=== PATIENT | male | born 1945 | race Caucasian/White ===

== ENCOUNTER 2022-04-25 05:29 | Observation (INO) ==
--- NOTE | 2022-04-25 05:48 | Emergency Department Note ---
Impression & Plan Dizziness ADMIT ED Provider Note HPI: The patient is a 77-year-old gentleman with history of hypertension, presents the emergency department with a chief complaint of dizziness. Patient states that for the past week he has felt a general sensation of dizziness after he fell in the bathroom and hit his head. Patient states that this seemed to acutely worsened overnight last night, states that he had an episode around 10 PM where he felt short of breath and very anxious, he states this improved and then he slept intermittently for the next 5 or 6 hours, he states when he got up he still felt very dizzy and felt off balance and therefore came to the ED for further assessment. Patient's at the bedside tells me that the patient has not been himself since his fall 1 week ago, he has had some slurred speech, he has been generally dizzy and off balance during this whole time. On arrival here to the ED the patient does exhibit some mild slurred speech which the tells me has been present for the past week, he otherwise does not have any focal deficits, he is otherwise in no acute distress on my initial assessment. ROS: -Neuro: Slurred speech, sensation of dizziness/ataxia status post head injury 1 week ago *10 point review systems was conducted and is otherwise negative unless stated above *Outpatient medications and allergy history reviewed PE: General: Alert, NAD HEENT: Normocephalic, atraumatic Eyes: Extraocular eye movement is intact, no scleral erythema Pulmonary: Clear to auscultation bilaterally, no wheezing Cardio: Regular rate and rhythm GI: Abdomen is soft, nontender : No suprapubic tenderness MSK: No evidence of trauma or malformation of the extremities, no edema Skin: No evidence of rash Neuro: Alert, no focal deficits, there is no ataxia on [id number] testing bilaterally, patient has equal bilateral pc support specialist strength, there is no drift of the upper extremities or lower extremities with testing against gravity Psychiatric: Cooperative residential monitor: - An order was placed for continuous cardiac monitoring - Patient was noted to be in sinus rhythm with rate of 60 EKG: Rate: 66 Rhythm: Sinus rhythm Intervals: SC interval prolonged at 242 ms, otherwise within normal limits ST changes: No ST elevation Time: 0545 NIH STROKE SCALE: 1A: Level of consciousness Alert; keenly responsive 0 1B: Ask month and age Both questions right 0 1C: 'Blink eyes' & 'squeeze hands' Performs both tasks 0 2: Horizontal extraocular movements Normal 0 3: Visual petersen No visual loss 0 4: Facial palsy Normal symmetry 0 5A: Left arm motor drift No drift for 10 seconds 0 5B: Right arm motor drift No drift for 10 seconds 0 6A: Left leg motor drift No drift for 5 seconds 0 6B: Right leg motor drift No drift for 5 seconds 0 7: Limb Ataxia No ataxia 0 8: Sensation Normal; no sensory loss 0 9: Language/aphasia Normal; no aphasia 0 10: Dysarthria Mild-moderate dysarthria: slurring but can be understood +1 11: Extinction/inattention No abnormality 0 TOTAL NIH SCORE = 1 Medical Decision Making: Patient presented to the emergency department with 1 week of dizziness after a fall. Patient states he did hit his head 1 week ago when he fell in his home. Patient states his symptoms seem to have acutely worsened overnight. On arrival here to the ED the patient is hemodynamically stable, he does have some slurred speech with his states has been present for about the past week, he otherwise does not have any focal deficits on arrival. He complains of dizziness but does not display any ataxia on [id number] testing bilaterally. Patient is not considered at tPA candidate given that he has been symptomatic for about 1 week. IV was established, lab work obtained, lab work shows stable hemoglobin, no leukocytosis, no critical electrolyte abnormalities are noted, troponin is negative x1, EKG shows normal sinus rhythm. CT imaging of the head does not show any evidence of any acute intracranial process, CT angiography was obtained that shows some mild stenosis at the origin of the right vertebral artery but otherwise does not show any acute abnormalities or significant stenosis of the carotid arteries bilaterally. On my reassessment the patient remains mildly symptomatic, he is otherwise hemodynamically stable and in no acute distress. He has multiple risk factors for ischemic disease including hypertension and type 2 diabetes as well as obesity. I feel that he should be admitted for MRI and TIA work-up. Case was discussed with the on-call hospitalist service for [facility] and the patient was admitted in stable condition for further management. Diagnosis: 1. Dizziness 2. Slurred speech 3. History of hypertension 4. History of type 2 diabetes 5. Obesity with BMI greater than 35 Disposition: Admission Hermes Centeno DO Emergency Medicine Past Med/Surg History Medical History (Updated 04/25/22 @ 07:24 by Hermes Centeno DO) BPH (benign prostatic hyperplasia) Hypertension Hypothyroidism Infectious hepatitis A CHILD, NO PROBLEMS CURRENTLY Surgical History History of cataract surgery BILATERAL History of colonoscopy Social History Smoking Status: Former smoker Second Hand Exposure: No; Hx Alcohol Use: Yes Alcohol type: beer, wine and hard liquor Hx Substance Use: No Preferred Language: Cuban Communication Ability: Effective Building Specialist Required: No Beliefs That Will Affect Care: None Current Living Situation: Significant Other Feels Safe at Home: Yes Allergies Allergies Allergy/AdvReac Type Severity Reaction Status Date / Time No Known Allergies Allergy Verified 12/30/18 09:14 Home Meds Home Medications Medication Instructions Recorded Confirmed amlodipine 10 mg tablet 10 mg PO DAILY 12/26/18 12/30/18 aspirin 81 mg tablet,delayed 81 mg PO DAILY 12/26/18 12/30/18 release (Tatyana Low Dose Aspirin) labetalol 300 mg tablet 300 mg PO BID 12/26/18 12/30/18 levothyroxine 175 mcg tablet 175 mcg PO DAILY 12/26/18 12/30/18 lisinopril 40 mg tablet 40 mg PO DAILY 12/26/18 12/30/18 tamsulosin 0.4 mg capsule 0.4 mg PO DAILY 12/26/18 12/26/18 Previous Rx's Medication Instructions Recorded oxycodone-acetaminophen 5 mg-325 1 tab PO Q6H PRN pain #20 tabs 12/30/18 mg tablet (Percocet) Results & Data (ED) Vital Signs Vital Signs - 24 hr 04/25/22 05:32 04/25/22 06:16 04/25/22 07:14 Temperature 36.2 C L Temperature Source Temporal Artery Scan Pulse Rate 70 Pulse Rate [Apical] 62 60 Respiratory Rate 18 20 20 Respiratory Effort / Characteristics Non-Labored Spontaneous Respiratory Depth Normal Normal Respiratory Pattern Regular Blood Pressure 150/90 H Blood Pressure [Left Arm] 134/86 134/86 Blood Pressure Mean 110 Blood Pressure Mean [Left Arm] 102 102 Pulse Oximetry 96 95 Oxygen Delivery Method Room Air Sepsis Recent Fever Within 48 Hours No Sepsis New/Unexplained Change in Mental Status N/A Sepsis Action Taken by Nursing No Action Required Laboratory Data Result diagrams: 04/25/22 05:48 04/25/22 05:48 Lab Results 04/25/22 04/25/22 04/25/22 Range/Units 05:48 05:48 05:48 WBC 8.09 (4.8-10.8) K/ul RBC 5.14 (4.63-6.08) M/uL Hgb 15.1 (14.0-18.0) g/dl Hct 43.6 (40.1-51.0) % MCV 84.8 (80.0-100.0) fL MCH 29.4 (25.0-34.0) pg MCHC 34.6 (32.0-36.0) g/dL RDW Std Deviation 47.2 H (36.4-46.3) fL RDW Coeff of Darion 15.3 H (11.5-14.5) % Plt Count 190 (130-400) K/uL MPV 9.7 (9.4-12.4) fL Immature Gran % (Auto) 0.2 % Neut % (Auto) 65.6 % Lymph % (Auto) 24.4 % [place] % (Auto) 6.1 % Eos % (Auto) 3.2 % Baso % (Auto) 0.5 % Neut # (Auto) 5.31 (1.4-6.5) K/uL Lymph # (Auto) 1.97 (1.2-3.4) K/uL [place] # (Auto) 0.49 (0.24-0.82) K/uL Eos # (Auto) 0.26 (0-0.50) K/uL Baso # (Auto) 0.04 (0-0.2) K/uL Immature Gran # (Auto) 0.02 (0.00-0.02) K/uL PT 11.9 (9.0-12.0) Seconds INR 1.1 (0.9-1.1) APTT 32.5 H (21.0-31.0) Seconds PTT Ratio 1.2 Sodium 140 (136-145) mmol/L Potassium 3.7 (3.5-5.1) mmol/L Chloride 104 (98-107) mmol/L Carbon Dioxide 26 (21-32) mmol/L Anion Gap 10 (3-11) BUN 18 (6-23) mg/dl Creatinine 1.69 H (0.6-1.4) mg/dl Est Cr Clr Drug Dosing 44.0 ml/min Est GFR ( Amer) 44.4 ml/min Est GFR (Non-Af Amer) 38.3 ml/min BUN/Creatinine Ratio 10.7 (10-20) Glucose 153 H (70-99(Fasting)) mg/dl POC Glucose (70-99) mg/dl Calcium 9.2 (8.5-10.1) mg/dl Magnesium 1.9 (1.7-2.4) mg/dl Total Bilirubin 0.7 (0.2-1.0) mg/dl AST 85 H (13-39) U/L ALT 77 H (7-52) U/L Alkaline Phosphatase 56 (34-104) U/L Troponin I High Sens 11.8 (0-20) pg/ml Total Protein 7.3 (6.0-8.3) gm/dl Albumin 4.3 (3.4-5.0) gm/dl Globulin 3.0 (2.5-4.0) gm/dl Albumin/Globulin Ratio 1.4 (0.9-2) 04/25/22 Range/Units 05:51 WBC (4.8-10.8) K/ul RBC (4.63-6.08) M/uL Hgb (14.0-18.0) g/dl Hct (40.1-51.0) % MCV (80.0-100.0) fL MCH (25.0-34.0) pg MCHC (32.0-36.0) g/dL RDW Std Deviation (36.4-46.3) fL RDW Coeff of Darion (11.5-14.5) % Plt Count (130-400) K/uL MPV (9.4-12.4) fL Immature Gran % (Auto) % Neut % (Auto) % Lymph % (Auto) % [place] % (Auto) % Eos % (Auto) % Baso % (Auto) % Neut # (Auto) (1.4-6.5) K/uL Lymph # (Auto) (1.2-3.4) K/uL [place] # (Auto) (0.24-0.82) K/uL Eos # (Auto) (0-0.50) K/uL Baso # (Auto) (0-0.2) K/uL Immature Gran # (Auto) (0.00-0.02) K/uL PT (9.0-12.0) Seconds INR (0.9-1.1) APTT (21.0-31.0) Seconds PTT Ratio Sodium (136-145) mmol/L Potassium (3.5-5.1) mmol/L Chloride (98-107) mmol/L Carbon Dioxide (21-32) mmol/L Anion Gap (3-11) BUN (6-23) mg/dl Creatinine (0.6-1.4) mg/dl Est Cr Clr Drug Dosing ml/min Est GFR ( Amer) ml/min Est GFR (Non-Af Amer) ml/min BUN/Creatinine Ratio (10-20) Glucose (70-99(Fasting)) mg/dl POC Glucose 143 H (70-99) mg/dl Calcium (8.5-10.1) mg/dl Magnesium (1.7-2.4) mg/dl Total Bilirubin (0.2-1.0) mg/dl AST (13-39) U/L ALT (7-52) U/L Alkaline Phosphatase (34-104) U/L Troponin I High Sens (0-20) pg/ml Total Protein (6.0-8.3) gm/dl Albumin (3.4-5.0) gm/dl Globulin (2.5-4.0) gm/dl Albumin/Globulin Ratio (0.9-2) Administered Medications Discontinued Medications Sodium Chloride (Nss 1000ml) 500 mls @ 999 mls/hr IV .Q31M ONE Stop: 04/25/22 07:22 Last Admin: 04/25/22 07:06 Dose: 999 mls/hr Documented By: ROSI Ioversol (Optiray 320 125ml) 125 ml IV ONCE ONE Stop: 04/25/22 06:50 Last Admin: 04/25/22 06:49 Dose: 118 ml Documented By: MIRLANDE Imaging Data Radiologist's Impression: Head CT 04/25/22 05:45 CT OF THE HEAD WITHOUT CONTRAST CLINICAL HISTORY: Stroke Like Symptoms COMPARISON STUDY: No previous studies for comparison. TECHNIQUE: Helical axial images of the head were obtained without IV contrast. Automated exposure control was utilized for the study. A dose lowering technique was utilized adhering to the principles of ALARA. FINDINGS: No acute intracranial hemorrhage, midline shift or mass effect is present. Matter hypodensity suggests small vessel disease. Exam mildly compromised by motion artifact. The ventricular system is unremarkable. The basal cisterns are patent. No extra-axial collections are present. There are no findings to suggest acute dural sinus thrombosis or acute territorial infarct. No significant calvarial abnormalities are present. Visualized portions of the sinuses and mastoid air cells are clear. IMPRESSION: No acute intracranial findings. ACT 112: Negative or not required by law. Electronically signed by: Antwan Harrell M.D. 04/25/2022 6:58 AM Head CTA 04/25/22 05:45 HEAD CTA HISTORY: Dizziness. Stroke Like Symptoms TECHNIQUE: Multiaxial CT images of the head were performed following the intravenous administration of contrast to evaluate the major cerebral vessels. Maximum intensity projection images were also obtained. A dose lowering technique was utilized adhering to the principles of ALARA. COMPARISON: None. FINDINGS: There is no mass, hematoma, midline shift, or acute infarct. Visualize d intracranial internal carotid arteries, distal vertebral arteries, and basilar artery are widely patent. There is no significant stenosis, occlusion, or aneurysm seen within the bilateral ACAs, MCAs, or road oiler. 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 The major dural venous sinuses are patent. There is a 2.8 mm infundibulum at the takeoff of the right posterior communicating artery. IMPRESSION: No significant stenosis, occlusion, or aneurysm within the [place] of [place]. ACT 112: Negative or not required by law. Electronically signed by: Moises More M.D. 04/25/2022 7:18 AM Neck CTA 04/25/22 05:45 CT ANGIOGRAPHY OF THE NECK WITH CONTRAST CLINICAL HISTORY: Stroke Like Symptoms COMPARISON STUDY: No previous studies for comparison. Technique: CT angiography of the carotid and vertebral arteries was obtained using Optiray and 3D reconstruction on an independent workstation. NASCET criteria was utilized. Automated exposure control was utilized for the study. A dose lowering technique was utilized adhering to the principles of ALARA. CT DOSE: 1391.40 mGy.cm Findings: Origin of the right vertebral artery is suboptimally assessed on this exam however there is suggestion of mild stenosis due to calcified plaque. The right vertebral artery is dominant. No dissection or stenosis is identified within the left vertebral artery. The bilateral common carotid and cervical internal carotid arteries are patent. There is mild atherosclerotic plaque of the aortic arch. No aneurysm within the neck is noted. Carotid bifurcations are patent. CTA of the head will be reported separately. Small bilateral pleural effusions are noted within visualized portions of the chest. There is no acute cervical spine fracture. IMPRESSION: 1. No stenosis within the bilateral common carotid or cervical internal carotid arteries. 2. Suspected mild stenosis at the origin of the right vertebral artery, suboptimally assessed on this exam. 3. Small bilateral pleural effusions. ACT 112: Negative or not required by law. Electronically signed by: Antwan Harrell M.D. 04/25/2022 7:10 AM Discharge Plan Visit Data Chief Complaint: Stroke/CVA Symptoms Stated Complaint: POSSIBLE MINI STROKE,DISORIENTATION ED Provider: Hermes Centeno Discharge Problem: Dizziness Forms Stand Alone Forms: [facility] Prescriptions Prescriptions: No Action levothyroxine 175 mcg Tablet 175 mcg PO DAILY aspirin [Tatyana Low Dose Aspirin] 81 mg Tablet,Delayed Release (Dr/Ec) 81 mg PO DAILY tamsulosin 0.4 mg Capsule 0.4 mg PO DAILY Label Comments: pt states he has not taken in "awhile" amlodipine 10 mg Tablet 10 mg PO DAILY labetalol 300 mg Tablet 300 mg PO BID lisinopril 40 mg Tablet 40 mg PO DAILY oxycodone-acetaminophen [Percocet] 5-325 mg tablet 1 tab PO Q6H PRN (Reason: pain) Qty: 20 0RF Referrals Referrals: Eliel Hoff DO [Primary Care Provider] -
[2022-04-25 06:04] LABS: Basophils # (auto) 0.04 K/uL (0-0.2); Basophils % (auto) 0.5 %; Eosinophils # (auto) 0.26 K/uL (0-0.50); Eosinophils % (auto) 3.2 %; Hematocrit (blood only) 43.6 % (40.1-51.0); Hemoglobin 15.1 g/dl (14.0-18.0); Immature Granulocytes # (auto) 0.02 K/uL (0.00-0.02); Immature Granulocytes % (auto) 0.2 %; Lymphocytes # (auto) 1.97 K/uL (1.2-3.4); Lymphocytes % (auto) 24.4 %; Mean Corpuscular Hemoglobin 29.4 pg (25.0-34.0); Mean Corpuscular Hgb Conc 34.6 g/dL (32.0-36.0); Mean Corpuscular Volume 84.8 fL (80.0-100.0); Mean Platelet Volume 9.7 fL (9.4-12.4); Monocytes # (auto) 0.49 K/uL (0.24-0.82); Monocytes % (auto) 6.1 %; Neutrophils # (auto) 5.31 K/uL (1.4-6.5); Neutrophils % (auto) 65.6 %; Platelet Count 190 K/uL (130-400); RDW Coefficient of Variation 15.3 % (11.5-14.5); RDW Standard Deviation 47.2 fL (36.4-46.3); Red Blood Count 5.14 M/uL (4.63-6.08); White Blood Count 8.09 K/ul (4.8-10.8)
[2022-04-25 06:23] LABS: INR 1.1 (0.9-1.1); Partial Thromboplastin Ratio 1.2; Partial Thromboplastin Time 32.5 Seconds (21.0-31.0); Prothrombin Time 11.9 Seconds (9.0-12.0)
[2022-04-25 06:33] LABS: Troponin I High Sensitivity 11.8 pg/ml (0-20)
[2022-04-25 06:47] LABS: Albumin Globulin Ratio 1.4 (0.9-2); Albumin Level 4.3 gm/dl (3.4-5.0); BUN Creatinine Ratio 10.7 (10-20); Bilirubin,Total 0.7 mg/dl (0.2-1.0); Calcium 9.2 mg/dl (8.5-10.1); Est GFR (African American) 44.4 ml/min; Est GFR (Non-African American) 38.3 ml/min; Magnesium 1.9 mg/dl (1.7-2.4); Potassium 3.7 mmol/L (3.5-5.1); Total Protein 7.3 gm/dl (6.0-8.3)
[2022-04-25] MEDS ORDERED: OPTIRAY 320 125ml IV ONE (06:49)
[2022-04-25] MEDS ORDERED: SODIUM CHLORIDE 0.9% 1000ML 500 ML IV ONE (06:52)
--- NOTE | 2022-04-25 07:01 | CT Scan Report ---
CT OF THE HEAD WITHOUT CONTRAST CLINICAL HISTORY: Stroke Like Symptoms COMPARISON STUDY: No previous studies for comparison. TECHNIQUE: Helical axial images of the head were obtained without IV contrast. Automated exposure con trol was utilized for the study. A dose lowering technique was utilized adhering to the principles o f ALARA. FINDINGS: No acute intracranial hemorrhage, midline shift or mass effect is present. Matter hypodensi ty suggests small vessel disease. Exam mildly compromised by motion artifact. The ventricular system is unremarkable. The basal cisterns are patent. No extra-axial collections are present. There are no findings to suggest acute dural sinus thrombosis or acute territorial infarct. No significant calvari al abnormalities are present. Visualized portions of the sinuses and mastoid air cells are clear. IMPRESSION: No acute intracranial findings. ACT 112: Negative or not required by law. Electronically signed by: Antwan Harrell M.D. 04/25/2022 6:58 AM
--- NOTE | 2022-04-25 07:12 | CT Scan Report ---
CT ANGIOGRAPHY OF THE NECK WITH CONTRAST CLINICAL HISTORY: Stroke Like Symptoms COMPARISON STUDY: No previous studies for comparison. Technique: CT angiography of the carotid and vertebral arteries was obtained using Optiray and 3D rec onstruction on an independent workstation. NASCET criteria was utilized. Automated exposure control was utilized for the study. A dose lowering technique was utilized adhering to the principles of ALA RA. CT DOSE: 1391.40 mGy.cm Findings: Origin of the right vertebral artery is suboptimally assessed on this exam however there is suggestion of mild stenosis due to calcified plaque. The right vertebral artery is dominant. No diss ection or stenosis is identified within the left vertebral artery. The bilateral common carotid and c ervical internal carotid arteries are patent. There is mild atherosclerotic plaque of the aortic arch . No aneurysm within the neck is noted. Carotid bifurcations are patent. CTA of the head will be repo rted separately. Small bilateral pleural effusions are noted within visualized portions of the chest. There is no acute cervical spine fracture. IMPRESSION: 1. No stenosis within the bilateral common carotid or cervical internal carotid arteries. 2. Suspected mild stenosis at the origin of the right vertebral artery, suboptimally assessed on this exam. 3. Small bilateral pleural effusions. ACT 112: Negative or not required by law. Electronically signed by: Antwan Harrell M.D. 04/25/2022 7:10 AM
--- NOTE | 2022-04-25 07:21 | CT Scan Report ---
HEAD CTA HISTORY: Dizziness. Stroke Like Symptoms TECHNIQUE: Multiaxial CT images of the head were performed following the intravenous administration o f contrast to evaluate the major cerebral vessels. Maximum intensity projection images were also obta ined. A dose lowering technique was utilized adhering to the principles of ALARA. COMPARISON: None. FINDINGS: There is no mass, hematoma, midline shift, or acute infarct. Visualized intracranial internal sales al carotid arteries, distal vertebral arteries, and basilar artery are widely patent. There is no sig nificant stenosis, occlusion, or aneurysm seen within the bilateral ACAs, MCAs, or composite technician. 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 The major dural venous sinu ses are patent. There is a 2.8 mm infundibulum at the takeoff of the right posterior communicating ar majo. IMPRESSION: No significant stenosis, occlusion, or aneurysm within the [place] of [place]. ACT 112: Negative or not required by law. Electronically signed by: Moises More M.D. 04/25/2022 7:18 AM
[2022-04-25] MEDS ORDERED: ASPIRIN CHEW 324 MG PO STA (07:47)
--- NOTE | 2022-04-25 09:44 | XRay Report ---
XR chest 1V portable HISTORY: Dizziness. Stroke Like Symptoms COMPARISON: None. FINDINGS: No pneumothorax. No pleural effusions. The cardiac silhouette is mildly enlarged. There is diffuse interstitial thickening. There are low lung volumes. Mild calcified plaque within the aortic knob. IMPRESSION: 1. Mild diffuse interstitial thickening. This is likely chronic. Superimposed congestive change or an interstitial pneumonitis could also have a similar appearance. 2. Mild cardiomegaly. ACT 112: Negative or not required by law. Electronically signed by: Moises More M.D. 04/25/2022 9:24 AM
[2022-04-25] MEDS ORDERED: FUROSEMIDE 40 MG/4 ML VIAL IV STA (09:49)
--- NOTE | 2022-04-25 10:09 | History & Physical Report ---
Date of Service April 25, 2022 Assessment & Plan (1) Dizziness, nonspecific: (2) CHF exacerbation: (3) Type 2 diabetes mellitus: (4) Hypertension: (5) MAURISIO (acute kidney injury): (6) Elevated LFTs: Plan Patient is a 77-year-old male with past medical history of type 2 diabetes me llitus, hypertension, hypothyroidism, BPH presented to the ED with dizziness for 1 week and progressive shortness of breath for 1 month. 1) Dizziness, non-specific ( Stroke rule out) Multiple episodes since 1 week, no focal deficit. CT head unremarkable. CT angio neck showed suspected mild stenosis at origin of right vertebral artery., CT angio head unremarkable. Multiple risk factor including type 2 diabetes, hyperlipidemia and hypertension for stroke. Plan; Resume aspirin, Lipitor. Allow for permissive hypertension for next 24 hours. Holding antihypertensives Neurology consult Obtain MRI brain without contrast. Telemetry monitoring. Orthostatic blood pressure. Obtain lipid panel, A1c and TSH. PT/OT evaluation; may need assistive device swallow evaluation 2) Acute CHFpEF excerebration Progressive shortness of breath for 1 month with orthopnea. Chest auscultationbilateral crackles up to mid chest Chest x-ray shows vascular congestion and cardiomegaly Last echo on EF of 61%, grade 1 diastolic dysfunction, moderate aortic valve sclerosis without stenosis. Plan; Give 1 dose of Lasix 40 mg IV. Repeat dose based on response. Obtain echo with bubble study. Obtain BNP (obesity's and Age with compounding factor) Strict EDDIE's Daily weights 3) MAURISIO ( possible Cardiorenal/ rule out post-renal) Baseline creatinine of 1.1 in 01/13.Up trended to 1.6 on admission History of BPH Plan; Obtain urine electrolytes, urinalysis; CK total, magnesium, ultrasound renal Monitor renal function daily. 4) Elevated LFT AST/ALT twice the upper limit. Plan; -Monitor daily for now. Further evaluation if continues to be elevated. Continue statin for now; will hold if 3 times upper limit 5) Hypertension Plan; Hold antihypertensives for next 24 hours. Will reintroduce after stroke rule out. 6) Type 2 diabetes mellitus A1c in 01/13 was 7.1. On metformin at home Plan; Glargine 10 units at night with aspart for meals. Hypoglycemia protocol 7) Hyperlipidemia Obtained lipid panel. Resume rosuvastatin 8) Hypothyroidism Obtain TSH. Resume home dose levothyroxine Dietcarb controlled DVTLovenox CODE STATUSDNR/DNI Dispo -pending PT OT eval History of Present Illness Chief Complaint: Dizziness for 1 week Progressive shortness of breath/orthopnea for 1 month Primary Care Provider: Eliel Hoff DO Patient is a 77-year-old male with past medical history of type 2 diabetes mellitus, hyperlipidemia, hypothyroidism, BPH presents to the ED with multiple episodes of dizziness. Patient reports that he has been having intermittent episodes of dizziness since 1 week. The dizziness episodes are intermittent in nature; he denies any exacerbating or relieving factors. Last night, patient felt more dizzy than usual while he was lying down and felt disoriented which prompted him to come to the ED for concern for stroke. He also felt more short of breath at that time. The episode had resolved after his arrival to the hospital. He reports that he is not as stable on his feet recently; had 1 fall a week back as well. He reports no head injury, loss of consciousness, abnormal body movements or bladder/bowel incontinence. He does not use any assistive device for walking. Patient's also reports progressive shortness of breath since last 1 month. The shortness of breath is present on mild exertion. He also reports orthopnea and sleeps in an upright position at night. He denies PND. He acknowledges that he has gained weight as well. He denies chest pain, weakness/numbness of any body part, abdominal pain, fever, chills or any urinary symptoms. Patient reports that he is compliant with his medication. He was diagnosed with hypertension at the age of [age] years old. He recently stopped taking aspirin 3 weeks back as he had undergone procedure by urology. He lives at home with his girlfriend. 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 He quitted smoking 30 years back, socially drinks and denies any other illicit drug use. Allergies Allergy/AdvReac Type Severity Reaction Status Date / Time No Known Allergies Allergy Verified 12/30/18 09:14 Home Medications Medication Instructions Recorded Confirmed Type amlodipine 10 mg tablet 10 mg PO DAILY 04/25/22 04/25/22 History finasteride 5 mg tablet 5 mg PO DAILY 04/25/22 04/25/22 History hydrochlorothiazide 25 mg tablet 25 mg PO DAILY 04/25/22 04/25/22 History labetalol 300 mg tablet 300 mg PO BID 04/25/22 04/25/22 History levothyroxine 175 mcg tablet 175 mcg PO DAILY 04/25/22 04/25/22 History lisinopril 40 mg tablet 40 mg PO DAILY 04/25/22 04/25/22 History metformin 500 mg tablet,extended 500 mg PO DAILY 04/25/22 04/25/22 History release 24 hr rosuvastatin 20 mg tablet 20 mg PO DAILY 04/25/22 04/25/22 History tamsulosin 0.4 mg capsule 0.4 mg PO DAILY 04/25/22 04/25/22 History Past Med/Surg History Medical History (Updated 04/25/22 @ 10:34 by Everton Fields MD) BPH (benign prostatic hyperplasia) Hypertension Hypothyroidism Infectious hepatitis A CHILD, NO PROBLEMS CURRENTLY Surgical History History of cataract surgery BILATERAL History of colonoscopy Family History (Updated 04/25/22 @ 11:02 by Everton Fields MD) Father Stroke Bladder cancer Mother Hypertension Social History Smoking Status: Former smoker Second Hand Exposure: No; Hx Alcohol Use: Yes Alcohol type: beer, wine and hard liquor Hx Substance Use: No Preferred Language: Latvian Communication Ability: Effective Food Safety Scientist Required: No Beliefs That Will Affect Care: None Current Living Situation: Significant Other Feels Safe at Home: Yes Review of Systems Review of Systems: All systems reviewed & are unremarkable except as noted in HPI & below Physical Exam Physical Exam: Constitutional: Obese male, in mild respiratory distress. Sitting up on the bed. AOx3. Head: Normocephalic, Atraumatic Eyes: PERRL, conjunctivae normal, anicteric sclerae ENMT: external ear and nose normal, oropharynx normal Neck: trachea midline, no thyromegaly normal visual inspection Respiratory: Bilateral crackles up to mid chest (left greater than right) Cardiovascular: RRR, no murmur.2+ pitting edema up to knees. Chest: normal inspection of chest Abdomen: normal bowel sounds, soft, nontender, no hepatosplenomegaly Musculoskeletal: no cyanosis or clubbing, extremities motor strength 5/5 Skin: no rashes, warm and dry normal turgor Neurologic: No Nystagmus, PERRL, EOMI, accommodation nl, no face palsy, no dysarthria CN's II-XI intact bilaterally and moves all extremities. Finger nose test normal Psychiatric: A+Ox3, euthymic affect Lymphatic: no cervical or axillary lymphadenopathy : deferred Results & Data Results & Data ([facility]) Vital Signs (Past 12 Hours) Vital Signs Temp Pulse Pulse Resp BP BP Pulse Ox 04/25/22 08:11 60 20 126/90 95 04/25/22 07:14 60 20 134/86 04/25/22 06:16 62 20 134/86 95 04/25/22 05:32 36.2 C L 70 18 150/90 H 96 O2 Del Method 04/25/22 08:11 Room Air 04/25/22 07:14 04/25/22 06:16 Room Air 04/25/22 05:32 Diagnostic Findings Chest X-Ray 04/25/22 05:45 XR chest 1V portable HISTORY: Dizziness. Stroke Like Symptoms COMPARISON: None. FINDINGS: No pneumothorax. No pleural effusions. The cardiac silhouette is mildly enlarged. There is diffuse interstitial thickening. There are low lung volumes. Mild calcified plaque within the aortic knob. IMPRESSION: 1. Mild diffuse interstitial thickening. This is likely chronic. Superimposed congestive change or an interstitial pneumonitis could also have a similar appearance. 2. Mild cardiomegaly. ACT 112: Negative or not required by law. Electronically signed by: Moises More M.D. 04/25/2022 9:[address] 04/25/22 05:45 CT OF THE HEAD WITHOUT CONTRAST CLINICAL HISTORY: Stroke Like Symptoms COMPARISON STUDY: No previous studies for comparison. TECHNIQUE: Helical axial images of the head were obtained without IV contrast. Automated exposure control was utilized for the study. A dose lowering technique was utilized adhering to the principles of ALARA. FINDINGS: No acute intracranial hemorrhage, midline shift or mass effect is present. Matter hypodensity suggests small vessel disease. Exam mildly compromised by motion artifact. The ventricular system is unremarkable. The basal cisterns are patent. No extra-axial collections are present. There are no findings to suggest acute dural sinus thrombosis or acute territorial infarct. No significant calvarial abnormalities are present. Visualized portions of the sinuses and mastoid air cells are clear. IMPRESSION: No acute intracranial findings. ACT 112: Negative or not required by law. Electronically signed by: Antwan Harrell M.D. 04/25/2022 6:58 AM Head CTA 04/25/22 05:45 HEAD CTA HISTORY: Dizziness. Stroke Like Symptoms TECHNIQUE: Multiaxial CT images of the head were performed following the intravenous administration of contrast to evaluate the major cerebral vessels. Maximum intensity projection images were also obtained. A dose lowering technique was utilized adhering to the principles of ALARA. COMPARISON: None. FINDINGS: There is no mass, hematoma, midline shift, or acute infarct. Visualized intracranial internal carotid arteries, distal vertebral arteries, and basilar artery are widely patent. There is no significant stenosis, occlusion, or aneurysm seen within the bilateral ACAs, MCAs, or doughnut icer machine. 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 The major dural venous sinuses are patent. There is a 2.8 mm infundibulum at the takeoff of the right posterior communicating artery. IMPRESSION: No significant stenosis, occlusion, or aneurysm within the [place] of [place]. ACT 112: Negative or not required by law. Electronically signed by: Moises More M.D. 04/25/2022 7:18 AM Neck CTA 04/25/22 05:45 CT ANGIOGRAPHY OF THE NECK WITH CONTRAST CLINICAL HISTORY: Stroke Like Symptoms COMPARISON STUDY: No previous studies for comparison. Technique: CT angiography of the carotid and vertebral arteries was obtained using Optiray and 3D reconstruction on an independent workstation. NASCET criteria was utilized. Automated exposure control was utilized for the study. A dose lowering technique was utilized adhering to the principles of ALARA. CT DOSE: 1391.40 mGy.cm Findings: Origin of the right vertebral artery is suboptimally assessed on this exam however there is suggestion of mild stenosis due to calcified plaque. The right vertebral artery is dominant. No dissection or stenosis is identified within the left vertebral artery. The bilateral common carotid and cervical internal carotid arteries are patent. There is mild atherosclerotic plaque of the aortic arch. No aneurysm within the neck is noted. Carotid bifurcations are patent. CTA of the head will be reported separately. Small bilateral pleural effusions are noted within visualized portions of the chest. There is no acute cervical spine fracture. IMPRESSION: 1. No stenosis within the bilateral common carotid or cervical internal carotid arteries. 2. Suspected mild stenosis at the origin of the right vertebral artery, suboptimally assessed on this exam. 3. Small bilateral pleural effusions. ACT 112: Negative or not required by law. Electronically signed by: Antwan Harrell M.D. 04/25/2022 7:10 AM Medications Administered Medication List Discontinued Medications Aspirin (Aspirin Chew 324 Mg) 324 mg PO NOW STA Stop: 04/25/22 07:48 Last Admin: 04/25/22 07:53 Dose: 324 mg Documented By: ROSI Sodium Chloride (Nss 1000ml) 500 mls @ 999 mls/hr IV .Q31M ONE Stop: 04/25/22 07:22 Last Infusion: 04/25/22 07:38 Dose: 0 mls/hr Documented By: Admin: 04/25/22 07:06 Dose: 999 mls/hr Documented By: ROSI Ioversol (Optiray 320 125ml) 125 ml IV ONCE ONE Stop: 04/25/22 06:50 Last Admin: 04/25/22 06:49 Dose: 118 ml Documented By: MIRLANDE ECG Additional Comments: Sinus rhythm with first-degree AV block, ventricular rate 66 bpm, QTC -482 COVID-19 Results Results COVID-19 Adm Lab Results: RBC 5.14 M/uL (4.63-6.08) 04/25/22 WBC 8.09 K/ul (4.8-10.8) 04/25/22 Hgb 15.1 g/dl (14.0-18.0) 04/25/22 Hct 43.6 % (40.1-51.0) 04/25/22 Plt Count 190 K/uL (130-400) 04/25/22 Neutrophils (%) (Auto) 65.6 % 04/25/22 Lymphocytes (%) (Auto) 24.4 % 04/25/22 Monocytes # (Auto) 0.49 K/uL (0.24-0.82) 04/25/22 Eosinophils # (Auto) 0.26 K/uL (0-0.50) 04/25/22 Immature Granulocyte % (Auto) 0.2 % 04/25/22 Neutrophils # (Auto) 5.31 K/uL (1.4-6.5) 04/25/22 Lymphocytes # (Auto) 1.97 K/uL (1.2-3.4) 04/25/22 Monocytes # (Auto) 0.49 K/uL (0.24-0.82) 04/25/22 Eosinophils # (Auto) 0.26 K/uL (0-0.50) 04/25/22 Basophils # (Auto) 0.04 K/uL (0-0.2) 04/25/22 Immature Granulocyte # (Auto) 0.02 K/uL (0.00-0.02) 2 Na 140 mmol/L (136-145) 04/25/22 K 3.7 mmol/L (3.5-5.1) 04/25/22 Cl 104 mmol/L (98-107) 04/25/22 CO2 26 mmol/L (21-32) 04/25/22 Anion Gap 10 (3-11) 04/25/22 BUN 18 mg/dl (6-23) 04/25/22 Creatinine 1.69 mg/dl (0.6-1.4) H 04/25/22 BUN/Creatinine Ratio 10.7 (10-20) 04/25/22 Glucose Level 153 mg/dl (70-99(Fasting)) H 04/25/22 Ca 9.2 mg/dl (8.5-10.1) 04/25/22 Total Bilirubin 0.7 mg/dl (0.2-1.0) 04/25/22 AST/SGOT 85 U/L (13-39) H 04/25/22 ALT/SGPT 77 U/L (7-52) H 04/25/22 Alkaline Phosphatase 56 U/L (34-104) 04/25/22 Total Protein 7.3 gm/dl (6.0-8.3) 04/25/22 Albumin 4.3 gm/dl (3.4-5.0) 04/25/22 Globulin 3.0 gm/dl (2.5-4.0) 04/25/22 Albumin/Globulin Ratio 1.4 (0.9-2) 04/25/22 PTT 32.5 Seconds (21.0-31.0) H 04/25/22 INR 1.1 (0.9-1.1) 04/25/22 SARS-CoV-2, RNA, NAAT NEGATIVE (NEGATIVE) 04/25/22 Chest X-Ray 04/25/22 Code Status & VTE Plan Code Status DNR/DNI VTE Prophylaxis Plan VTE Prophylaxis will be ordered: Yes
--- NOTE | 2022-04-25 11:52 | Electrocardiogram Report ---
Test Reason : Blood Pressure : / mmHG Vent. Rate : 066 BPM Atrial Rate : 066 BPM P-R Int : 242 ms QRS Dur : 104 ms QT Int : 460 ms P-R-T Axes : 077 118 090 degrees QTc Int : 482 ms Poor data quality, interpretation may be adversely affected Sinus rhythm with 1st degree A-V block Low voltage QRS Left posterior fascicular block Nonspecific ST abnormality Abnormal ECG No previous ECGs available Confirmed by Mohan Rueda ([id number]) on 04/25/2022 11:51:57 AM Referred By: REFERRED SELF Confirmed By:Rual Rueda
--- NOTE | 2022-04-25 11:57 | Magnetic Resonance Report ---
MR brain wo con HISTORY: 77 years-old Male Dizziness, stroke rule out acute dizziness COMPARISON: Head CT of same day TECHNIQUE: Multiplanar multisequence MRI of the brain was obtained without the use of IV contrast. FINDINGS: There is no restricted diffusion to suggest acute or subacute infarct. Midline structures appear unre markable. Degenerative changes of the imaged cervical spine. No acute intracranial hemorrhage, midlin e shift, abnormal extra axial collection, hydrocephalus or intracranial mass. There is no pathologic blooming artifact. Involutional changes. Mild to moderate T2/FLAIR hyperintense foci throughout the w sandrita matter suggest chronic microvascular ischemic disease. The cerebral venous sinuses and major arterial flow voids appear patent. Mastoid air cells are genera lly clear. Mild mucosal thickening of the paranasal sinuses. The skull and soft tissues are unremarka ble. Prior bilateral lens repair. IMPRESSION: 1. No acute intracranial abnormality. No acute or subacute infarct. 2. Involutional changes with chronic microvascular ischemic disease. ACT 112: Negative or not required by law. The above report was generated using voice recognition software. It may contain grammatical, syntax o r spelling errors. Electronically signed by: Noe Kat M.D. 04/25/2022 11:56 AM
[2022-04-25] MEDS ORDERED: POLYETHYLENE (MIRALAX) 17 GM PACK PO PRN (12:30)
[2022-04-25] MEDS ORDERED: GLUCOSE 40% GEL 15 GM TUBE PO PRN (12:30)
[2022-04-25] MEDS ORDERED: GLUCOSE 10 TAB/TUBE PO PRN (12:30)
[2022-04-25] MEDS ORDERED: ACETAMINOPHEN 325 MG TAB PO PRN (12:30)
[2022-04-25] MEDS ORDERED: DEXTROSE 50% 50 ML SYRINGE IV PRN (12:30)
[2022-04-25] MEDS ORDERED: CARBOHYDRATES FOR HYPOGLYCEMIA PO PRN (12:30)
[2022-04-25] MEDS ORDERED: GLUCAGON FOR INJ 1 MG VIAL SQ PRN (12:30)
[2022-04-25] MEDS ORDERED: PHARMACIST DISCHARGE MED REC CONSULT PRN (12:30)
--- NOTE | 2022-04-25 12:31 | Ultrasound Report ---
RENAL ULTRASOUND CLINICAL HISTORY: MAURISIO, Hx of BPH COMPARISON STUDY: None. TECHNIQUE: Sonography of the kidneys and the urinary bladder was performed. FINDINGS: Right kidney measures 11.6 x 6.6 x 7.7 cm and the left measures 12.1 x 5 x 6.2 cm. There is no hydronephrosis. Several right renal cysts measure up to 3.5 cm. A few small left renal lesions ar e difficult to assess given their small size and suboptimal penetration. Renal echogenicity is increa sed. Both ureteral jets were identified. Incidental note is made of a 2.5 cm hepatic cyst. Hepatic ec hogenicity is increased. IMPRESSION: 1. No hydronephrosis. 2. Increased renal echogenicity suggestive of medical renal disease. ACT 112: Negative or not required by law. Electronically signed by: Antwan Harrell M.D. 04/25/2022 12:29 PM
[2022-04-25 13:25] LABS: Appearance Urine Clear (Clear); Bilirubin Urine Negative (Negative); Blood Urine Negative (Negative); Color Urine Yellow; Glucose Urine UA Negative (Negative); Ketones Urine Negative (Negative); Leukocyte Esterase Urine Negative (Negative); Nitrite Urine Negative (Negative); Protein Urine Negative (Negative); Specific Gravity Urine 1.014 (1.000-1.030); Urobilinogen Urine Negative (Negative)
[2022-04-25 14:11] LABS: Urine Potassium 23.4 mmol/L
[2022-04-25] MEDS: INSULIN ASPART PER UNIT SC SCH ×3 (14:42→21:52)
[2022-04-25] MEDS: ENOXAPARIN INJ 40 MG/0.4 ML SYR SQ SCH (14:44)
[2022-04-25] MEDS ORDERED: LANTUS PER UNIT CHARGE SQ SCH (21:00)
--- NOTE | 2022-04-26 02:51 | Consultation Report ---
NEUROLOGY CONSULTATION NOTE DATE OF CONSULTATION: 04/25/2022. CHIEF COMPLAINT: Episode of disorientation, dizziness, shortness of breath. HISTORY OF PRESENT ILLNESS: A 77-year-old male with a history of type 2 diabetes, well controlled, hyperlipidemia, hypothyroidism, admitted with an episode, which he describes as feeling disoriented, dizzy and short of breath. Symptoms occurred early this morning upon awakening. He denies vertigo or room spinning. He denies trouble speaking or numbness or weakness. He woke and felt short of breath as well as he was disoriented. He then stood to go use the restroom and felt dizzy upon standing. Dizziness has since resolved. Dizziness was not present while lying down. He reports feeling fine now, although feeling tired. He does typically take aspirin daily, although it was recently held due to a surgical procedure. He has no prior history of stroke. Neurology was consulted for dizziness evaluation. ALLERGIES: No known drug allergies. HOME MEDICATIONS: Amlodipine, hydrochlorothiazide, labetalol, Synthroid, lisinopril, metformin, Crestor, aspirin 81 mg daily, tamsulosin. PAST MEDICAL HISTORY: Benign prostatic hyperplasia, hypertension, hypothyroidism, obesity. PAST SURGICAL HISTORY: Cataract surgery on both eyes, history of colonoscopy, recent urological procedure. FAMILY HISTORY: His father had stroke and bladder cancer. Mother had hypertension. SOCIAL HISTORY: He is a former smoker. He does drink alcohol, including beer, wine and hard liquor. He has no recent substance use. He lives with his significant other at home. REVIEW OF SYSTEMS: Positive for shortness of breath, disorientation, dizziness. All other review of systems was negative. PHYSICAL EXAMINATION: VITAL SIGNS: Blood pressure 124/84, pulse is 75, respiratory rate is 26, temperature is 36.5 degrees Celsius, oxygen saturations 91% on room air. GENERAL: The patient appears stated age. He is obese. He appears in no acute distress. HEENT: Atraumatic, normocephalic. Eyes are midline. No ptosis. Conjunctivae are normal. LUNGS: Breathing is nonlabored. CARDIAC: Pulses are intact. ABDOMEN: Nontender. SKIN: No skin rash. His mood is normal. NEUROLOGIC: He is awake, alert, oriented to person, place, and time. His extraocular muscles are intact. Pupils are symmetric. Eyes are midline. Face is symmetric. Speech is clear. He is following commands. No aphasia, no nystagmus. Tongue is midline. He has no tremor, no ataxia with [id number] testing. Sensation is intact to light touch. No muscle weakness. Toes are downgoing. DIAGNOSTIC TESTING AND LABORATORY VALUES: Transthoracic echocardiogram showed an ejection fraction of 70%, small pericardial effusion. No evidence of cardiac tamponade. Right ventricle is normal in size. Left ventricle is normal in size. MRI of the brain showed no acute intracranial abnormality. No evidence of acute ischemic stroke, chronic microvascular ischemic changes. Head and neck CTA showed no high-grade stenosis. No large vessel occlusion. Chest x-ray showed mild diffuse interstitial thickening, likely chronic, mild cardiomegaly. Renal ultrasound showed no hydronephrosis, increased renal echogenicity suggestive of medical renal disease. LABS: WBC 8.09, hemoglobin 15.1, platelet count 190. Sodium 140, potassium 3.7, carbon dioxide 26, BUN is 18, creatinine 1.69, glucose 153, AST 85, ALT 77. BNP was 16. Troponin was 11.8, which was within normal limits. Urinalysis showed no evidence of infection. COVID-19 testing was negative. ASSESSMENT AND PLAN: A 77-year-old male with a history of obesity, type 2 diabetes, hyperlipidemia, admitted with acute congestive heart failure/acute kidney injury. Description of the event this morning including disorientation and shortness of breath associated with dizziness upon standing, likely related to acute congestive heart failure Vs orthostasis. He denied any vertigo or ataxia. I do not believe this patient had a TIA. MRI of the brain as well as CTA of the head and neck were reviewed without any evidence of acute intracranial abnormality. No high-grade stenosis. No evidence of acute ischemic stroke or hemorrhage. Discussed with the patient and would recommend to continue home aspirin 81 mg daily when safe after post-surgical procedure. Otherwise, the patient can follow up with his PCP upon discharge. Neurology will sign off for now. Please contact us with any additional questions or concerns. Job ID: [id number] [facility]
[2022-04-26] MEDS ORDERED: LEVOTHYROXINE SODIUM 175 MCG TABLET PO SCH (06:30)
[2022-04-26 07:49] LABS: Basophils # (auto) 0.05 K/uL (0-0.2); Basophils % (auto) 0.6 %; Eosinophils # (auto) 0.22 K/uL (0-0.50); Eosinophils % (auto) 2.8 %; Hematocrit (blood only) 41.9 % (40.1-51.0); Hemoglobin 14.5 g/dl (14.0-18.0); Immature Granulocytes # (auto) 0.03 K/uL (0.00-0.02); Immature Granulocytes % (auto) 0.4 %; Lymphocytes # (auto) 1.88 K/uL (1.2-3.4); Lymphocytes % (auto) 24.1 %; Mean Corpuscular Hemoglobin 28.9 pg (25.0-34.0); Mean Corpuscular Hgb Conc 34.6 g/dL (32.0-36.0); Mean Corpuscular Volume 83.5 fL (80.0-100.0); Mean Platelet Volume 10.1 fL (9.4-12.4); Monocytes # (auto) 0.59 K/uL (0.24-0.82); Monocytes % (auto) 7.6 %; Neutrophils # (auto) 5.04 K/uL (1.4-6.5); Neutrophils % (auto) 64.5 %; Platelet Count 191 K/uL (130-400); RDW Coefficient of Variation 15.5 % (11.5-14.5); RDW Standard Deviation 46.6 fL (36.4-46.3); Red Blood Count 5.02 M/uL (4.63-6.08); White Blood Count 7.81 K/ul (4.8-10.8)
[2022-04-26 08:23] LABS: BUN Creatinine Ratio 11.3 (10-20); Calcium 8.6 mg/dl (8.5-10.1); Creatinine Clr Calc Pharmacy 52.3 ml/min; Est GFR (African American) 47.8 ml/min; Est GFR (Non-African American) 41.3 ml/min; Potassium 3.2 mmol/L (3.5-5.1)
--- NOTE | 2022-04-26 08:30 | Hospitalist Progress Note ---
Date of Service April 26, 2022 Assessment & Plan (1) Dizziness, nonspecific: (2) CHF exacerbation: (3) Type 2 diabetes mellitus: (4) Hypertension: (5) MAURISIO (acute kidney injury): (6) Elevated LFTs: Plan Patient is a 77-year-old male with past medical history of type 2 diabetes m ellitus, hypertension, hypothyroidism, BPH presented to the ED with dizziness for 1 week and progressive shortness of breath for 1 month. 1) Dizziness, non-specific ( Stroke ruled out) Multiple episodes since 1 week, no focal deficit. CT head unremarkable. CT angio neck showed suspected mild stenosis at origin of right vertebral artery., CT angio head unremarkable. Multiple risk factor including type 2 diabetes, hyperlipidemia and hypertension for stroke. Brain MRI - negative for any acute stroke Neurology consulted -no concern for TIA, however recommends to continue aspirin daily a1c 7.9% - follow up w/ PCP LDL 38 - cont. statin PT/OT evaluation; may need assistive device , swallow evaluation TSH elevated over 100 -discussed with the patient, he was unable to take his levothyroxine for several days, he says at least 5 He also does not take it on empty stomach, with no other food Counseled patient to make sure that he does not eat any food for at least 30 minutes after taking the medication. He reports that now he has medication at home and he can continue taking this at home. He is eager to be discharged home, he will need close follow-up with his PCP. 8) Hypothyroidism TSH. Resume home dose levothyroxine TSH elevated over 100 -discussed with the patient, he was unable to take his levothyroxine for several days, he says at least 5 He also does not take it on empty stomach, with no other food Counseled patient to make sure that he does not eat any food for at least 30 minutes after taking the medication. He reports that now he has medication at home and he can continue taking this at home. He is eager to be discharged home, he will need close follow-up with his PCP. 2) Acute CHFpEF excerebration Progressive shortness of breath for 1 month with orthopnea. Chest auscultationbilateral crackles up to mid chest Chest x-ray shows vascular congestion and cardiomegaly Last echo on EF of 61%, grade 1 diastolic dysfunction, moderate aortic valve sclerosis without stenosis. Plan; Give 1 dose of Lasix 40 mg IV. Repeat dose based on response. Obtain echo with bubble study. Obtain BNP (obesity's and Age with compounding factor) Strict EDDIE's Daily weights 3) MAURISIO ( possible Cardiorenal/ rule out post-renal) Baseline creatinine of 1.1 in 01/13.Up trended to 1.6 on admission History of BPH renal US 1. No hydronephrosis. 2. Increased renal echogenicity suggestive of medical renal disease. Cr improved today - will need close outpt follow up 4) Elevated LFT AST/ALT twice the upper limit. No pain at RUQ Follow up as outpt - to ensure downtrending Continue statin for now; will hold if 3 times upper limit 5) Hypertension Resume home meds on DC 6) Type 2 diabetes mellitus A1c in 01/13 was 7.1. On metformin at home Current 7.9% - follow up with PCP 7) Hyperlipidemia Obtained lipid panel. Resume rosuvastatin as above LDL 38 Dietcarb controlled DVTLovenox CODE STATUSDNR/DNI Dispo -plan to DC home Admission and Anticipated Discharge Date Admission Date: April 25, 2022 Subjective Patient seen in follow-up of dizziness, stroke rule out Currently sitting up in bed in NAD Brain imaging negative for stroke, patient also seen by neurology yesterday Reports feeling much better, denies any dizziness, or difficulty with ambulation He is eager to go home No fevers, chills, chest pain, palpitations, shortness of breath Review of Systems Review of Systems: All systems reviewed & are unremarkable except as noted in Subjective Physical Exam Physical Exam: Constitutional: Obese male, AOx3, in NAD Head: Normocephalic, Atraumatic Eyes: PERRL, EOMI, conjunctivae normal, anicteric sclerae ENMT: external ear and nose normal, oropharynx normal Neck: thick Respiratory:CTAB, no wheezing, minimal crackles at left base Cardiovascular: RRR, no murmur, LE min. edema b/l Chest: normal inspection of chest Abdomen: normal bowel sounds, soft, nontender Musculoskeletal: extremities motor strength 5/5 Skin: no rashes, warm and dry normal turgor Neurologic: PERRL, EOMI, no face palsy, no dysarthria, moves all extremities Psychiatric: A+Ox3, euthymic affect Results & Data Results & Data ([facility]) Vital Signs (Past 12 Hours) Vital Signs Temp Pulse Pulse Resp BP BP Pulse Ox 04/26/22 08:00 36.7 C 68 18 127/61 100 04/26/22 04:53 36.6 C 71 20 151/95 H 94 04/25/22 23:15 36.4 C L 62 20 134/84 94 04/25/22 23:00 68 O2 Del Method 04/26/22 08:00 04/26/22 04:53 Room Air 04/25/22 23:15 Room Air 04/25/22 23:00 Laboratory Results 04/26/22 04/26/22 04/26/22 Range/Units 11:15 07:42 06:50 WBC (4.8-10.8) K/ul RBC (4.63-6.08) M/uL Hgb (14.0-18.0) g/dl Hct (40.1-51.0) % MCV (80.0-100.0) fL MCH (25.0-34.0) pg MCHC (32.0-36.0) g/dL RDW Std Deviation (36.4-46.3) fL RDW Coeff of Darion (11.5-14.5) % Plt Count (130-400) K/uL MPV (9.4-12.4) fL Immature Gran % (Auto) % Neut % (Auto) % Lymph % (Auto) % Callahan % (Auto) % Eos % (Auto) % Baso % (Auto) % Neut # (Auto) (1.4-6.5) K/uL Lymph # (Auto) (1.2-3.4) K/uL Callahan # (Auto) (0.24-0.82) K/uL Eos # (Auto) (0-0.50) K/uL Baso # (Auto) (0-0.2) K/uL Immature Gran # (Auto) (0.00-0.02) K/uL Sodium (136-145) mmol/L Potassium (3.5-5.1) mmol/L Chloride (98-107) mmol/L Carbon Dioxide (21-32) mmol/L Anion Gap (3-11) BUN (6-23) mg/dl Creatinine (0.6-1.4) mg/dl Est Cr Clr Drug Dosing ml/min Est GFR ( Amer) ml/min Est GFR (Non-Af Amer) ml/min BUN/Creatinine Ratio (10-20) Glucose (70-99(Fasting)) mg/dl POC Glucose 174 H 138 H (70-99) mg/dl Estimat Average Glucose mg/dl Hemoglobin A1c (4.5-5.6) % Calcium (8.5-10.1) mg/dl Triglycerides (0-150) mg/dl Cholesterol (0-200) mg/dl LDL Cholesterol, Calc mg/dl VLDL Cholesterol, Calc (0-30) mg/dl HDL Cholesterol mg/dl Cholesterol/HDL Ratio (0-5) Procalcitonin 0.05 (0-0.5) ng/ml TSH (0.300-4.500) uIu/ml 04/26/22 04/26/22 04/26/22 Range/Units 06:50 06:50 06:50 WBC (4.8-10.8) K/ul RBC (4.63-6.08) M/uL Hgb (14.0-18.0) g/dl Hct (40.1-51.0) % MCV (80.0-100.0) fL MCH (25.0-34.0) pg MCHC (32.0-36.0) g/dL RDW Std Deviation (36.4-46.3) fL RDW Coeff of Darion (11.5-14.5) % Plt Count (130-400) K/uL MPV (9.4-12.4) fL Immature Gran % (Auto) % Neut % (Auto) % Lymph % (Auto) % Callahan % (Auto) % Eos % (Auto) % Baso % (Auto) % Neut # (Auto) (1.4-6.5) K/uL Lymph # (Auto) (1.2-3.4) K/uL Callahan # (Auto) (0.24-0.82) K/uL Eos # (Auto) (0-0.50) K/uL Baso # (Auto) (0-0.2) K/uL Immature Gran # (Auto) (0.00-0.02) K/uL Sodium 138 (136-145) mmol/L Potassium 3.2 L (3.5-5.1) mmol/L Chloride 104 (98-107) mmol/L Carbon Dioxide 26 (21-32) mmol/L Anion Gap 8 (3-11) BUN 18 (6-23) mg/dl Creatinine 1.59 H (0.6-1.4) mg/dl Est Cr Clr Drug Dosing 52.3 ml/min Est GFR ( Amer) 47.8 ml/min Est GFR (Non-Af Amer) 41.3 ml/min BUN/Creatinine Ratio 11.3 (10-20) Glucose 132 H (70-99(Fasting)) mg/dl POC Glucose (70-99) mg/dl Estimat Average Glucose 180 mg/dl Hemoglobin A1c 7.9 H (4.5-5.6) % Calcium 8.6 (8.5-10.1) mg/dl Triglycerides 121 (0-150) mg/dl Cholesterol 125 (0-200) mg/dl LDL Cholesterol, Calc 38 mg/dl VLDL Cholesterol, Calc 24 (0-30) mg/dl HDL Cholesterol 63 mg/dl Cholesterol/HDL Ratio 2.0 (0-5) Procalcitonin (0-0.5) ng/ml TSH 101.540 H (0.300-4.500) uIu/ml 04/26/22 04/25/22 04/25/22 Range/Units 06:50 20:28 16:32 WBC 7.81 (4.8-10.8) K/ul RBC 5.02 (4.63-6.08) M/uL Hgb 14.5 (14.0-18.0) g/dl Hct 41.9 (40.1-51.0) % MCV 83.5 (80.0-100.0) fL MCH 28.9 (25.0-34.0) pg MCHC 34.6 (32.0-36.0) g/dL RDW Std Deviation 46.6 H (36.4-46.3) fL RDW Coeff of Darion 15.5 H (11.5-14.5) % Plt Count 191 (130-400) K/uL MPV 10.1 (9.4-12.4) fL Immature Gran % (Auto) 0.4 % Neut % (Auto) 64.5 % Lymph % (Auto) 24.1 % Callahan % (Auto) 7.6 % Eos % (Auto) 2.8 % Baso % (Auto) 0.6 % Neut # (Auto) 5.04 (1.4-6.5) K/uL Lymph # (Auto) 1.88 (1.2-3.4) K/uL Callahan # (Auto) 0.59 (0.24-0.82) K/uL Eos # (Auto) 0.22 (0-0.50) K/uL Baso # (Auto) 0.05 (0-0.2) K/uL Immature Gran # (Auto) 0.03 H (0.00-0.02) K/uL Sodium (136-145) mmol/L Potassium (3.5-5.1) mmol/L Chloride (98-107) mmol/L Carbon Dioxide (21-32) mmol/L Anion Gap (3-11) BUN (6-23) mg/dl Creatinine (0.6-1.4) mg/dl Est Cr Clr Drug Dosing ml/min Est GFR ( Amer) ml/min Est GFR (Non-Af Amer) ml/min BUN/Creatinine Ratio (10-20) Glucose (70-99(Fasting)) mg/dl POC Glucose 111 H 142 H (70-99) mg/dl Estimat Average Glucose mg/dl Hemoglobin A1c (4.5-5.6) % Calcium (8.5-10.1) mg/dl Triglycerides (0-150) mg/dl Cholesterol (0-200) mg/dl LDL Cholesterol, Calc mg/dl VLDL Cholesterol, Calc (0-30) mg/dl HDL Cholesterol mg/dl Cholesterol/HDL Ratio (0-5) Procalcitonin (0-0.5) ng/ml TSH (0.300-4.500) uIu/ml Medications Administered Current Inpatient Medications Acetaminophen (Acetaminophen 325 Mg Tab) 650 mg PO Q4H PRN PRN Reason: Pain or Fever Stop: 05/25/22 12:29 Aspirin (Aspirin 81 Mg Ectab) 81 mg PO QAM [facility] Stop: 05/26/22 08:59 Dextrose (Dextrose 50% 50 Ml Syringe) 25 - 50 ml IV UD PRN; Protocol PRN Reason: Hypoglycemia Protocol Stop: 05/25/22 12:29 Enoxaparin Sodium (Enoxaparin Inj 40 Mg/0.4 Ml Syr) 40 mg SQ Q24H PRIMO Stop: 05/25/22 12:59 Last Admin: 04/25/22 14:44 Dose: 40 mg Finasteride (Finasteride 5 Mg Tab) 5 mg PO DAILY PRIMO Stop: 05/26/22 08:59 Glucagon (Glucagon For Inj 1 Mg Vial) 1 mg SQ UD PRN; Protocol PRN Reason: Hypoglycemia Protocol Stop: 05/25/22 12:29 Glucose (Glucose 40% Gel 15 Gm Tube) 15 - 30 gm PO UD PRN; Protocol PRN Reason: Hypoglycemia Protocol Stop: 05/25/22 12:29 Glucose (Glucose 10 Tab/Tube) 4 - 8 tab PO UD PRN; Protocol PRN Reason: Hypoglycemia Treatment Stop: 05/25/22 12:29 Insulin Aspart (Insulin Aspart Per Unit) 0 units SC ACHS PRIMO Stop: 05/25/22 12:29 Last Admin: 04/25/22 21:52 Dose: Not Given Insulin Glargine (Lantus Per Unit Charge) 0 - 10 units SQ HS PRIMO Stop: 05/25/22 20:59 Last Admin: 04/25/22 21:53 Dose: Not Given Levothyroxine Sodium (Levothyroxine Sodium 175 Mcg Tablet) 175 mcg PO DAILYBB PRIMO Stop: 05/26/22 06:29 Miscellaneous (Carbohydrates For Hypoglycemia ) 15 - 30 gm PO UD PRN PRN Reason: Hypoglycemia Protocol Stop: 05/25/22 12:29 Miscellaneous Information (Pharmacist Discharge Med Rec Consult) 1 each N/A UD PRN PRN Reason: Consult Stop: 05/25/22 12:29 Polyethylene Glycol (Polyethylene (Miralax) 17 Gm Pack) 17 gm PO DAILY PRN PRN Reason: Constipation Stop: 05/25/22 12:29 Rosuvastatin Calcium (Rosuvastatin Calcium 20 Mg Tab) 20 mg PO DAILY PRIMO Stop: 05/26/22 08:59 Tamsulosin HCl (Tamsulosin Hcl 0.4 Mg Cap) 0.4 mg PO DAILY PRIMO Stop: 05/26/22 08:59
[2022-04-26 08:59] LABS: Estimated Average Glucose 180 mg/dl; Hemoglobin A1C 7.9 % (4.5-5.6)
[2022-04-26] MEDS ORDERED: FINASTERIDE 5 MG TAB PO SCH (09:00)
[2022-04-26] MEDS ORDERED: TAMSULOSIN HCL 0.4 MG CAP PO SCH (09:00)
[2022-04-26] MEDS ORDERED: ROSUVASTATIN CALCIUM 20 MG TAB PO SCH (09:00)
[2022-04-26] MEDS ORDERED: ASPIRIN 81 MG ECTAB PO SCH (09:00)
[2022-04-26] MEDS: INSULIN ASPART PER UNIT SC SCH ×2 (09:02→11:47)
[2022-04-26] MEDS: ENOXAPARIN INJ 40 MG/0.4 ML SYR SQ SCH (13:08)
[2022-04-26] MEDS ORDERED: POTASSIUM CHLORIDE CRTAB 20 MEQ TABCR PO ONE (14:07)
[2022-04-26] MEDS ORDERED: FUROSEMIDE INJ 20 MG/2 ML VIAL IV ONE (15:09)
--- NOTE | 2022-04-26 15:36 | Discharge Summary ---
Date of Service April 26, 2022 Admission HPI Per Admitting Provider Patient is a 77-year-old male with past medical history of type 2 diabetes mellitus, hyperlipidemia, hypothyroidism, BPH presents to the ED with multiple episodes of dizziness. Patient reports that he has been having intermittent episodes of dizziness since 1 week. The dizziness episodes are intermittent in nature; he denies any exacerbating or relieving factors. Last night, patient felt more dizzy than usual while he was lying down and felt disoriented which prompted him to come to the ED for concern for stroke. He also felt more short of breath at that time. The episode had resolved after his arrival to the hospital. He reports that he is not as stable on his feet recently; had 1 fall a week back as well. He reports no head injury, loss of consciousness, abnormal body movements or bladder/bowel incontinence. He does not use any assistive device for walking. Patient's also reports progressive shortness of breath since last 1 month. The shortness of breath is present on mild exertion. He also reports orthopnea and sleeps in an upright position at night. He denies PND. He acknowledges that he has gained weight as well. He denies chest pain, weakness/numbness of any body part, abdominal pain, fever, chills or any urinary symptoms. Patient reports that he is compliant with his medication. He was diagnosed with hypertension at the age of [age] years old. He recently stopped taking aspirin 3 weeks back as he had undergone procedure by urology. He lives at home with his girlfriend. 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 He quitted smoking 30 years back, socially drinks and denies any other illicit drug use. Admission Exam Per Admitting Provider Constitutional: Obese male, inmild respiratory distress. Sitting up on the bed. AOx3. Head: Normocephalic, Atraumatic Eyes: PERRL, conjunctivae normal, anicteric sclerae ENMT: external ear and nose normal, oropharynx normal Neck: trachea midline, no thyromegaly normal visual inspection Respiratory:Bilateral crackles up to mid chest (left greater than right) Cardiovascular: RRR, no murmur.2+ pitting edema up to knees. Chest: normal inspection of chest Abdomen: normal bowel sounds, soft, nontender, no hepatosplenomegaly Musculoskeletal: no cyanosis or clubbing, extremities motor strength 5/5 Skin: no rashes, warm and dry normal turgor Neurologic: No Nystagmus, PERRL, EOMI, accommodation nl, no face palsy, no dysarthria CN's II-XI intact bilaterally and moves all extremities. Finger nose test normal Psychiatric: A+Ox3, euthymic affect Lymphatic: no cervical or axillary lymphadenopathy : deferred Principal Diagnosis Dizziness, strokelike symptoms Uncontrolled hypothyroidism MAURISIO Possible mild CHF exacerbation Discharge Exam Constitutional: Obese male, AOx3, in NAD, breathing comfortably on RA Head: Normocephalic, Atraumatic Eyes: PERRL, EOMI, conjunctivae normal, anicteric sclerae ENMT: external ear and nose normal, oropharynx normal Neck: thick Respiratory:CTAB, no wheezing, minimal crackles at left base Cardiovascular: RRR, no murmur, LE min. edema b/l Chest: normal inspection of chest Abdomen: normal bowel sounds, soft, nontender Musculoskeletal: extremities motor strength 5/5 Skin: no rashes, warm and dry normal turgor Neurologic: PERRL, EOMI, no face palsy, no dysarthria, moves all extremities Psychiatric: A+Ox3, euthymic affect Discharge Data Allergies Allergy/AdvReac Type Severity Reaction Status Date / Time No Known Allergies Allergy Verified 12/30/18 09:14 Consultations 04/25/22 07:30 ED Decision to Admit Stat 04/25/22 09:11 Consult Neurology Routine Ordered Studies 04/25/22 05:45 CT angio head w con Stat FINDINGS: There is no mass, hematoma, midline shift, or acute infarct. Visualized intracranial internal carotid arteries, distal vertebral arteries, and basilar artery are widely patent. There is no significant stenosis, occlusion, or aneurysm seen within the bilateral ACAs, MCAs, or ergonomist. 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 The major dural venous sinuses are patent. There is a 2.8 mm infundibulum at the takeoff of the right posterior communicating artery. IMPRESSION: No significant stenosis, occlusion, or aneurysm within the [place]. CT angio neck with con Stat Findings: Origin of the right vertebral artery is suboptimally assessed on this exam however there is suggestion of mild stenosis due to calcified plaque. The right vertebral artery is dominant. No dissection or stenosis is identified within the left vertebral artery. The bilateral common carotid and cervical internal carotid arteries are patent. There is mild atherosclerotic plaque of the aortic arch. No aneurysm within the neck is noted. Carotid bifurcations are patent. CTA of the head will be reported separately. Small bilateral pleural effusions are noted within visualized portions of the chest. There is no acute cervical spine fracture. IMPRESSION: 1. No stenosis within the bilateral common carotid or cervical internal carotid arteries. 2. Suspected mild stenosis at the origin of the right vertebral artery, suboptimally assessed on this exam. 3. Small bilateral pleural effusions. CT head/brain wo con Stat FINDINGS: No acute intracranial hemorrhage, midline shift or mass effect is present. Matter hypodensity suggests small vessel disease. Exam mildly compromised by motion artifact. The ventricular system is unremarkable. The basal cisterns are patent. No extra-axial collections are present. There are no findings to suggest acute dural sinus thrombosis or acute territorial infarct. No significant calvarial abnormalities are present. Visualized portions of the sinuses and mastoid air cells are clear. IMPRESSION: No acute intracranial findings. 04/25/22 09:33 MR brain wo con Routine FINDINGS: There is no restricted diffusion to suggest acute or subacute infarct. Midline structures appear unremarkable. Degenerative changes of the imaged cervical spine. No acute intracranial hemorrhage, midline shift, abnormal extra axial collection, hydrocephalus or intracranial mass. There is no pathologic blooming artifact. Involutional changes. Mild to moderate T2/FLAIR hyperintense foci throughout the white matter suggest chronic microvascular ischemic disease. The cerebral venous sinuses and major arterial flow voids appear patent. Mastoid air cells are generally clear. Mild mucosal thickening of the paranasal sinuses. The skull and soft tissues are unremarkable. Prior bilateral lens repair. IMPRESSION: 1. No acute intracranial abnormality. No acute or subacute infarct. 2. Involutional changes with chronic microvascular ischemic disease. 04/25/22 11:12 US Renal Bladder [US renal/blad retro comp] Routine FINDINGS: Right kidney measures 11.6 x 6.6 x 7.7 cm and the left measures 12.1 x 5 x 6.2 cm. There is no hydronephrosis. Several right renal cysts measure up to 3.5 cm. A few small left renal lesions are difficult to assess given their small size and suboptimal penetration. Renal echogenicity is increased. Both ureteral jets were identified. Incidental note is made of a 2.5 cm hepatic cyst. Hepatic echogenicity is increased. IMPRESSION: 1. No hydronephrosis. 2. Increased renal echogenicity suggestive of medical renal disease. Hospital Course (1) Dizziness, nonspecific: (2) CHF exacerbation: (3) Type 2 diabetes mellitus: (4) Hypertension: (5) MAURISIO (acute kidney injury): (6) Elevated LFTs: Plan Patient is a 77-year-old male with past medical history of type 2 diabetes mellitus, hypertension, hypothyroidism, BPH presented to the ED with dizziness for 1 week and progressive shortness of breath for 1 month. 1) Dizziness, non-specific ( Stroke ruled out) Multiple episodes since 1 week, no focal deficit. CT head unremarkable. CT angio neck showed suspected mild stenosis at origin of right vertebral artery., CT angio head unremarkable. Multiple risk factor including type 2 diabetes, hyperlipidemia and hypertension for stroke. Brain MRI - negative for any acute stroke Neurology consulted -no concern for TIA, however recommends to continue aspirin daily HgbA1c 7.9% - follow up w/ PCP LDL 38 - cont. statin PT/OT evaluation; may need assistive device , swallow evaluation TSH elevated over 100 -discussed with the patient, he was unable to take his levothyroxine for several days, he says at least 5 He also does not take it on empty stomach, with no other food Counseled patient to make sure that he does not eat any food for at least 30 minutes after taking the medication. He reports that now he has medication at home and he can continue taking this at home. He is eager to be discharged home, he will need close follow-up with his PCP. 8) Hypothyroidism - uncontrolled TSH. Resume home dose levothyroxine TSH elevated over 100 -discussed with the patient, he was unable to take his levothyroxine for several days, he says at least 5 He also does not take it on empty stomach, with no other food Counseled patient to make sure that he does not eat any food for at least 30 minutes after taking the medication. He reports that now he has medication at home and he can continue taking this at home. He is eager to be discharged home, he will need close follow-up with his PCP. 2) Possible mild Acute CHFpEF excerebration Progressive shortness of breath for 1 month with orthopnea. Chest auscultationbilateral crackles up to mid chest on admission (resolved next day) Chest x-ray shows vascular congestion and cardiomegaly Last echo on EF of 61%, grade 1 diastolic dysfunction, moderate aortic valve sclerosis without stenosis. Received 1 dose of Lasix 40 mg IV on admission troponin negative BNP negative Obtained echo with bubble study. Study was limited, grossly normal valvular structure and function. LV is grossly normal size. LV systolic function is normal. EF = or >70%. RV systolic function is normal. LA size is normal. RA size is normal. Small alycia cardial effusion. There are no echocardiographic indications of cardiac tamponade. Strict EDDIE's Daily weights 3) MAURISIO ( possible Cardiorenal/ rule out post-renal) Baseline creatinine of 1.1 in 01/13.Up trended to 1.6 on admission History of BPH renal US 1. No hydronephrosis. 2. Increased renal echogenicity suggestive of medical renal disease. Cr improved today - will need close outpt follow up Hold lisinopril for now 4) Elevated LFT AST/ALT twice the upper limit. No pain at RUQ Follow up as outpt - to ensure downtrending Continue statin for now; hold if 3 times upper limit 5) Hypertension Resume home meds on DC 6) Type 2 diabetes mellitus A1c in 01/13 was 7.1. On metformin at home Current 7.9% - follow up with PCP 7) Hyperlipidemia Obtained lipid panel. Resume rosuvastatin as above LDL 38 Dietcarb controlled DVTLovenox CODE STATUSDNR/DNI Dispo -plan to DC home Total Time Total Time Spent Total Time Spent (In Minutes): 40 Discharge Plan Discharge Items Patient Disposition: Home - Self-Care Reason For Visit: stroke rule out, CHF Discharge Diagnosis: Dizziness, strokelike symptoms Uncontrolled hypothyroidism MAURISIO Possible mild CHF exacerbation Activity: Per Instructions section Non-emergency contact: Primary Care Provider Call non-emergency contact if: you have any medication questions and your symptoms worsen Follow-up/Referrals: Eliel Hoff DO [Primary Care Provider] - (Date & Time 04/28/2022 10:20 AM Provider Eliel Hoff DO Department [facility] ) Diet: Carb Consistent or DM2, Heart Healthy and Low Sodium (2gm) Fluids: 1800ml (7 cups) Addtl Attending Provider Instructions: Follow-up with your primary care doctor, the appointment was scheduled for you for April 28. Make sure you continue taking aspirin daily. Make sure you take levothyroxine daily, on empty stomach. Do not have any food for at least 30 minutes after you take levothyroxine. Do not take lisinopril until you see your primary care doctor. You may need repeat blood work on April 28. Pending Studies at Discharge: Yes Studies:: [facility] Stand-Alone Forms: My [facility] [employer], Smoking Cessation Medications and DC Order Prescriptions: New aspirin 81 mg Tablet,Delayed Release (Dr/Ec) 81 mg PO QAM Qty: 30 0RF Continued levothyroxine 175 mcg tablet 175 mcg PO DAILY tamsulosin 0.4 mg capsule 0.4 mg PO DAILY amlodipine 10 mg tablet 10 mg PO DAILY hydrochlorothiazide 25 mg tablet 25 mg PO DAILY labetalol 300 mg tablet 300 mg PO BID lisinopril 40 mg tablet 40 mg PO DAILY metformin 500 mg tablet extended release 24 hr 500 mg PO DAILY finasteride 5 mg tablet 5 mg PO DAILY rosuvastatin 20 mg tablet 20 mg PO DAILY Discharge Orders: Discharge Order (Routine); Ordered 04/26/22 Ordered By: Matthieu Ngo Admission Data Admit Date/Time: 04/25/22 09:11 Attending Provider: Matthieu Ngo Admit Provider: Everton Fields Primary Care Provider: Eliel Hoff Other Providers: Ga Cope ; Kelsi Villalba ; Everton Fields
--- NOTE | 2022-04-26 19:58 | Communication Note ---
Date of Service: April 26, 2022 Code 44 attestation: Is a 77-year-old man was admitted with multiple episodes of dizziness without any focal neurological deficit. He was ruled out for any stroke and was evaluated by neurologist while in the hospital. He was discharged home today with a stable medical condition. His chart, EKG and imaging studies reviewed. By [facility] guidelines, a determination that the admission or continued stay is not medically necessary has been made by a member of the UR committee and a physician for this hospital stay, therefore a Code 44 will be completed and the Inpatient admission will be changed to outpatient. DR Snehal Gutierrez Member UR Committee
[2022-04-28 17:06] LABS: CK Iso Interpretation MACRO CK TYPE 1; CK Total 1745 U/L (44-196); CK-MB 1 % (<5); CK-MM 93 % (95-100)
== END 2022-04-26 16:27 | disposition home or self-care (01) | DRG 291 ==
LOC: ED 05:29 → INTOOBSV 09:11 → SUATTDRO 09:11 → EDINP 09:11 → 2S 12:30

== ENCOUNTER 2024-12-23 17:30 | Inpatient (IN) ==
[2024-12-23] MEDS: FUROSEMIDE 40 MG/4 ML VIAL IV ONE (18:17)
[2024-12-23] MEDS: ALBUT/IPRATROP 3MG/0.5MG NEB 3 ML VIAL NEB STA (18:17)
[2024-12-23 18:23] LABS: Basophils # (auto) 0.05 K/uL (0.00-0.20); Basophils % (auto) 0.5 %; Eosinophils # (auto) 0.23 K/uL (0.00-0.50); Eosinophils % (auto) 2.5 %; Hemoglobin 14.7 g/dl (14.0-18.0); Immature Granulocytes # (auto) 0.07 K/uL (0.01-0.20); Immature Granulocytes % (auto) 0.7 %; Lymphocytes # (auto) 1.07 K/uL (1.20-3.40); Lymphocytes % (auto) 11.4 %; Mean Corpuscular Hemoglobin 30.4 pg (25.0-34.0); Mean Corpuscular Volume 86.8 fL (80.0-100.0); Mean Platelet Volume 9.3 fL (9.4-12.4); Monocytes # (auto) 1.18 K/uL (0.11-0.59); Monocytes % (auto) 12.6 %; Neutrophils # (auto) 6.78 K/uL (1.40-6.50); Neutrophils % (auto) 72.3 %; Platelet Count 192 K/uL (130-400); RDW Standard Deviation 43.6 fL (36.4-46.3); Red Blood Count 4.84 M/uL (4.70-6.10); White Blood Count 9.38 K/ul (4.8-10.8)
[2024-12-23 18:34] LABS: Alanine Aminotransferase 27 U/L (7-52); Albumin Globulin Ratio 1.1 (0.9-2); Albumin Level 4.1 gm/dl (3.4-5.0); Alkaline Phosphatase 63 U/L (34-104); Anion Gap 8 (3-11); Aspartate Aminotransferase 38 U/L (13-39); Bilirubin,Total 0.7 mg/dl (0.2-1.0); Blood Urea Nitrogen 21 mg/dl (6-23); Calcium 8.9 mg/dl (8.6-10.3); Carbon Dioxide 25 mmol/L (21-32); Chloride 105 mmol/L (98-107); Globulin 3.6 gm/dl (2.5-4.0); Glucose 127 mg/dl (70-99(Fasting)); Potassium 3.6 mmol/L (3.5-5.1); Sodium 138 mmol/L (136-145); Total Protein 7.7 gm/dl (6.0-8.3)
[2024-12-23 18:39] LABS: Troponin I High Sensitivity 15.9 pg/ml (0-20)
[2024-12-23 18:53] LABS: Influenza A virus by PCR Negative (Neg); Influenza B virus by PCR Negative (Neg); RSV by PCR Negative (Neg); SARS CoV2 RNA(COVID-19) Ceph NEGATIVE (Negative)
[2024-12-23 18:54] LABS: INR 1.1 (0.9-1.1); Partial Thromboplastin Ratio 1.1; Partial Thromboplastin Time 30 Seconds (21-31); Prothrombin Time 11.5 Seconds (9.0-12.0)
--- NOTE | 2024-12-23 19:11 | XRay Report ---
Clinical History: Chest pain Technique: A frontal view of the chest was obtained Comparison is made to the prior examination dated 04/25/2022 Findings: There are no confluent pulmonary infiltrates. The heart is mildly enlarged. No pleural effusion or pneumothorax is seen. There is suspected mild pulmonary edema. There are suspected old healed right rib fractures Impression: Cardiomegaly and mild pulmonary edema ACT 112: Positive. There are findings on this exam that require communication between the performing entity and the patient following Patient Test Result Information Act ([place] ACT 112) guidelines. Electronically signed by Giovanni Parker 12-23-2024 7:09 PM
[2024-12-23 19:23] LABS: Adenovirus PCR Not Detected (NotDetected); Bordetella parapertussis PCR Not Detected (NotDetected); Bordetella pertussis PCR Not Detected (NotDetected); Chlamydia pneumoniae PCR Not Detected (NotDetected); Coronavirus 229E PCR Not Detected (NotDetected); Coronavirus CoV-2 (COVID19)PCR Not Detected (NotDetected); Coronavirus HKU1 PCR Not Detected (NotDetected); Coronavirus NL63 PCR Not Detected (NotDetected); Coronavirus OC43PCR DETECTED (NotDetected); Human Metapneumovirus PCR Not Detected (NotDetected); Influenza A PCR Not Detected (NotDetected); Influenza B PCR Not Detected (NotDetected); Mycoplasma pneumoniae PCR Not Detected (NotDetected); Parainfluenza Virus 1 PCR Not Detected (NotDetected); Parainfluenza Virus 2 PCR Not Detected (NotDetected); Parainfluenza Virus 3 PCR Not Detected (NotDetected); Parainfluenza Virus 4 PCR Not Detected (NotDetected); Respiratory Syncytial VirusPCR Not Detected (NotDetected); Rhinovirus/Enterovirus PCR Not Detected (NotDetected)
--- NOTE | 2024-12-23 19:51 | Emergency Department Note ---
Impression & Plan Dyspnea, Hypertension, Hypoxia, URI (upper respiratory infection), Bilateral edema of lower extremity, Noncompliance ED Provider Note ED Provider Note NAME: FRANK PRATT AGE:79 SEX: Male : 1945 ARRIVES VIA: EMS INFORMANT: Patient ED PROVIDER(s): Kaylene Gracia DO CHIEF COMPLAINT: Shortness of breath, leg swelling, cough HPI: This is a 79-year-old male presents emergency department with complaints of increased shortness of breath, cough, and bilateral leg swelling. at bedside helps to provide history due to his frequent coarse cough and conversational dyspnea. Patient with worsening cough over the course of 1 week. He states intermittently productive of a yellow sputum. No known sick contacts. states he has also had some intermittent diarrhea. She states he does have a history of congestive heart failure and is a former smoker. She states he does not typically wear oxygen at home. He states he has had some rhinorrhea additionally. He denies sore throat, chest pain, abdominal pain, nausea or vomiting. states he has not been taking his diuretic over the course of the week additionally. She states he does have difficulty getting to the bathroom in time but refuses to wear an adult undergarment. states he was seen by urgent care and given a cough medication and steroids additionally. PAST MEDICAL HISTORY:See Below PAST SURGICAL HISTORY:See Below FAMILY HISTORY:See Below SOCIAL HISTORY:See Below HOME MEDICATIONS:See Below ALLERGIES:See Below VITALS:See Below PHYSICAL EXAMINATION: GENERAL: alert, well appearing, well nourished, no distress, non-toxic EYE EXAM: normal conjunctiva, PERRL and EOM's grossly intact OROPHARYNX: no exudate, no erythema, lips, buccal mucosa, and tongue normal and mucous membranes are dry NECK: supple, no nuchal rigidity, no adenopathy, non-tender LUNGS: Coarse bilaterally to auscultation. Normal chest wall mechanics, no w/r, bibasilar Rales, frequent coarse cough noted HEART: no murmurs, S1 normal and S2 normal ABDOMEN: abdomen soft, non-tender, normo-active bowel sounds, no masses, no rebound or guarding. BACK: Back is symmetrical on inspection and there is no deformity, no midline tenderness, no CVA tenderness. SKIN: no rashes, petechiae, orbruising UPPER EXTREMITIES: upper extremities are grossly normal. FROM, nml pulses b/l. LOWER EXTREMITIES: 2+ b/l pitting edema. FROM, nml pulses b/l. NEURO EXAM: Normal sensorium, cranial nerves II-XII grossly intact, normal speech, no facial droop,nogross weakness of arms, no gross weakness of legs. Gross sensation intact. No ataxia. Vital Signs: reviewed and remarkable Differential Diagnosis: pneumonia, bronchitis, COPD/Asthma exacerbation, pneumothorax, pulmonary embolism, congestive heart failure, acute coronary syndrome, as well as others were considered MEDICAL DECISION MAKING: This is a 79-year-old male presents emergency room due to concern for worsening cough, shortness of breath, lower extremity edema. Patient ill-appearing at bedside, and dyspneic with any conversation. He was noted to have a frequent coarse cough additionally and bibasilar Rales. Labs drawn and sent, IV established, EKG and chest x-ray performed at bedside and interpreted by me and patient monitored on telemetry. Patient given nebulizer treatment. Due to smoking history. After labs and imaging were were resulted, patient given IV Lasix additionally as he has been noncompliant throughout the week and taking his diuretic at home, and was started on Nitropaste due to persistent hypertension and suspected evolving CHF. Nasal swab have been obtained and sent for a viral panel. This was positive for human metapneumovirus additionally. I suspect patient contracted the URI which exacerbated his underlying COPD leading to worsening cough and his concurrent noncompliance with his diuretic at home led to increased fluid retention and volume overload contributing to a CHF exacerbation. Case discussed with the hospitalist team for additional evaluation and management. Consultation(s): 2021: Discussed with Dr. Mohr, [facility] hospitalist, for additional evaluation and management. ER Treatment Provided: See below Diagnostics Interpreted By Me: -ECG: Sinus at 74 with first-degree AV block, normal axis, normal intervals, no acute ST/T wave changes, low voltage noted -Cardiac Monitoring: An order was placed for continuous cardiac monitoring. The monitor shows a rate of 78 with normal sinus rhythm. -Laboratory studies: As stated above and show below. -Imaging studies: cxr: Cardiomegaly noted, no pleural effusion, no focal consolidation, increased interstitial markings suggestive of bilateral pulmonary edema, no wide mediastinum Triage Nursing Note Reviewed Prior/Outside Records Reviewed - Past Med/Surg History Problem List (Updated 12/24/24 @ 14:53 by Sonia Wall PA-C) Hypokalemia Acute heart failure with preserved ejection fraction Noncompliance (Acute) Bilateral edema of lower extremity (Acute) URI (upper respiratory infection) (Acute) Hypoxia (Acute) Hypertension (Acute) Dyspnea (Acute) Elevated LFTs MAURISIO (acute kidney injury) Hypertension Type 2 diabetes mellitus CHF exacerbation Dizziness, nonspecific Dizziness (Acute) Encounter for pre-operative examination Medical History (Updated 12/24/24 @ 14:53 by Sonia Wall PA-C) BPH (benign prostatic hyperplasia) Infectious hepatitis A CHILD, NO PROBLEMS CURRENTLY Hypothyroidism Hypertension Surgical History History of colonoscopy History of cataract surgery BILATERAL Family History (Updated 04/25/22 @ 11:02 by Everton Fields MD) Father Stroke Bladder cancer Mother Hypertension Social History Smoking Status: Former smoker Second Hand Exposure: No; Do You Dip or Chew Tobacco: No; Hx Alcohol Use: Yes Alcohol type: beer and wine Hx Substance Use: No Preferred Language: Egyptian Communication Ability: Effective Medical Donation Professional Required: No Beliefs That Will Affect Care: None Current Living Situation: Significant Other How many Children do You have: 2 Feels Safe at Home: Yes Assistive Devices: Cane and Walker Allergies Allergies Allergy/AdvReac Type Severity Reaction Status Date / Time No Known Allergies Allergy Verified 12/23/24 20:50 Home Meds Home Medications Medication Instructions Recorded Confirmed amlodipine 10 mg tablet 10 mg PO QAM 04/25/22 12/23/24 finasteride 5 mg tablet 5 mg PO QAM 04/25/22 12/23/24 labetalol 300 mg tablet 300 mg PO AMHS 04/25/22 12/23/24 rosuvastatin 20 mg tablet 20 mg PO QAM 04/25/22 12/23/24 benzonatate 100 mg capsule 100 - 200 mg PO TID PRN Cough 12/23/24 12/23/24 cholecalciferol (vitamin D3) 25 25 mcg PO QAM 12/23/24 12/23/24 mcg (1,000 unit) tablet (Vitamin D3) folic acid 1 mg tablet 1 mg PO QAM 12/23/24 12/23/24 furosemide 20 mg tablet 30 mg PO QAM 12/23/24 12/23/24 levothyroxine 150 mcg tablet 150 mcg PO DAILYBB 12/23/24 12/23/24 metformin 500 mg tablet,extended 500 mg PO QAM 12/23/24 12/23/24 release 24 hr nystatin 100,000 unit/mL oral 5 ml PO QID 12/23/24 12/23/24 suspension potassium chloride 10 mEq 10 meq PO QAM 12/23/24 12/23/24 capsule,extended release prednisone 10 mg tablet 10 mg PO UD 12/23/24 12/23/24 semaglutide 0.25 mg or 0.5 mg (2 0.5 mg subcut WK 12/23/24 12/23/24 mg/3 mL) subcutaneous pen injector (Ozempic) solifenacin 10 mg tablet 10 mg PO QAM 12/23/24 12/23/24 vitamin B complex 1 tab PO QAM 12/23/24 12/23/24 Previous Rx's Medication Instructions Recorded aspirin 81 mg tablet,delayed 81 mg PO QAM #30 tabs 04/26/22 release Results & Data (ED) Vital Signs Vital Signs - 24 hr 12/23/24 17:41 12/23/24 18:00 12/23/24 18:03 Temperature 37.2 C Temperature Source Oral Pulse Rate 80 73 Pulse Rate [Apical] Pulse Rate from SpO2 Sensor 73 Pulse Rhythm [Apical] Pulse Strength [Apical] Respiratory Rate 20 16 Respiratory Effort / Characteristics Non-Labored Spontaneous Respiratory Depth Normal Blood Pressure 189/88 H 147/91 H Blood Pressure [Right Arm] Blood Pressure Mean 121 101 Blood Pressure Mean [Right Arm] Blood Pressure Position Sitting Pulse Oximetry 93 92 Oxygen Delivery Method Room Air Nasal Cannula Oxygen Flow Rate 2 Sepsis Recent Fever Within 48 Hours No Sepsis New/Unexplained Change in Mental Status No Sepsis Action Taken by Nursing No Action Required Oxygen Flow Rate - Titration Pulse Oximetry Post Tiitration 12/23/24 18:04 12/23/24 18:04 12/23/24 18:10 Temperature Temperature Source Pulse Rate Pulse Rate [Apical] Pulse Rate from SpO2 Sensor Pulse Rhythm [Apical] Pulse Strength [Apical] Respiratory Rate Respiratory Effort / Characteristics Respiratory Depth Blood Pressure Blood Pressure [Right Arm] Blood Pressure Mean Blood Pressure Mean [Right Arm] Blood Pressure Position Pulse Oximetry 92 92 88 L Oxygen Delivery Method Room Air Room Air Room Air Oxygen Flow Rate Sepsis Recent Fever Within 48 Hours Sepsis New/Unexplained Change in Mental Status Sepsis Action Taken by Nursing Oxygen Flow Rate - Titration 2 Pulse Oximetry Post Tiitration 95 12/23/24 18:12 12/23/24 18:30 12/23/24 18:48 Temperature Temperature Source Pulse Rate 74 74 Pulse Rate [Apical] Pulse Rate from SpO2 Sensor 71 74 Pulse Rhythm [Apical] Pulse Strength [Apical] Respiratory Rate 17 24 Respiratory Effort / Characteristics Respiratory Depth Blood Pressure 180/108 H Blood Pressure [Right Arm] Blood Pressure Mean 153 Blood Pressure Mean [Right Arm] Blood Pressure Position Pulse Oximetry 95 95 Oxygen Delivery Method Nasal Cannula Nasal Cannula Oxygen Flow Rate 2 2 Sepsis Recent Fever Within 48 Hours Sepsis New/Unexplained Change in Mental Status Sepsis Action Taken by Nursing Oxygen Flow Rate - Titration Pulse Oximetry Post Tiitration 12/23/24 18:48 12/23/24 22:04 12/23/24 22:35 Temperature Temperature Source Pulse Rate 74 81 Pulse Rate [Apical] 86 Pulse Rate from SpO2 Sensor Pulse Rhythm [Apical] Regular Pulse Strength [Apical] Normal Respiratory Rate 16 Respiratory Effort / Characteristics Non-Labored Spontaneous Respiratory Depth Normal Blood Pressure Blood Pressure [Right Arm] 156/95 H Blood Pressure Mean Blood Pressure Mean [Right Arm] 115 Blood Pressure Position Pulse Oximetry 92 Oxygen Delivery Method Nasal Cannula Oxygen Flow Rate 3 Sepsis Recent Fever Within 48 Hours Sepsis New/Unexplained Change in Mental Status Sepsis Action Taken by Nursing Oxygen Flow Rate - Titration Pulse Oximetry Post Tiitration Laboratory Data 12/25/24 05:25 12/25/24 05:25 Lab Results 12/23/24 12/23/24 12/23/24 Range/Units 17:50 17:50 17:50 WBC 9.38 (4.8-10.8) K/ul RBC 4.84 (4.70-6.10) M/uL Hgb 14.7 (14.0-18.0) g/dl Hct 42.0 (42.0-52.0) % MCV 86.8 (80.0-100.0) fL MCH 30.4 (25.0-34.0) pg MCHC 35.0 (32.0-36.0) g/dL RDW Std Deviation 43.6 (36.4-46.3) fL RDW Coeff of Darion 14.0 (11.5-14.5) % Plt Count 192 (130-400) K/uL MPV 9.3 L (9.4-12.4) fL Immature Gran % (Auto) 0.7 % Neut % (Auto) 72.3 % Lymph % (Auto) 11.4 % [place] % (Auto) 12.6 % Eos % (Auto) 2.5 % Baso % (Auto) 0.5 % Neut # (Auto) 6.78 H (1.40-6.50) K/uL Lymph # (Auto) 1.07 L (1.20-3.40) K/uL [place] # (Auto) 1.18 H (0.11-0.59) K/uL Eos # (Auto) 0.23 (0.00-0.50) K/uL Baso # (Auto) 0.05 (0.00-0.20) K/uL Immature Gran # (Auto) 0.07 (0.01-0.20) K/uL PT 11.5 (9.0-12.0) Seconds INR 1.1 (0.9-1.1) APTT 30 (21-31) Seconds PTT Ratio 1.1 Sodium 138 (136-145) mmol/L Potassium 3.6 (3.5-5.1) mmol/L Chloride 105 (98-107) mmol/L Carbon Dioxide 25 (21-32) mmol/L Anion Gap 8 (3-11) BUN 21 (6-23) mg/dl Creatinine 1.40 (0.6-1.4) mg/dl Est Cr Clr Drug Dosing Not Reportable eGFR 51.13 BUN/Creatinine Ratio 15.0 (10-20) Glucose 127 H (70-99(Fasting)) mg/dl Calcium 8.9 (8.6-10.3) mg/dl Total Bilirubin 0.7 (0.2-1.0) mg/dl AST 38 (13-39) U/L ALT 27 (7-52) U/L Alkaline Phosphatase 63 (34-104) U/L Troponin I High Sens 15.9 (0-20) pg/ml B-Natriuretic Peptide 32 (0-100) pg/ml Total Protein 7.7 (6.0-8.3) gm/dl Albumin 4.1 (3.4-5.0) gm/dl Globulin 3.6 (2.5-4.0) gm/dl Albumin/Globulin Ratio 1.1 (0.9-2) Adenovirus (PCR) Not Detected (NotDetected) B. pertussis DNA (PCR) Not Detected (NotDetected) B.parapertussis DNA PCR Not Detected (NotDetected) C. pneumoniae DNA (PCR) Not Detected (NotDetected) Coronavirus OC43 (PCR) DETECTED A (NotDetected) Coronavirus HKU1 (PCR) Not Detected (NotDetected) Coronavirus 229E (PCR) Not Detected (NotDetected) SARS-CoV-2 (PCR) NEGATIVE Not Detected (Negative) Coronavirus NL63 (PCR) Not Detected (NotDetected) Human Metapneumovir PCR Not Detected (NotDetected) Influenza Type A (PCR) Negative Not Detected (Neg) Influenza Type B (PCR) Negative (Neg) M. pneumoniae (PCR) (NotDetected) Parainfluenza 1 (PCR) (NotDetected) Parainfluenza 2 (PCR) (NotDetected) Parainfluenza 3 (PCR) (NotDetected) Parainfluenza 4 (PCR) (NotDetected) RSV (RT-PCR) (Neg) RSV (PCR) (NotDetected) Entero/Rhino (PCR) (NotDetected) 12/23/24 Range/Units 17:50 WBC (4.8-10.8) K/ul RBC (4.70-6.10) M/uL Hgb (14.0-18.0) g/dl Hct (42.0-52.0) % MCV (80.0-100.0) fL MCH (25.0-34.0) pg MCHC (32.0-36.0) g/dL RDW Std Deviation (36.4-46.3) fL RDW Coeff of Darion (11.5-14.5) % Plt Count (130-400) K/uL MPV (9.4-12.4) fL Immature Gran % (Auto) % Neut % (Auto) % Lymph % (Auto) % [place] % (Auto) % Eos % (Auto) % Baso % (Auto) % Neut # (Auto) (1.40-6.50) K/uL Lymph # (Auto) (1.20-3.40) K/uL [place] # (Auto) (0.11-0.59) K/uL Eos # (Auto) (0.00-0.50) K/uL Baso # (Auto) (0.00-0.20) K/uL Immature Gran # (Auto) (0.01-0.20) K/uL PT (9.0-12.0) Seconds INR (0.9-1.1) APTT (21-31) Seconds PTT Ratio Sodium (136-145) mmol/L Potassium (3.5-5.1) mmol/L Chloride (98-107) mmol/L Carbon Dioxide (21-32) mmol/L Anion Gap (3-11) BUN (6-23) mg/dl Creatinine (0.6-1.4) mg/dl Est Cr Clr Drug Dosing eGFR BUN/Creatinine Ratio (10-20) Glucose (70-99(Fasting)) mg/dl Calcium (8.6-10.3) mg/dl Total Bilirubin (0.2-1.0) mg/dl AST (13-39) U/L ALT (7-52) U/L Alkaline Phosphatase (34-104) U/L Troponin I High Sens (0-20) pg/ml B-Natriuretic Peptide (0-100) pg/ml Total Protein (6.0-8.3) gm/dl Albumin (3.4-5.0) gm/dl Globulin (2.5-4.0) gm/dl Albumin/Globulin Ratio (0.9-2) Adenovirus (PCR) (NotDetected) B. pertussis DNA (PCR) (NotDetected) B.parapertussis DNA PCR (NotDetected) C. pneumoniae DNA (PCR) (NotDetected) Coronavirus OC43 (PCR) (NotDetected) Coronavirus HKU1 (PCR) (NotDetected) Coronavirus 229E (PCR) (NotDetected) SARS-CoV-2 (PCR) (Negative) Coronavirus NL63 (PCR) (NotDetected) Human Metapneumovir PCR (NotDetected) Influenza Type A (PCR) (Neg) Influenza Type B (PCR) Not Detected (Neg) M. pneumoniae (PCR) Not Detected (NotDetected) Parainfluenza 1 (PCR) Not Detected (NotDetected) Parainfluenza 2 (PCR) Not Detected (NotDetected) Parainfluenza 3 (PCR) Not Detected (NotDetected) Parainfluenza 4 (PCR) Not Detected (NotDetected) RSV (RT-PCR) Negative (Neg) RSV (PCR) Not Detected (NotDetected) Entero/Rhino (PCR) Not Detected (NotDetected) Administered Medications Amlodipine Besylate (Amlodipine Besylate 5 Mg Tab) 10 mg PO [facility] Stop: 01/23/25 08:59 Last Admin: 12/25/24 08:25 Dose: 10 mg Documented By: Admin: 12/24/24 08:03 Dose: 10 mg Documented By: Aspirin (Aspirin 81 Mg Ectab) 81 mg PO [facility] Stop: 01/23/25 08:59 Last Admin: 12/25/24 08:26 Dose: 81 mg Documented By: Admin: 12/24/24 08:04 Dose: 81 mg Documented By: Benzonatate (Benzonatate 100 Mg Capsule) 100 mg PO TID [facility] Stop: 01/23/25 08:59 Last Admin: 12/25/24 08:24 Dose: 100 mg Documented By: Admin: 12/24/24 20:35 Dose: 100 mg Documented By: [facility] Admin: 12/24/24 13:10 Dose: 100 mg Documented By: Admin: 12/24/24 08:13 Dose: 100 mg Documented By: MS Finasteride (Finasteride 5 Mg Tab) 5 mg PO [facility] Stop: 01/23/25 08:59 Last Admin: 12/25/24 08:27 Dose: 5 mg Documented By: Admin: 12/24/24 08:04 Dose: 5 mg Documented By: MS Folic Acid (Folic Acid 1 Mg Tab) 1 mg PO [facility] Stop: 01/23/25 08:59 Last Admin: 12/25/24 08:26 Dose: 1 mg Documented By: Admin: 12/24/24 08:04 Dose: 1 mg Documented By: MS Furosemide (Furosemide 40 Mg/4 Ml Vial) 40 mg IV BID17 [facility] Stop: 01/23/25 08:59 Last Admin: 12/25/24 08:23 Dose: 40 mg Documented By: Admin: 12/24/24 16:23 Dose: 40 mg Documented By: Admin: 12/24/24 08:04 Dose: 40 mg Documented By: Guaifenesin/Dextromethorphan (Guaifenesin/Dextrom Syrup 100mg/10mg 5ml Udc) 5 ml PO Q6H PRN PRN Reason: Cough Stop: 01/22/25 23:57 Last Admin: 12/25/24 08:26 Dose: 5 ml Documented By: Admin: 12/24/24 20:59 Dose: 5 ml Documented By: Admin: 12/24/24 08:04 Dose: 5 ml Documented By: Heparin Sodium (Porcine) (Heparin Sod 5,000 Unit/0.5 Ml Vial) 7,500 units SQ Q12 [facility] Stop: 01/23/25 08:59 Last Admin: 12/25/24 08:23 Dose: 7,500 units Documented By: Admin: 12/24/24 20:19 Dose: 7,500 units Documented By: Admin: 12/24/24 08:13 Dose: 7,500 units Documented By: Insulin Aspart (Insulin Aspart Per Unit Charge) 0 units SC ACHS [facility] Stop: 01/23/25 07:29 Last Admin: 12/25/24 08:24 Dose: 4 units Documented By: ARMAND Co-signed By: APRIL Admin: 12/24/24 20:54 Dose: Not Given Documented By: Admin: 12/24/24 17:35 Dose: 3 units Documented By: KAREEN Co-signed By: HELADIO Admin: 12/24/24 12:31 Dose: 5 units Documented By: Co-signed By: REFUGIO Admin: 12/24/24 08:13 Dose: 2 units Documented By: Co-signed By: COLLINS Insulin Glargine (Lantus Per Unit Charge) 5 units SQ BID [facility] Stop: 01/23/25 08:59 Last Admin: 12/25/24 08:25 Dose: 5 units Documented By: ARMAND Co-signed By: APRIL Admin: 12/24/24 20:54 Dose: 5 units Documented By: ELENA Co-signed By: TRUNG Admin: 12/24/24 09:10 Dose: 5 units Documented By: Co-signed By: RICKY Labetalol HCl (Labetalol Hcl 300 Mg Tab) 300 mg PO AMHS [facility] Stop: 01/23/25 08:59 Last Admin: 12/25/24 08:26 Dose: 300 mg Documented By: Admin: 12/24/24 20:21 Dose: 300 mg Documented By: Admin: 12/24/24 08:04 Dose: 300 mg Documented By: Levalbuterol HCl (Levalbuterol Hcl 0.63 Mg/3 Ml Neb) 0.63 mg NEB Q6H PRN; Protocol PRN Reason: Shortness Of Breath Or Wheezing Stop: 01/23/25 08:09 Last Admin: 12/24/24 14:39 Dose: 0.63 mg Documented By: Admin: 12/24/24 08:25 Dose: 0.63 mg Documented By: HARRISON Levothyroxine Sodium (Levothyroxine Sodium 150 Mcg Tablet) 150 mcg PO DAILYBB [facility] Stop: 01/23/25 06:29 Last Admin: 12/25/24 05:26 Dose: 150 mcg Documented By: Admin: 12/24/24 05:53 Dose: 150 mcg Documented By: ELENA Nystatin (Nystatin Susp 500,000 U/5 Ml Udc) 5 ml PO QID [facility] Stop: 01/03/25 08:59 Last Admin: 12/25/24 08:25 Dose: 5 ml Documented By: Admin: 12/24/24 20:20 Dose: 5 ml Documented By: Admin: 12/24/24 16:23 Dose: 5 ml Documented By: Admin: 12/24/24 13:11 Dose: 5 ml Documented By: Admin: 12/24/24 08:03 Dose: 5 ml Documented By: Oxybutynin Chloride (Oxybutynin Chloride Xl 5 Mg Tabcr) 10 mg PO QAM [facility] Stop: 01/23/25 08:59 Last Admin: 12/25/24 08:25 Dose: 10 mg Documented By: Admin: 12/24/24 08:04 Dose: 10 mg Documented By: Potassium Chloride (Potassium Chloride Crtab 20 Meq Tabcr) 20 meq PO BID [facility] Stop: 01/23/25 08:59 Last Admin: 12/25/24 08:24 Dose: 20 meq Documented By: Admin: 12/24/24 20:35 Dose: 20 meq Documented By: Admin: 12/24/24 09:01 Dose: Not Given Documented By: Prednisone (Prednisone 20 Mg Tab) 20 mg PO DAILY [facility] Stop: 01/23/25 15:29 Last Admin: 12/25/24 08:27 Dose: 20 mg Documented By: Admin: 12/24/24 16:23 Dose: 20 mg Documented By: KAREEN Rosuvastatin Calcium (Rosuvastatin Calcium 20 Mg Tab) 20 mg PO QAM [facility] Stop: 01/23/25 08:59 Last Admin: 12/25/24 08:26 Dose: 20 mg Documented By: Admin: 12/24/24 08:04 Dose: 20 mg Documented By: Vitamin B Complex (Vitamin B Complex Tab) 1 tab PO QAM [facility] Stop: 01/23/25 08:59 Last Admin: 12/25/24 08:25 Dose: 1 tab Documented By: Admin: 12/24/24 08:04 Dose: 1 tab Documented By: Vitamin D (Cholecalciferol 25 Mcg (1000 Units) Tab) 25 mcg PO QAM [facility] Stop: 01/23/25 08:59 Last Admin: 12/25/24 08:26 Dose: 25 mcg Documented By: Admin: 12/24/24 08:04 Dose: 25 mcg Documented By: MS Discontinued Medications Albuterol (Albut/Ipratrop 3mg/0.5mg Neb 3 Ml Vial) 3 ml NEB NOW STA; Protocol Stop: 12/23/24 18:08 Last Admin: 12/23/24 18:17 Dose: 3 ml Documented By: ROLAND Furosemide (Furosemide 40 Mg/4 Ml Vial) 40 mg IV ONE ONE Stop: 12/23/24 18:08 Last Admin: 12/23/24 18:17 Dose: 40 mg Documented By: ROLAND Potassium Chloride (K Joe / Wtr) 10 meq in 100 mls @ 100 mls/hr IV Q1H [facility] Stop: 12/24/24 10:14 Last Infusion: 12/24/24 11:23 Dose: Infused Documented By: Admin: 12/24/24 10:23 Dose: 100 mls/hr Documented By: Infusion: 12/24/24 10:00 Dose: Infused Documented By: Admin: 12/24/24 09:00 Dose: 100 mls/hr Documented By: Nitroglycerin (Nitroglycerin 2% Ointment 30gm Tube) 1 inch EXT NOW ONE Stop: 12/23/24 19:51 Last Admin: 12/23/24 19:57 Dose: 1 inch Documented By: BAL Potassium Chloride (Potassium Chloride 10 Meq Tabcr) 10 meq PO QAM [facility] Stop: 01/23/25 08:59 Last Admin: 12/24/24 08:13 Dose: 10 meq Documented By: Imaging Data Radiologist's Impression: Chest X-Ray 12/23/24 17:46 Clinical History: Chest pain Technique: A frontal view of the chest was obtained Comparison is made to the prior examination dated 04/25/2022 Findings: There are no confluent pulmonary infiltrates. The heart is mildly enlarged. No pleural effusion or pneumothorax is seen. There is suspected mild pulmonary edema. There are suspected old healed right rib fractures Impression: Cardiomegaly and mild pulmonary edema ACT 112: Positive. There are findings on this exam that require communication between the performing entity and the patient following Patient Test Result Information Act ([place] ACT 112) guidelines. Electronically signed by Giovanni Parker 12-23-2024 7:09 PM Discharge Plan Visit Data Chief Complaint: Swelling/Edema to Extremity Stated Complaint: SWELLING IN ANKLES AND HANDS, COUGH ED Provider: Kaylene Garcia Discharge Problem: Dyspnea, Hypertension, Hypoxia, URI (upper respiratory infection), Bilateral edema of lower extremity, Noncompliance Patient Disposition: Admitted As Inpatient Discharge Instructions Interventions: ED Discharge Assessment Last Done: 12/23/24 23:19
[2024-12-23] MEDS: NITROGLYCERIN 2% OINTMENT 30GM TUBE EXT ONE (19:57)
--- NOTE | 2024-12-23 22:58 | History & Physical Report ---
Date of Service December 23, 2024 Assessment & Plan (1) CHF exacerbation: Plan: 79-year-old male with past medical history significant for type 2 diabetes, hyperlipidemia, hypothyroidism, chronic heart failure with preserved ejection fraction, hypertension, stenosis of right vertebral artery, morbid obesity, BPH, urge incontinence, stress incontinence, dizziness, elevated LFTs presents with ongoing cough since last couple of weeks and shortness of breath and lower extremity edema. Patient since about a week is not taking Lasix because of weakness. Denies chest pain. Has some runny nose. No fevers. No headache. No body ache. Appetite is okay. No nausea. No abdominal pain. Normal bowel and bladder movements. Patient oxygen saturations 88 percent on room air. On 2 L saturating okay. Acute CHF exacerbation History of CHF with preserved ejection fraction Was not taking Lasix recently because of ongoing cough and weakness Received IV Lasix 40 mg in the ER Status post [place] in the ER Will continue IV Lasix 40 mg twice daily Daily weights and I's and O's Telemetry Follow echo Cardiology consult in a.m. for further recommendation Coronavirus OC 43 Ongoing cough Droplet precaution Supportive care Diabetes Hold metformin and Ozempic Sliding scale Will follow blood sugars Follow HbA1c levels Hypothyroidism On Synthyroid Hyperlipidemia On statin BPH On Proscar Hypertension On amlodipine, labetalol and diuretics Will monitor Morbid obesity Counseling DVT prophylaxis Heparin subcu Disposition Telemetry Full code. History of Present Illness Chief Complaint: Cough, shortness of breath and lower extremity edema Primary Care Provider: Cindy Serrano MD 79-year-old male with past medical history significant for type 2 diabetes, hyperlipidemia, hypothyroidism, chronic heart failure with preserved ejection fraction, hypertension, stenosis of right vertebral artery, morbid obesity, BPH, urge incontinence, stress incontinence, dizziness, elevated LFTs presents with ongoing cough since last couple of weeks and shortness of breath and lower extremity edema. Patient since about a week is not taking Lasix because of weakness. Denies chest pain. Has some runny nose. No fevers. No headache. No body ache. Appetite is okay. No nausea. No abdominal pain. Normal bowel and bladder movements. Patient oxygen saturations 88 percent on room air. On 2 L saturating okay. Past medical history. As mentioned above Past surgical history. Colonoscopy. Cystourethroscopy with signs prostatic implant. Prostate laser vaporization. TURP. Cataracts. [place] tooth removal. Repair of umbilical hernia. Vasectomy. Social history. Quit smoking in 1976. Smoked 1 pack a day for 20 years. Social drinking. No drug use. Family history. Father had bladder cancer. CAD. CHF. Stroke. Eye problems. Mother had breast cancer. Hypertension. Paternal grandmother had bladder cancer. Allergies Allergy/AdvReac Type Severity Reaction Status Date / Time No Known Allergies Allergy Verified 12/23/24 20:50 Home Medications Medication Instructions Recorded Confirmed Type amlodipine 10 mg tablet 10 mg PO QAM 04/25/22 12/23/24 History finasteride 5 mg tablet 5 mg PO QAM 04/25/22 12/23/24 History labetalol 300 mg tablet 300 mg PO AMHS 04/25/22 12/23/24 History rosuvastatin 20 mg tablet 20 mg PO QAM 04/25/22 12/23/24 History aspirin 81 mg tablet,delayed 81 mg PO QAM #30 tabs 04/26/22 12/23/24 Rx release benzonatate 100 mg capsule 100 - 200 mg PO TID PRN Cough 12/23/24 12/23/24 History cholecalciferol (vitamin D3) 25 25 mcg PO QAM 12/23/24 12/23/24 History mcg (1,000 unit) tablet (Vitamin D3) folic acid 1 mg tablet 1 mg PO QAM 12/23/24 12/23/24 History furosemide 20 mg tablet 30 mg PO QAM 12/23/24 12/23/24 History levothyroxine 150 mcg tablet 150 mcg PO DAILYBB 12/23/24 12/23/24 History metformin 500 mg tablet,extended 500 mg PO QAM 12/23/24 12/23/24 History release 24 hr nystatin 100,000 unit/mL oral 5 ml PO QID 12/23/24 12/23/24 History suspension potassium chloride 10 mEq 10 meq PO QAM 12/23/24 12/23/24 History capsule,extended release prednisone 10 mg tablet 10 mg PO UD 12/23/24 12/23/24 History semaglutide 0.25 mg or 0.5 mg (2 0.5 mg subcut WK 12/23/24 12/23/24 History mg/3 mL) subcutaneous pen injector (Ozempic) solifenacin 10 mg tablet 10 mg PO QAM 12/23/24 12/23/24 History vitamin B complex 1 tab PO QAM 12/23/24 12/23/24 History Past Med/Surg History Problem List (Updated 12/23/24 @ 23:37 by Background Daemon) Noncompliance (Acute) Bilateral edema of lower extremity (Acute) URI (upper respiratory infection) (Acute) Hypoxia (Acute) Hypertension (Acute) Dyspnea (Acute) Elevated LFTs MAURISIO (acute kidney injury) Hypertension Type 2 diabetes mellitus CHF exacerbation Dizziness, nonspecific Dizziness (Acute) Encounter for pre-operative examination Medical History (Updated 12/23/24 @ 23:37 by Background Daemon) BPH (benign prostatic hyperplasia) Infectious hepatitis A CHILD, NO PROBLEMS CURRENTLY Hypothyroidism Hypertension Surgical History History of colonoscopy History of cataract surgery BILATERAL Family History (Updated 04/25/22 @ 11:02 by Everton Fields MD) Father Stroke Bladder cancer Mother Hypertension Social History Smoking Status: Former smoker Second Hand Exposure: No; Do You Dip or Chew Tobacco: No; Hx Alcohol Use: Yes Alcohol type: beer and wine Hx Substance Use: No Preferred Language: Citizen Of [place] Communication Ability: Effective In Home Nanny Required: No Beliefs That Will Affect Care: None Current Living Situation: Significant Other How many Children do You have: 2 Feels Safe at Home: Yes Assistive Devices: Cane and Walker Review of Systems 2 Review of Systems: All systems reviewed & are unremarkable except as noted in HPI & below Physical Exam Physical Exam: General- Not in distress Head- atraumatic Eyes- PERRL. ENT- oropharynx clear Neck- supple, no JVD. Lungs- clear to auscultation mild bibasilar crackles Heart- regular rhythm; no murmur, no gallop. Abdomen- normal bowel sounds, soft, nontender, no distension Extremities- b/l lower extremity edema present, no erythema seen. Neuro- alert, oriented PERRL, no facial palsy; no dysarthria; moves extremities Results & Data Results & Data Vital Signs (Past 12 Hours) Vital Signs Temp Pulse Pulse Resp BP BP Pulse Ox 12/23/24 22:35 81 12/23/24 22:04 86 16 156/95 H 92 12/23/24 18:48 74 12/23/24 18:48 74 24 95 12/23/24 18:30 180/108 H 12/23/24 18:12 74 17 95 12/23/24 18:10 88 L 12/23/24 18:04 92 12/23/24 18:04 92 12/23/24 18:03 73 16 92 12/23/24 18:00 147/91 H 12/23/24 17:41 37.2 C 80 20 189/88 H 93 O2 Del Method O2 Flow Rate 12/23/24 22:35 12/23/24 22:04 Nasal Cannula 3 12/23/24 18:48 12/23/24 18:48 Nasal Cannula 2 12/23/24 18:30 12/23/24 18:12 Nasal Cannula 2 12/23/24 18:10 Room Air 12/23/24 18:04 Room Air 12/23/24 18:04 Room Air 12/23/24 18:03 Nasal Cannula 2 12/23/24 18:00 12/23/24 17:41 Room Air Diagnostic Findings Laboratory Results WBC 9.38 K/ul (4.8-10.8) 12/23/24 17:50 RBC 4.84 M/uL (4.70-6.10) 12/23/24 17:50 Hgb 14.7 g/dl (14.0-18.0) 12/23/24 17:50 Hct 42.0 % (42.0-52.0) 12/23/24 17:50 MCV 86.8 fL (80.0-100.0) 12/23/24 17:50 MCH 30.4 pg (25.0-34.0) 12/23/24 17:50 MCHC 35.0 g/dL (32.0-36.0) 12/23/24 17:50 RDW Std Deviation 43.6 fL (36.4-46.3) 12/23/24 17:50 RDW Coeff of Darion 14.0 % (11.5-14.5) 12/23/24 17:50 Plt Count 192 K/uL (130-400) 12/23/24 17:50 MPV 9.3 fL (9.4-12.4) L 12/23/24 17:50 Immature Gran % (Auto) 0.7 % 12/23/24 17:50 Neut % (Auto) 72.3 % 12/23/24 17:50 Lymph % (Auto) 11.4 % 12/23/24 17:50 Grimes % (Auto) 12.6 % 12/23/24 17:50 Eos % (Auto) 2.5 % 12/23/24 17:50 Baso % (Auto) 0.5 % 12/23/24 17:50 Neut # (Auto) 6.78 K/uL (1.40-6.50) H 12/23/24 17:50 Lymph # (Auto) 1.07 K/uL (1.20-3.40) L 12/23/24 17:50 Grimes # (Auto) 1.18 K/uL (0.11-0.59) H 12/23/24 17:50 Eos # (Auto) 0.23 K/uL (0.00-0.50) 12/23/24 17:50 Baso # (Auto) 0.05 K/uL (0.00-0.20) 12/23/24 17:50 Immature Gran # (Auto) 0.07 K/uL (0.01-0.20) 12/23/24 17:50 PT 11.5 Seconds (9.0-12.0) 12/23/24 17:50 INR 1.1 (0.9-1.1) 12/23/24 17:50 APTT 30 Seconds (21-31) 12/23/24 17:50 PTT Ratio 1.1 12/23/24 17:50 Sodium 138 mmol/L (136-145) 12/23/24 17:50 Potassium 3.6 mmol/L (3.5-5.1) 12/23/24 17:50 Chloride 105 mmol/L (98-107) 12/23/24 17:50 Carbon Dioxide 25 mmol/L (21-32) 12/23/24 17:50 Anion Gap 8 (3-11) 12/23/24 17:50 BUN 21 mg/dl (6-23) 12/23/24 17:50 Creatinine 1.40 mg/dl (0.6-1.4) 12/23/24 17:50 Est Cr Clr Drug Dosing Not Reportable 12/23/24 17:50 eGFR 51.13 12/23/24 17:50 BUN/Creatinine Ratio 15.0 (10-20) 12/23/24 17:50 Glucose 127 mg/dl (70-99(Fasting)) H 12/23/24 17:50 Calcium 8.9 mg/dl (8.6-10.3) 12/23/24 17:50 Total Bilirubin 0.7 mg/dl (0.2-1.0) 12/23/24 17:50 AST 38 U/L (13-39) 12/23/24 17:50 ALT 27 U/L (7-52) 12/23/24 17:50 Alkaline Phosphatase 63 U/L (34-104) 12/23/24 17:50 Troponin I High Sens 15.9 pg/ml (0-20) 12/23/24 17:50 B-Natriuretic Peptide 32 pg/ml (0-100) 12/23/24 17:50 Total Protein 7.7 gm/dl (6.0-8.3) 12/23/24 17:50 Albumin 4.1 gm/dl (3.4-5.0) 12/23/24 17:50 Globulin 3.6 gm/dl (2.5-4.0) 12/23/24 17:50 Albumin/Globulin Ratio 1.1 (0.9-2) 12/23/24 17:50 Adenovirus (PCR) Not Detected (NotDetected) 12/23/24 17:50 B. pertussis DNA (PCR) Not Detected (NotDetected) 12/23/24 17:50 B.parapertussis DNA PCR Not Detected (NotDetected) 12/23/24 17:50 C. pneumoniae DNA (PCR) Not Detected (NotDetected) 12/23/24 17:50 Coronavirus OC43 (PCR) DETECTED (NotDetected) A 12/23/24 17:50 Coronavirus HKU1 (PCR) Not Detected (NotDetected) 12/23/24 17:50 Coronavirus 229E (PCR) Not Detected (NotDetected) 12/23/24 17:50 SARS-CoV-2 (PCR) NEGATIVE (Negative) 12/23/24 17:50 SARS-CoV-2 (PCR) Not Detected (NotDetected) 12/23/24 17:50 Coronavirus NL63 (PCR) Not Detected (NotDetected) 12/23/24 17:50 Human Metapneumovir PCR Not Detected (NotDetected) 12/23/24 17:50 Influenza Type A (PCR) Negative (Neg) 12/23/24 17:50 Influenza Type A (PCR) Not Detected (NotDetected) 12/23/24 17:50 Influenza Type B (PCR) Negative (Neg) 12/23/24 17:50 Influenza Type B (PCR) Not Detected (NotDetected) 12/23/24 17:50 M. pneumoniae (PCR) Not Detected (NotDetected) 12/23/24 17:50 Parainfluenza 1 (PCR) Not Detected (NotDetected) 12/23/24 17:50 Parainfluenza 2 (PCR) Not Detected (NotDetected) 12/23/24 17:50 Parainfluenza 3 (PCR) Not Detected (NotDetected) 12/23/24 17:50 Parainfluenza 4 (PCR) Not Detected (NotDetected) 12/23/24 17:50 RSV (RT-PCR) Negative (Neg) 12/23/24 17:50 RSV (PCR) Not Detected (NotDetected) 12/23/24 17:50 Entero/Rhino (PCR) Not Detected (NotDetected) 12/23/24 17:50 Impressions Chest X-Ray 12/23/24 17:46 Clinical History: Chest pain Technique: A frontal view of the chest was obtained Comparison is made to the prior examination dated 04/25/2022 Findings: There are no confluent pulmonary infiltrates. The heart is mildly enlarged. No pleural effusion or pneumothorax is seen. There is suspected mild pulmonary edema. There are suspected old healed right rib fractures Impression: Cardiomegaly and mild pulmonary edema ACT 112: Positive. There are findings on this exam that require communication between the performing entity and the patient following Patient Test Result Information Act ([place] ACT 112) guidelines. Electronically signed by Giovanni Parker 12-23-2024 7:09 PM ECG Additional Comments: ECG. Sinus rhythm with first-degree AV block rate of 74. Incomplete right bundle branch block. Nonspecific T wave abnormalities. Code Status & VTE Plan VTE Prophylaxis Plan VTE Prophylaxis will be ordered: Yes
[2024-12-23] MEDS ORDERED: DEXTROSE 50% 50 ML SYRINGE IV PRN (23:58)
[2024-12-23] MEDS ORDERED: GLUCAGON FOR INJ 1 MG VIAL SQ PRN (23:58)
[2024-12-23] MEDS ORDERED: GLUCOSE 10 TAB/TUBE PO PRN (23:58)
[2024-12-23] MEDS ORDERED: CARBOHYDRATES FOR HYPOGLYCEMIA PO PRN (23:58)
[2024-12-23] MEDS ORDERED: ACETAMINOPHEN 325 MG TAB PO PRN (23:58)
[2024-12-23] MEDS ORDERED: NITROGLYCERIN SL 0.4 MG/TAB TAB SL PRN (23:58)
[2024-12-23] MEDS ORDERED: GLUCOSE 40% GEL 15 GM TUBE PO PRN (23:58)
[2024-12-23] MEDS ORDERED: POLYETHYLENE (MIRALAX) 17 GM PACK PO PRN (23:58)
[2024-12-24] MEDS: LEVOTHYROXINE SODIUM 150 MCG TABLET PO SCH (05:53)
[2024-12-24 06:31] LABS: Basophils # (auto) 0.05 K/uL (0.00-0.20); Basophils % (auto) 0.6 %; Eosinophils # (auto) 0.16 K/uL (0.00-0.50); Hematocrit (blood only) 41.3 % (42.0-52.0); Hemoglobin 14.5 g/dl (14.0-18.0); Immature Granulocytes # (auto) 0.05 K/uL (0.01-0.20); Immature Granulocytes % (auto) 0.6 %; Lymphocytes # (auto) 1.09 K/uL (1.20-3.40); Lymphocytes % (auto) 13.4 %; Mean Corpuscular Hemoglobin 30.8 pg (25.0-34.0); Mean Corpuscular Hgb Conc 35.1 g/dL (32.0-36.0); Mean Corpuscular Volume 87.7 fL (80.0-100.0); Mean Platelet Volume 9.4 fL (9.4-12.4); Monocytes # (auto) 1.02 K/uL (0.11-0.59); Monocytes % (auto) 12.5 %; Neutrophils # (auto) 5.78 K/uL (1.40-6.50); Neutrophils % (auto) 70.9 %; Platelet Count 173 K/uL (130-400); RDW Coefficient of Variation 13.8 % (11.5-14.5); RDW Standard Deviation 44.2 fL (36.4-46.3); Red Blood Count 4.71 M/uL (4.70-6.10); White Blood Count 8.15 K/ul (4.8-10.8)
[2024-12-24 06:32] LABS: BUN Creatinine Ratio 13.1 (10-20); Calcium 8.4 mg/dl (8.6-10.3); Creatinine Clr Calc Pharmacy 54.4 ml/min; Potassium 3.1 mmol/L (3.5-5.1)
[2024-12-24 06:39] LABS: Troponin I High Sensitivity 16.8 pg/ml (0-20)
[2024-12-24 07:04] LABS: Magnesium 1.9 mg/dl (1.7-2.4)
[2024-12-24] MEDS: NYSTATIN SUSP 500,000 U/5 ML UDC PO SCH (08:03)
[2024-12-24] MEDS: amLODIPine BESYLATE 5 MG TAB PO SCH (08:03)
[2024-12-24] MEDS: ASPIRIN 81 MG ECTAB PO SCH (08:04)
[2024-12-24] MEDS: ROSUVASTATIN CALCIUM 20 MG TAB PO SCH (08:04)
[2024-12-24] MEDS: FOLIC ACID 1 MG TAB PO SCH (08:04)
[2024-12-24] MEDS: FINASTERIDE 5 MG TAB PO SCH (08:04)
[2024-12-24] MEDS: guaiFENesin/DEXTROM SYRUP 100MG/10MG 5ML UDC PO PRN (08:04)
[2024-12-24] MEDS: FUROSEMIDE 40 MG/4 ML VIAL IV SCH (08:04)
[2024-12-24] MEDS: LABETALOL HCL 300 MG TAB PO SCH (08:04)
[2024-12-24] MEDS: CHOLECALCIFEROL 25 MCG (1000 UNITS) TAB PO SCH (08:04)
[2024-12-24] MEDS: OXYBUTYNIN CHLORIDE XL 5 MG TABCR PO SCH (08:04)
[2024-12-24] MEDS: VITAMIN B COMPLEX TAB PO SCH (08:04)
[2024-12-24] MEDS: HEPARIN SOD 5,000 UNIT/0.5 ML VIAL SQ SCH (08:13)
[2024-12-24] MEDS: BENZONATATE 100 MG CAPSULE PO SCH (08:13)
[2024-12-24] MEDS: INSULIN ASPART PER UNIT CHARGE SC SCH (08:13)
[2024-12-24] MEDS: POTASSIUM CHLORIDE 10 MEQ TABCR PO SCH (08:13)
[2024-12-24] MEDS: LEVALBUTEROL HCL 0.63 MG/3 ML NEB NEB PRN (08:25)
--- NOTE | 2024-12-24 08:37 | Electrocardiogram Report ---
Test Reason : Blood Pressure : */* mmHG Vent. Rate : 74 BPM Atrial Rate : 74 BPM P-R Int : 230 ms QRS Dur : 100 ms QT Int : 432 ms P-R-T Axes : 72 52 60 degrees QTcB Int : 479 ms Sinus rhythm with 1st degree A-V block Incomplete right bundle branch block Poor R wave progression, consider anterior NM vs. lead placement vs. LVH Diffuse Minor Nonspecific T wave abnormality Abnormal ECG When compared with ECG of 25-Apr-2022 05:45, Incomplete right bundle branch block is now Present Confirmed by Corby Jones ([id number]) on 12/24/2024 8:36:36 AM Referred By: REFERRED SELF Confirmed By: Corby Jones
[2024-12-24] MEDS: POTASSIUM CHLORIDE / WTR 10 MEQ/100 ML PLCT IV SCH (09:00)
[2024-12-24] MEDS: POTASSIUM CHLORIDE CRTAB 20 MEQ TABCR PO SCH (09:01)
--- NOTE | 2024-12-24 09:04 | Cardiology Consultation ---
Date of Consultation December 24, 2024 Assessment & Plan (1) Acute heart failure with preserved ejection fraction: (2) Noncompliance: (3) URI (upper respiratory infection): (4) Hypokalemia: Plan Patient admitted with viral upper respiratory illness, testing + for form of coronavirus. Treatment/supportive care per hospitalist. Also evidence of volume overload on exam, consistent with acute on chronic HFpEF. . Non compliant with oral diuretics at home. Continue furosemide 40 mg IV BID. Daily weight with standing scale Monitor I+O's Monitor renal function. Hypokalemic this morning and supplemented. recheck this afternoon. Echo with preserved LVEF, no wall motion abnormalities or significant valvular heart disease. Grade I diastolic dysfunciton. Hypertension - controlled -continue amlodipine, labetalol -BP is borderline low, may need to reduce amlodipine. monitor Case discussed with Dr. Ackerman. I spent a total of 60 minutes on the date of service in preparation, delivery, and documentation of the care provided to this patient, excluding any time spent in the performance of separately billed services. Sonia Wall PA-C Department of Cardiology, [facility] This chart was completed in part utilizing Speech Voice Recognition Software. Grammatical errors, random word insertions, pronoun errors, and incomplete sentences are an occasional consequence of this system due to software limitations, ambient noise, and hardware issues. Any formal questions or concerns about the content, text, or information contained within the body of this dictation should be directly addressed to the provider for clarification. Supervising Physician Co-Signing Physician Notes I have personally performed a history and physical examination on the patient. I have reviewed the advance practitioner's documentation, and I agree with, and take responsibility for the plan of care. 79-year-old patient with acute hypoxic respiratory failure secondary to viral bronchitis and acute on chronic heart failure with preserved ejection fraction. Heart failure precipitated by noncompliance with diuretic therapy. Continue IV furosemide 40 mg twice daily. Monitor daily weight, fluid balance, GFR, and electrolytes. Supplement electrolytes as indicated. Maintain serum potassium greater than 4.0, and serum magnesium greater than 2.0. Repeat echocardiogram demonstrating preserved LV systolic function. Consider transition amlodipine to Aldactone during hospitalization. Continue labetalol as ordered. I spent a total of 35 minutes on the date of service in preparation, delivery, and documentation of the care provided to this patient, excluding any time spent in the performance of separately billed services. Jesus Ackerman DO, [facility] History of Present Illness Reason for Consultation: HFpEF Requesting Physician: Bev Hospitalist Attending Physician: Dr. Ackerman History of Present Illness Patient is a 79 year old male who presented to [facility] with worsening SOB and cough. Symptoms started approx 1-2 weeks ago with progressive cough, wheezing, SOB and possible intermittent fevers. Went to urgent care on 12/20 for cough/SOB. Viral URI suspected along with possible CHF exacerbation. Started on prednisone and ordered to have a chest xray but patient declined. It was noted the patient was not taking his diuretics. there was concern by provider for volume overload with edema and crackles on exam. Does not appear diuretics were resumed. Over the next few days patient reported ongoing weakness, SOB with minimal ambulation, and cough. He then presented to ER for evaluation. Tested positive for a strain of the coronavirus on admission. Started on antibiotics, steroids. Chest xray consistent with pulmonary edema. Started on IV lasix 40 mg IV BID. At time of consult, patient resting in bed. Notes ongoing cough and SOB with activity, but improved from admission. No chest pain. Ongoing orthopnea noted. No dizziness or lightheadedness. history includes: 1. Longstanding Hypertension 2. Low HDL dyslipidemia 3. Morbid obesity 4. HFpEF 5. Chronic dyspnea, likely multifactorial with obesity, deconditioning. Negative nuclear stress test 09/2022 6. Mild AI with aortic sclerosis, no stenosis Allergies Allergy/AdvReac Type Severity Reaction Status Date / Time No Known Allergies Allergy Verified 12/23/24 20:50 Home Medications Medication Instructions Recorded Confirmed Type amlodipine 10 mg tablet 10 mg PO QAM 04/25/22 12/23/24 History finasteride 5 mg tablet 5 mg PO QAM 04/25/22 12/23/24 History labetalol 300 mg tablet 300 mg PO AMHS 04/25/22 12/23/24 History rosuvastatin 20 mg tablet 20 mg PO QAM 04/25/22 12/23/24 History aspirin 81 mg tablet,delayed 81 mg PO QAM #30 tabs 04/26/22 12/23/24 Rx release benzonatate 100 mg capsule 100 - 200 mg PO TID PRN Cough 12/23/24 12/23/24 History cholecalciferol (vitamin D3) 25 25 mcg PO QAM 12/23/24 12/23/24 History mcg (1,000 unit) tablet (Vitamin D3) folic acid 1 mg tablet 1 mg PO QAM 12/23/24 12/23/24 History furosemide 20 mg tablet 30 mg PO QAM 12/23/24 12/23/24 History levothyroxine 150 mcg tablet 150 mcg PO DAILYBB 12/23/24 12/23/24 History metformin 500 mg tablet,extended 500 mg PO QAM 12/23/24 12/23/24 History release 24 hr nystatin 100,000 unit/mL oral 5 ml PO QID 12/23/24 12/23/24 History suspension potassium chloride 10 mEq 10 meq PO QAM 12/23/24 12/23/24 History capsule,extended release prednisone 10 mg tablet 10 mg PO UD 12/23/24 12/23/24 History semaglutide 0.25 mg or 0.5 mg (2 0.5 mg subcut WK 12/23/24 12/23/24 History mg/3 mL) subcutaneous pen injector (Ozempic) solifenacin 10 mg tablet 10 mg PO QAM 12/23/24 12/23/24 History vitamin B complex 1 tab PO QAM 12/23/24 12/23/24 History Patient History Medical History (Updated 12/24/24 @ 14:53 by Sonia Wall PA-C) BPH (benign prostatic hyperplasia) Infectious hepatitis A CHILD, NO PROBLEMS CURRENTLY Hypothyroidism Hypertension Surgical History History of colonoscopy History of cataract surgery BILATERAL Family History (Updated 04/25/22 @ 11:02 by Everton Fields MD) Father Stroke Bladder cancer Mother Hypertension Social History Smoking Status: Former smoker Second Hand Exposure: No; Do You Dip or Chew Tobacco: No; Hx Alcohol Use: Yes Alcohol type: beer and wine Hx Substance Use: No Preferred Language: Albanian Communication Ability: Effective Home Care Specialist Required: No Beliefs That Will Affect Care: None Current Living Situation: Significant Other How many Children do You have: 2 Feels Safe at Home: Yes Assistive Devices: Cane and Walker Review of Systems Review of Systems: All systems reviewed & are unremarkable except as noted in HPI & below Physical Exam Constitutional: + ill appearing and + morbidly obese Neck: + thick neck Respiratory: + cough and + tachypneic Auscultation : + diminished lung sounds, + rales and + wheezes Cardiovascular: Rate/Rhythm: regular rate and regular rhythm Heart Sounds: no murmur (distant heart sounds. no audible murmur) Vessels: no JVD Extremities: + edema (2+ pedal, ankle and pretibial edema) Gastrointestinal (Abdomen): normal bowel sounds, soft, nontender, no hepatosplenomegaly Neurologic: PERRL, EOMI, accommodation nl, no face palsy, no dysarthria Results & Data Vital Signs (Past 12 Hours) Vital Signs Temp Pulse Pulse Pulse Resp BP BP 12/24/24 08:25 85 20 12/24/24 08:03 37.0 C 86 18 144/88 H 12/24/24 07:00 79 12/24/24 03:00 36.9 C 87 22 162/90 H 12/24/24 00:10 12/24/24 00:10 36.9 C 92 H 22 157/94 H 12/24/24 00:02 92 H 12/23/24 22:35 81 12/23/24 22:04 86 16 156/95 H Pulse Ox O2 Del Method O2 Flow Rate 12/24/24 08:25 94 Nasal Cannula 2 12/24/24 08:03 94 Nasal Cannula 2.0 12/24/24 07:00 12/24/24 03:00 95 Nasal Cannula 2.0 12/24/24 00:10 Nasal Cannula 2 12/24/24 00:10 94 Nasal Cannula 2 12/24/24 00:02 12/23/24 22:35 12/23/24 22:04 92 Nasal Cannula 3 Laboratory Results Cardiac Enzymes 12/23/24 12/24/24 Range/Units 17:50 05:27 AST 38 (13-39) U/L Troponin I High Sens 15.9 16.8 (0-20) pg/ml B-Natriuretic Peptide 32 (0-100) pg/ml Coagulation 12/23/24 Range/Units 17:50 PT 11.5 (9.0-12.0) Seconds APTT 30 (21-31) Seconds B-Natriuretic Peptide 32 (0-100) pg/ml CBC 12/23/24 12/24/24 Range/Units 17:50 05:27 WBC 9.38 8.15 (4.8-10.8) K/ul RBC 4.84 4.71 (4.70-6.10) M/uL Hgb 14.7 14.5 (14.0-18.0) g/dl Hct 42.0 41.3 L (42.0-52.0) % Plt Count 192 173 (130-400) K/uL Neut # (Auto) 6.78 H 5.78 (1.40-6.50) K/uL Lymph # (Auto) 1.07 L 1.09 L (1.20-3.40) K/uL [place] # (Auto) 1.18 H 1.02 H (0.11-0.59) K/uL Eos # (Auto) 0.23 0.16 (0.00-0.50) K/uL Baso # (Auto) 0.05 0.05 (0.00-0.20) K/uL Comprehensive Metabolic Panel 12/23/24 12/24/24 Range/Units 17:50 05:27 Sodium 138 138 (136-145) mmol/L Potassium 3.6 3.1 L (3.5-5.1) mmol/L Chloride 105 103 (98-107) mmol/L Carbon Dioxide 25 28 (21-32) mmol/L BUN 21 19 (6-23) mg/dl Creatinine 1.40 1.45 H (0.6-1.4) mg/dl Glucose 127 H 138 H (70-99(Fasting)) mg/dl Calcium 8.9 8.4 L (8.6-10.3) mg/dl AST 38 (13-39) U/L ALT 27 (7-52) U/L Alkaline Phosphatase 63 (34-104) U/L Total Protein 7.7 (6.0-8.3) gm/dl Albumin 4.1 (3.4-5.0) gm/dl Intake and Output 12/23/24 12/24/24 12/24/24 22:59 06:59 14:59 Intake Total 200 / 200 Output Total 525 / 525 Balance -325 / -325 Intake: Oral 200 / 200 Output: Urine Amount (Catheter) 525 / 525 [place]/Indwelling 525 / 525 Other: Weight 132.7 kg 130 kg Weight Measurement Method Built in [facility] Built in [facility] Diagnostic Findings Telemetry reviewed: NSR in the 70's EKG reviewed from 12/23/24: NSR with 1st degree AV block incomplete RBBB No significant change from previous EKG reviewed from 12/24/24: No significant change from previous LV systolic function is normal LVEF at 60-65% Moderate concentric LVH Aortic valve sclerosis without stenosis Grade I diastolic dysfunction. Prior outside data reviewed: Nuclear Lexiscan stress test report reviewed dated Sep 2022; Interpretation Summary Lexiscan nuclear stress test is negative for ischemia or scar. Gated SPECT images reveals normal myocardial thickening and wall motion. The LV ejection fraction is calculated at 64%. Compared to study dated November 04, 2020, current study demonstrates normal p erfusion. Echocardiogram report reviewed dated August 30, 2022: Interpretation Summary The examination is adequate to evaluate the referral indication. The LV wall thickness is moderately increased (concentric). The left ventricular wall motion is normal. The qualitative LV ejection fraction is 55-59% (normal). The left ventricular diastolic function is mildly abnormal (grade I). The aortic valve has three leaflets. Moderate aortic valve sclerosis is present. Aortic stenosis is absent. Mild aortic valve regurgitation is present. There is a trace amount of pericardial fluid without effusion, compatible with normal physiology Medications Administered Current Inpatient Medications Acetaminophen (Acetaminophen 325 Mg Tab) 650 mg PO Q4H PRN PRN Reason: Pain or Fever Stop: 01/22/25 23:57 Amlodipine Besylate (Amlodipine Besylate 5 Mg Tab) 10 mg PO QAM [facility] Stop: 01/23/25 08:59 Last Admin: 12/24/24 08:03 Dose: 10 mg Aspirin (Aspirin 81 Mg Ectab) 81 mg PO QAM [facility] Stop: 01/23/25 08:59 Last Admin: 12/24/24 08:04 Dose: 81 mg Benzonatate (Benzonatate 100 Mg Capsule) 100 mg PO TID [facility] Stop: 01/23/25 08:59 Last Admin: 12/24/24 08:13 Dose: 100 mg Dextrose (Dextrose 50% 50 Ml Syringe) 25 - 50 ml IV UD PRN; Protocol PRN Reason: Hypoglycemia Protocol Stop: 01/22/25 23:57 Finasteride (Finasteride 5 Mg Tab) 5 mg PO QAM [facility] Stop: 01/23/25 08:59 Last Admin: 12/24/24 08:04 Dose: 5 mg Folic Acid (Folic Acid 1 Mg Tab) 1 mg PO QAM [facility] Stop: 01/23/25 08:59 Last Admin: 12/24/24 08:04 Dose: 1 mg Furosemide (Furosemide 40 Mg/4 Ml Vial) 40 mg IV [id number] [facility] Stop: 01/23/25 08:59 Last Admin: 12/24/24 08:04 Dose: 40 mg Glucagon (Glucagon For Inj 1 Mg Vial) 1 mg SQ UD PRN; Protocol PRN Reason: Hypoglycemia Protocol Stop: 01/22/25 23:57 Glucose (Glucose 40% Gel 15 Gm Tube) 15 - 30 gm PO UD PRN; Protocol PRN Reason: Hypoglycemia Protocol Stop: 01/22/25 23:57 Glucose (Glucose 10 Tab/Tube) 4 - 8 tab PO UD PRN; Protocol PRN Reason: Hypoglycemia Protocol Stop: 01/22/25 23:57 Guaifenesin/Dextromethorphan (Guaifenesin/Dextrom Syrup 100mg/10mg 5ml Udc) 5 ml PO Q6H PRN PRN Reason: Cough Stop: 01/22/25 23:57 Last Admin: 12/24/24 08:04 Dose: 5 ml Heparin Sodium (Porcine) (Heparin Sod 5,000 Unit/0.5 Ml Vial) 7,500 units SQ Q12 [facility] Stop: 01/23/25 08:59 Last Admin: 12/24/24 08:13 Dose: 7,500 units Potassium Chloride (K Joe / Wtr) 10 meq in 100 mls @ 100 mls/hr IV Q1H [facility] Stop: 12/24/24 10:14 Last Admin: 12/24/24 09:00 Dose: 100 mls/hr Insulin Aspart (Insulin Aspart Per Unit Charge) 0 units SC ACHS [facility] Stop: 01/23/25 07:29 Last Admin: 12/24/24 08:13 Dose: 2 units Insulin Glargine (Lantus Per Unit Charge) 5 units SQ BID [facility] Stop: 01/23/25 08:59 Labetalol HCl (Labetalol Hcl 300 Mg Tab) 300 mg PO AMHS [facility] Stop: 01/23/25 08:59 Last Admin: 12/24/24 08:04 Dose: 300 mg Levalbuterol HCl (Levalbuterol Hcl 0.63 Mg/3 Ml Neb) 0.63 mg NEB Q6H PRN; Protocol PRN Reason: Shortness Of Breath Or Wheezing Stop: 01/23/25 08:09 Last Admin: 12/24/24 08:25 Dose: 0.63 mg Levothyroxine Sodium (Levothyroxine Sodium 150 Mcg Tablet) 150 mcg PO DAILYBB [facility] Stop: 01/23/25 06:29 Last Admin: 12/24/24 05:53 Dose: 150 mcg Miscellaneous (Carbohydrates For Hypoglycemia ) 15 - 30 gm PO UD PRN PRN Reason: Hypoglycemia Protocol Stop: 01/22/25 23:57 Nitroglycerin (Nitroglycerin Sl 0.4 Mg/Tab Tab) 0.4 mg SL Q5M PRN PRN Reason: Chest Pain Stop: 01/22/25 23:57 Nystatin (Nystatin Susp 500,000 U/5 Ml Udc) 5 ml PO QID [facility] Stop: 01/03/25 08:59 Last Admin: 12/24/24 08:03 Dose: 5 ml Oxybutynin Chloride (Oxybutynin Chloride Xl 5 Mg Tabcr) [facility] [place] Stop: 01/23/25 08:59 Last Admin: 12/24/24 08:04 Dose: 10 mg Polyethylene Glycol (Polyethylene (Miralax) 17 Gm Pack) 17 gm PO DAILY PRN PRN Reason: Constipation Stop: 01/22/25 23:57 Potassium Chloride (Potassium Chloride Crtab 20 Meq Tabcr) 20 meq PO BID [facility] Stop: 01/23/25 08:59 Last Admin: 12/24/24 09:01 Dose: Not Given Rosuvastatin Calcium (Rosuvastatin Calcium 20 Mg Tab) [facility] [place] Stop: 01/23/25 08:59 Last Admin: 12/24/24 08:04 Dose: 20 mg Vitamin B Complex (Vitamin B Complex Tab) [facility] [place] Stop: 01/23/25 08:59 Last Admin: 12/24/24 08:04 Dose: 1 tab Vitamin D (Cholecalciferol 25 Mcg (1000 Units) Tab) 25 mcg PO QAM [facility] Stop: 01/23/25 08:59 Last Admin: 12/24/24 08:04 Dose: 25 mcg
[2024-12-24] MEDS: LANTUS PER UNIT CHARGE SQ SCH (09:10)
--- OUTSIDE RECORDS SUMMARY | 2024-12-24 09:13 | External Medical Summary | Summary of Care ---
Author Name Unknown Organization [facility] Address [address] [facility] [address] Phone [phone] Care Team Providers Care Body Painter Name Role Phone Cindy Serrano MD Primary Care Provider [phone] Reason for Visit * Reason Comments Cold Symptoms Congestion Cough C/o "chest cold" wit h nasal congestion x 1 week, cough much worse the past 3 days, pt unable to sleep due to cough Encounter Details Date Type Department Care Team (Latest Contact Info) Description 12/20/2024 2:15 PM EDT Convenient Care Visit [facility] [address] [place] [address] Janice Acosta CRNP [address] [place] [address] Acute cough*; Viral URI with cough; Shortness of breath; Oral thrush; Bibasilar crackles Allergies No known active allergiesdocumented as of this encounter (statuses as of 12/20/2024) Medications Aspirin 81 MG Oral Tablet Delayed Release Take 1 Tablet by mouth in the morning. Active Tadalafil 5 MG Oral Tablet (Cialis) Take 1 Tablet by mouth daily as needed for Erectile Dysfunction. 30 Tablet 6 09/26/19 24 Active Vitamin D 25 MCG (1000 UT) Oral TabletIndications: Vitamin D deficiency Take 1 Tablet by mouth in the morning. 01/14/20 24 Active Dexcom G7 SensorIndications: Type 2 diabetes mellitus without complication, without long-term current use of insulin (HCC) Use 4 Units as directed once a week. 4 Each 01/25/20 24 Active amLODIPine Besylate 10 MG Oral Tablet (Norvasc)Indicatio ns:HTN, goal below 130/80 Take 1 Tablet by mouth in the morning. 90 Tablet 3 02/08/20 24 Active Ozempic (0.25 or 0.5 MG/DOSE) 2 MG/3ML Solution Pen-injector (Semaglutide(0.25 or 0.5MG/DOS))Indicat ions:Type 2 diabetes mellitus without complication, without long-term current use of insulin ([facility]) Inject 0.5 mg under the skin once a week. 9 mL 1 02/22/20 24 Active Rosuvastatin Calcium 20 MG Oral Tablet (Crestor)Indicatio ns:Dyslipidemia Take 1 Tablet by mouth in the morning. 90 Tablet 3 03/13/20 24 Active metFORMIN HCl ER 500 MG Oral Tablet Extended Release 24 Hour (Glucophage XR)Indications:Typ e 2 diabetes mellitus without complication, without long-term current use of insulin (HCC) Take 1 Tablet by mouth in the morning. 90 Tablet 3 04/12/20 24 Active Vitamin B Complex Oral Tablet Take 1 Tablet by mouth in the morning. 04/22/20 24 Active Folic Acid 1 MG Oral Tablet Take 1 Tablet by mouth in the morning. 90 Tablet 3 04/22/20 24 Active Zoster Vac Recomb Adjuvanted 50 MCG/0.5ML Intramuscular Suspension Reconstituted (Shingrix)Indicati ons:Need for shingles vaccine Inject 0.5 mL into a large muscle now and repeat dose in 60 to 180 days 1 Each 1 04/22/20 24 Active Finasteride 5 MG Oral Tablet (Proscar)Indicatio ns:BPH with obstruction/lower urinary tract symptoms Take 1 Tablet by mouth in the morning. 90 Tablet 3 04/24/20 24 Active Solifenacin Succinate 10 MG Oral Tablet (VESIcare) Take 1 Tablet by mouth in the morning. 30 Tablet 6 04/30/20 24 Active Labetalol HCl 300 MG Oral TabletIndications: HTN, goal below 130/80 Take 1 Tablet by mouth in the morning and 1 Tablet before bedtime. 180 Tablet 3 05/03/20 24 Active Potassium Chloride ER 10 MEQ Oral Capsule Extended ReleaseIndications :Generalized edema Take 1 Capsule by mouth in the morning. 90 Capsule 1 05/23/20 24 Active Fluticasone Propionate 50 MCG/ACT Nasal Suspension (Flonase)Indicatio ns:Generalized edema Administer 2 Sprays into each nostril at bedtime. 16 g 5 07/03/20 24 Active Additional Information Patient not taking.Reported on 12/20/2024 Spiriva Respimat 1.25 MCG/ACT Inhalation Aerosol Solution (Tiotropium Omak Monohydrate)Indica tions:COPD, mild (HCC) Inhale 2 Puffs by mouth in the morning. 4 g 5 07/03/20 24 Active Additional Information Patient not taking.Reported on 12/20/2024 Furosemide 20 MG Oral Tablet (Lasix)Indications :Edema, unspecified type Take 1.5 Tablets by mouth in the morning. 135 Tablet 1 07/03/20 24 Active Levothyroxine Sodium 150 MCG Oral Tablet (Levoxyl)Indicatio ns:Acquired hypothyroidism Take 1 Tablet by mouth in the morning. (at least 30 min prior to breakfast or other meds). 90 Tablet 1 08/31/20 24 Active predniSONE 10 MG Oral Tablet (Deltasone)Indicat ions:Acute cough,Viral URI with cough,Shortness of breath Take 3 tabs for 3 days, 2 tabs for 3 days, 1 tabs for 3 days 18 Tablet 12/21/19 25 Active Benzonatate 100 MG Oral CapsuleIndications :Acute cough Take 1-2 capsules up to three times daily as needed for cough. 60 Capsule 12/21/19 25 Active Nystatin [id number] UNIT/ML Mouth/Throat SuspensionIndicati ons:Oral thrush Swish and swallow 5 mL in the morning and 5 mL at noon and 5 mL in the evening and 5 mL before bedtime. Do all this for 21 days. For thrush.. 420 mL 12/21/19 25 025 Active documented as of this encounter (statuses as of 12/20/2024) Active Problems Problem Noted Date Diagnosed Date Stress incontinence of urine 09/26/2023 Acquired buried penis 09/26/2023 Hx of nonmelanoma skin cancer 05/02/2023 Overview (05/02/2023): basal cell carcinoma (behind R ear 02/12) Elevated LFTs 04/28/2022 Chronic heart failure with preserved ejection fr action 04/28/2022 Stenosis of right vertebral artery 04/28/2022 Dizziness 04/28/2022 BPH with obstruction/lower urinary tract symptom s 11/16/2021 Urge incontinence 11/16/2021 Nocturia 11/16/2021 Urinary frequency 11/16/2021 Type 2 diabetes mellitus wit hout complication, without long-term current use of insulin 01/09/2021 Body mass index (BMI) of 40.0 to 44.9 in adult 1 Overview: Per Obesity protocol Morbid obesity due to excess calories 12/27/2018 Hypothyroidism 10/16/2015 HTN, goal below 130/80 08/16/2009 Overview (08/16/2009): Modified per HTN protocol #16. Dyslipidemia, goal LDL below 70 04/13/1995 documented as of this encounter (statuses as of 12/20/2024) Resolved Problems Problem Noted Date Diagnosed Date Resolved Date Chronic kidney disease, stage 3a 06/06/2021 01/12/2022 Overview: Per CKD protocol Obesity, Class II, BMI 35-39 .9, isolated (see actual BMI) 12/20/2009 12/16/2018 Overview (12/20/2009): Per Obesity Taxonomy ADVANCE DIRECTIVE INFORMATION 04/06/2005 07/28/2024 Overview (04/06/2005): booklet given OBESITY, UNSPECIFIED 11/09/1997 010 Overview (12/20/2009): Per Obesity Taxonomy HYPOTHYROIDISM NOS 04/13/1995 6 HYPERTENSION NOS 08/16/2009 Overview (08/16/2009): Modified per HTN protocol #16. documented as of this encounter (statuses as of 12/20/2024) Immunizations Name Administration Dates Next Due COVID-19 mRNA, LNP-s, No Pre serve, 2-Dose Series (Implanet) 07/01/2021,12/01/2020,11/03/2020 COVID-19, LNP-s, No Preserve , Jonathan-sucrose, Ages 12+ (Pfizer) 01/24/2022 Covid-19, Mrna, Lnp-s, Pf, B ivalent, 30 Mcg, IM, 12 yrs and above (Pfizer) 08/11/2022 H1N1 2009 Influenza, IM 09/27/2009 Pneumococcal Conjugate Vacc, 13 Valent (Prevnar) 04/19/2016 Pneumococcal Conjugate Vacci ne, 20-valent ([id number]) 07/03/2024 Pneumococcal Polysaccharide PPV23 (Pneumovax) 06/01/2010 Season Influenza, Quad, PF, Adjuvanted, 65+ Yrs, IM (FLUAD) 07/20/2020 Seasonal Influenza Vac., MDV , IM, 0.5 mL (Fluzone) 07/22/2014,06/24/2013,06/28/2012,06/29,08/18/2009,08/05/2008,08/08/2006 Seasonal Influenza, High Dos e, Trivalent, PF, IM (Fluzone HD) 06/27/2024 Seasonal Influenza, PF, 6 M & above, IM , (FluLaval or Fluzone) 05/26/2021,06/16/2020,06/17/2018,09/23 Seasonal Influenza, Quadriva lent Hd (Fluzone Hd) 08/28/2023,07/03/2022 Seasonal Influenza, Quadriva lent, No Preserve, IM 06/16/2015 Seasonal Influenza, Trivalen t, Adjuvanted, 65+ YRS, PF, (Fluad) 06/18/2019 TDAP (age 10 and older)(Boostrix) 01/10/2024,08/2013 Varicella Zoster Vaccine (Adult) 12/03/2012 documented as of this encounter Social History Tobacco Use Types Packs/Day Years Used Date Smoking Tobacco: Former Cigarettes 1 20 0 09/24/1976 - 09/24/1996 Smokeless Tobacco: Never Tobacco Cessation:Counseling Given: Not Answered Comments:quit Alcohol Use Standard Drinks/Week Comments Yes 1 (1 standard drink = 0.6 oz pur e alcohol) Social AUDIT-C Answer Date Recorded Frequency of Alcohol Consumption 2-4 times a sun03/23/2020 Average Number of Drinks 1 or 2 020 Frequency of Binge Drinking Not on file 02/24 PHQ-2 Answer Date Recorded PHQ Adult Total Score 0 01/10/2024 Hunger Vital Sign Answer Date Recorded Within the past 12 months, y ou worried that your food would run out before you got the money to buy more. Never true 08/03/20 22 Within the past 12 months, t he food you bought just didn't last and you didn't have money to get more. 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 Not on file Not on file documented as of this encounter Last Filed Vital Signs Vital Sign Reading Time Taken Comments Blood Pressure 120/76 12/20/2024 3:37 PM EDT Pulse 63 12/20/2024 3:37 PM EDT Temperature 36.8 °C (98.2 °F) 12/20/2024 3:37 PM ED T Respiratory Rate 24 12/20/2024 3:37 PM EDT Oxygen Saturation 95% 12/20/2024 3:37 PM EDT Inhaled Oxygen Concentration - - Weight 129.7 kg (286 lb) 12/20/2024 3:37 PM EDT Height 170.2 cm (5' 7") 12/20/2024 3:37 PM EDT Body Mass Index 44.79 12/20/2024 3:37 PM EDT documented in this encounter Progress Notes * Janice Acosta CRNP - 12/20/2024 4:12 PM EDT Convenient Care Basic Exam Subjective Rene Sauer is a 79 year old male that presents to the [facility] with cough,congestion x 1 week. The past 3 days the cough has gotten worse, difficulty sleeping from the cough. Has had to sleep in a chair the past 2 nights. Has tried robitussin without relief. Just came home from being in [place] for the winter this past week. Thinks he got a viral cold while there but he is having a lot of dyspnea. Note that he has not been consistently taking his lasix. Endorses having a harder time getting around - likely has been avoiding diuretic because of the increase in bathroom trips. States voids about every 1.5 hrs typically through the day. Objective BP 120/76 (BP Site: Left Arm, BP Position: Sitting, BP Cuff Size: Large) | Pulse 63 | Temp 36.8 °C(98.2 °F) (Tympanic) | Resp 24 | Ht 1.702 m (5' 7") | Wt 129.7 kg (286 lb) | SpO2 95% | BMI 44.79 kg/m² | BSA 2.48 m² Body mass index is 44.79 kg/m². Review of Systems Constitutional: Positive for fatigue. HENT: Positive for congestion, postnasal drip, rhinorrhea and sinus pressure. Eyes: Negative. Respiratory: Positive for cough, chest tightness and shortness of breath. Cardiovascular: Positive for leg swelling. Gastrointestinal: Negative. Genitourinary: Negative. Musculoskeletal: Negative. Skin: Negative. Neurological: Positive for weakness. Physical Exam Vitals and nursing note reviewed. Constitutional: Appearance: Normal appearance. HENT: Head: Normocephalic and atraumatic. Right Ear: Tympanic membrane is erythematous. Left Ear: Tympanic membrane is erythematous. Ears: Comments: No effusions Nose: Congestion and rhinorrhea present. Mouth/Throat: Mouth: Mucous membranes are moist. Pharynx: Oropharyngeal exudate and posterior oropharyngeal erythema present. Comments: White patches across hard and soft palate. Small white plaques across posterior tongue. Eyes: Conjunctiva/sclera: Conjunctivae normal. Pupils: Pupils are equal, round, and reactive to light. Cardiovascular: Rate and Rhythm: Normal rate and regular rhythm. Pulses: Normal pulses. Pulmonary: Effort: Tachypnea present. Breath sounds: Examination of the right-upper field reveals decreased breath sounds. Examination ofthe left-upper field reveals decreased breath sounds. Examination of the right-lower field reveals rales. Examination of the left- lower field reveals rales. Decreased breath sounds and rales present. Comments: Visibly dyspneic on exertion. Several minutes to recover when sitting. Sounds winded while speaking. Abdominal: General: Bowel sounds are normal. There is distension. Musculoskeletal: General: Normal range of motion. Cervical back: Normal range of motion and neck supple. Right lower le+ Pitting Edema present. Left lower le+ Pitting Edema present. Skin: General: Skin is warm and dry. Capillary Refill: Capillary refill takes less than 2 seconds. Neurological: Mental Status: He is alert and oriented to person, place, and time. 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,, repeat 2 yrs Diabetes ([facility]) Diverticulosis of colon (without mention of hemorrhage) 02/23/2014 sigmoid colon HTN, goal below 140/90 Hypothyroidism 03/1995 Kidney stone Mixed dyslipidemia 03/1995 low HDL Patient Active Problem List Diagnosis Dyslipidemia, goal LDL below 70 HTN, goal below 130/80 Hypothyroidism Morbid obesity due to excess calories ([facility]) Body mass index (BMI) of 40.0 to 44.9 in adult ([facility]) Type 2 diabetes mellitus without complication, without long-term current use of insulin ([facility]) BPH with obstruction/lower urinary tract symptoms Urge incontinence Nocturia Urinary frequency Elevated LFTs Chronic heart failure with preserved ejection fraction ([facility]) Stenosis of right vertebral artery Dizziness Hx of nonmelanoma skin cancer Stress incontinence of urine Acquired buried penis BP Readings from Last 3 Encounters: 12/20/24 120/76 10/02/24 134/82 07/10/24 140/88 Wt Readings from Last 3 Encounters: 12/20/24 129.7 kg (286 lb) 10/02/24 129 kg (284 lb 6.4 oz) 07/10/24 125.7 kg (277 lb 1.6 oz) Assessment and plan Acute cough (Primary) - predniSONE 10 MG Oral Tablet (Deltasone); Take 3 tabs for 3 days, 2 tabs for 3 days, 1 tabs for 3days - Benzonatate 100 MG Oral Capsule; Take 1-2 capsules up to three times daily as needed for cough. Viral URI with cough - predniSONE 10 MG Oral Tablet (Deltasone); Take 3 tabs for 3 days, 2 tabs for 3 days, 1 tabs for 3days Shortness of breath - predniSONE 10 MG Oral Tablet (Deltasone); Take 3 tabs for 3 days, 2 tabs for 3 days, 1 tabs for 3days - XR CHEST 2 VIEWS; Future; Expected date: 12/20/2024 Oral thrush - Nystatin [id number] UNIT/ML Mouth/Throat Suspension; Swish and swallow 5 mL in the morning and 5 mL at noon and 5 mL in the evening and 5 mL before bedtime. Do all this for 21 days. For thrush.. Bibasilar crackles - XR CHEST 2 VIEWS; Future; Expected date: 12/20/2024 Reviewed rx with Jose. Prednisone should be taken in morning. He reported that he has not been consistent with his diuretic for the past few days because he is having a hard time getting around. Discussed that his dyspnea and the crackles I could hear in his lung bases were very likely relatedto some fluid. Advised that he goes over to get a cxr today so we can determine if he needs diuresis (potentially as inpatient). He declined. Willing to get a cxr on Sunday. Order placed. Jose Sauer refuses treatment and/or wishes to leave the office against medical advice. 1. The circumstances surrounding the care: dyspnea with bibasilar crackles and pitting BLE edema, endorsed not taking furosemide as ordered. Concern for fluid overload or CHF flare. 2. The patient's mental status: a/o x 3 3. The exact care refused: stat cxr today 4. I have discussed with the nature of the patient's condition; the potential risks and consequences of the patient/parent refusing the care or leaving the office against medical advice; any factual scenarios that prompt an immediate return to the emergency department. 5. Follow up instructions for the patient: Strict return precautions reviewed as mentioned below. ROSAS Young 12/20/2024 6:38 PM Stressed importance of monitoring respiratory status and taking diuretic. Strict return precautionsto go to ER. Again highly encouraged cxr today but he prefers to try treatment at home for the cough. Discussed effects of prednisone on blood sugar. At this time respiratory status takes priority but he should be on the lookout for signs of elevated BS. He currently takes ozempic and metformin for DMII. There was a bit of a knowledge gap as he did not endorse DMII, and believed the ozempic was forhis heart. Opted for a lower dose prednisone taper to hopefully mitigate the effects on BS. Follow up Follow Up: Return if symptoms worsen or fail to improve. Strict return precautions / to ER for increased dyspnea, discoloration of nose/face/lips, dizziness, chest pain, syncope or near-syncope. Total time today including reviewing chart before the visit, pertinent labs, imaging reports, face to face time, and documentation time was 40 minutes. The above was discussed and understanding was expressed. ROSAS Young documented in this encounter Nursing Notes * Mita Middleton LPN - 12/20/2024 3:39 PM EDT Jose Sauer is a 79 year old male who presents to walk-in clinic today complaining of Chief Complaint Patient presents with Cold Symptoms Congestion Cough C/o "chest cold" with nasal congestion x 1 week, cough much worse the past 3 days, pt unable to sleep due to cough Onset/duration: 1 week. OTC treatments tried:robitussin Effectiveness: did not help sx Patient is accompanied by no one for today's visit. documented in this encounter Plan of Treatment Upcoming Encounters Date Type Department Care Team (Late st Contact Info) Description 12/25/2024 2:20 PM EDT Office Visit Neurology [facility] [address] [place] [address] Danielle Aguirre MD [address] [place] [id number] 01/01/2025 5:30 PM EDT Imaging Radiology [facility] [address] [place] [id number] 01/07/2025 12:00 PM EDT Office Visit General Internal Medicine [facility] [address] [place] [address] Cindy Serrano MD [address] [facility] [place] [address] 01/13/2025 3:00 PM EDT Telemedicine Urology [facility] [address] [place] [address] [address] Nader Sterling MD [address] [address] 7, Telemed [facility] Urology Ex Rm [address] [place] [address] 01/19/2025 9:30 AM EDT Cardiac Studies Cardiac Studies, [facility] [address] [place] [phone] 01/29/2025 10:00 AM EDT Office Visit Cardiology, [facility] [address] [place] [phone] Jojo Arroyo, PLANT PROPAGATOR [address] [place] [address] Scheduled Orders Name Type Priority Associated Diagnoses Orde r Schedule XR CHEST 2 VIEWS Medical Imaging STAT Shortness of breath Bibasilar crackles Expected: 12/20/2024, Expires: 01/20/2025 Scheduled Procedures Name Priority Associated Diagnoses Date/Ti me COLONOSCOPY FLEXIBLE PROXIMA L DIAGNOSTIC Recall History of colonic polyps Health Maintenance Due Date Last Done Comments Zoster Vaccines (2 of 3) 01/28/2013 12/03/2012 Adult Wellness Visit 03/23/2021 03/23/2020 Diabetic Eye Exam 08/03/2023 08/03/2022, , 04/19/2015, Additional history exists COVID-19 Vaccine ( season) 2024 08/11/2022, 01/24/2022, 07/01/2021, Additional history exists Albumin/Creatinine Ratio 08/28/2024 023, 05/24/2023, 01/09/2022 HbA1c 10/15/2024 04/14/2024, 12/23, 05/24/2023, Additional history exists Depression Screening 01/09/2025 01/10/2024, 06/17/20 18 Diabetic Foot Exam 01/09/2025 01/10/2024, 08/03/2022 GFR 06/03/2025 06/03/2024, 10/2023, 04/14/2024, Additional history exists TSH 06/03/2025 06/03/2024, 080 10/2023, 05/24/2023, Additional history exists Colonoscopy 04/10/2028 04/10/2023, 03/24, 06/02/2019, Additional history exists DTap/Tdap Vaccines (3 - Td or Tdap) 01/09/2034 01/10/2024, 12/03/2012, 04/06/2005, Additional history exists RETIRED - COLONOSCOPY-EVERY 5 YRS AGES 18-100 Discontinued 04/10/2023, 04/10/2023, 06/02/2019, Additional history exists Influenza Vaccine (FLU shot) Completed 06/27/2024, 08/28/2023, 07/03/2022, Additional history exists Pneumococcal Vaccine: 50+ Years Completed 07/03/2024, 04/19/2016, 06/01/2010 HPV (Gardasil) Vaccine Aged Out No lo nger eligible based on patient's age to complete this topic Hepatitis B Vaccine Aged Out No longe r eligible based on patient's age to complete this topic MENINGOCOCCAL (MENACTRA/MENVEO) Aged Out No longer eligible based on patient's age to complete this topic Meningitis B Vaccine (Bexsero/Trumemba) Aged Out No longer eligible based on patient's age to complete this topic documented as of this encounter Medical Devices Implanted Type Area Scow Captain Device Identifier Shelf Expiration Date Model / Serial / Lot System Urolift - [id number] Implanted:Qty: 4 on 03/09/2022 by Nader Sterling MD at OR [facility] [place] [employer] 08/11/2023 [id number] / / [id number] documented as of this encounter Visit Diagnoses Diagnosis Acute cough- Primary Viral URI with cough Acute upper respiratory infections of unspecified site Shortness of breath Oral thrush Candidiasis of mouth Bibasilar crackles Abnormal chest sounds documented in this encounter Advance Directives * Full Code (Latest Code Status on File) Date Activated Date Inactivated Comments 09/05/2023 10:40 AM 09/05/2023 5:31 PM This orde r reflects the patients wishes and were consensually agreed upon. Question Answer Comments Discussion of Advance Directives occurred with: Patient * Full Code Date Activated Date Inactivated Comments 09/05/2023 7:06 AM 09/05/2023 10:40 AM This orde r reflects the patients wishes and were consensually agreed upon. Question Answer Comments Discussion of Advance Directives occurred with: Patient * Full Code Date Activated Date Inactivated Comments 03/09/2022 9:20 AM 03/09/2022 2:47 PM This order r eflects the patients wishes and were consensually agreed upon. * Full Code Date Activated Date Inactivated Comments 03/09/2022 7:40 AM 03/09/2022 9:20 AM This order r eflects the patients wishes and were consensually agreed upon. * Full Code Date Activated Date Inactivated Comments 02/22/2022 7:01 AM 02/22/2022 11:18 AM This order re flects the patients wishes and were consensually agreed upon. Care Teams Body Painter Relationship Specialty Start Date End Date Cindy Serrano MD [address] [place] [address] PCP - General Internal Medicine 01/15/24 documented as of this encounter
--- OUTSIDE RECORDS SUMMARY | 2024-12-24 09:14 | External Medical Summary | Summary of Care ---
Author Name Unknown Organization [facility] Address [address] [facility] [place] [address] Phone [phone] Care Team Providers Care Hospitality Ambassador Name Role Phone Cindy Serrano MD Primary Care Provider [phone] Reason for Visit * Reason Comments Outpatient Testing Encounter Details Date Type Department Care Team (Late st Contact Info) Description 10/02/2024 9:10 AM EST Laboratory Laboratory [facility] [address] [place] [id number] [facility] [address] [place] [address] Arrived Allergies No known active allergiesdocumented as of this encounter (statuses as of 10/02/2024) Medications Aspirin 81 MG Oral Tablet Delayed Release Take 1 Tablet by mouth in the morning. Active Tadalafil 5 MG Oral Tablet (Cialis) Take 1 Tablet by mouth daily as needed for Erectile Dysfunction. 30 Tablet 6 4 Active Vitamin D 25 MCG (1000 UT) Oral TabletIndications: Vitamin D deficiency Take 1 Tablet by mouth in the morning. 4 Active Dexcom G7 SensorIndications: Type 2 diabetes mellitus without complication, without long-term current use of insulin (HCC) Use 4 Units as directed once a week. 4 Each 11 4 Active amLODIPine Besylate 10 MG Oral Tablet (Norvasc)Indicatio ns:HTN, goal below 130/80 Take 1 Tablet by mouth in the morning. 90 Tablet 3 4 Active Ozempic (0.25 or 0.5 MG/DOSE) 2 MG/3ML Solution Pen-injector (Semaglutide(0.25 or 0.5MG/DOS))Indicat ions:Type 2 diabetes mellitus without complication, without long-term current use of insulin (HCC) Inject 0.5 mg under the skin once a week. 9 mL 1 4 Active Rosuvastatin Calcium 20 MG Oral Tablet (Crestor)Indicatio ns:Dyslipidemia Take 1 Tablet by mouth in the morning. 90 Tablet 3 4 Active metFORMIN HCl ER 500 MG Oral Tablet Extended Release 24 Hour (Glucophage XR)Indications:Typ e 2 diabetes mellitus without complication, without long-term current use of insulin (HCC) Take 1 Tablet by mouth in the morning. 90 Tablet 3 4 Active Vitamin B Complex Oral Tablet Take 1 Tablet by mouth in the morning. 4 Active Folic Acid 1 MG Oral Tablet Take 1 Tablet by mouth in the morning. 90 Tablet 3 4 Active Zoster Vac Recomb Adjuvanted 50 MCG/0.5ML Intramuscular Suspension Reconstituted (Shingrix)Indicati ons:Need for shingles vaccine Inject 0.5 mL into a large muscle now and repeat dose in 60 to 180 days 1 Each 1 4 Active Finasteride 5 MG Oral Tablet (Proscar)Indicatio ns:BPH with obstruction/lower urinary tract symptoms Take 1 Tablet by mouth in the morning. 90 Tablet 3 4 Active Solifenacin Succinate 10 MG Oral Tablet (VESIcare) Take 1 Tablet by mouth in the morning. 30 Tablet 6 4 Active Labetalol HCl 300 MG Oral TabletIndications: HTN, goal below 130/80 Take 1 Tablet by mouth in the morning and 1 Tablet before bedtime. 180 Tablet 3 4 Active Potassium Chloride ER 10 MEQ Oral Capsule Extended ReleaseIndications :Generalized edema Take 1 Capsule by mouth in the morning. 90 Capsule 1 4 Active Fluticasone Propionate 50 MCG/ACT Nasal Suspension (Flonase)Indicatio ns:Generalized edema Administer 2 Sprays into each nostril at bedtime. 16 g 5 4 Active Spiriva Respimat 1.25 MCG/ACT Inhalation Aerosol Solution (Tiotropium [place] Monohydrate)Indica tions:COPD, mild (HCC) Inhale 2 Puffs by mouth in the morning. 4 g 5 4 Active Furosemide 20 MG Oral Tablet (Lasix)Indications :Edema, unspecified type Take 1.5 Tablets by mouth in the morning. 135 Tablet 1 4 Active Levothyroxine Sodium 150 MCG Oral Tablet (Levoxyl)Indicatio ns:Acquired hypothyroidism Take 1 Tablet by mouth in the morning. (at least 30 min prior to breakfast or other meds). 90 Tablet 1 4 Active documented as of this encounter (statuses as of 10/02/2024) Active Problems Problem Noted Date Diagnosed Date [...] as of this encounter (statuses as of 10/02/2024) Resolved Problems Problem Noted Date Diagnosed Date [...] as of this encounter (statuses as of 10/02/2024) Immunizations Name Administration Dates Next Due COVID-19 mRNA, LNP-s, No Pre serve, 2-Dose Series (C[employer]) 07/01/2021,12/01/2020,11/03/2020 COVID-19, LNP-s, No Preserve , Jonathan-sucrose, Ages 12+ (Pfizer) 01/24/2022 Covid-19, Mrna, Lnp-s, Pf, B ivalent, 30 Mcg, IM, 12 yrs and above (Pfizer) 08/11/2022 H1N1 2008 Influenza, IM 09/27/2009 Pneumococcal Conjugate Vacc, 13 Valent (Prevnar) 04/19/2016 Pneumococcal Conjugate Vacci ne, 20-valent ([id number]) 07/03/2024 Pneumococcal Polysaccharide PPV23 (Pneumovax) 06/01/2010 Season [...] 0 09/24/1976 - 09/24/1996 Smokeless Tobacco: Never Comments:quit Alcohol Use Standard Drinks/Week Comments Yes [...] 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 Not on file Not on file documented as of this encounter Plan of Treatment Upcoming Encounters Date Type Department Care Team (Late st Contact Info) Description 01/01/2025 5:30 PM EDT Imaging Radiology [address] [place] [address] 01/07/2025 12:00 PM EDT Office Visit General Internal Medicine [facility] [address] [facility] [place] [address] Cindy Serrano MD [address] [facility] [place] [address] 01/13/2025 3:00 PM EDT Telemedicine Urology [facility] [address] [place] [address] Nader Sterling MD [address] [place] [address] 7, Telemed [facility] Urology Ex Rm [address] [place] [address] 01/19/2025 9:30 AM EDT Cardiac Studies Cardiac Studies, [facility] 132 [facility] [place] [address] 01/19/2025 10:00 AM EDT Office Visit Neurology [facility] [address] [facility] [place] [address] Danielle Aguirre MD [address] [facility] [place] [address] 01/29/2025 10:00 AM EDT Office Visit Cardiology, [facility] 132 [facility] [place] [address] Jojo Arroyo CRNP 132 [facility] [place] [address] Scheduled Procedures Name Priority Associated Diagnoses Date/Ti [...] Exam 01/09/2025 01/10/2024, 08/03/2022 GFR 06/03/2025 06/03/2024, 08/0 10/2023, 04/14/2024, Additional history exists TSH 06/03/2025 06/03/2024, 08/0 10/2023, 05/24/2023, Additional history exists Colonoscopy 04/10/2028 [...] this encounter Medical Devices Implanted Type Area News Correspondent Device Identifier Shelf Expiration Date Model / Serial / Lot System Urolift - [id number] Implanted:Qty: 4 on 03/09/2022 by Nader Sterling MD at OR [facility] [employer] 08/11/2023 [id number] / / [id number] documented as of this encounter Advance Directives * Full Code [...] and were consensually agreed upon. Care Teams Hospitality Ambassador Relationship Specialty Start Date End Date Cindy Serrano MD [address] [place] [address] PCP - General Internal Medicine 01/15/24 documented as of this encounter
--- OUTSIDE RECORDS SUMMARY | 2024-12-24 09:14 | External Medical Summary | Summary of Care ---
Author Name Unknown Organization [facility] Address [address] [facility] [place] [address] Phone [phone] Care Team Providers Care New Patient Escort Name Role Phone Cindy Serrano MD Primary Care Provider [phone] Encounter Details Date Type Department Care Team (Late st Contact Info) Description 10/16/2024 Population Health External Data Unspecified Department Allergies No known active allergiesdocumented as of this encounter (statuses as of 10/16/2024) Medications Aspirin 81 MG Oral Tablet Delayed [...] Respimat 1.25 MCG/ACT Inhalation Aerosol Solution (Tiotropium [place] Monohydrate)Indica tions:COPD, mild (HCC) Inhale 2 Puffs [...] as of this encounter (statuses as of 10/16/2024) Active Problems Problem Noted Date Diagnosed Date [...] as of this encounter (statuses as of 10/16/2024) Resolved Problems Problem Noted Date Diagnosed Date [...] as of this encounter (statuses as of 10/16/2024) Immunizations Name Administration Dates Next Due COVID-19 mRNA, LNP-s, No Pre serve, 2-Dose Series (Pfizer) 07/01/2021,12/01/2020,11/03/2020 COVID-19, LNP-s, No Preserve , Jonathan-sucrose, Ages 12+ (Pfizer) 01/24/2022 Covid-19, Mrna, Lnp-s, Pf, B ivalent, 30 Mcg, IM, 12 yrs and above (Pfizer) 08/11/2022 H1N1 2008 Influenza, IM 09/27/2009 Pneumococcal Conjugate Vacc, 13 Valent (Prevnar) 04/19/2016 Pneumococcal Conjugate Vacci ne, 20-valent ([id number]) 07/03/2024 Pneumococcal Polysaccharide PPV23 (Pneumovax) 06/01/2010 Season [...] 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 Not on file Not on file documented as of this encounter Plan of Treatment Upcoming Encounters Date Type Department Care Team (Late st Contact Info) Description 01/01/2025 5:30 PM EDT Imaging Radiology [facility] [address] [facility] [address] [place] [address] 01/07/2025 12:00 PM EDT Office Visit General Internal Medicine [facility] [place] [address] [place] [address] Cindy Serrano MD [address] [place] [address] 01/13/2025 3:00 PM EDT Telemedicine Urology [address] [place] [address] Nader Sterling MD [address] [place] [address] 7, Telemed [facility] Urology Ex Rm [address] [place] [address] 01/19/2025 9:30 AM EDT Cardiac Studies Cardiac Studies, [facility] [address] [facility] [place] [address] 01/19/2025 10:00 AM EDT Office Visit Neurology [facility] 200 [facility] [place] [address] Danielle [facility]ir[facility] MD [facility] [address] 01/29/2025 10:00 AM EDT Office Visit Cardiology, [facility] 132 [facility] [place] [address] Jojo Arroyo CRNP 132 [facility] [place] [address] Scheduled Procedures Name Priority Associated Diagnoses Date/Ti me COLONOSCOPY FLEXIBLE PROXIMA L DIAGNOSTIC Recall History of colonic polyps Health Maintenance Due Date Last Done Comments Zoster Vaccines (2 of 3) 01/28/2013 12/03/2012 Adult Wellness Visit 03/23/2021 03/23/2020 Diabetic Eye Exam 08/03/2023 08/03/2022, , 04/19/2015, Additional history exists COVID-19 Vaccine ( season) 2024 08/11/2022, 01/24/2022, 07/01/2021, Additional history exists Albumin/Creatinine Ratio 08/28/20242 023, 05/24/2023, 01/09/2022 HbA1c 10/15/2024 04/14/2024, 12/23, [...] this encounter Medical Devices Implanted Type Area Sandfill Operator Surface Device Identifier Shelf Expiration Date Model / Serial / Lot System Urolift - [id number] Implanted:Qty: 4 on 03/09/2022 by Nader Sterling MD at OR [facility] [employer] 08/11/2023 [id number] / / [id number] documented as of this encounter Advance Directives [...] and were consensually agreed upon. Care Teams New Patient Escort Relationship Specialty Start Date End Date Cindy Serrano MD 200 [facility] [place], [place] [address] PCP - General Internal Medicine 01/15/24 documented as of this encounter
--- OUTSIDE RECORDS SUMMARY | 2024-12-24 09:14 | External Medical Summary | Summary of Care ---
Author Name Unknown Organization [facility] Address [address] [facility] [place] [address] Phone [phone] Care Team Providers Care Padded Box Sewer Name Role Phone Cindy Serrano MD Primary Care Provider [phone] Reason for Visit * Reason Onset Date Comments Referral 06/27/2024 NucMed Datscan Encounter Details Date Type Department Care Team (Late st Contact Info) Description 06/27/2024 Telephone Neurology [facility] 200 [place] [address] Danielle Aguirre MD 200 [place] [address] Referral (NucMed Datscan) Allergies No known active allergiesdocumented as of this encounter (statuses as of 07/11/2024) Medications Medication Sig Dispensed Refills Start Date End Date Status Aspirin 81 MG Oral Tablet Delayed Release Take 1 Tablet by mouth in the morning. Active Tadalafil 5 MG Oral Tablet (Cialis) Take 1 Tablet by mouth daily as needed for Erectile Dysfunction. 30 Tablet 6 4 Active Additional Information Patient not taking.Reported on 04/22/2024 Vitamin D 25 MCG (1000 UT) Oral TabletIndications: Vitamin D deficiency Take 1 Tablet by mouth in the morning. 4 Active Dexcom G7 SensorIndications: Type 2 diabetes mellitus without complication, without long-term current use of insulin (HCC) Use 4 Units as directed once a week. 4 Each 11 4 Active Additional Information Patient not taking.Reported on 06/27/2024 amLODIPine Besylate 10 MG Oral Tablet (Norvasc)Indicatio ns:HTN, goal below 130/80 Take 1 Tablet by mouth in the morning. 90 Tablet 3 4 Active Ozempic (0.25 or 0.5 MG/DOSE) 2 MG/3ML Solution Pen-injector (Semaglutide(0.25 or 0.5MG/DOS))Indicat ions:Type 2 diabetes mellitus without complication, without long-term current use of insulin (HCC) Inject 0.5 mg under the skin once a week. 9 mL 1 4 Active Additional Information Patient not taking.Reported on 06/27/2024 Rosuvastatin Calcium 20 MG Oral Tablet (Crestor)Indicatio [...] the morning. 90 Tablet 3 4 Active Levothyroxine Sodium 150 MCG Oral Tablet (Levoxyl)Indicatio ns:Acquired hypothyroidism Take 1 Tablet by mouth in the morning. (at least 30 min prior to breakfast or other meds). 90 Tablet 4 Active Solifenacin Succinate 10 MG Oral [...] nostril at bedtime. 16 g 5 4 024 Discontinued(Re fill) Furosemide 20 MG Oral Tablet (Lasix) Take 1 Tablet by mouth in the morning. 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 ADVANCE DIRECTIVE INFORMATION 04/06/2005 Overview: booklet given Dyslipidemia, goal LDL below 70 04/13/1995 documented as of this encounter (statuses as of 07/11/2024) Resolved Problems Problem Noted Date Diagnosed Date Resolved Date Chronic kidney disease, stage 3a 06/06/2021 01/12/2022 Overview: Per CKD protocol Obesity, Class II, BMI 35-39 .9, isolated (see actual BMI) 12/20/2009 12/16/2018 Overview: Per Obesity Taxonomy OBESITY, UNSPECIFIED 11/09/1997 010 Overview: Per Obesity Taxonomy HYPOTHYROIDISM NOS 04/13/1995 6 HYPERTENSION NOS 08/16/2009 Overview: Modified per HTN protocol #16. documented as of this encounter (statuses as of 07/11/2024) Immunizations Name Administration Dates Next Due COVID-19 mRNA, LNP-s, No Pre serve, 2-Dose Series (indeni) 07/01/2021,12/01/2020,11/03/2020 COVID-19, LNP-s, No Preserve , Jonathan-sucrose, Ages 12+ (Pfizer) 01/24/2022 Covid-19, Mrna, Lnp-s, Pf, B ivalent, 30 Mcg, IM, 12 yrs and above (Pfizer) 08/11/2022 Diptheria/Tetanus (Adult) 04/06/2005,04/13/1995 H1N1 2009 Influenza, IM 09/27/2009 Pneumococcal Conjugate Vacc, 13 Valent (Prevnar) 04/19/2016 Pneumococcal Conjugate Vacci ne, 20-valent ([id number]) 07/03/2024 Pneumococcal Polysaccharide PPV23 (Pneumovax) 06/01/2010 Season Influenza, Quad, PF, Adjuvanted, 65+ Yrs, IM (FLUAD) 07/20/2020 Seasonal Influenza Vac., MDV , IM, 0.5 mL (Fluzone) 07/22/2014,06/24/2013,06/28/2012,06/29,08/18/2009,08/05/2008,08/08/2006 ,09/05/2002,09/03/2000,07/22/1999 Seasonal Influenza Virus Vac cine, Unspecified Formulation 08/10/1998,07/26/1995 Seasonal Influenza, High Dos e, Trivalent, PF, [...] money to get more. Never true 08/03/2022 Utilities Answer Date Recorded Do you have trouble paying y our heating, water, or electric bill? (Adult - for ages 18 years and over) Not on file 03/11/2024 Is your family able to pay t he heat, water, or electric bill? (Household - for ages 0-17 years) Not on file 03/11/2024 Does your family have access to good internet? (Household - for ages 0-17 years) Not on file 03/11/2024 Social Connections Answer Date Recorded How often do you feel lonely or isolated from those around you? (Adult - for ages 18 years and over) Not on file 03/11/2024 Sex and Gender Information Value Date Recorded Sex Assigned at Male 12/27/2018 11:42 AM EDT Gender Identity Male 12/27/2018 11:42 AM EDT Sexual Orientation Straight 12/27/2018 11 :42 AM EDT Job Start Date Occupation Industry Not on file Not on file Not on file documented as of this encounter Miscellaneous Notes * Telephone Encounter - Marilyn Cox OSA - 07/11/2024 1:54 PM EDT 07/11/24 MYG SENT FOR PT TO CALL TO BE TRIAGED AND SCHEDULED KF * Telephone Encounter - Marilyn Cox OSA - 07/04/2024 12:12 PM EDT 07/04/24 MYG SENT FOR PT TO CALL TO BE TRIAGED AND SCHEDULED KF * Telephone Encounter - Marilyn Cox OSA - 07/03/2024 4:04 PM EDT STILL WAITING FOR THE PT TO CALL THE TECH TO BE TRIAGED * Telephone Encounter - Nilam Vick OSA - 06/27/2024 9:34 AM EDT Please call pt to schedule datscan documented in this encounter Plan of Treatment Upcoming Encounters Date Type Department Care Team (Late st Contact Info) Description 07/14/2024 8:00 AM EDT Telemedicine Nutrition & Weight Management, [facility] [address] [facility] [place] [address] Dulce Luciano PA-C 132 [facility] [place] [address] 10/02/2024 10:00 AM EST Office Visit Neurology [facility] [address] [place] [address] Danielle Aguirre MD [address] [place] [address] 01/01/2025 5:30 PM EDT Imaging Radiology [address] [facility] [place] [address] 01/07/2025 12:00 PM EDT Office Visit General Internal Medicine [facility] [address] [facility] [place] [address] Cindy Serrano MD [address] [facility] [place] [address] 01/13/2025 3:00 PM EDT Office Visit Urology, [facility] [address] [facility] [place] [address] Nader Sterling MD [address] [place] [address] 01/19/2025 9:30 AM EDT Cardiac Studies Cardiac Studies, [facility] [address] [facility] [place] [address] 01/29/2025 10:00 AM EDT Office Visit Cardiology, [facility] 132 [facility] [place] [address] Jojo Arroyo CRNP 132 [facility] [place] [address] Scheduled Procedures Name Priority Associated Diagnoses Date/Ti [...] 08/28/2023, 07/03/2022, Additional history exists Pneumococcal Vaccine: 65+ Years Completed 07/03/2024, 04/19/2016, 06/01/2010 HPV (Gardasil) [...] this encounter Medical Devices Implanted Type Area Dry Sand Molder Device Identifier Shelf Expiration Date Model / Serial / Lot System Urolift - [id number] Implanted:Qty: 4 on 03/09/2022 by Nader Sterling MD at OR [facility] [employer] 08/11/2023 [id number] / / [id number] documented as of this encounter Advance Directives [...] and were consensually agreed upon. Care Teams Padded Box Sewer Relationship Specialty Start Date End Date Cindy Serrano MD 200 [facility] [place] [address] PCP - General Internal Medicine 01/15/24 documented as of this encounter
--- OUTSIDE RECORDS SUMMARY | 2024-12-24 09:14 | External Medical Summary | Summary of Care ---
Author Name Unknown Organization [facility] Address [address] [facility] [address] Phone [phone] Care Team Providers Care Roll Icer Machine Name Role Phone Cindy Gallagher MD Primary Care Provider [phone] Reason for Visit * Reason Onset Date Comments Medication Refill 08/31/2024 Encounter Details Date Type Department Care Team (Late st Contact Info) Description 08/31/2024 Refill General Internal Medicine [facility] [place] [address] [facility] [place] [address] Cindy Gallagher MD [address] [place] [address] Acquired hypothyroidism Allergies No known active allergiesdocumented as of this encounter (statuses as of 08/31/2024) Medications Aspirin 81 MG Oral Tablet Delayed Release Take 1 Tablet by mouth in the morning. Active Tadalafil 5 MG Oral Tablet (Cialis) Take 1 Tablet by mouth daily as needed for Erectile Dysfunction. 30 Tablet 6 09/26/19 24 Active Additional Information Patient not taking.Reported on 04/22/2024 Vitamin D 25 MCG (1000 UT) Oral TabletIndications: Vitamin D deficiency Take 1 Tablet by mouth in the morning. 01/14/20 24 Active Dexcom G7 SensorIndications: Type 2 diabetes mellitus without complication, without long-term current use of insulin (HCC) Use 4 Units as directed once a week. 4 Each 11 01/25/20 24 Active Additional Information Patient not taking.Reported [...] week. 9 mL 1 02/22/20 24 Active Additional Information Patient not taking.Reported [...] Active Additional Information Patient not taking.Reported on 07/10/2024 Spiriva Respimat 1.25 MCG/ACT Inhalation Aerosol Solution (Tiotropium [place] Monohydrate)Indica tions:COPD, mild (HCC) Inhale 2 Puffs by mouth in the morning. 4 g 5 07/03/20 24 Active Additional Information Patient not taking.Reported on 07/10/2024 Furosemide 20 MG Oral Tablet (Lasix)Indications :Edema, unspecified type Take 1.5 Tablets by mouth in the morning. 135 Tablet 1 07/03/20 24 Active Levothyroxine Sodium 150 MCG Oral Tablet (Levoxyl)Indicatio ns:Acquired hypothyroidism Take 1 Tablet by mouth in the morning. (at least 30 min prior to breakfast or other meds). 90 Tablet 1 08/31/20 24 Active Levothyroxine Sodium 150 MCG Oral Tablet (Levoxyl)Indicatio ns:Acquired hypothyroidism Take 1 Tablet by mouth in the morning. (at least 30 min prior to breakfast or other meds). 90 Tablet 04/25/20 24 024 Discontin ued(Refil l) documented as of this encounter (statuses as of 08/31/2024) Active Problems Problem Noted Date Diagnosed Date [...] as of this encounter (statuses as of 08/31/2024) Resolved Problems Problem Noted Date Diagnosed Date [...] as of this encounter (statuses as of 08/31/2024) Immunizations Name Administration Dates Next Due COVID-19 mRNA, LNP-s, No Pre serve, 2-Dose Series (Pfizer) 07/01/2021,12/01/2020,11/03/2020 COVID-19, LNP-s, No Preserve , Jonathan-sucrose, Ages 12+ (Pfizer) 01/24/2022 Covid-19, Mrna, Lnp-s, Pf, B ivalent, 30 Mcg, IM, 12 yrs and above (Pfizer) 08/11/2022 H1N1 2009 Influenza, IM 09/27/2009 Pneumococcal Conjugate Vacc, 13 Valent (Prevnar) 04/19/2016 Pneumococcal Conjugate Vacci ne, 20-valent ([email or web address]) 07/03/2024 Pneumococcal Polysaccharide PPV23 (Pneumovax) 06/01/2010 Season [...] 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 (at least 30 min prior to breakfast or other meds).Authorizing Provider: Brigid GALLAGHER User: IGNACIA WILL documented in this encounter Plan of Treatment Upcoming Encounters Date Type Department Care Team (Late st Contact Info) Description 10/02/2024 10:00 AM EST Office Visit Neurology [facility] [address] [place] [address] Danielle Aguirre MD [address] [place] [address] 01/01/2025 5:30 PM EDT Imaging Radiology [address] [facility] [place] [address] 01/07/2025 12:00 PM EDT Office Visit General Internal Medicine [facility] [address] [place] [address] Cindy Gallagher MD [address] [facility] [place] [address] 01/13/2025 3:00 PM EDT Telemedicine Urology [address] [place] [address] Nader Sterling MD [address] [place] [address] 7, Telemed [facility] Urology Ex Rm [address] [place] [address] 01/19/2025 9:30 AM EDT Cardiac Studies Cardiac Studies, [facility] [address] [facility] [place] [address] 01/29/2025 10:00 AM EDT Office Visit Cardiology, [facility] [address] [facility] [place] [address] Jojo Arroyo, ROSAS 132 [facility] [place] [address] Scheduled Procedures Name Priority Associated Diagnoses Date/Ti [...] Exam 01/09/2025 01/10/2024, 08/03/2022 GFR 06/03/2025 06/03/2024, 0810/2023, 04/14/2024, Additional history exists TSH 06/03/2025 06/03/2024, [...] this encounter Medical Devices Implanted Type Area Pcb Designer Device Identifier Shelf Expiration Date Model / Serial / Lot System Urolift - [id number] Implanted:Qty: 4 on 03/09/2022 by Nader Sterling MD at OR [facility] [employer] 08/11/2023 [id number] / / [id number] documented as of this encounter Visit Diagnoses Diagnosis Acquired hypothyroidism Unspecified hypothyroidism documented in this encounter Advance Directives * [...] and were consensually agreed upon. Care Teams Roll Icer Machine Relationship Specialty Start Date End Date Cindy Gallagher MD [address] [place] [id number] PCP - General Internal Medicine 01/15/24 documented as of this encounter
--- OUTSIDE RECORDS SUMMARY | 2024-12-24 09:14 | External Medical Summary | Summary of Care ---
Author Name Unknown Organization [facility] Address [address] [facility] [place] [address] Phone [phone] Care Team Providers Care Compatibility Test Engineer Name Role Phone Cindy Serrano MD Primary Care Provider [phone] Reason for Visit * Reason Comments Outpatient Testing Encounter Details Date Type Department Care Team (Late st Contact Info) Description 10/02/2024 9:10 AM EST Laboratory Laboratory [facility] [address] [place] [id number] [facility] [address] [place] [address] Arrived Allergies No known active allergiesdocumented as [...] Respimat 1.25 MCG/ACT Inhalation Aerosol Solution (Tiotropium [place] Monohydrate)Indica tions:COPD, mild (HCC) Inhale 2 Puffs [...] mRNA, LNP-s, No Pre serve, 2-Dose Series ([email or web address]) 07/01/2021,12/01/2020,11/03/2020 COVID-19, LNP-s, No Preserve , Jonathan-sucrose, Ages 12+ (Pfizer) 01/24/2022 Covid-19, Mrna, Lnp-s, Pf, B ivalent, 30 Mcg, IM, 12 yrs and above (Pfizer) 08/11/2022 H1N1 2008 Influenza, IM 09/27/2009 Pneumococcal Conjugate Vacc, 13 Valent (Prevnar) 04/19/2016 Pneumococcal Conjugate Vacci ne, 20-valent ([id number]) 07/03/2024 Pneumococcal Polysaccharide PPV23 (Pneumovax) 06/01/2010 Season [...] 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 Not on file Not on file documented as of this encounter Plan of Treatment Upcoming Encounters Date Type Department Care Team (Late st Contact Info) Description 01/01/2025 5:30 PM EDT Imaging Radiology [address] [place] [address] 01/07/2025 12:00 PM EDT Office Visit General Internal Medicine [facility] [address] [facility] [place] [address] Cindy Serrano MD [address] [facility] [place] [address] 01/13/2025 3:00 PM EDT Telemedicine Urology [address] [place] [address] Nader Sterling MD [address] [place] [address] 7, Telemed [facility] Urology Ex Rm [address] [place] [address] 01/19/2025 9:30 AM EDT Cardiac Studies Cardiac Studies, [facility] [address] [facility] [place] [address] 01/19/2025 10:00 AM EDT Office Visit Neurology [facility] [address] [facility] [place] [address] Danielle Aguirre MD [address] [facility] [place] [address] 01/29/2025 10:00 AM EDT Office Visit Cardiology, [facility] 132 [facility] [place] [address] Jojo Arroyo CRNP [address] [facility] [place] [address] Scheduled Procedures Name Priority Associated Diagnoses Date/Ti [...] this encounter Medical Devices Implanted Type Area Design Technician Device Identifier Shelf Expiration Date Model / Serial / Lot System Urolift - [id number] Implanted:Qty: 4 on 03/09/2022 by Nader Sterling MD at OR [facility] [employer] 08/11/2023 [id number] / / [id number] documented as of this encounter Advance Directives [...] and were consensually agreed upon. Care Teams Compatibility Test Engineer Relationship Specialty Start Date End Date Cindy Serrano MD [address] [facility] [place] [address] PCP - General Internal Medicine 01/15/24 documented as of this encounter
--- OUTSIDE RECORDS SUMMARY | 2024-12-24 09:14 | External Medical Summary ---
Author Name Unknown Address Unknown Organization : Laboratory Report Ordering Provider Test Date Status SERENA GOODE 10/02/2024 11:36:44 Final Observation Date Value Abnormality Reference (Units ) Status Thiamine [Moles/volume] in Blood 10/02/2024 11:36:44 154 78-185 (nmol/L) Final Vitamin supplementation with in 24 hours prior to
blood draw may affect the accuracy of the results.
This test was developed and its analytical performance
characteristics have been determined by [facility] [place], [place]. It has
not been cleared or approved by the U.S. Food and Drug
Administration. This assay has been validated pursuant
to the CLIA regulations and is used for clinical
purposes.

Test Performed at:
[facility]
[address] [facility]
[place] [address]
Moises Canela M.D., Ph.D.,Director of Laboratories Performing Location
--- OUTSIDE RECORDS SUMMARY | 2024-12-24 09:14 | External Medical Summary | Summary of Care ---
Author Name Unknown Organization [facility] Address [address] [place] [address] Phone [phone] Care Team Providers Care Reservoir Engineering Consultant Name Role Phone Cindy Serrano MD Primary Care Provider [phone] Reason for Visit * Reason Comments Return Neuro Encounter Details Date Type Department Care Team (Late st Contact Info) Description 10/02/2024 10:00 AM EST Office Visit Neurology [facility] [address] [facility] [place] [address] Danielle [facility]ir[facility] [address] Polyneuropathy*; Folic acid deficiency Allergies No known active allergiesdocumented as of [...] each nostril at bedtime. 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 Not on file Not on file documented as of this encounter Last Filed Vital Signs Vital Sign Reading Time Taken Comments Blood Pressure 134/82 10/02/2024 10:16 AM EST Pulse 66 10/02/2024 10:16 AM EST Temperature 36.2 °C (97.1 °F) 10/02/2024 10:[address] Respiratory Rate 20 10/02/2024 10:16 AM EST Oxygen Saturation 90% 10/02/2024 10:16 AM EST Inhaled Oxygen Concentration - - Weight 129 kg (284 lb 6.4 oz) 10/02/2024 10:16 A M EST Height - - Body Mass Index 44.54 07/03/2024 4:53 PM EDT documented in this encounter Progress Notes * Danielle Aguirre MD - 10/02/2024 11:09 AM EST CLINIC NOTES Neurology [facility] 200 [facility] [place] [address] Jose Sauer : 1945 NEUROLOGY OUTPATIENT NOTE 10/02/2024 HISTORY: The patient is referred for consultation by Dr. Serrano, who will be receiving a copy of this note. Patient is previously seen by Dr. Yovany Paz for gait dysfunction MRI the brain does not show hydrocephalus there is some moderate chronic vascular changes. MRI of the cervical spine does not show cordcompression. 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 He reports that he has difficulty making turns no clear freezing absolutely no back pain no numbness and tingling. Medical surgical social family history reviewed unchanged 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,, repeat 2 yrs Diabetes ([facility]) Diverticulosis of colon (without mention of hemorrhage) 02/23/2014 sigmoid colon HTN, goal below 140/90 Hypothyroidism 03/1995 Kidney stone Mixed dyslipidemia 03/1995 low HDL Patient Active Problem List Diagnosis Dyslipidemia, goal LDL below 70 HTN, goal below 130/80 Hypothyroidism Morbid obesity due to excess calories ([facility]) Body mass index (BMI) of 40.0 to 44.9 in adult ([facility]) Type 2 diabetes mellitus without complication, without long-term current use of insulin (HCC) BPH with obstruction/lower urinary tract symptoms Urge incontinence Nocturia Urinary frequency Elevated LFTs Chronic heart failure with preserved ejection fraction (HCC) Stenosis of right vertebral artery Dizziness Hx of nonmelanoma skin cancer Stress incontinence of urine Acquired buried penis Past Surgical History: Procedure Laterality Date COLONOSCOPY, DIAGNOSTIC (RECTUM) 02/23/2014 serrated adenoma, diverticulosis, repeat 2 yrs/COLONOSCOPY FLEXIBLE PROXIMAL DIAGNOSTIC performed by Americo Williamson MD at [facility] COLONOSCOPY, DIAGNOSTIC (RECTUM) 03/14/2016 adenomatous polyps, diverticulosis, repeat 3 yrs/COLONOSCOPY FLEXIBLE PROXIMAL DIAGNOSTIC performedby Americo Williamson MD at [facility] COLONOSCOPY, DIAGNOSTIC (RECTUM) 06/02/2019 multiple small polyps transverse colon/diverticulosis sigmoid colon/biopsies show adenomatous polyps/recall 3 years/COLONOSCOPY FLEXIBLE PROXIMAL DIAGNOSTIC performed by Americo Williamson MD at [facility] COLONOSCOPY, DIAGNOSTIC (RECTUM) 04/10/2023 diverticulosis/hemorrhoids/biopsies show adenomatous polyps/recall 5 years/COLONOSCOPY FLEXIBLE PROXIMAL DIAGNOSTIC performed by Jessie Prasad MD at [facility] COLONOSCOPY, GI REFERRAL OP 05/2004 wnl-repeat 10 years CYSTOURETHROSCOPY, W/ TRANSPROSTATIC IMPLANT N/A 03/09/2022 CYSTOURETHROSCOPY, WITH INSERTION OF PERMANENT ADJUSTABLE TRANSPROSTATI IMPLANT; SINGLE IMPLANT performed by Nader Sterling MD at OR [facility] MISCELLANEOUS ORDER ([facility] ONLY) Bilateral 10/06/2015 tarsal strips -reinheimer PROSTATE, LASER VAPORIZATION N/A 09/05/2023 LASER VAPORIZATION PROSTATE performed by Nader Sterling MD at OR [facility] REMOVAL OF PROSTATE (TURP) N/A 09/05/2023 TRANSURETHRAL RESECTION PROSTATE ELECTROSURGICAL performed by Nader Sterling MD at OR [facility] REMOVE CATARACT, INSERT LENS PROSTH 10/2008 Cataract extraction OS, went to [facility] REMOVE CATARACT, INSERT LENS PROSTH 10/2008 Cataract surgery [place], [place] REVISE UPPER EYELID/EXCESS SKIN Bilateral 07/28/2015 with levators -reinheimer SURGICAL REMOVAL, ERUPTED TOOTH AND BONE wisdom teeth removal UMBIL HERNIA REPAIR (REDUCIBLE) AGE 5+YR 12/30/2018 Repair of umbilical hernia performed by Dr. 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 Tobacco Use Smoking status: Former Current packs/day: 0.00 Average packs/day: 1 pack/day for 20.0 years (20.0 ttl pk-yrs) Types: Cigarettes Start date: 09/24/1976 Quit date: 09/24/1996 Years since quittin.0 Smokeless tobacco: Never Tobacco comments: quit Vaping Use Vaping status: Never Used Substance and Sexual Activity Alcohol use: Yes Alcohol/week: 1.0 standard drink of alcohol Types: 1 5 oz of wine per week Comment: Social Drug use: No Sexual activity: Yes Partners: Female Other Topics Concern Service Not Asked Blood Transfusions Not Asked Caffeine Concern Not Asked Occupational Exposure Not Asked Hobby Hazards Not Asked Sleep Concern Not Asked Stress Concern Not Asked Weight Concern Not Asked Special Diet Not Asked Back Care Not Asked Exercise Not Asked Bike Helmet Not Asked Seat Belt Yes Self-Exams Not Asked Social History Narrative 2 Dogs No mold Social Needs Financial Resource Strain: Not on file Food Insecurity: No Food Insecurity (08/03/2022) Hunger Vital Sign Worried About Running Out of Food in the Last Year: Never true Ran Out of Food in the Last Year: Never true Transportation Needs: Not on file Social Connections: Not on file Housing Stability: Not on file Family History Problem Relation Name Age of Onset Cancer Mother breast, HBP Hypertension Mother Cancer Father bladder, CVA, CHF, age 74 Heart Disorder Father Stroke Father Eye Problems Father AMD Other (bladder cancer) Father Eye Problems Grandmother (Maternal) AMD Other (bladder cancer) Grandmother (Paternal) No Past Hx Son No Past Hx Son Diabetes None Thyroid Disorder None Eye Problems None Patient denies HX glaucoma, retinal detachments or blindness Current Outpatient Medications Medication Sig Dispense Refill Aspirin 81 MG Oral Tablet Delayed Release Take 1 Tablet by mouth in the morning. Tadalafil 5 MG Oral Tablet (Cialis) Take 1 Tablet by mouth daily as needed for Erectile Dysfunction. 30 Tablet 6 Vitamin D 25 MCG (1000 UT) Oral Tablet Take 1 Tablet by mouth in the morning. Dexcom G7 Sensor Use 4 Units as directed once a week. 4 Each 11 amLODIPine Besylate 10 MG Oral Tablet (Norvasc) Take 1 Tablet by mouth in the morning. 90 Tablet 3 Ozempic (0.25 or 0.5 MG/DOSE) 2 MG/3ML Solution Pen-injector (Semaglutide(0.25 or 0.5MG/DOS)) Inject 0.5 mg under the skin once a week. 9 mL 1 Rosuvastatin Calcium 20 MG Oral Tablet (Crestor) Take 1 Tablet by mouth in the morning. 90 Tablet 3 metFORMIN HCl ER 500 MG Oral Tablet Extended Release 24 Hour (Glucophage XR) Take 1 Tablet by mouthin the morning. 90 Tablet 3 Vitamin B Complex Oral Tablet Take 1 Tablet by mouth in the morning. Folic Acid 1 MG Oral Tablet Take 1 Tablet by mouth in the morning. 90 Tablet 3 Finasteride 5 MG Oral Tablet (Proscar) Take 1 Tablet by mouth in the morning. 90 Tablet 3 Solifenacin Succinate 10 MG Oral Tablet (VESIcare) Take 1 Tablet by mouth in the morning. 30 Tablet6 Labetalol HCl 300 MG Oral Tablet Take 1 Tablet by mouth in the morning and 1 Tablet before bedtime.180 Tablet 3 Potassium Chloride ER 10 MEQ Oral Capsule Extended Release Take 1 Capsule by mouth in the morning. 90 Capsule 1 Fluticasone Propionate 50 MCG/ACT Nasal Suspension (Flonase) Administer 2 Sprays into each nostril at bedtime. 16 g 5 Spiriva Respimat 1.25 MCG/ACT Inhalation Aerosol Solution (Tiotropium [place] Monohydrate) Inhale 2Puffs by mouth in the morning. 4 g 5 Furosemide 20 MG Oral Tablet (Lasix) Take 1.5 Tablets by mouth in the morning. 135 Tablet 1 Levothyroxine Sodium 150 MCG Oral Tablet (Levoxyl) Take 1 Tablet by mouth in the morning. (at least30 min prior to breakfast or other meds). 90 Tablet 1 Zoster Vac Recomb Adjuvanted 50 MCG/0.5ML Intramuscular Suspension Reconstituted (Shingrix) Inject 0.5 mL into a large muscle now and repeat dose in 60 to 180 days 1 Each 1 No current facility-administered medications for this visit. Review of patient's allergies indicates: No Known Allergies Results for orders placed or performed in visit on 01/10/24 CBC Result Value Ref Range WBC 9.04 4.00 - 10.80 K/uL RBC 5.62 4.50 - 5.25 M/uL HGB 16.1 14.0 - 16.8 g/dL HCT 47.0 40.0 - 48.4 % MCV 83.6 82.0 - 99.5 fL MCH 28.6 27.0 - 34.0 pg MCHC 34.3 32.0 - 36.0 g/dL RDW 14.4 11.5 - 15.5 % PLT 243 140 - 400 K/uL MPV 9.0 6.6 - 11.1 fL Results for orders placed or performed in visit on 06/03/24 BASIC METABOLIC PANEL Result Value Ref Range BUN 20 6 - 20 mg/dL CREATININE 1.5 (H) 0.6 - 1.2 mg/dL EGFR 47 (L) >=60 mL/min SODIUM 140 135 - 146 mmol/L POTASSIUM 4.0 3.5 - 5.1 mmol/L CHLORIDE 103 98 - 107 mmol/L CO2 25 22 - 32 mmol/L ANION GAP 12 7 - 15 mmol/L GLUCOSE 171 (H) 70 - 120 mg/dL CALCIUM 9.4 8.4 - 10.2 mg/dL Results for orders placed or performed in visit on 06/19/18 LIPID PANEL Result Value Ref Range HOURS FASTING 12 hours Triglycerides 113 <200 mg/dL Cholesterol 167 <200 mg/dL HDL Cholesterol 36 (L) >39 mg/dL Cholesterol-HDL Ratio 4.6 LDL Cholesterol 108 0 - 129 mg/dL Results for orders placed or performed in visit on 04/14/24 LIPID PANEL WITH DIRECT LDL IF TG IS HIGH Result Value Ref Range Triglycerides 116 <=174 mg/dL Cholesterol 122 <200 mg/dL HDL Cholesterol 45 >39 mg/dL Non-HDL Cholesterol 77 <=159 mg/dL LDL Cholesterol 54 <=129 mg/dL Lab Results Component Value Date/Time HEMOGLOBIN A1C - [facility] 6.7 (H) 04/14/2024 10:31 AM HEMOGLOBIN A1C - [facility] 7.1 (H) 01/10/2024 11:34 AM HEMOGLOBIN A1C - [facility] 7.2 (H) 05/24/2023 09:13 AM Lab Results Component Value Date/Time TSH - [facility] 0.59 06/03/2024 08:11 AM TSH - [facility] 0.13 (L) 04/25/2024 09:32 AM TSH - [facility] 0.24 (L) 05/24/2023 09:13 AM TSH - [facility] 4.30 (H) 10/18/2020 11:27 AM TSH - [facility] 13.44 (H) 06/23/2019 11:44 AM TSH Esthela YE 2.63 06/19/2018 10:56 AM [facility] Screen Date Value Ref Range Status 01/15/2024 Negative Negative Final Results for orders placed or performed in visit on 01/10/24 VITAMIN B12 Result Value Ref Range Vitamin B12 485 232 - 1,245 pg/mL Results for orders placed or performed in visit on 01/10/24 FOLIC ACID Result Value Ref Range Folic Acid 4.6 >4.5 ng/mL No results found for: "[id number]" No results found for: "[id number]" No results found for: "[id number]" 25-Hydroxy Vitamin D (ng/mL) Date Value 04/14/2024 33 01/10/2024 22 Vitamin D Level Interpretation deficient: <20 ng/ml insufficient: 20-30 ng/ml normal: 31-100 ng/ml REVIEW OF SYSTEMS: As above PHYSICAL EXAM: BP 134/82 | Pulse 66 | Temp 36.2 °C (97.1 °F) (Tympanic) | Resp 20 | Wt 129 kg (284 lb 6.4 oz) | SpO2 90% | BMI 44.54 kg/m² | BSA 2.47 m² Patient is awake and alert speech and language are normal affect appropriate no facial masking no IMPRESSION: Head voice or jaw tremor no resting tremor cogwheel rigidity patient is morbidly obese strength is full reflexes in the uppers and knees are mildly brisk ankle jerks are 1+ no clonus toesare downgoing vibration is present at the toes there slightly above the ankle level to temperature moderate tremor with intention left greater than right patient easily gets short of breath when arisi ng from a chair his gait is mildly wide based mild increase in steps per turn mildly shuffling but not overtly bradykinetic This patient has poly factorial gait dysfunction in part related to morbid obesity probably some deconditioning neuropathy he may have some parkinsonism but clearly does not have Parkinson's disease.I think a DaTSCAN is reasonable and we did discuss empirically treating with levodopa carbidopa we await the DaTSCAN. He is following up in [place] and if he can not get the DaTSCAN performed in our system prior to him leaving he has a it is scheduled in October. We talked about going to physical therapy he has done it multiple times and does not think that is been effective I do think that weight loss might be helpful for this gentleman. Return when he returns from [place]. Danielle Aguirre MD 10/02/2024 11:10 AM documented in this encounter Nursing Notes * Justyna Elliott MED ASSIST - 10/02/2024 10:12 AM EST Chief Complaint Patient presents with Return Neuro documented in this encounter Plan of Treatment Upcoming Encounters Date Type Department Care Team (Late st Contact Info) Description 01/01/2025 5:30 PM EDT Imaging Radiology [facility] [address] [facility] [place] [address] 01/07/2025 12:00 PM EDT Office Visit General Internal Medicine [facility] 200 [facility] [place] [address] Cindy Serrano MD 200 [facility] [place] [address] 01/13/2025 3:00 PM EDT Telemedicine Urology [facility] [address] [place] [address] Nader Sterling MD [address] [place] [address] 7, Telemed [facility] U[facility] [address] [place] [address] 01/19/2025 9:30 AM EDT Cardiac Studies Cardiac Studies, [facility] [address] 01/19/2025 10:00 AM EDT [facility] [address] [facility] [place] [address] Danielle Aguirre MD [address] [facility] [place] [address] 01/29/2025 10:00 AM EDT Office Visit Cardiology, [facility] [address] [facility] [place] [address] Jojo Arroyo CRNP [address] [facility] [place] [address] Scheduled Orders Name Type Priority Associated Diagnoses Orde r Schedule VITAMIN B1 (THIAMINE), BLOOD, LC/MS/MS Lab Routine Polyneuropathy Ordered: 10/02/2024 FOLIC ACID Lab Routine Polyneuropathy Folic acid deficiency Ordered: 10/02/2024 METHYLMALONIC ACID, SERUM Lab Routine Polyneuropathy Ordered: 10/02/2024 Scheduled Procedures Name Priority Associated Diagnoses Date/Ti [...] this encounter Medical Devices Implanted Type Area Diagnostic Medical Sonographer Device Identifier Shelf Expiration Date Model / Serial / Lot System [employer]ift - [id number] Implanted:Qty: 4 on 03/09/2022 by Nader Sterling MD at OR [facility] [employer] 08/11/2023 [id number] / / [id number] documented as of this encounter Visit Diagnoses Diagnosis Polyneuropathy- Primary Unspecified hereditary and idiopathic peripheral neuropathy Folic acid deficiency Other B-complex deficiencies documented in this encounter Advance Directives * [...] and were consensually agreed upon. Care Teams Reservoir Engineering Consultant Relationship Specialty Start Date End Date Cindy Serrano MD [address] [place] [address] PCP - General Internal Medicine 01/15/24 documented as of this encounter
--- OUTSIDE RECORDS SUMMARY | 2024-12-24 09:14 | External Medical Summary ---
Author Name Unknown Address Unknown Organization : Laboratory Report Ordering Provider Test Date Status SERENA GOODE 10/02/2024 11:36:44 Final Observation Date Value Abnormality Reference (Units ) Status METHYLMALONIC ACID 10/02/2024 11:36:44 156 6 9-390 (nmol/L) Final Serum methylmalonic acid (MM A) levels are used to
diagnose and monitor several rare inborn errors of
metabolism, including methylmalonic aciduria. The
enzymatic conversion of MMA to succinic acid requires
vitamin B12 (adenosyl-cobalamin) as a cofactor. Serum
MMA levels are also used for assessing functional
vitamin B12 deficiency. Vitamin B12 is essential for
neurodevelopment, particularly early in
. Undiagnosed maternal vitamin B12 deficiency
may be associated with adverse / outcomes,
such as neural tube defects and intrauterine growth
restriction.
[facility] utilized Multi-Modal Decomposition
(MMD) analysis to establish first and second trimester-
specific MMA reference intervals in , as given
below:
MMA, First trimester (<13 wks gestation): 58-167 nmol/L
MMA, Second trimester (13-23 wks gestation):
63-241 nmol/L
This test was developed and its analytical performance
characteristics have been determined by [facility]. It has not been cleared or approved by the
FDA. This assay has been validated pursuant to the CLIA
regulations and is used for clinical purposes.

Test Performed at:
[facility]
[address] [facility]
[place] [address]
Moises Canela M.D., Ph.D.,Director of Laboratories Performing Location
--- OUTSIDE RECORDS SUMMARY | 2024-12-24 09:14 | External Medical Summary ---
Author Name Unknown Address Unknown Organization [id number]:[facility] [place] [address] [place] [address] Laboratory Report Ordering Provider Test Date Status SERENA GOODE 10/02/2024 11:36:44 Final Observation Date Value Abnormality Reference (Units ) Status Folic Acid 10/02/2024 11:36:44 >20.0 >4.5 (ng/ mL) Final Performing Location LABORATORY C - [address] [place] [address]
--- OUTSIDE RECORDS SUMMARY | 2024-12-24 09:15 | External Medical Summary | Summary of Care ---
Author Name Unknown Organization [facility] Address [address] [facility] [place] [address] Phone [phone] Care Team Providers Care Branch General Manager Name Role Phone Cindy Serrano MD Primary Care Provider [phone] Reason for Referral * Precert (Within 10 days (routine)) - Authorized Specialty Diagnoses / Procedures Referred By Contac t Referred To Contact Radiology Diagnoses Abnormal CT of the chest Procedures CT CHEST WO CONTRAST Cindy Serrano MD [address] [place] [id number] Referral ID Status Reason Start Date Expiration Date V isits Requested Visits Authorized [id number] Authorized 01/01/2025 999 999 Reason for Visit * Reason Comments Follow Up Encounter Details Date Type Department Care Team (Late st Contact Info) Description 07/03/2024 5:00 PM EDT Office Visit General Internal Medicine [place] Iram Garzon [address] [place] [id number] Cindy Serrano MD [address] [place] [address] Edema, unspecified type*; Type 2 diabetes mellitus without complication, without long-term current use of insulin (HCC); Stress incontinence of urine; Stenosis of right vertebral artery; Nocturia; Morbid obesity due to excess calories (HCC); Acquired hypothyroidism; HTN, goal below 130/80; Elevated LFTs; Dyslipidemia, goal LDL below 70; COPD, mild (HCC); Chronic heart failure with preserved ejection fraction (HCC); Abnormal CT of the chest; Dizziness; Generalized edema; BPH with obstruction/lower urinary tract symptoms; Body mass index (BMI) of 40.0 to 44.9 in adult (HCC); Acquired buried penis; Urge incontinence; Urinary frequency; Need for pneumococcal vaccination Allergies No known active allergiesdocumented as of this encounter (statuses as of 07/07/2024) Medications Medication Sig Dispensed Refills Start Date [...] complication, without long-term current use of insulin ([facility]) Use 4 Units as directed once a [...] complication, without long-term current use of insulin ([facility]) Inject 0.5 mg under the skin [...] complication, without long-term current use of insulin ([facility]) Take 1 Tablet by mouth in the [...] at bedtime. 16 g 5 4 Active Amoxicillin-Pot Clavulanate 875-125 MG Oral Tablet (Augmentin)Indicat ions:COPD, mild (HCC) Take 1 Tablet by mouth in the morning and 1 Tablet before bedtime. Do all this for 7 days. 14 Tablet 4 024 Active Spiriva Respimat 1.25 MCG/ACT Inhalation Aerosol Solution (Tiotropium [place] Monohydrate)Indica tions:COPD, mild (HCC) Inhale 2 Puffs by mouth in the morning. 4 g 5 4 Active Furosemide 20 MG Oral Tablet (Lasix)Indications :Edema, unspecified type Take 1.5 Tablets by mouth in the morning. 135 Tablet 1 4 Active Fluticasone Propionate 50 MCG/ACT Nasal Suspension (Flonase)Indicatio ns:Generalized edema Administer 2 Sprays into each nostril at bedtime. 16 g 5 4 024 Discontinued(Re fill) Furosemide 20 MG Oral Tablet (Lasix) Take 1 Tablet by mouth in the morning. 90 Tablet 1 4 024 Discontinued documented as of this encounter (statuses as of 07/07/2024) Active Problems Problem Noted Date Diagnosed Date [...] as of this encounter (statuses as of 07/07/2024) Resolved Problems Problem Noted Date Diagnosed Date [...] as of this encounter (statuses as of 07/07/2024) Immunizations Name Administration Dates Next Due COVID-19 mRNA, LNP-s, No Pre serve, 2-Dose Series (Tipjoy) 07/01/2021,12/01/2020,11/03/2020 COVID-19, LNP-s, No Preserve , Jonathan-sucrose, Ages 12+ (Pfizer) 01/24/2022 Covid-19, Mrna, Lnp-s, Pf, B ivalent, 30 Mcg, IM, 12 yrs and above (Pfizer) 08/11/2022 H1N1 2009 Influenza, IM 09/27/2009 Pneumococcal Conjugate Vacc, 13 Valent (Prevnar) 04/19/2016 Pneumococcal Conjugate Vacci ne, 20-valent ([id number]) 07/03/2024 Pneumococcal Polysaccharide PPV23 (Pneumovax) 06/01/2010 Season [...] 09/24/1996 Smokeless Tobacco: Never Tobacco Cessation:Counseling Given: No Comments:quit Alcohol Use Standard Drinks/Week Comments Yes [...] Sign Reading Time Taken Comments Blood Pressure 138/78 07/03/2024 4:53 PM EDT Pulse 96 07/03/2024 4:53 PM EDT Temperature 36.2 °C (97.2 °F) 07/03/2024 4:53 PM ED T Respiratory Rate 22 07/03/2024 4:53 PM EDT Oxygen Saturation 95% 07/03/2024 4:53 PM EDT Inhaled Oxygen Concentration - - Weight 126.1 kg (278 lb 1.6 oz) 07/03/2024 4:53 PM EDT Height 170.2 cm (5' 7") 07/03/2024 4:53 PM EDT Body Mass Index 43.56 07/03/2024 4:53 PM EDT documented in this encounter Progress Notes * Cindy Serrano MD - 07/03/2024 5:01 PM EDT Images from the original note were not included. History of Present Illness Rene Sauer is a 79 year old male that presents for Follow Up 79 year old male with PMH significant for DM, HTN, HLD, BPH, stress incontinence , hypothyroidism,morbid obesity , CHF presents here for recheck. Acute concern :- -BP better and swelling as well -previously done TC chest showed evidence of pneumonia - result was not able to be communicated as nurses not able to get hold of him. Has cough but not too bad , ROYAL +ve. Also evidence of COPD Interimmedical history : balance off and feels weak overall - seen by neurologist and EMG showed neuropathy . Has f/u appoint Watching diet and exercise : yes Routine labs : reviewed Routine HM : agreeable to catch up Chronic medical problem: reviewed and stable Physical Exam Vitals: 07/03/24 1653 Temp: 36.2 °C (97.2 °F) Pulse: 96 Resp: 22 SpO2: 95% BP: 138/78 BMI: 43.55 Physical Exam Vitals and nursing note reviewed. Constitutional: General: He is not in acute distress. Appearance: He is normal weight. HENT: Head: Normocephalic. Cardiovascular: Rate and Rhythm: Normal rate and regular rhythm. Pulmonary: Effort: Pulmonary effort is normal. No respiratory distress. Breath sounds: No wheezing. Abdominal: General: Bowel sounds are normal. There is no distension. Palpations: Abdomen is soft. There is no mass. Musculoskeletal: General: No swelling, tenderness or signs of injury. Cervical back: Neck supple. No rigidity. Skin: General: Skin is warm. Findings: No lesion or rash. Neurological: Mental Status: He is alert. Psychiatric: Mood and Affect: Mood normal. I have reviewed the following results: CMP Assessment and Plan Edema, unspecified type - Furosemide 20 MG Oral Tablet (Lasix); Take 1.5 Tablets by mouth in the morning. increased Type 2 diabetes mellitus without complication, without long-term current use of insulin ([facility]) Stable Continue current treatment as directed Stress incontinence of urine Stenosis of right vertebral artery Nocturia Morbid obesity due to excess calories ([facility]) Acquired hypothyroidism Stable Continue current treatment as directed HTN, goal below 130/80 Stable Continue current treatment as directed Elevated LFTs Dyslipidemia, goal LDL below 70 Stable Continue current treatment as directed COPD, mild ([facility]) - Amoxicillin-Pot Clavulanate 875-125 MG Oral Tablet (Augmentin); Take 1 Tablet by mouth in the morning and 1 Tablet before bedtime. Do all this for 7 days. - Spiriva Respimat 1.25 MCG/ACT Inhalation Aerosol Solution (Tiotropium [place] Monohydrate); Inhale 2 Puffs by mouth in the morning. Chronic heart failure with preserved ejection fraction (HCC) Look Stable Continue current treatments fluid overloaded Abnormal CT of the chest - CT CHEST WO CONTRAST; Future Dizziness Generalized edema - Fluticasone Propionate 50 MCG/ACT Nasal Suspension (Flonase); Administer 2 Sprays into each nostril at bedtime. BPH with obstruction/lower urinary tract symptoms Body mass index (BMI) of 40.0 to 44.9 in adult (HCC) Acquired buried penis Stable Continue current treatment as directed Urge incontinence Urinary frequency Need for pneumococcal vaccination - PNEUMOCOCCAL VACC, PCV20, IM ([id number]) Wrap-Up Time: I spent a total of 40-54 minutes (exact time 44 mins) on the date of service in preparation, delivery, and documentation of the care provided to Jose Sauer excluding any time spent in the performance of separately billed services. * Peg Pearson, MED ASSIST - 07/03/2024 4:52 PM EDT Immunization Administration Documentation Time Out Procedure Performed: Yes Patient Identified (Ask Name/Date of ): Yes Does the patient have a fever greater than 101 degrees today? No Patient allergic to latex? No VFC Stock: No Immunization(s) verified: Yes, Immunization Name: Prevnar 20 (PCV20), VIS Sheet(s) given: Yes Verified Side and Site: Yes Verified Shot(s) with Parent(s)/Patient: Yes documented in this encounter Nursing Notes * Peg Pearson MED ASSIST - 07/03/2024 4:48 PM EDT Jose Sauer presents for 3 month recheck. He would like his Prevnar 20 vaccine today. Medications & HM reviewed. documented in this encounter Plan of Treatment Upcoming Encounters Date Type Department Care Team (Late st Contact Info) Description 07/10/2024 3:00 PM EDT Office Visit Cardiology, [facility] [address] [place] [address] Jojo Arroyo CRNP [address] [place] [address] 07/14/2024 8:00 AM EDT Telemedicine Nutrition & Weight Management, [facility] [address] [address] Dulce Luciano PA-C [address] [place] [address] 10/02/2024 10:00 AM EST Office Visit Neurology [facility] [address] [place] [address] Danielle Aguirre MD [address] [facility] [place] [address] 01/01/2025 5:30 PM EDT Imaging Radiology [facility] [address] [facility] [place] [address] 01/07/2025 12:00 PM EDT Office Visit General Internal Medicine [facility] [address] [facility] [place] [address] Cindy Serrano MD [address] [place] [address] 01/13/2025 3:00 PM EDT Office Visit Urology, [facility] [address] [facility] [place] [address] Nader Sterling MD [address] [place] [address] Scheduled Orders Name Type Priority Associated Diagnoses Orde r Schedule CT CHEST WO CONTRAST Medical Imaging Routine Abnormal CT of the chest Expected: 01/01/2025, Expires: 08/03/2025 Scheduled Procedures Name Priority Associated Diagnoses Date/Ti [...] Exam 01/09/2025 01/10/2024, 08/03/2022 GFR 06/03/2025 06/03/2024, 08/10/2023, 04/14/2024, Additional history exists TSH 06/03/2025 06/03/2024, 08/10/2023, 05/24/2023, Additional history exists Colonoscopy 04/10/2028 04/10/2023, [...] this encounter Medical Devices Implanted Type Area Funeral Car Driver Device Identifier Shelf Expiration Date Model / Serial / Lot System Urolift - [id number] Implanted:Qty: 4 on 03/09/2022 by Nader Sterling MD at OR [facility] [employer] 08/11/2023 [id number] / / [id number] documented as of this encounter Visit Diagnoses Diagnosis Edema, unspecified type- Primary Type 2 diabetes mellitus without complication, without long-term current use of insulin (HCC) Stress incontinence of urine Stenosis of right vertebral artery Nocturia Morbid obesity due to excess calories (HCC) Acquired hypothyroidism Unspecified hypothyroidism HTN, goal below 130/80 Unspecified essential hypertension Elevated LFTs Other abnormal blood chemistry Dyslipidemia, goal LDL below 70 Other and unspecified hyperlipidemia COPD, mild (HCC) Chronic airway obstruction, not elsewhere classified Chronic heart failure with preserved ejection fraction (HCC) Abnormal CT of the chest Nonspecific (abnormal) findings on radiological and other examination of other intrathoracic organs Dizziness Dizziness and giddiness Generalized edema Edema BPH with obstruction/lower urinary tract symptoms Hypertrophy of prostate with urinary obstruction and other lower urinary tract symptoms (LUTS) Body mass index (BMI) of 40.0 to 44.9 in adult (HCC) Acquired buried penis Other specified disorder of penis Urge incontinence Urinary frequency Need for pneumococcal vaccination Need for prophylactic vaccination against streptococcus pneumoniae (pneumococcus) documented in this encounter Advance Directives * [...] and were consensually agreed upon. Care Teams Branch General Manager Relationship Specialty Start Date End Date Cindy Serrano MD [address] [place] [id number] PCP - General Internal Medicine 01/15/24 documented as of this encounter
--- OUTSIDE RECORDS SUMMARY | 2024-12-24 09:15 | External Medical Summary | Summary of Care ---
Author Name Unknown Organization [facility] Address [address] [place] [address] Phone [phone] Care Team Providers Care Luggage Maker Name Role Phone Cindy Serrano MD Primary Care Provider [phone] Reason for Referral * Precert (Diagnostic Medical) (Within 10 days (routine)) - Authorized Specialty Diagnoses / Procedures Referred By Contac t Referred To Contact Cardiac Studies Diagnoses Chronic heart failure with preserved ejection fraction (HFpEF) (HCC) HTN, goal below 130/80 Procedures ECHO, COMPLETE (2D), TRANS-THORACIC Jojo Arroyo CRNP [address] [place] [id number] Referral ID Status Reason Start Date Expiration Date V isits Requested Visits Authorized [id number] Authorized Precert 07/11/2024 999 999 Reason for Visit * Reason Comments Follow Up Annual rtc Encounter Details Date Type Department Care Team (Late st Contact Info) Description 07/10/2024 3:00 PM EDT Office Visit Cardiology, [facility] [address] [place] [address] Jojo Arroyo CRNP [address] [place] [id number] Chronic heart failure with preserved ejection fraction (HFpEF) (HCC)*; HTN, goal below 130/80; Dyslipidemia, goal LDL below 70 Allergies No known active allergiesdocumented as of this encounter (statuses as of 07/10/2024) Medications Medication Sig Dispensed Refills Start Date End Date Status Aspirin 81 MG Oral Tablet Delayed Release Take 1 Tablet by mouth in the morning. Active Tadalafil 5 MG Oral Tablet (Cialis) Take 1 Tablet by mouth daily as needed for Erectile Dysfunction. 30 Tablet 6 09/26/2023 Active Additional Information Patient not taking.Reported on 04/22/2024 Vitamin D 25 MCG (1000 UT) Oral TabletIndications:Vi tamin D deficiency Take 1 Tablet by mouth in the morning. 01/14/2024 Active Dexcom G7 SensorIndications:Ty pe 2 diabetes mellitus without complication, without long-term current use of insulin ([facility]) Use 4 Units as directed once a week. 4 Each 11 01/25/2024 Active Additional Information Patient not taking.Reported on 06/27/2024 amLODIPine Besylate 10 MG Oral Tablet (Norvasc)Indications :HTN, goal below 130/80 Take 1 Tablet by mouth in the morning. 90 Tablet 3 02/08/2024 Active Ozempic (0.25 or 0.5 MG/DOSE) 2 MG/3ML Solution Pen-injector (Semaglutide(0.25 or 0.5MG/DOS))Indicatio ns:Type 2 diabetes mellitus without complication, without long-term current use of insulin (HCC) Inject 0.5 mg under the skin once a week. 9 mL 1 02/22/2024 Active Additional Information Patient not taking.Reported on 06/27/2024 Rosuvastatin Calcium 20 MG Oral Tablet (Crestor)Indications :Dyslipidemia Take 1 Tablet by mouth in the morning. 90 Tablet 3 03/13/2024 Active metFORMIN HCl ER 500 MG Oral Tablet Extended Release 24 Hour (Glucophage XR)Indications:Type 2 diabetes mellitus without complication, without long-term current use of insulin (HCC) Take 1 Tablet by mouth in the morning. 90 Tablet 3 04/12/2024 Active Vitamin B Complex Oral Tablet Take 1 Tablet by mouth in the morning. 04/22/2024 Active Folic Acid 1 MG Oral Tablet Take 1 Tablet by mouth in the morning. 90 Tablet 3 04/22/2024 Active Zoster Vac Recomb Adjuvanted 50 MCG/0.5ML Intramuscular Suspension Reconstituted (Shingrix)Indication s:Need for shingles vaccine Inject 0.5 mL into a large muscle now and repeat dose in 60 to 180 days 1 Each 1 04/22/2024 Active Finasteride 5 MG Oral Tablet (Proscar)Indications :BPH with obstruction/lower urinary tract symptoms Take 1 Tablet by mouth in the morning. 90 Tablet 3 04/24/2024 Active Levothyroxine Sodium 150 MCG Oral Tablet (Levoxyl)Indications :Acquired hypothyroidism Take 1 Tablet by mouth in the morning. (at least 30 min prior to breakfast or other meds). 90 Tablet 04/25/2024 Active Solifenacin Succinate 10 MG Oral Tablet (VESIcare) Take 1 Tablet by mouth in the morning. 30 Tablet 6 04/30/2024 Active Labetalol HCl 300 MG Oral TabletIndications:HT N, goal below 130/80 Take 1 Tablet by mouth in the morning and 1 Tablet before bedtime. 180 Tablet 3 05/03/2024 Active Potassium Chloride ER 10 MEQ Oral Capsule Extended ReleaseIndications:G eneralized edema Take 1 Capsule by mouth in the morning. 90 Capsule 1 05/23/2024 Active Fluticasone Propionate 50 MCG/ACT Nasal Suspension (Flonase)Indications :Generalized edema Administer 2 Sprays into each nostril at bedtime. 16 g 5 07/03/2024 Active Additional Information Patient not taking.Reported on 07/10/2024 Amoxicillin-Pot Clavulanate 875-125 MG Oral Tablet (Augmentin)Indicatio ns:COPD, mild (HCC) Take 1 Tablet by mouth in the morning and 1 Tablet before bedtime. Do all this for 7 days. 14 Tablet 07/03/2024 Active Additional Information Patient not taking.Reported on 07/10/2024 Spiriva Respimat 1.25 MCG/ACT Inhalation Aerosol Solution (Tiotropium Pelham Monohydrate)Indicati ons:COPD, mild (HCC) Inhale 2 Puffs by mouth in the morning. 4 g 5 07/03/2024 Active Additional Information Patient not taking.Reported on 07/10/2024 Furosemide 20 MG Oral Tablet (Lasix)Indications:E aurelio, unspecified type Take 1.5 Tablets by mouth in the morning. 135 Tablet 1 07/03/2024 Active documented as of this encounter (statuses as of 07/10/2024) Active Problems Problem Noted Date Diagnosed Date [...] as of this encounter (statuses as of 07/10/2024) Resolved Problems Problem Noted Date Diagnosed Date [...] as of this encounter (statuses as of 07/10/2024) Immunizations Name Administration Dates Next Due COVID-19 mRNA, LNP-s, No Pre serve, 2-Dose Series (Noveporter) 07/01/2021,12/01/2020,11/03/2020 COVID-19, LNP-s, No Preserve , Jonathan-sucrose, Ages 12+ (Pfizer) 01/24/2022 Covid-19, Mrna, Lnp-s, Pf, B ivalent, 30 Mcg, IM, 12 yrs and above (Pfizer) 08/11/2022 H1N1 2009 Influenza, IM 09/27/2009 Pneumococcal Conjugate Vacc, 13 Valent (Prevnar) 04/19/2016 Pneumococcal Conjugate Vacci ne, 20-valent ([id number]) 07/03/2024 Pneumococcal Polysaccharide PPV23 (Pneumovax) 06/01/2010 Season [...] Frequency of Alcohol Consumption 2-4 times a mon th 03/23/2020 Average Number of Drinks 1 or 2 [...] Sign Reading Time Taken Comments Blood Pressure 140/88 07/10/2024 3:20 PM EDT Pulse 60 07/10/2024 3:01 PM EDT Temperature - - Respiratory Rate 20 07/10/2024 3:01 PM EDT Oxygen Saturation - - Inhaled Oxygen Concentration - - Weight 125.7 kg (277 lb 1.6 oz) 07/10/2024 3:01 PM EDT Height - - Body Mass Index 43.4 07/03/2024 4:53 PM EDT documented in this encounter Progress Notes * Jojo Arroyo CRNP - 07/10/2024 3:00 PM EDT 07/10/2024 Cardiology Follow Up Primary Logistics/Shipper: MILLA Cardiac Problems: 1. Longstanding Hypertension, greater than 30 years duration 2. Low HDL dyslipidemia 3. Morbid obesity 4. HFpEF 5. Chronic dyspnea, likely multifactorial with obesity, deconditioning. Negative nuclear stress test 09/2022 6. Mild AI with aortic sclerosis, no stenosis HPI: Jose Sauer is a 79 year old male presents for routine Cardiology follow up Patient was last seen by the undersigned on 08/28/2023 doing well from a cardiac perspective with no new concerns. He was scheduled to undergo a TURP procedure with Dr. Nader Sterling on 09/05/2023 [facility] Patient presents today feeling well. Offers no cardiac concerns. He states that he has been keepingup to his normal routine. He is not able to walk long distances due to balance issue. Denies any feeling of pre-syncope. He just received news that his other home in [facility] is safe and intact. BP above target today, repeat improved. Getting ready to leave for [place] next week, will likely return in Sep 2024 as his significant other we will back surgery done Compliant on all medication therapies with no untoward effects REVIEW OF SYSTEMS: See HPI for pertinent positives. All others negative other than those noted in the HPI. CONSTITUTIONAL: No change in weight, No weakness, No fatigue and No fevers, No sweats or chills. PULMONARY: No cough, sputum, or hemoptysis, No wheezing, No shortness or breath and No recent change in breathing. CARDIOVASCULAR: No chest pain, No dyspnea on exertion, No edema, No palpitations and No syncope. GASTROINTESTINAL: No abdominal pain, No change in bowel habits, No significant heartburn, No nausea, No vomiting, No diarrhea, No constipation, No blood in stools or black tarry stools. No dysphagia. HEMATOLOGIC: No abnormal bleeding and No bruising. NEUROLOGICAL: Normal balance, No headaches and No weakness. Review of patient's allergies indicates: No Known Allergies Current Outpatient Medications Medication Sig Dispense Refill Aspirin 81 MG Oral Tablet Delayed Release Take 1 Tablet by mouth in the morning. Vitamin D 25 MCG (1000 UT) Oral Tablet Take 1 Tablet by mouth in the morning. amLODIPine Besylate 10 MG Oral Tablet (Norvasc) Take 1 Tablet by mouth in the morning. 90 Tablet 3 Rosuvastatin Calcium 20 MG Oral Tablet (Crestor) [...] mouth in the morning. 90 Tablet 3 Levothyroxine Sodium 150 MCG Oral Tablet (Levoxyl) Take 1 Tablet by mouth in the morning. (at least30 min prior to breakfast or other meds). 90 Tablet 0 Solifenacin Succinate 10 MG Oral Tablet (VESIcare) Take 1 Tablet by mouth in the morning. 30 Tablet6 Labetalol HCl 300 MG Oral Tablet Take 1 Tablet by mouth in the morning and 1 Tablet before bedtime.180 Tablet 3 Potassium Chloride ER 10 MEQ Oral Capsule Extended Release Take 1 Capsule by mouth in the morning. 90 Capsule 1 Furosemide 20 MG Oral Tablet (Lasix) Take 1.5 Tablets by mouth in the morning. 135 Tablet 1 Tadalafil 5 MG Oral Tablet (Cialis) Take 1 Tablet by mouth daily as needed for Erectile Dysfunction. (Patient not taking: Reported on 04/22/2024) 30 Tablet 6 Dexcom G7 Sensor Use 4 Units as directed once a week. (Patient not taking: Reported on 06/27/2024) 4Each 11 Ozempic (0.25 or 0.5 MG/DOSE) 2 MG/3ML Solution Pen-injector (Semaglutide(0.25 or 0.5MG/DOS)) Inject 0.5 mg under the skin once a week. (Patient not taking: Reported on 06/27/2024) 9 mL 1 Zoster Vac Recomb Adjuvanted 50 MCG/0.5ML Intramuscular Suspension Reconstituted (Shingrix) Inject 0.5 mL into a large muscle now and repeat dose in 60 to 180 days 1 Each 1 Fluticasone Propionate 50 MCG/ACT Nasal Suspension (Flonase) Administer 2 Sprays into each nostril at bedtime. (Patient not taking: Reported on 07/10/2024) 16 g 5 Amoxicillin-Pot Clavulanate 875-125 MG Oral Tablet (Augmentin) Take 1 Tablet by mouth in the morning and 1 Tablet before bedtime. Do all this for 7 days. (Patient not taking: Reported on 07/10/2024) 14 Tablet 0 Spiriva Respimat 1.25 MCG/ACT Inhalation Aerosol Solution (Tiotropium Pelham Monohydrate) Inhale 2Puffs by mouth in the morning. (Patient not taking: Reported on 07/10/2024) 4 g 5 No current facility-administered medications for this visit. 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 Tobacco Use Smoking status: Former Current packs/day: 0.00 Average packs/day: 1 pack/day for 20.0 years (20.0 ttl pk-yrs) Types: Cigarettes Start date: 09/24/1976 Quit date: 09/24/1996 Years since quittin.8 Smokeless tobacco: Never Tobacco comments: quit Vaping Use Vaping status: Never Used Substance and Sexual Activity Alcohol use: Yes Alcohol/week: 1.0 standard drink of alcohol Types: 1 5 oz of wine per week Comment: Social Drug use: No Sexual activity: Yes Partners: Female Other Topics Concern Seat Belt Yes Social History Narrative 2 Dogs No mold Social Determinants of Health Food Insecurity: No Food Insecurity (08/03/2022) Hunger Vital Sign Worried About Running Out of Food in the Last Year: Never true Ran Out of Food in the Last Year: Never true Social Connections OBJECTIVE/PHYSICAL EXAMINATION: BP 140/88 | Pulse 60 | Resp 20 | Wt 125.7 kg (277 lb 1.6 oz) | BMI 43.40 kg/m² | BSA 2.44 m² General: No acute distress. A+Ox3. HEENT: Normocephalic. Atraumatic. PERRL. EOMI. Conjunctiva and sclera clear. NECK: No carotid bruits. No JVD. Carotid upstrokes are brisk. Heart: RRR. S1 and S2 noted. No murmur. No rubs or gallops. PMI non displaced. Lungs: Clear to auscultation. No wheezes.No rhonchi. No rales. Abdomen: Normal bowel sounds. Soft. Nontender. No masses or organomegaly. No abdominal bruits. Extremities: No edema. No clubbing or cyanosis. Pulses: radial=2/4, posterior tibial=2/4, dorsalis pedis = 2/4. NEURO: No focal deficits. PSYCH: Appropriate affect and insight. DATA Labs & Imaging Reviewed Below: Nuclear lexiscan stress test report reviewed dated Sep 2022: Interpretation Summary Lexiscan nuclear stress test is negative for ischemia or scar. Gated SPECT images reveals normal myocardial thickening and wall motion. The LV ejection fraction is calculated at 64%. Compared to study dated November 04, 2020, current study demonstrates normal perfusion EKG performed August 2022: Normal sinus rhythm Incomplete right bundle branch block Nonspecific T wave abnormality Abnormal ECG When compared with ECG of 25-JAN-2022 09:20, No significant change was found Echocardiogram report reviewed dated August 30, 2022: Interpretation Summary The examination is adequate to evaluate the referral indication. The LV wall thickness is moderately increased (concentric). The left ventricular wall motion is normal. The qualitative LV ejection fraction is 55-59% (normal). The left ventricular diastolic function is mildly abnormal (grade I). The aortic valve has three leaflets. Moderate aortic valve sclerosis is present. Aortic stenosis is absent. Mild aortic valve regurgitation is present. There is a trace amount of pericardial fluid without effusion, compatible with normal physiology Lipid Panel Results: Results for orders placed or performed in [...] <=159 mg/dL LDL Cholesterol 54 <=129 mg/dL ASSESSMENT/PLAN: 79 year old year old male 1. Chronic heart failure with preserved ejection fraction (HFpEF) ([facility]) -last echocardiogram dated 2021 recommend that we repeat ultrasound to assess overall structure andfunction and assess for any valvular heart disease -euvolemic on exam -continue labetalol and furosemide as per current regimen - ECHO, COMPLETE (2D), TRANS-THORACIC; Future 2. HTN, goal below 130/80 -slightly above target although repeat blood pressure does show improvement. Encouraged patient to occasionally home monitor readings Continued to recommend a low-sodium diet less than 2000 mg daily Euvolemic on exam Continue labetalol , amlodipine and furosemide as per current regimen - ECHO, COMPLETE (2D), TRANS-THORACIC; Future 3. Dyslipidemia, goal LDL below 70 Recommend yearly lipid panel DISPOSITION: Follow up 6 months with echo or if symptoms worsen/fail to improve. All questions were answered to the patients satisfaction. Patient advised to report to ED with any and all emergencies. The patient agrees to the above plan and will call with additional questions or concerns. ROSAS Figueredo Cardiology, [address] [address] I spent a total of 32 minutes on the date of service in preparation, delivery, and documentation ofthe care provided to Jose Sauer excluding any time spent in the performance of separately billed services. This chart was completed in part utilizing [employer] Speech Voice Recognition Software. Grammatical errors, random word insertions, pronoun errors, and incomplete sentences are an occasional consequence of this system due to software limitations, ambient noise, and hardware issues. Any formal questions or concerns about the content, text, or information contained within the body of this dictation should be directly addressed to the provider for clarification. documented in this encounter Nursing Notes * Pilar Leung CMA - 07/10/2024 2:58 PM EDT Examination Room: 7 Name: Jose Sauer Date of : (1945). Reason for Visit: annual rtc Interim Hospitalization(s): denies Problems/Concerns: denies Chest Pain/SOB: denies [facility] Discussed: Yes [facility] is a way you can talk to your provider online through e-mail. Would you like to sign up? I can activate it for you? ALREADY ACTIVE Patient was instructed to not get up on the exam table until directed and assisted by their provider; patient is to remain seated in the chair/ wheelchair/ exam table for fall prevention and safety reasons. Patient is aware to have assistance to step down off exam table with personnel. Patient voiced full comprehension of instructions. documented in this encounter Plan of Treatment Upcoming Encounters Date Type Department Care Team (Late st Contact Info) Description 07/14/2024 8:00 AM EDT Telemedicine Nutrition & Weight Management, [facility] [address] [place] [address] Dulce Luciano PA-C [address] [place] [address] 10/02/2024 10:00 AM EST Office Visit Neurology [facility] [address] [place] [address] [address] Danielle Aguirre MD [address] [place] [address] [address] 01/01/2025 5:30 PM EDT Imaging Radiology [facility] [facility] [address] [place] [address] 01/07/2025 12:00 PM EDT Office Visit General Internal Medicine [facility] [address] [place] [address] [address] Cindy Serrano MD [address] [place] [address] [address] 01/13/2025 3:00 PM EDT Office Visit Urology, [facility] [address] [place] [address] Nader Sterling MD [address] [address] 01/19/2025 9:30 AM EDT Cardiac Studies Cardiac Studies, [facility] [address] [place] [address] 01/29/2025 10:00 AM EDT Office Visit [facility] [address] Jojo Arroyo CRNP 132 [place] [address] Scheduled Orders Name Type Priority Associated Diagnoses Orde r Schedule ECHO, COMPLETE (2D), TRANS-THORACIC Echocardiology Routine Chronic heart failure with preserved ejection fraction (HFpEF) (HCC) HTN, goal below 130/80 Expected: 07/11/2024 (Approximate), Expires: 08/09/2026 Scheduled Procedures Name Priority Associated Diagnoses Date/Ti [...] this encounter Medical Devices Implanted Type Area Football Scout Device Identifier Shelf Expiration Date Model / Serial / Lot System Urolift - [id number] Implanted:Qty: 4 on 03/09/2022 by Nader Sterling MD [facility] [employer] 08/11/2023 [id number] / / [id number] documented as of this encounter Visit Diagnoses Diagnosis Chronic heart failure with preserved ejection fraction (HFpEF) (HCC)- Primary HTN, goal below 130/80 Unspecified essential hypertension Dyslipidemia, goal LDL below 70 Other and unspecified hyperlipidemia documented in this encounter Advance Directives * [...] and were consensually agreed upon. Care Teams Luggage Maker Relationship Specialty Start Date End Date Cindy Serrano MD [address] [place] [address] PCP - General Internal Medicine 01/15/24 documented as of this encounter"
--- OUTSIDE RECORDS SUMMARY | 2024-12-24 09:15 | External Medical Summary | Summary of Care ---
Author Name Unknown Organization [facility] Address [address] [facility] [place] [address] Phone [phone] Care Team Providers Care Tufter Operator Name Role Phone Cindy Serrano MD Primary Care Provider [phone] Reason for Visit * Reason Onset Date Comments Referral 06/27/2024 NucMed Datscan Encounter Details Date Type Department Care Team (Late st Contact Info) Description 06/27/2024 Telephone Neurology [facility] [address] [place] [address] Danielle Aguirre MD [address] [place] [address] Referral (NucMed Datscan) Allergies No known active allergiesdocumented as of this encounter (statuses as of 07/04/2024) Medications Medication Sig Dispensed Refills Start Date [...] as of this encounter (statuses as of 07/04/2024) Active Problems Problem Noted Date Diagnosed Date [...] as of this encounter (statuses as of 07/04/2024) Resolved Problems Problem Noted Date Diagnosed Date [...] as of this encounter (statuses as of 07/04/2024) Immunizations Name Administration Dates Next Due COVID-19 mRNA, LNP-s, No Pre serve, 2-Dose Series (Polarion Software) 07/01/2021,12/01/2020,11/03/2020 COVID-19, LNP-s, No Preserve , Jonathan-sucrose, Ages 12+ (Pfizer) 01/24/2022 Covid-19, Mrna, Lnp-s, Pf, B ivalent, 30 Mcg, IM, 12 yrs and above (Pfizer) 08/11/2022 Diptheria/Tetanus (Adult) 04/06/2005,04/13/1995 H1N1 2009 Influenza, IM 09/27/2009 Pneumococcal Conjugate Vacc, 13 Valent (Prevnar) 04/19/2016 Pneumococcal Conjugate Vacci ne, 20-valent ([id number]) 07/03/2024 Pneumococcal Polysaccharide PPV23 (Pneumovax) 06/01/2010 Season [...] OSA - 07/04/2024 12:12 PM EDT 07/04/24 MY SENT FOR PT TO CALL TO BE [...] 07/10/2024 3:00 PM EDT Office Visit Cardiology, [facility] [address] [address] Jojo Arroyo CRNP [address] [place] [address] 07/14/2024 8:00 AM EDT Telemedicine Nutrition & Weight Management, [facility] [address] [address] Dulce Luciano PA-C [address] [place] [address] 10/02/2024 10:00 AM EST Office Visit Neurology [facility] [address] [facility] [place], [place] [address] Danielle Aguirre MD [address] [facility] [place], [place] [address] 01/07/2025 12:00 PM EDT Office Visit General Internal Medicine [facility] [address] [facility] [place], [place] [address] Cindy Serrano MD [address] [facility] [place], [place] [address] 01/13/2025 3:00 PM EDT Office Visit Urology, [facility] 132 [facility] [place] [address] Nader Sterling MD [address] [facility] [place] [address] Scheduled Procedures Name Priority Associated Diagnoses Date/Ti me COLONOSCOPY FLEXIBLE PROXIMA L DIAGNOSTIC Recall History of colonic polyps Health Maintenance Due Date Last Done Comments Zoster Vaccines (2 of 3) 01/28/2013 12/03/2012 Adult Wellness Visit 03/23/2021 03/23/2020 Diabetic Eye Exam 08/03/2023 08/03/2022, , 04/19/2015, Additional history exists COVID-19 Vaccine ( season) 2024 08/11/2022, 01/24/2022, 07/01/2021, Additional history exists Postponed from 05/25/2024 (Unavailable) Albumin/Creatinine Ratio 08/28/2024 023, 05/24/2023, 01/09/2022 HbA1c [...] this encounter Medical Devices Implanted Type Area Mountain Guide Device Identifier Shelf Expiration Date Model / Serial / Lot System Urolift - [id number] Implanted:Qty: 4 on 03/09/2022 by Nader Sterling MD at OR [facility] [id number] 08/11/2023 [id number] / / [id number] documented as of this encounter Advance Directives [...] and were consensually agreed upon. Care Teams Tufter Operator Relationship Specialty Start Date End Date Cindy Serrano MD 200 [place] [address] PCP - General Internal Medicine 01/15/24 documented as of this encounter
--- OUTSIDE RECORDS SUMMARY | 2024-12-24 09:16 | External Medical Summary | Summary of Care ---
Author Name Unknown Organization [facility] Address [address] [facility] [place] [address] Phone [phone] Care Team Providers Care Day Care Home Provider Name Role Phone Cindy Serrano MD Primary Care Provider [phone] Encounter Details Date Type Department Care Team (Late st Contact Info) Description 06/27/2024 Telephone [facility] [address] [place] [address] Cindy Serrano MD [address] [place] [id number] Allergies No known active allergiesdocumented as of this encounter (statuses as of 06/27/2024) Medications Medication Sig Dispensed Refills Start Date [...] the morning. 90 Tablet 3 04/22/2024 Active Fluticasone Propionate 50 MCG/ACT Nasal Suspension (Flonase)Indications :Generalized edema Administer 2 Sprays into each nostril at bedtime. 16 g 5 04/22/2024 Active Additional Information Patient not taking.Reported on 06/27/2024 Zoster Vac Recomb Adjuvanted 50 MCG/0.5ML Intramuscular [...] before bedtime. 180 Tablet 3 05/03/2024 Active Furosemide 20 MG Oral Tablet (Lasix) Take 1 Tablet by mouth in the morning. 90 Tablet 1 05/23/2024 Active Potassium Chloride ER 10 MEQ Oral Capsule Extended ReleaseIndications:G eneralized edema Take 1 Capsule by mouth in the morning. 90 Capsule 1 05/23/2024 Active documented as of this encounter (statuses as of 06/27/2024) Active Problems Problem Noted Date Diagnosed Date [...] as of this encounter (statuses as of 06/27/2024) Resolved Problems Problem Noted Date Diagnosed Date [...] as of this encounter (statuses as of 06/27/2024) Immunizations Name Administration Dates Next Due COVID-19 mRNA, LNP-s, No Pre serve, 2-Dose Series ([employer]) 07/01/2021,12/01/2020,11/03/2020 COVID-19, LNP-s, No Preserve , Jonathan-sucrose, Ages 12+ (Pfizer) 01/24/2022 Covid-19, Mrna, Lnp-s, Pf, B ivalent, 30 Mcg, IM, 12 yrs and above (Pfizer) 08/11/2022 H1N1 2009 Influenza, IM 09/27/2009 Pneumococcal Conjugate Vacc, 13 Valent (Prevnar) 04/19/2016 Pneumococcal Polysaccharide PPV23 (Pneumovax) 06/01/2010 Season Influenza, [...] encounter Miscellaneous Notes * Telephone Encounter - Sree Dai RT - 06/27/2024 2:18 PM EDT Called patient to go over procedure so that we can pick times and day that the DATscan can be scheduled. Called but could not leave a message due to voice mail being full. documented in this encounter Plan of Treatment Upcoming Encounters Date Type Department Care Team (Late st Contact Info) Description 07/10/2024 3:00 PM EDT Office Visit Cardiology, [facility] [address] [facility] [place] [address] Jojo Arroyo CRNP 132 [facility] [place] [address] 07/14/2024 8:00 AM EDT Telemedicine Nutrition & Weight Management, [facility] [address] [facility] [place] [address] Dulce Luciano PA-C 132 [place] [address] 07/24/2024 10:20 AM EDT Office Visit General Internal Medicine [facility] [place] [place] [address] Cindy Serrano MD 200 [place] [address] 10/02/2024 10:00 AM EST Office Visit Neurology [facility] [address] [facility] [place] [address] Danielle Aguirre MD [address] [place] [address] 01/13/2025 3:00 PM EDT Office Visit Urology, [facility] [address] [facility] [place] [address] Nader Sterling MD 27 [place] [address] Scheduled Procedures Name Priority Associated Diagnoses Date/Ti me COLONOSCOPY FLEXIBLE PROXIMA L DIAGNOSTIC Recall History of colonic polyps Health Maintenance Due Date Last Done Comments Zoster Vaccines (2 of 3) 01/28/2013 12/03/2012 Pneumococcal Vaccine: 65+ Years (2 of 2 - PPSV23 or PCV20) 06/14/2016 04/19/2016, 06/01/2010 Adult Wellness Visit 03/23/2021 03/23/2020 Diabetic Eye Exam 08/03/2023 08/03/2022, , 04/19/2015, Additional history exists *NEPHROLOGY 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 RESISTANT HTN 04/24/2024 COVID-19 Vaccine ( season) 2024 08/11/2022, 01/24/2022, [...] Completed 06/27/2024, 08/28/2023, 07/03/2022, Additional history exists HPV (Gardasil) Vaccine Aged Out No lo nger eligible based on patient's age to complete this topic Hepatitis B Vaccine Aged Out No longe r eligible based on patient's age to complete this topic MENINGOCOCCAL (MENACTRA/MENVEO) Aged Out No longer eligible based on patient's age to complete this topic documented as of this encounter Medical Devices Implanted Type Area Tensile Tester Device Identifier Shelf Expiration Date Model / Serial / Lot System Urolift - [id number] Implanted:Qty: 4 on 03/09/2022 by Nader Sterling MD at OR [facility] [employer] 08/11/2023 [id number] / / [id number] documented as of this encounter Advance Directives [...] and were consensually agreed upon. Care Teams Day Care Home Provider Relationship Specialty Start Date End Date Cindy Serrano MD 200 [place] [address] PCP - General Internal Medicine 01/15/24 documented as of this encounter
--- OUTSIDE RECORDS SUMMARY | 2024-12-24 09:16 | External Medical Summary | Summary of Care ---
Author Name Unknown Organization [facility] Address [address] [facility] [place] [address] Phone [phone] Care Team Providers Care Mill Laborer Name Role Phone Cindy Serrano MD Primary Care Provider [phone] Reason for Visit * Reason Onset Date Comments Referral 06/27/2024 NucMed Datscan Encounter Details Date Type Department Care Team (Late st Contact Info) Description 06/27/2024 Telephone Neurology [facility] 200 [place] [address] Danielle Aguirre MD 200 [place] [address] Referral (NucMed Datscan) Allergies No known active [...] mRNA, LNP-s, No Pre serve, 2-Dose Series ([employer]) 07/01/2021,12/01/2020,11/03/2020 COVID-19, LNP-s, No Preserve , Jonathan-sucrose, Ages 12+ (Pfizer) 01/24/2022 Covid-19, Mrna, Lnp-s, Pf, B ivalent, 30 Mcg, IM, 12 yrs and above (Pfizer) 08/11/2022 Diptheria/Tetanus (Adult) 04/06/2005,04/13/1995 H1N1 2009 Influenza, IM 09/27/2009 Pneumococcal Conjugate Vacc, 13 Valent (Prevnar) 04/19/2016 Pneumococcal Conjugate Vacci ne, 20-valent ([id number]) 07/03/2024 Pneumococcal Polysaccharide PPV23 (Pneumovax) 06/01/2010 Season [...] 07/10/2024 3:00 PM EDT Office Visit Cardiology, [facility] [address] [place] [address] Jojo Arroyo CRNP 132 [place] [address] 07/14/2024 8:00 AM EDT Telemedicine Nutrition & Weight Management, [facility] [address] [place] [address] Dulce Luciano PA-C 132 [place] [address] 10/02/2024 10:00 AM EST Office Visit Neurology [facility] 200 [place] [address] Danielle Aguirre MD 200 [facility], [place] [address] 01/07/2025 12:00 PM EDT Office Visit General Internal Medicine [facility] 200 [facility], [place] [address] Cindy Serrano MD 200 [place] [address] 01/13/2025 3:00 PM EDT Office Visit Urology, [facility] 132 [facility] [place] [address] Nader Sterling MD 27 [facility] [place] [address] Scheduled Procedures Name Priority Associated Diagnoses Date/Ti [...] this encounter Medical Devices Implanted Type Area Rocket Test Fire Worker Device Identifier Shelf Expiration Date Model / Serial / Lot System Urolift - [id number] Implanted:Qty: 4 on 03/09/2022 by Nader Sterling MD at OR [facility] [employer] 08/11/2023 [id number] / / [id number] documented as of this encounter Advance Directives [...] and were consensually agreed upon. Care Teams Mill Laborer Relationship Specialty Start Date End Date Cindy Serrano MD 200 [place] [address] PCP - General Internal Medicine 01/15/24 documented as of this encounter
--- OUTSIDE RECORDS SUMMARY | 2024-12-24 09:16 | External Medical Summary | Summary of Care ---
Author Name Unknown Organization [facility] Address [address] [facility] [place] [address] Phone [phone] Care Team Providers Care Wharf Labourer Name Role Phone Cindy Serrano MD Primary Care Provider [phone] Reason for Visit * Reason Onset Date Comments Referral 06/27/2024 NucMed Datscan Encounter Details Date Type Department Care Team (Late st Contact Info) Description 06/27/2024 Telephone Neurology [facility] 200 [place] [address] Danielle Aguirre MD 200 [place] [address] Referral (NucMed Datscan) Allergies No known active [...] mRNA, LNP-s, No Pre serve, 2-Dose Series ([employer]) 07/01/2021,12/01/2020,11/03/2020 COVID-19, LNP-s, No Preserve , Jonathan-sucrose, [...] encounter Miscellaneous Notes * Telephone Encounter - Nilam Vick BRODY - 06/27/2024 9:34 AM EDT Please call pt to schedule datscan documented in this encounter Plan of Treatment Upcoming Encounters Date Type Department Care Team (Late st Contact Info) Description 07/10/2024 3:00 PM EDT Office Visit Cardiology, [facility] 132 [facility] [place] [address] Jojo Arroyo CRNP [address] [place] [address] 07/14/2024 8:00 AM EDT Telemedicine Nutrition & Weight Management, [facility] 132 [facility] [place] [address] Dulce Luciano PA-C 132 [facility] [place] [address] 07/24/2024 10:20 AM EDT Office Visit General Internal Medicine [facility] 200 [facility] [place] [address] Cindy Serrano MD 200 [place] [address] 10/02/2024 10:00 AM EST Office Visit Neurology [facility] 200 [facility] [place] [address] Danielle Aguirre MD 200 [facility] [place] [address] 01/13/2025 3:00 PM EDT Office Visit Urology, [facility] 132 [facility] [place] [address] Nader Sterling MD 27 [place] [address] Scheduled Procedures Name Priority Associated Diagnoses Date/Ti [...] this encounter Medical Devices Implanted Type Area Manager Credit Risk Device Identifier Shelf Expiration Date Model / Serial / Lot System Urolift - [id number] Implanted:Qty: 4 on 03/09/2022 by Nader Sterling MD at OR [facility] [employer] 08/11/2023 [id number] / / [id number] documented as of this encounter Advance Directives [...] and were consensually agreed upon. Care Teams Wharf Labourer Relationship Specialty Start Date End Date Cindy Serrano MD 200 [facility] [place] [address] PCP - General Internal Medicine 01/15/24 documented as of this encounter
--- OUTSIDE RECORDS SUMMARY | 2024-12-24 09:16 | External Medical Summary | Summary of Care ---
Author Name Unknown Organization [facility] Address [address] [facility] [place] [address] Phone [phone] Care Team Providers Care Crm Campaign Manager Name Role Phone Cindy Serrano MD Primary Care Provider [phone] Encounter Details Date Type Department Care Team (Late st Contact Info) Description 06/30/2024 Telephone [facility]nd [facility] [address] [place] [address] Cindy Serrano MD [address] [place] [id number] Allergies No known active allergiesdocumented as of this encounter (statuses as of 06/30/2024) Medications Medication Sig Dispensed Refills Start Date [...] as of this encounter (statuses as of 06/30/2024) Active Problems Problem Noted Date Diagnosed Date [...] as of this encounter (statuses as of 06/30/2024) Resolved Problems Problem Noted Date Diagnosed Date [...] as of this encounter (statuses as of 06/30/2024) Immunizations Name Administration Dates Next Due COVID-19 mRNA, LNP-s, No Pre serve, 2-Dose Series ([employer]) 07/01/2021,12/01/2020,11/03/2020 COVID-19, LNP-s, No Preserve , Jonathan-sucrose, [...] Telephone Encounter - Sree Dai RT - 06/30/2024 9:32 AM EDT Called patient to go over Pagar.mescan and set up day and time but patient unavailable and could not leave message due to VM being full documented in this encounter Plan of Treatment Upcoming Encounters Date Type Department Care Team (Late st Contact Info) Description 07/10/2024 3:00 PM EDT Office Visit Cardiology, [facility] 132 [facility] [place] [address] Jojo Arroyo CRNP 132 [facility] [place] [address] 07/14/2024 8:00 AM EDT Telemedicine Nutrition & Weight Management, [facility] [address] [place] [address] Dulce Luciano PA-C 132 [facility] [place] [address] 07/24/2024 10:20 AM EDT Office Visit General Internal Medicine [facility] [place] [address] Cindy Serrano MD 200 [place] [address] 10/02/2024 10:00 AM EST Office Visit Neurology [facility] 200 [facility] [place] [address] Danielle Aguirre MD [address] [facility] [place] [address] 01/13/2025 3:00 PM EDT Office Visit Urology, [facility] 132 [facility] [place] [address] Nader Sterling MD 27 [place] [address] Scheduled Procedures Name Priority Associated Diagnoses Date/Ti [...] this encounter Medical Devices Implanted Type Area Coke Loader Device Identifier Shelf Expiration Date Model / Serial / Lot System Urolift - [id number] Implanted:Qty: 4 on 03/09/2022 by Nader Sterling MD at OR [facility] [employer] 08/11/2023 [id number] / / [id number] documented as of this encounter Advance Directives [...] and were consensually agreed upon. Care Teams Crm Campaign Manager Relationship Specialty Start Date End Date Cindy Serrano MD [address] [place] [address], [place] [address] PCP - General Internal Medicine 01/15/24 documented as of this encounter
--- OUTSIDE RECORDS SUMMARY | 2024-12-24 09:16 | External Medical Summary | Summary of Care ---
Author Name Unknown Organization [facility] Address [address] [facility] [place] [address] Phone [phone] Care Team Providers Care Pitch Gatherer Name Role Phone Cindy Serrano MD Primary Care Provider [phone] Reason for Referral * Precert (Within 10 days (routine)) - Authorized Specialty Diagnoses / Procedures Referred By Contac t Referred To Contact Radiology Diagnoses Parkinsonism, unspecified Parkinsonism type (HCC) Procedures NM BRAIN SPECT WITH DATSCAN Lorin Berman MD 200 [facility] [place] [address] Referral ID Status Reason Start Date Expiration Date V isits Requested Visits Authorized [id number] Authorized 07/28/2024 999 999 Reason for Visit * Reason Onset Date Comments Return Neuro Medication Administration 06/27/2024 Flu an d/or Pneumo Inj Encounter Details Date Type Department Care Team (Late st Contact Info) Description 06/27/2024 8:40 AM EDT Office Visit Neu[facility] [address] [place] [address] Lorin Berman MD 200 [facility] [place] [address] Need for prophylactic vaccination and inoculation against influenza*; Gait abnormality; Parkinsonism, unspecified Parkinsonism type (HCC) Allergies No known active allergiesdocumented as of [...] complication, without long-term current use of insulin ([facility]) Use 4 Units as directed once [...] complication, without long-term current use of insulin ([facility]) Inject 0.5 mg under the skin [...] complication, without long-term current use of insulin ([facility]) Take 1 Tablet by mouth in [...] mRNA, LNP-s, No Pre serve, 2-Dose Series ([employer]abetica) 07/01/2021,12/01/2020,11/03/2020 COVID-19, LNP-s, No Preserve , Jonathan-sucrose, [...] Sign Reading Time Taken Comments Blood Pressure 140/84 06/27/2024 8:45 AM EDT Pulse 83 06/27/2024 8:45 AM EDT Temperature 36.7 °C (98 °F) 06/27/2024 8:45 AM EDT Respiratory Rate - - Oxygen Saturation 93% 06/27/2024 8:45 AM EDT Inhaled Oxygen Concentration - - Weight 122.8 kg (270 lb 11.2 oz) 06/27/2024 8:45 AM EDT Height - - Body Mass Index 42.38 04/22/2024 9:43 AM EDT documented in this encounter Progress Notes * Lorin Berman MD - 06/27/2024 9:05 AM EDT Progress [place] [address] NAME: Jose Sauer Date of : 1945 Date of Visit: 06/27/24 Chief Complaint: Chief Complaint Patient presents with Return Neuro Medication Administration Flu and/or Pneumo Inj Subjective: f/u gait abnl; worse needs cart in [facility] Neuro ROS: neg for stroke sx Cardiac ROS no cp, etc; doesn't feel SOB HOME MEDICATIONS : Current Outpatient Medications Medication Sig Dispense Refill [...] mouth in the morning. 90 Tablet 3 Zoster Vac Recomb Adjuvanted 50 MCG/0.5ML Intramuscular Suspension Reconstituted (Shingrix) Inject 0.5 mL into a large muscle now and repeat dose in 60 to 180 days 1 Each 1 Finasteride 5 MG Oral Tablet (Proscar) Take [...] and 1 Tablet before bedtime.180 Tablet 3 Furosemide 20 MG Oral Tablet (Lasix) Take 1 Tablet by mouth in the morning. 90 Tablet 1 Potassium Chloride ER 10 MEQ Oral Capsule Extended Release Take 1 Capsule by mouth in the morning. 90 Capsule 1 Tadalafil 5 MG Oral Tablet (Cialis) [...] taking: Reported on 06/27/2024) 9 mL 1 Fluticasone Propionate 50 MCG/ACT Nasal Suspension (Flonase) Administer 2 Sprays into each nostril at bedtime. (Patient not taking: Reported on 06/27/2024) 16 g 5 No current facility-administered medications for this visit. Review of patient's allergies indicates: No Known Allergies PHYSICAL EXAMINATION: Vital Signs: BP 140/84 (BP Site: Right Arm, BP Position: Sitting, BP Cuff Size: Regular) | Pulse 83 | Temp 36.7 °C (98 °F) (Tympanic) | Wt 122.8 kg (270 lb 11.2 oz) | SpO2 93% | BMI 42.38 kg/m² | BSA 2.41 m² EXAM: Constitutional: appearance normally developed, well nourished. Head and Face: normocephalic and atraumatic Cardiovascular: heart sounds are normal. Rhythm is sinus; Tachypneic with minimal activity NEUROLOGIC EXAM Higher integrative is obviously intact. Cranial Nerves: CN 2 - no visual defect on confrontation and pupils round, equal, reactive to light CN 3, 4, 6 - extra-ocular movements intact and no nystagmus CN 7 - no facial asymmetry CN 9, 10 - palate symmetric CN 12 - tongue midline Motor: Normal, without pronator drift Coordination: Normal finger to nose and rapid alternating movement of lower extremities Tone nl; no cogwheeling; Gait very unsteady; turns 7-8 steps no pulsion; needs my assist for exam table; rises with difficulty. IMPRESSION / PLAN: His gait abnormality is worse and I am proceeding with testing for Parkinson's disease with a DaTSCAN. If he needs to be treated with medication he is going to find himself a neurologist in [place] although I will be able to see him in September if schedules aligned. If not I will see him when he gets back in the spring. 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 He may benefitfrom curcumin and Bromaline both of which have been shown come in peer reviewed studies, to be helpful. I have reviewed previous reports from his wallpaper embosser helper and ecg technician. His shortness of breath seems to be out of proportion and there have been some reports of post COVID shortness of breath due to orthostatic hypotension. This might be a concern from a non neurologic point of view. * Bridget Thorne LPN - 06/27/2024 8:50 AM EDT PRE - ADMINISTRATION DOCUMENTATION Are you experiencing any cold symptoms or fever? No Have you had Guillain-Cameron Syndrome (an illness that causes paralysis) within the last 6 weeks? No Have you had the flu shot in the past? YES Have you ever had a reaction to the flu shot? No Bridget Thorne LPN, 06/27/2024 8:50 AM Immunization Administration Documentation Time Out Procedure Performed: Yes Patient Identified (Ask Name/Date of ): Yes Does the patient have a fever greater than 101 degrees today? No Patient allergic to latex? No VFC Stock: No Immunization(s) verified: Yes, Immunization Name: Flu, VIS Sheet(s) given: Yes Verified Side and Site: Yes Verified Shot(s) with Parent(s)/Patient: Yes documented in this encounter Nursing Notes * Bridget Thorne LPN - 06/27/2024 8:44 AM EDT Chief Complaint Patient presents with Return Neuro Pt stated he does not feel he is getting better. He feels he is actually getting worse documented in this encounter Plan of Treatment Upcoming Encounters Date Type Department Care Team (Late st Contact Info) Description 07/10/2024 3:00 PM EDT Office Visit Cardiology, [facility] [address] [place] [address] Jojo Arroyo CRNP [address] [place] [address] 07/14/2024 8:00 AM EDT Telemedicine Nutrition & Weight Management, [facility] [address] [place] [address] [address] Dulce Luciano PA-C 132 [place] [address] 07/24/2024 10:20 AM EDT Office Visit General Internal Medicine [facility] 200 [facility] [place], [place] [address] Cindy Serrano MD 200 [facility] [place], [place] [address] 10/02/2024 10:00 AM EST Office Visit Neurology [facility] 200 [facility] [place], [place] [address] Danielle Aguirre MD 200 [facility] [place], [place] [address] 01/13/2025 3:00 PM EDT Office Visit Urology, [facility] [address] [place] [address] Nader Sterling MD [address] [place] [address] Scheduled Orders Name Type Priority Associated Diagnoses Orde r Schedule NM BRAIN SPECT WITH DATSCAN Medical Imaging Routine Parkinsonism, unspecified Parkinsonism type (HCC) Expected: 07/28/2024, Expires: 07/28/2025 Scheduled Procedures Name Priority Associated Diagnoses Date/Ti [...] this encounter Medical Devices Implanted Type Area Anthropology Faculty Member Device Identifier Shelf Expiration Date Model / Serial / Lot System Urolift - [id number] Implanted:Qty: 4 on 03/09/2022 by Nader Sterling MD at OR [facility] [employer] 08/11/2023 [id number] / / [id number] documented as of this encounter Visit Diagnoses Diagnosis Need for prophylactic vaccination and inoculation against influenza- Primary Gait abnormality Abnormality of gait Parkinsonism, unspecified Parkinsonism type (HCC) documented in this encounter Advance Directives * [...] and were consensually agreed upon. Care Teams Pitch Gatherer Relationship Specialty Start Date End Date Cindy Serrano MD 200 [place] [address] PCP - General Internal Medicine 01/15/24 documented as of this encounter"
--- OUTSIDE RECORDS SUMMARY | 2024-12-24 09:16 | External Medical Summary | Summary of Care ---
Author Name Unknown Organization [facility] Address [address] [facility] [place] [address] Phone [phone] Care Team Providers Care Campaign Management Specialist Name Role Phone Cindy Serrano MD Primary Care Provider [phone] Reason for Visit * Reason Onset Date Comments Referral 06/27/2024 NucMed Datscan Encounter Details Date Type Department Care Team (Late st Contact Info) Description 06/27/2024 Telephone Neurology [facility] [address] [place] [address] Danielle Aguirre MD [address] [place] [address] Referral (NucMed Datscan) Allergies No known active allergiesdocumented as of this encounter (statuses as of 07/03/2024) Medications Medication Sig Dispensed Refills Start Date [...] as of this encounter (statuses as of 07/03/2024) Active Problems Problem Noted Date Diagnosed Date [...] as of this encounter (statuses as of 07/03/2024) Resolved Problems Problem Noted Date Diagnosed Date [...] as of this encounter (statuses as of 07/03/2024) Immunizations Name Administration Dates Next Due COVID-19 mRNA, LNP-s, No Pre serve, 2-Dose Series ([employer]) 07/01/2021,12/01/2020,11/03/2020 COVID-19, LNP-s, No Preserve , Jonathan-sucrose, Ages 12+ ([employer]) 01/24/2022 Covid-19, Mrna, Lnp-s, Pf, B ivalent, 30 Mcg, IM, 12 yrs and above ([employer]) 08/11/2022 Diptheria/Tetanus (Adult) 04/06/2005,04/13/1995 H1N1 2009 Influenza, [...] PM EDT Office Visit General Internal Medicine [facility] [address] [place] [address] Cindy Serrano MD [address] [facility] [place] [address] 07/10/2024 3:00 PM EDT Office Visit Cardiology, [facility] [address] [address] [address] Jojo Arroyo CRNP [address] [place] [id number] 07/14/2024 8:00 AM EDT Telemedicine Nutrition & Weight Management, [facility] [address] [place] [address] [address] Dulce Luciano PA-C [address] [place] [address] 10/02/2024 10:00 AM EST Office Visit Neurology [facility] [address] [place] [address] Danielle Aguirre MD [address] [place] [address] 01/13/2025 3:00 PM EDT Office Visit Urology, [facility] [address] [place] [address] Nader Sterling MD [address] [place] [id number] Scheduled Procedures Name Priority Associated Diagnoses Date/Ti [...] this encounter Medical Devices Implanted Type [employer] Device Identifier Shelf Expiration Date Model / Serial / Lot System Urolift - [id number] Implanted:Qty: 4 on 03/09/2022 by Nader Sterling MD at OR [facility] [id number] 08/11/2023 [id number] / / [id number] documented as of this encounter Advance Directives [...] and were consensually agreed upon. Care Teams Campaign Management Specialist Relationship Specialty Start Date End Date Cindy Serrano MD [address] [place] [address] PCP - General Internal Medicine 01/15/24 documented as of this encounter
[2024-12-24 10:17] LABS: Estimated Average Glucose 180 mg/dl; Hemoglobin A1C 7.9 % (4.5-5.6)
[2024-12-24 15:17] LABS: Potassium 3.2 mmol/L (3.5-5.1)
--- NOTE | 2024-12-24 15:34 | Hospitalist Progress Note ---
Date of Service December 24, 2024 Assessment & Plan (1) CHF exacerbation: Plan: 79-year-old male with past medical history significant for type 2 diabetes, hyperlipidemia, hypothyroidism, chronic heart failure with preserved ejection fraction, hypertension, stenosis of right vertebral artery, morbid obesity, BPH, urge incontinence, stress incontinence, dizziness, elevated LFTs presents with ongoing cough since last couple of weeks and shortness of breath and lower extremity edema. Patient since about a week is not taking Lasix because of weakness. Denies chest pain. Has some runny nose. No fevers. No headache. No body ache. Appetite is okay. No nausea. No abdominal pain. Normal bowel and bladder movements. Patient oxygen saturations 88 percent on room air. On 2 L saturating okay. Acute heart failure with preserved ejection fraction Noncompliance Was not taking Lasix due to acute illness --CXR:Cardiomegaly and mild pulmonary edema --ECHO: LV systolic function is normal. EF 60 to 65%. Moderate concentric LVH. Grade 1 diastolic dysfunction. Aortic valve sclerosis moderate, without significant aortic valvular stenosis Continue IV Lasix 40 mg twice a day Monitor and replete electrolytes as needed Appreciate cardiology input Monitor volume status closely Supplemental oxygen as needed Continue labetalol Acute bronchitis Secondary to coronavirus OC 43 infection Chest x-ray showed no pneumonia Will start on low-dose prednisone Antitussives as needed Continue droplet precautions Check procalcitonin Hypokalemia Replace and monitor Suspected CKD CR 1.45 today Monitor renal function and avoid nephrotoxic agents as able DM II HbA1c 7.9 Hold metformin and Ozempic continue insulin while hospitalized per protocol Monitor bgS Hypothyroidism Continue levothyroxine Hyperlipidemia On statin BPH On Proscar Hypertension Continue amlodipine, labetalol and diuretics monitor blood pressure Morbid obesity Counseling BMI 43.6 DVT Px: Heparin SQ Code Status Full code Admission and Anticipated Discharge Date Admission Date: December 23, 2024 Subjective Patient is seen and examined at bedside Reports cough, dyspnea and orthopnea today Leg swelling slightly better Saturating well on 2 L supplemental oxygen Offers no other complaints Review of Systems Review of Systems: All systems reviewed & are unremarkable except as noted in Subjective Physical Exam Physical Exam: Physical Exam: Vitals signs as noted above General Appearance: Obese, no apparent distress Head: normocephalic, Atraumatic Eyes: normal inspection, EOMI Neck: supple, Trachea midline Respiratory/Chest: Coarse breath sounds, basal crackles, scattered wheezes, no accessory muscle use Cardiovascular: S1, S2, No murmur Abdomen/GI:Soft, Non tender, Bowel sounds present Extremities/Musculoskeletal:normal inspection, 1+ edema Neurologic/Psych:AAOX3, grossly no focal neurological deficits Skin: normal color, warm Results & Data Results & Data Vital Signs (Past 12 Hours) Vital Signs Temp Pulse Pulse Pulse Resp BP Pulse Ox 12/24/24 15:23 37.0 C 70 20 125/76 93 12/24/24 14:47 65 20 93 12/24/24 11:52 37.2 C 71 20 108/71 94 12/24/24 08:25 85 20 94 12/24/24 08:03 37.0 C 86 18 144/88 H 94 12/24/24 08:00 12/24/24 07:00 79 O2 Del Method O2 Flow Rate 12/24/24 15:23 Nasal Cannula 2.0 12/24/24 14:47 Nasal Cannula 2 12/24/24 11:52 Nasal Cannula 2.0 12/24/24 08:25 Nasal Cannula 2 12/24/24 08:03 Nasal Cannula 2.0 12/24/24 08:00 Nasal Cannula 2 12/24/24 07:00 Laboratory Results Short CBC 12/23/24 12/24/24 Range/Units 17:50 05:27 WBC 9.38 8.15 (4.8-10.8) K/ul Hgb 14.7 14.5 (14.0-18.0) g/dl Hct 42.0 41.3 L (42.0-52.0) % Plt Count 192 173 (130-400) K/uL BMP 12/23/24 12/24/24 12/24/24 17:50 05:27 14:33 Sodium 138 138 Potassium 3.6 3.1 L 3.2 L Chloride 105 103 Carbon Dioxide 25 28 BUN 21 19 Creatinine 1.40 1.45 H Glucose 127 H 138 H Calcium 8.9 8.4 L Liver Function 12/23/24 Range/Units 17:50 Total Bilirubin 0.7 (0.2-1.0) mg/dl AST 38 (13-39) U/L ALT 27 (7-52) U/L Alkaline Phosphatase 63 (34-104) U/L Albumin 4.1 (3.4-5.0) gm/dl
[2024-12-24] MEDS: predniSONE 20 MG TAB PO SCH (16:23)
[2024-12-25 06:35] LABS: Hematocrit (blood only) 41.4 % (42.0-52.0); Hemoglobin 14.1 g/dl (14.0-18.0); Mean Corpuscular Hemoglobin 30.1 pg (25.0-34.0); Mean Corpuscular Hgb Conc 34.1 g/dL (32.0-36.0); Mean Corpuscular Volume 88.3 fL (80.0-100.0); Mean Platelet Volume 9.8 fL (9.4-12.4); Platelet Count 172 K/uL (130-400); RDW Coefficient of Variation 13.8 % (11.5-14.5); RDW Standard Deviation 44.3 fL (36.4-46.3); Red Blood Count 4.69 M/uL (4.70-6.10); White Blood Count 8.01 K/ul (4.8-10.8)
[2024-12-25 07:04] LABS: BUN Creatinine Ratio 16.4 (10-20); Calcium 8.5 mg/dl (8.6-10.3); Creatinine Clr Calc Pharmacy 57.4 ml/min; Potassium 3.6 mmol/L (3.5-5.1)
--- NOTE | 2024-12-25 13:10 | Cardiology Progress Note ---
Date of Service December 25, 2024 Assessment & Plan (1) Acute heart failure with preserved ejection fraction: (2) Noncompliance: (3) URI (upper respiratory infection): (4) Hypokalemia: Plan 12/24/24 Patient admitted with viral upper respiratory illness, testing + for form of coronavirus. Treatment/supportive care per hospitalist. Also evidence of volume overload on exam, consistent with acute on chronic HFpEF. . Non compliant with oral diuretics at home. Continue furosemide 40 mg IV BID. Daily weight with standing scale Monitor I+O's Monitor renal function. Hypokalemic this morning and supplemented. recheck this afternoon. Echo with preserved LVEF, no wall motion abnormalities or significant valvular heart disease. Grade I diastolic dysfunciton. Hypertension - controlled -continue amlodipine, labetalol -BP is borderline low, may need to reduce amlodipine. monitor 12/25/24: Improving respiratory symptoms over the last 24 hours. Good urine output over the last [address] Monitor I+O's continue furosemide 40 mg IV BID. Potassium improved. Continue potassium 40 meq BID Daily weight with standing scale. Patient was non compliant with diuretics as an outpatient and will need daily diuretic therapy on dicharge Monitor renal function. Wean oxygen as tolerated Treatment for URI/coronavirus per hospitalist. Continue outpatient meds for HTN Case discussed with Dr. Ackerman I spent a total of 30 minutes on the date of service in preparation, delivery, and documentation of the care provided to this patient, excluding any time spent in the performance of separately billed services. Sonia Wall PA-C Department of Cardiology, [facility] This chart was completed in part utilizing Speech Voice Recognition Software. Grammatical errors, random word insertions, pronoun errors, and incomplete sentences are an occasional consequence of this system due to software limitations, ambient noise, and hardware issues. Any formal questions or concerns about the content, text, or information contained within the body of this dictation should be directly addressed to the provider for clarification. Case discussed with Dr. Ackerman. I spent a total of 60 minutes on the date of service in preparation, delivery, and documentation of the care provided to this patient, excluding any time spent in the performance of separately billed services. Sonia Wall PA-C Department of Cardiology, [facility] This chart was completed in part utilizing Speech Voice Recognition Software. Grammatical errors, random word insertions, pronoun errors, and incomplete sentences are an occasional consequence of this system due to software limitations, ambient noise, and hardware issues. Any formal questions or concerns about the content, text, or information contained within the body of this dictation should be directly addressed to the provider for clarification. Admission and Anticipated Discharge Date Admission Date: December 23, 2024 Supervising Physician Co-Signing Physician Notes I have personally performed a history and physical examination on the patient. I have reviewed the advance practitioner's documentation, and I agree with, and take responsibility for the plan of care. 79-year-old patient with acute hypoxic respiratory failure secondary to viral bronchitis and acute on chronic heart failure with preserved ejection fraction. Heart failure precipitated by noncompliance with diuretic therapy. Recommendations: * Continue IV furosemide 40 mg twice daily. * Reduce amlodipine to 5 mg daily. * Add Aldactone 12.5 mg daily. * Monitor daily weight, fluid balance, GFR, and electrolytes. * Continue potassium supplementation with KCl 20 mEq twice daily. * Maintain serum potassium greater than 4.0, and serum magnesium greater than 2.0. I spent a total of 35 minutes on the date of service in preparation, delivery, and documentation of the care provided to this patient, excluding any time spent in the performance of separately billed services. Jesus Ackerman DO, [facility] Subjective Patient resting in bed. Family at bedside. Reports his SOB and cough has improved but not yet at baseline. Edema improving. Still requiring supplemental O2. Review of Systems Review of Systems: All systems reviewed & are unremarkable except as noted in HPI & below Physical Exam Constitutional: + ill appearing and + morbidly obese Neck: + thick neck Respiratory: + cough Auscultation: + diminished juventino ng sounds, + rales and + wheezes Cardiovascular: Rate/Rhythm: regular rate and regular rhythm Heart Sounds: no murmur (distant heart sounds. no audible murmur) Vessels: no JVD Extremities: + edema (1+ pedal, ankle and pretibial edema) Gastrointestinal (Abdomen): normal bowel sounds, soft, nontender, no hepatosplenomegaly Neurologic: PERRL, EOMI, accommodation nl, no face palsy, no dysarthria Results & Data Vital Signs (Past 12 Hours) Vital Signs Temp Pulse Pulse Resp BP Pulse Ox O2 Del Method 12/25/24 12:00 36.7 C 60 19 118/74 94 Nasal Cannula 12/25/24 08:18 36.6 C 74 20 135/77 92 Nasal Cannula 12/25/24 08:00 56 L 12/25/24 08:00 Nasal Cannula 12/25/24 03:54 36.5 C 67 18 124/78 95 Nasal Cannula O2 Flow Rate 12/25/24 12:00 2.0 12/25/24 08:18 2.0 12/25/24 08:00 12/25/24 08:00 2 12/25/24 03:54 Laboratory Results CBC 12/25/24 Range/Units 05:25 WBC 8.01 (4.8-10.8) K/ul RBC 4.69 L (4.70-6.10) M/uL Hgb 14.1 (14.0-18.0) g/dl Hct 41.4 L (42.0-52.0) % Plt Count 172 (130-400) K/uL Comprehensive Metabolic Panel 12/24/24 12/25/24 Range/Units 14:33 05:25 Sodium 140 (136-145) mmol/L Potassium 3.2 L 3.6 (3.5-5.1) mmol/L Chloride 104 (98-107) mmol/L Carbon Dioxide 29 (21-32) mmol/L BUN 22 (6-23) mg/dl Creatinine 1.34 (0.6-1.4) mg/dl Glucose 163 H (70-99(Fasting)) mg/dl Calcium 8.5 L (8.6-10.3) mg/dl Intake and Output 12/24/24 12/25/24 12/25/24 22:59 06:59 14:59 Intake Total 620 / 820 Output Total 950 / 1600 650 / 1600 Balance -330 / -780 -650 / -780 Intake: Oral 620 / 620 Output: Urine Amount (Catheter) 950 / 1600 650 / 1600 Brewster/Indwelling 950 / 1600 650 / 1600 Other: Weight 124.3 kg Weight Measurement Method Standing Scale Diagnostic Findings Telemetry reviewed: Mild sinus bradycardia at night while asleep in the 40-50's. Otherwise NSR int he 60's. No pauses or symptomatic bradycardia Medications Administered Current Inpatient Medications Acetaminophen (Acetaminophen 325 Mg Tab) 650 mg PO Q4H PRN PRN Reason: Pain or Fever Stop: 01/22/25 23:57 Amlodipine Besylate (Amlodipine Besylate 5 Mg Tab) [facility] Stop: 01/23/25 08:59 Last Admin: 12/25/24 08:25 Dose: 10 mg Aspirin (Aspirin 81 Mg Ectab) 81 mg PO QAM [facility] Stop: 01/23/25 08:59 Last Admin: 12/25/24 08:26 Dose: 81 mg Benzonatate (Benzonatate 100 Mg Capsule) 100 mg PO TID [facility] Stop: 01/23/25 08:59 Last Admin: 12/25/24 08:24 Dose: 100 mg Dextrose (Dextrose 50% 50 Ml Syringe) 25 - 50 ml IV UD PRN; Protocol PRN Reason: Hypoglycemia Protocol Stop: 01/22/25 23:57 Doxycycline Hyclate (Doxycycline Hyclate 100 Mg Cap) 100 mg PO BIDM [facility] Stop: 12/30/24 12:29 Finasteride (Finasteride 5 Mg Tab) 5 mg PO [facility] Stop: 01/23/25 08:59 Last Admin: 12/25/24 08:27 Dose: 5 mg Folic Acid (Folic Acid 1 Mg Tab) 1 [facility] Stop: 01/23/25 08:59 Last Admin: 12/25/24 08:26 Dose: 1 mg Furosemide (Furosemide 40 Mg/4 Ml Vial) 40 mg IV BID17 [facility] Stop: 01/23/25 08:59 Last Admin: 12/25/24 08:23 Dose: 40 mg Glucagon (Glucagon For Inj 1 Mg Vial) 1 mg SQ UD PRN; Protocol PRN Reason: Hypoglycemia Protocol Stop: 01/22/25 23:57 Glucose (Glucose 40% Gel 15 Gm Tube) 15 - 30 gm PO UD PRN; Protocol PRN Reason: Hypoglycemia Protocol Stop: 01/22/25 23:57 Glucose (Glucose 10 Tab/Tube) 4 - 8 tab PO UD PRN; Protocol PRN Reason: Hypoglycemia Protocol Stop: 01/22/25 23:57 Guaifenesin/Dextromethorphan (Guaifenesin/Dextrom Syrup 100mg/10mg 5ml Udc) 5 ml PO Q6H PRN PRN Reason: Cough Stop: 01/22/25 23:57 Last Admin: 12/25/24 08:26 Dose: 5 ml Heparin Sodium (Porcine) (Heparin Sod 5,000 Unit/0.5 Ml Vial) 7,500 units SQ Q12 [facility] Stop: 01/23/25 08:59 Last Admin: 12/25/24 08:23 Dose: 7,500 units Insulin Aspart (Insulin Aspart Per Unit Charge) 0 units SC ACHS [facility] Stop: 01/23/25 07:29 Last Admin: 12/25/24 12:22 Dose: 4 units Insulin Glargine (Lantus Per Unit Charge) 5 units SQ BID PRIMO Stop: 01/23/25 08:59 Last Admin: 12/25/24 08:25 Dose: 5 units Labetalol HCl (Labetalol Hcl 300 Mg Tab) 300 mg PO AMHS [facility] Stop: 01/23/25 08:59 Last Admin: 12/25/24 08:26 Dose: 300 mg Levalbuterol HCl (Levalbuterol Hcl 0.63 Mg/3 Ml Neb) 0.63 mg NEB Q6H PRN; Protocol PRN Reason: Shortness Of Breath Or Wheezing Stop: 01/23/25 08:09 Last Admin: 12/24/24 14:39 Dose: 0.63 mg Levothyroxine Sodium (Levothyroxine Sodium 150 Mcg Tablet) 150 mcg PO DAILYBB [facility] Stop: 01/23/25 06:29 Last Admin: 12/25/24 05:26 Dose: 150 mcg Miscellaneous (Carbohydrates For Hypoglycemia ) 15 - 30 gm PO UD PRN PRN Reason: Hypoglycemia Protocol Stop: 01/22/25 23:57 Nitroglycerin (Nitroglycerin Sl 0.4 Mg/Tab Tab) 0.4 mg SL Q5M PRN PRN Reason: Chest Pain Stop: 01/22/25 23:57 Nystatin (Nystatin Susp 500,000 U/5 Ml Udc) 5 ml PO QID [facility] Stop: 01/03/25 08:59 Last Admin: 12/25/24 12:22 Dose: 5 ml Oxybutynin Chloride (Oxybutynin Chloride Xl 5 Mg Tabcr) 10 mg PO QAM [facility] Stop: 01/23/25 08:59 Last Admin: 12/25/24 08:25 Dose: 10 mg Polyethylene Glycol (Polyethylene (Miralax) 17 Gm Pack) 17 gm PO DAILY PRN PRN Reason: Constipation Stop: 01/22/25 23:57 Potassium Chloride (Potassium Chloride Crtab 20 Meq Tabcr) 20 meq PO BID [facility] Stop: 01/23/25 08:59 Last Admin: 12/25/24 08:24 Dose: 20 meq Prednisone (Prednisone 20 Mg Tab) 20 mg PO DAILY [facility] Stop: 01/23/25 15:29 Last Admin: 12/25/24 08:27 Dose: 20 mg Rosuvastatin Calcium (Rosuvastatin Calcium 20 Mg Tab) [facility] Stop: 01/23/25 08:59 Last Admin: 12/25/24 08:26 Dose: 20 mg Vitamin B Complex (Vitamin B Complex Tab) 1 tab [facility] Stop: 01/23/25 08:59 Last Admin: 12/25/24 08:25 Dose: 1 tab Vitamin D (Cholecalciferol 25 Mcg (1000 Units) Tab) 25 mcg [facility] Stop: 01/23/25 08:59 Last Admin: 12/25/24 08:26 Dose: 25 mcg
[2024-12-25] MEDS: DOXYCYCLINE HYCLATE 100 MG CAP PO SCH (13:16)
[2024-12-25] MEDS: SPIRONOLACTONE 12.5 MG TAB PO SCH (15:08)
--- NOTE | 2024-12-25 15:55 | Hospitalist Progress Note ---
Date of Service December 25, 2024 Assessment & Plan (1) CHF exacerbation: Plan: 79-year-old male with past medical history significant for type 2 diabetes, hyperlipidemia, hypothyroidism, chronic heart failure with preserved ejection fraction, hypertension, stenosis of right vertebral artery, morbid obesity, BPH, urge incontinence, stress incontinence, dizziness, elevated LFTs presents with ongoing cough since last couple of weeks and shortness of breath and lower extremity edema. Patient since about a week is not taking Lasix because of weakness. Denies chest pain. Has some runny nose. No fevers. No headache. No body ache. Appetite is okay. No nausea. No abdominal pain. Normal bowel and bladder movements. Patient oxygen saturations 88 percent on room air. On 2 L saturating okay. Acute heart failure with preserved ejection fraction Noncompliance Was not taking Lasix due to acute illness --CXR:Cardiomegaly and mild pulmonary edema --ECHO: LV systolic function is normal. EF 60 to 65%. Moderate concentric LVH. Grade 1 diastolic dysfunction. Aortic valve sclerosis moderate, without significant aortic valvular stenosis Continue IV Lasix 40 mg twice a day Monitor and replete electrolytes as needed Appreciate cardiology input Monitor volume status closely Supplemental oxygen as needed Continue labetalol Wean off of supplemental oxygen as able Started on Aldactone 12.5 mg daily Acute bronchitis Secondary to coronavirus OC 43 infection Chest x-ray showed no pneumonia Continue prednisone Antitussives as needed Continue droplet precautions Also started on doxycycline Suspected sleep apnea Patient currently not interested in using CPAP if required Check nocturnal oximetry study Advised sleep study as outpatient Hypokalemia Replace and monitor Suspected CKD CR 1. 34 today Monitor renal function Avoid nephrotoxic agents as able Renal function stable DM II HbA1c 7.9 Hold metformin and Ozempic continue insulin while hospitalized per protocol Monitor bgS Hypothyroidism Continue levothyroxine Hyperlipidemia On statin BPH On Proscar Hypertension Continue amlodipine, labetalol and diuretics Amlodipine dose decreased to 5 mg daily monitor blood pressure Morbid obesity Counseling BMI 43.6 DVT Px: Heparin SQ Code Status Full code Admission and Anticipated Discharge Date Admission Date: December 23, 2024 Subjective Patient is seen and examined at bedside Subjectively feels cough, dyspnea improving Leg edema improving as well Discussed with patient's family at bedside Saturating well on 2 L supplemental oxygen Review of Systems Review of Systems: All systems reviewed & are unremarkable except as noted in Subjective Physical Exam Physical Exam: Physical Exam: Vitals signs as noted above General Appearance: Obese, no apparent distress Head: normocephalic, Atraumatic Eyes: normal inspection, EOMI Neck: supple, Trachea midline Respiratory/Chest: Coarse breath sounds, basal crackles, scattered wheezes, no accessory muscle use Cardiovascular: S1, S2, No murmur Abdomen/GI:Soft, Non tender, Bowel sounds present Extremities/Musculoskeletal:normal inspection, 1+ edema Neurologic/Psych:AAOX3, grossly no focal neurological deficits Skin: normal color, warm Results & Data Results & Data Vital Signs (Past 12 Hours) Vital Signs Temp Pulse Pulse Resp BP Pulse Ox O2 Del Method 12/25/24 15:44 60 12/25/24 12:00 36.7 C 60 19 118/74 94 Nasal Cannula 12/25/24 08:18 36.6 C 74 20 135/77 92 Nasal Cannula 12/25/24 08:00 56 L 12/25/24 08:00 Nasal Cannula 12/25/24 03:54 36.5 C 67 18 124/78 95 Nasal Cannula O2 Flow Rate 12/25/24 15:44 12/25/24 12:00 2.0 12/25/24 08:18 2.0 12/25/24 08:00 12/25/24 08:00 2 12/25/24 03:54 Laboratory Results Short CBC 12/25/24 Range/Units 05:25 WBC 8.01 (4.8-10.8) K/ul Hgb 14.1 (14.0-18.0) g/dl Hct 41.4 L (42.0-52.0) % Plt Count 172 (130-400) K/uL BMP 12/25/24 05:25 Sodium 140 Potassium 3.6 Chloride 104 Carbon Dioxide 29 BUN 22 Creatinine 1.34 Glucose 163 H Calcium 8.5 L
[2024-12-25] MEDS: COUGH DROP (SUGAR FREE) LOZ 24 LOZ/1 BOX BUCCAL PRN (23:09)
[2024-12-26 06:11] LABS: Hematocrit (blood only) 40.7 % (42.0-52.0); Hemoglobin 13.9 g/dl (14.0-18.0); Mean Corpuscular Hemoglobin 29.9 pg (25.0-34.0); Mean Corpuscular Hgb Conc 34.2 g/dL (32.0-36.0); Mean Corpuscular Volume 87.5 fL (80.0-100.0); Mean Platelet Volume 9.6 fL (9.4-12.4); Platelet Count 176 K/uL (130-400); RDW Coefficient of Variation 13.8 % (11.5-14.5); RDW Standard Deviation 44.1 fL (36.4-46.3); Red Blood Count 4.65 M/uL (4.70-6.10); White Blood Count 10.13 K/ul (4.8-10.8)
[2024-12-26 06:26] LABS: BUN Creatinine Ratio 16.3 (10-20); Calcium 8.8 mg/dl (8.6-10.3); Creatinine Clr Calc Pharmacy 48.1 ml/min; Potassium 3.4 mmol/L (3.5-5.1)
[2024-12-26] MEDS: amLODIPine BESYLATE 5 MG TAB PO SCH (08:07)
--- NOTE | 2024-12-26 14:00 | Cardiology Progress Note ---
Date of Service December 26, 2024 Assessment & Plan (1) Acute heart failure with preserved ejection fraction: (2) Noncompliance: (3) URI (upper respiratory infection): (4) Hypokalemia: Plan 12/24/24 Patient admitted with viral upper respiratory illness, testing + for form of coronavirus. Treatment/supportive care per hospitalist. Also evidence of volume overload on exam, consistent with acute on chronic HFpEF. . Non compliant with oral diuretics at home. Continue furosemide 40 mg IV BID. Daily weight with standing scale Monitor I+O's Monitor renal function. Hypokalemic this morning and supplemented. recheck this afternoon. Echo with preserved LVEF, no wall motion abnormalities or significant valvular heart disease. Grade I diastolic dysfunciton. Hypertension - controlled -continue amlodipine, labetalol -BP is borderline low, may need to reduce amlodipine. monitor 12/25/24: Improving respiratory symptoms over the last 24 hours. Good urine output over the last [address] Monitor I+O's continue furosemide 40 mg IV BID. Potassium improved. Continue potassium 40 meq BID Daily weight with standing scale. Patient was non compliant with diuretics as an outpatient and will need daily diuretic therapy on dicharge Monitor renal function. Wean oxygen as tolerated Treatment for URI/coronavirus per hospitalist. 12/26/24: Patient with significant diuresis overnight and today. Continue furosemide 40 mg IV BID Volume status improving. Still with ongoing cough and orthopnea. Spironolactone added at 12.5 daily yesterday. Mild rise in creatinine but has fluctuated in the past. Hold AM diuretics until evaluated. Supplement potassium. Daily weight standing scale - weight trending downward. Will need diuretic on discharge. Patient previously non complaint. Wean oxygen and continue treatment of URI per hospitalist Continue outpatient meds for HTN Case discussed with Dr. Ackerman I spent a total of 30 minutes on the date of service in preparation, delivery, and documentation of the care provided to this patient, excluding any time spent in the performance of separately billed services. Sonia Wall PA-C Department of Cardiology, [facility] This chart was completed in part utilizing Speech Voice Recognition Software. Grammatical errors, random word insertions, pronoun errors, and incomplete sentences are an occasional consequence of this system due to software limitations, ambient noise, and hardware issues. Any formal questions or concerns about the content, text, or information contained within the body of this dictation should be directly addressed to the provider for clarification. Case discussed with Dr. Ackerman. I spent a total of 60 minutes on the date of service in preparation, delivery, and documentation of the care provided to this patient, excluding any time spent in the performance of separately billed services. Sonia Wall PA-C Department of Cardiology, [facility] This chart was completed in part utilizing Speech Voice Recognition Software. Grammatical errors, random word insertions, pronoun errors, and incomplete sentences are an occasional consequence of this system due to software limitations, ambient noise, and hardware issues. Any formal questions or concerns about the content, text, or information contained within the body of this dictation should be directly addressed to the provider for clarification. Admission and Anticipated Discharge Date Admission Date: December 23, 2024 Supervising Physician Co-Signing Physician Notes I have personally performed a history and physical examination on the patient. I have reviewed the advance practitioner's documentation, and I agree with, and take responsibility for the plan of care. 79-year-old patient with acute hypoxic respiratory failure secondary to viral bronchitis and acute on chronic heart failure with preserved ejection fraction. Heart failure precipitated by noncompliance with diuretic therapy. Recommendations: * Continue IV furosemide 40mg tonite. * Hold a.m. dose of furosemide until labs reviewed. * Monitor daily weight, fluid balance, GFR, and electrolytes. * Continue potassium supplementation. * Maintain serum potassium greater than 4.0, and serum magnesium greater than 2.0. * Amlodipine reduced to 5 mg daily 12/25/2024. * Aldactone 12.5 mg daily added 12/25/2024. I spent a total of 30 minutes on the date of service in preparation, delivery, and documentation of the care provided to this patient, excluding any time spent in the performance of separately billed services. Jesus Ackerman DO, FACC Subjective Patient resting in bed. SOB improving. Still has residual cough and orthopnea. Ongoing edema noted but improving. No fever or chills. No chest pain Review of Systems Review of Systems: All systems reviewed & are unremarkable except as noted in HPI & below Physical Exam Constitutional: + ill appearing and + morbidly obese Neck: + thick neck Respiratory: + cough; not tachypneic Auscultation: + diminished lung sounds, + rales and + wheezes Cardiovascular: Rate/Rhythm: regular rate and regular rhythm Heart Sounds: no murmur (distant heart sounds. no audible murmur) Vessels: no JVD Extremities: + edema (1+ pedal, ankle and pretibial edema) Gastrointestinal (Abdomen): normal bowel sounds, soft, nontender, no hepatosplenomegaly Neurologic: PERRL, EOMI, accommodation nl, no face palsy, no dysarthria Results & Data Vital Signs (Past 12 Hours) Vital Signs Temp Pulse Pulse Pulse Resp BP Pulse Ox 12/26/24 12:38 12/26/24 11:30 36.8 C 63 20 124/83 91 12/26/24 08:00 57 L 12/26/24 08:00 12/26/24 07:33 36.5 C 62 16 131/72 94 12/26/24 05:45 59 L 12/26/24 03:08 36.6 C 60 20 130/66 89 L 12/26/24 02:25 51 L Pulse Ox Pulse Ox Pulse Ox O2 Del Method O2 Del Method 12/26/24 12:38 91 87 L 12/26/24 11:30 Room Air 12/26/24 08:00 12/26/24 08:00 Room Air 12/26/24 07:33 Room Air 12/26/24 05:45 93 Room Air 12/26/24 03:08 Room Air 12/26/24 02:25 91 Room Air Laboratory Results CBC 12/26/24 Range/Units 05:19 WBC 10.13 (4.8-10.8) K/ul RBC 4.65 L (4.70-6.10) M/uL Hgb 13.9 L (14.0-18.0) g/dl Hct 40.7 L (42.0-52.0) % Plt Count 176 (130-400) K/uL Comprehensive Metabolic Panel 12/26/24 Range/Units 05:19 Sodium 139 (136-145) mmol/L Potassium 3.4 L (3.5-5.1) mmol/L Chloride 103 (98-107) mmol/L Carbon Dioxide 30 (21-32) mmol/L BUN 26 H (6-23) mg/dl Creatinine 1.60 H (0.6-1.4) mg/dl Glucose 115 H (70-99(Fasting)) mg/dl Calcium 8.8 (8.6-10.3) mg/dl Intake and Output 12/25/24 12/26/24 12/26/24 22:59 06:59 14:59 Intake Total 250 / 1430 500 / 1430 Output Total 450 / 3300 1600 / 3300 1300 / 1300 Balance -200 / -1870 -1100 / -1870 -1300 / -1300 Intake: Oral 250 / 1430 500 / 1430 Output: Urine Amount (Catheter) 450 / 3300 1600 / 3300 1300 / 1300 Brewster/Indwelling 450 / 3300 1600 / 3300 1300 / 1300 Other: Weight 124.1 kg Weight Measurement Method Standing Scale Diagnostic Findings Telemetry reviewed: sinus bradycardia 50-70's Medications Administered Current Inpatient Medications Acetaminophen (Acetaminophen 325 Mg Tab) 650 mg PO Q4H PRN PRN Reason: Pain or Fever Stop: 01/22/25 23:57 Amlodipine Besylate (Amlodipine Besylate 5 Mg Tab) [facility] [place]: 01/25/25 08:59 Last Admin: 12/26/24 08:07 Dose: 5 mg Aspirin (Aspirin 81 Mg Ectab) 81 [facility] [place] Stop: 01/23/25 08:59 Last Admin: 12/26/24 08:08 Dose: 81 mg Benzonatate (Benzonatate 100 Mg Capsule) 100 mg PO TID [facility] Stop: 01/23/25 08:59 Last Admin: 12/26/24 13:13 Dose: 100 mg Dextrose (Dextrose 50% 50 Ml Syringe) 25 - 50 ml IV UD PRN; Protocol PRN Reason: Hypoglycemia Protocol Stop: 01/22/25 23:57 Doxycycline Hyclate (Doxycycline Hyclate 100 Mg Cap) 100 mg PO BIDM [facility] Stop: 12/30/24 12:29 Last Admin: 12/26/24 08:08 Dose: 100 mg Finasteride (Finasteride 5 Mg Tab) 5 mg PO QAM [facility] Stop: 01/23/25 08:59 Last Admin: 12/26/24 08:09 Dose: 5 mg Folic Acid (Folic Acid 1 Mg Tab) 1 mg PO QAM [facility] Stop: 01/23/25 08:59 Last Admin: 12/26/24 08:07 Dose: 1 mg Furosemide (Furosemide 40 Mg/4 Ml Vial) 40 mg IV BID17 [facility] Stop: 01/23/25 08:59 Last Admin: 12/26/24 08:04 Dose: 40 mg Glucagon (Glucagon For Inj 1 Mg Vial) 1 mg SQ UD PRN; Protocol PRN Reason: Hypoglycemia Protocol Stop: 01/22/25 23:57 Glucose (Glucose 40% Gel 15 Gm Tube) 15 - 30 gm PO UD PRN; Protocol PRN Reason: Hypoglycemia Protocol Stop: 01/22/25 23:57 Glucose (Glucose 10 Tab/Tube) 4 - 8 tab PO UD PRN; Protocol PRN Reason: Hypoglycemia Protocol Stop: 01/22/25 23:57 Guaifenesin/Dextromethorphan (Guaifenesin/Dextrom Syrup 100mg/10mg 5ml Udc) 5 ml PO Q6H PRN PRN Reason: Cough Stop: 01/22/25 23:57 Last Admin: 12/26/24 08:05 Dose: 5 ml Heparin Sodium (Porcine) (Heparin Sod 5,000 Unit/0.5 Ml Vial) 7,500 units SQ Q12 [facility] Stop: 01/23/25 08:59 Last Admin: 12/26/24 08:04 Dose: 7,500 units Insulin Aspart (Insulin Aspart Per Unit Charge) 0 units SC ACHS [facility] Stop: 01/23/25 07:29 Last Admin: 12/26/24 12:17 Dose: 4 units Insulin Glargine (Lantus Per Unit Charge) 5 units SQ BID [facility] Stop: 01/23/25 08:59 Last Admin: 12/26/24 08:05 Dose: 5 units Labetalol HCl (Labetalol Hcl 300 Mg Tab) 300 mg PO AMHS [facility] Stop: 01/23/25 08:59 Last Admin: 12/26/24 08:08 Dose: 300 mg Levalbuterol HCl (Levalbuterol Hcl 0.63 Mg/3 Ml Neb) 0.63 mg NEB Q6H PRN; Protocol PRN Reason: Shortness Of Breath Or Wheezing Stop: 01/23/25 08:09 Last Admin: 12/24/24 14:39 Dose: 0.63 mg Levothyroxine Sodium (Levothyroxine Sodium 150 Mcg Tablet) 150 mcg PO DAILYBB [facility] Stop: 01/23/25 06:29 Last Admin: 12/26/24 05:55 Dose: 150 mcg Menthol (Cough Drop (Sugar Free) Jenni 24 Jenni/1 Box) 1 jenni BUCCAL PRN PRN PRN Reason: nursing decision Stop: 01/24/25 22:52 Last Admin: 12/25/24 23:09 Dose: 1 jenni Miscellaneous (Carbohydrates For Hypoglycemia ) 15 - 30 gm PO UD PRN PRN Reason: Hypoglycemia Protocol Stop: 01/22/25 23:57 Nitroglycerin (Nitroglycerin Sl 0.4 Mg/Tab Tab) 0.4 mg SL Q5M PRN PRN Reason: Chest Pain Stop: 01/22/25 23:57 Nystatin (Nystatin Susp 500,000 U/5 Ml Udc) 5 ml PO QID [facility] Stop: 01/03/25 08:59 Last Admin: 12/26/24 13:13 Dose: 5 ml Oxybutynin Chloride (Oxybutynin Chloride Xl 5 Mg Tabcr) 10 mg PO QAM [facility] Stop: 01/23/25 08:59 Last Admin: 12/26/24 08:07 Dose: 10 mg Polyethylene Glycol (Polyethylene (Miralax) 17 Gm Pack) 17 gm PO DAILY PRN PRN Reason: Constipation Stop: 01/22/25 23:57 Potassium Chloride (Potassium Chloride Crtab 20 Meq Tabcr) 20 meq PO BID [facility] Stop: 01/23/25 08:59 Last Admin: 12/26/24 08:05 Dose: 20 meq Prednisone (Prednisone 20 Mg Tab) 20 mg PO DAILY [facility] Stop: 01/23/25 15:29 Last Admin: 12/26/24 08:08 Dose: 20 mg Rosuvastatin Calcium (Rosuvastatin Calcium 20 Mg Tab) 20 mg PO QAM [facility] Stop: 01/23/25 08:59 Last Admin: 12/26/24 08:08 Dose: 20 mg Spironolactone (Spironolactone 12.5 Mg Tab) 12.5 mg PO DAILY [facility] Stop: 01/24/25 14:14 Last Admin: 12/26/24 08:09 Dose: 12.5 mg Vitamin B Complex (Vitamin B Complex Tab) 1 tab PO QAM [facility] Stop: 01/23/25 08:59 Last Admin: 12/26/24 08:08 Dose: 1 tab Vitamin D (Cholecalciferol 25 Mcg (1000 Units) Tab) 25 mcg PO QAM [facility] Stop: 01/23/25 08:59 Last Admin: 12/26/24 08:09 Dose: 25 mcg
--- NOTE | 2024-12-26 16:19 | Hospitalist Progress Note ---
Date of Service December 26, 2024 Assessment & Plan (1) CHF exacerbation: Plan: 79-year-old male with past medical history significant for type 2 diabetes, hyperlipidemia, hypothyroidism, chronic heart failure with preserved ejection fraction, hypertension, stenosis of right vertebral artery, morbid obesity, BPH, urge incontinence, stress incontinence, dizziness, elevated LFTs presents with ongoing cough since last couple of weeks and shortness of breath and lower extremity edema. Patient since about a week is not taking Lasix because of weakness. Denies chest pain. Has some runny nose. No fevers. No headache. No body ache. Appetite is okay. No nausea. No abdominal pain. Normal bowel and bladder movements. Patient oxygen saturations 88 percent on room air. On 2 L saturating okay. Acute heart failure with preserved ejection fraction Noncompliance Was not taking Lasix due to acute illness --CXR:Cardiomegaly and mild pulmonary edema --ECHO: LV systolic function is normal. EF 60 to 65%. Moderate concentric LVH. Grade 1 diastolic dysfunction. Aortic valve sclerosis moderate, without significant aortic valvular stenosis Continue IV Lasix 40 mg twice a day Monitor and replete electrolytes as needed Appreciate cardiology input Monitor volume status closely Supplemental oxygen as needed Continue labetalol Wean off of supplemental oxygen as able Started on Aldactone 12.5 mg daily Continue diuresis Needs rehab when medically stable Acute bronchitis Secondary to coronavirus OC 43 infection Chest x-ray showed no pneumonia Continue prednisone Antitussives as needed Continue droplet precautions Also started on doxycycline Nocturnal hypoxia Suspected sleep apnea Patient currently not interested in using CPAP if required Advised sleep study as outpatient Continue supplemental oxygen at bedtime Hypokalemia Replace and monitor Suspected CKD CR 1. 6 today Monitor renal function Avoid nephrotoxic agents as able Renal function stable DM II HbA1c 7.9 Hold metformin and Ozempic continue insulin while hospitalized per protocol Monitor bgS Hypothyroidism Continue levothyroxine Hyperlipidemia On statin BPH On Proscar Hypertension Continue amlodipine, labetalol and diuretics Amlodipine dose decreased to 5 mg daily monitor blood pressure Morbid obesity Counseling BMI 43.6 DVT Px: Heparin SQ Code Status Full code Disposition Rehab when medically stable Admission and Anticipated Discharge Date Admission Date: December 23, 2024 Subjective Patient is seen and examined at bedside Diuresing well Mild rise in creatinine noted Eager to get discharged Feels better but still's orthopneic Cough, dyspnea improving no other complaints today Saturating well on room air Review of Systems Review of Systems: All systems reviewed & are unremarkable except as noted in Subjective Physical Exam Physical Exam: Physical Exam: Vitals signs as noted above General Appearance: Obese, no apparent distress Head: normocephalic, Atraumatic Eyes: normal inspection, EOMI Neck: supple, Trachea midline Respiratory/Chest: Coarse breath sounds, basal crackles, scattered wheezes, no accessory muscle use Cardiovascular: S1, S2, No murmur Abdomen/GI:Soft, Non tender, Bowel sounds present Extremities/Musculoskeletal:normal inspection, 1+ edema Neurologic/Psych:AAOX3, grossly no focal neurological deficits Skin: normal color, warm Results & Data Results & Data Vital Signs (Past 12 Hours) Vital Signs Temp Pulse Pulse Pulse Resp BP Pulse Ox 12/26/24 12:38 12/26/24 11:30 36.8 C 63 20 124/83 91 12/26/24 08:00 57 L 12/26/24 08:00 12/26/24 07:33 36.5 C 62 16 131/72 94 12/26/24 05:45 59 L Pulse Ox Pulse Ox Pulse Ox O2 Del Method O2 Del Method 12/26/24 12:38 91 87 L 12/26/24 11:30 Room Air 12/26/24 08:00 12/26/24 08:00 Room Air 12/26/24 07:33 Room Air 12/26/24 05:45 93 Room Air Laboratory Results Short CBC 12/26/24 Range/Units 05:19 WBC 10.13 (4.8-10.8) K/ul Hgb 13.9 L (14.0-18.0) g/dl Hct 40.7 L (42.0-52.0) % Plt Count 176 (130-400) K/uL BMP 12/26/24 05:19 Sodium 139 Potassium 3.4 L Chloride 103 Carbon Dioxide 30 BUN 26 H Creatinine 1.60 H Glucose 115 H Calcium 8.8
[2024-12-27 07:00] LABS: BUN Creatinine Ratio 16.7 (10-20); Calcium 8.9 mg/dl (8.6-10.3); Creatinine Clr Calc Pharmacy 47.9 ml/min; Potassium 3.5 mmol/L (3.5-5.1)
--- NOTE | 2024-12-27 12:51 | Cardiology Progress Note ---
Date of Service December 27, 2024 Assessment & Plan (1) Acute heart failure with preserved ejection fraction: (2) Noncompliance: (3) URI (upper respiratory infection): (4) Hypokalemia: Plan 79-year-old patient with acute hypoxic respiratory failure secondary to viral bronchitis and acute on chronic heart failure with preserved ejection fraction. Heart failure precipitated by noncompliance with diuretic therapy. - seems to be responding well to IV diuresis, good urine output - volume status difficult to assess due to body habitus - continue furosemide IV 40 mg twice daily - continue spironolactone 12.5 mg daily - strict I and Os, daily weights - 2 gm sodium restriction, 2 L fluid restriction - Maintain serum potassium greater than 4.0, and serum magnesium greater than 2.0. - continue to monitor on telemetry - continue aspirin, labetalol, amlodipine, rosuvastatin Case discussed with attending physician, further recommendations per Dr. Green. I spent a total of 25 minutes on the date of service in preparation, delivery, and documentation of the care provided to this patient excluding any time spent in the performance of separately billed services. This visit was a split-shared visit with the substantial portion of the decision making performed by the supervising food safety field specialist/billing provider. Admission and Anticipated Discharge Date Admission Date: December 23, 2024 Supervising Physician Co-Signing Physician Notes I spent a total of 25 minutes on the date of service in preparation, delivery, and documentation of the care provided to this patient, excluding any time spent in the performance of separately billed services. I have personally performed a history and physical examination on the patient. I have reviewed the advance practitioner's documentation, and I agree with, and take responsibility for the plan of care. 79-year-old male with a past medical history of chronic diastolic heart secondary to viral bronchitis and acute on chronic diastolic heart failure. He states he is feeling much better today. Lower extremity edema and dyspnea is improving. Echocardiogram done during this admission showed preserved left ventricular ejection fraction normal RV size and systolic function and no significant valvular disease. Patient has a history of noncompliance with diuretics. I discussed with patient the importance of medication compliance. He is -3.3 L since admission. His renal function is stable with a creatinine of 1.6. Tomorrow to transition to p.o. Lasix. Subjective 79 year old male seen today in cardiology follow up. States he feels better. Denies chest pain, shortness of breath. He is eager to go home. Still requiring supplemental oxygen. Review of Systems Review of Systems: CONSTITUTIONAL: No change in weight, No weakness, No fatigue and No fevers, No sweats or chills. PULMONARY: No cough, sputum, or hemoptysis, No wheezing, No shortness of breath and No recent change in breathing. CARDIOVASCULAR: No chest pain, No dyspnea on exertion, No edema, No palpitations and No syncope. GASTROINTESTINAL: No abdominal pain, No change in bowel habits, No significant heartburn, No nausea, No vomiting, No diarrhea, No constipation, No blood in stools or black tarry stools. No dysphagia. HEMATOLOGIC: No abnormal bleeding and No bruising. NEUROLOGICAL: Normal balance, No headaches and No weakness. Physical Exam Physical Exam: General: No acute distress. A+Ox3. Obese. HEENT: Normocephalic. Atraumatic. PERRL. EOMI. Conjunctiva and sclera clear. NECK: No carotid bruits. No JVD. Carotid upstrokes are brisk. Heart: RRR. S1 and S2 noted. No murmur. No rubs or gallops. PMI non displaced. Lungs: Diminished to auscultation. No wheezes. No rhonchi. No rales. Abdomen: Normal bowel sounds. Soft. Nontender. No masses or organomegaly. No abdominal bruits. Extremities: No edema. No clubbing or cyanosis. Pulses: radial=2/4, posterior tibial=2/4, dorsalis pedis = 2/4. NEURO: No focal deficits. PSYCH: Appropriate affect and insight. Results & Data Vital Signs (Past 12 Hours) Vital Signs Temp Pulse Pulse Resp BP Pulse Ox O2 Del Method 12/27/24 11:27 36.4 C L 55 L 18 128/85 92 Nasal Cannula 12/27/24 08:56 36.7 C 57 L 20 155/83 H 91 Room Air 12/27/24 08:00 Nasal Cannula 12/27/24 07:11 45 L 12/27/24 03:15 36.7 C 60 20 150/90 H 98 Nasal Cannula O2 Flow Rate 12/27/24 11:27 2.0 12/27/24 08:56 12/27/24 08:00 2 12/27/24 07:11 12/27/24 03:15 2 Laboratory Results Comprehensive Metabolic Panel 12/27/24 Range/Units 06:24 Sodium 140 (136-145) mmol/L Potassium 3.5 (3.5-5.1) mmol/L Chloride 104 (98-107) mmol/L Carbon Dioxide 30 (21-32) mmol/L BUN 27 H (6-23) mg/dl Creatinine 1.62 H (0.6-1.4) mg/dl Glucose 110 H (70-99(Fasting)) mg/dl Calcium 8.9 (8.6-10.3) mg/dl Intake and Output 12/26/24 12/27/24 12/27/24 22:59 06:59 14:59 Intake Total 200 / 320 120 / 320 Output Total 700 / 3250 400 / 3250 1350 / 1350 Balance -500 / -2930 -280 / -2930 -1350 / -1350 Intake: Oral 200 / 320 120 / 320 Output: Urine Amount (Catheter) 700 / 3250 400 / 3250 1350 / 1350 Brewster/Indwelling 700 / 3250 400 / 3250 1350 / 1350 Other: Weight 126.2 kg Weight Measurement Method Built in [facility] Diagnostic Findings Telemetry with sinus rhythm in 60s (3) URI (upper respiratory infection) URI type: unspecified URI Qualified Code(s): J06.9 - Acute upper respiratory infection, unspecified
--- NOTE | 2024-12-27 15:33 | Hospitalist Progress Note ---
Date of Service December 27, 2024 Assessment & Plan (1) CHF exacerbation: Plan: 79-year-old male with past medical history significant for type 2 diabetes, hyperlipidemia, hypothyroidism, chronic heart failure with preserved ejection fraction, hypertension, stenosis of right vertebral artery, morbid obesity, BPH, urge incontinence, stress incontinence, dizziness, elevated LFTs presents with ongoing cough since last couple of weeks and shortness of breath and lower extremity edema. Patient since about a week is not taking Lasix because of weakness. Denies chest pain. Has some runny nose. No fevers. No headache. No body ache. Appetite is okay. No nausea. No abdominal pain. Normal bowel and bladder movements. Patient oxygen saturations 88 percent on room air. On 2 L saturating okay. Acute heart failure with preserved ejection fraction Noncompliance Was not taking Lasix due to acute illness --CXR:Cardiomegaly and mild pulmonary edema --ECHO: LV systolic function is normal. EF 60 to 65%. Moderate concentric LVH. Grade 1 diastolic dysfunction. Aortic valve sclerosis moderate, without significant aortic valvular stenosis Continue IV Lasix 40 mg twice a day Monitor and replete electrolytes as needed Appreciate cardiology input Monitor volume status closely Supplemental oxygen as needed Continue labetalol Wean off of supplemental oxygen as able Started on Aldactone 12.5 mg daily Continue diuresis Needs rehab when medically stable Plan to be transition to oral diuretics tomorrow Needs follow-up with cardiology on discharge Acute bronchitis Secondary to coronavirus OC 43 infection Chest x-ray showed no pneumonia Continue prednisone Antitussives as needed Continue droplet precautions Also started on doxycycline Slowly improving Nocturnal hypoxia Suspected sleep apnea Patient currently not interested in using CPAP if required Advised sleep study as outpatient Continue supplemental oxygen at bedtime Hypokalemia Replace and monitor Suspected CKD CR 1. 6 today Monitor renal function Avoid nephrotoxic agents as able Renal function stable DM II HbA1c 7.9 Hold metformin and Ozempic continue insulin while hospitalized per protocol Monitor bgS Hypothyroidism Continue levothyroxine Hyperlipidemia On statin BPH On Proscar Hypertension Continue amlodipine, labetalol and diuretics Amlodipine dose decreased to 5 mg daily monitor blood pressure Morbid obesity Counseling BMI 43.6 DVT Px: Heparin SQ Code Status Full code Disposition Rehab when medically stable Admission and Anticipated Discharge Date Admission Date: December 23, 2024 Subjective Patient is seen and examined at bedside Subjectively feels about the same as yesterday Continues to diurese well on IV diuretics Eager to get discharged Saturating well on room air Dyspnea improving Still has intermittent cough Review of Systems Review of Systems: All systems reviewed & are unremarkable except as noted in Subjective Physical Exam Physical Exam: Physical Exam: Vitals signs as noted above General Appearance: Obese, no apparent distress Head: normocephalic, Atraumatic Eyes: normal inspection, EOMI Neck: supple, Trachea midline Respiratory/Chest: Coarse breath sounds, CTA, no accessory muscle use Cardiovascular: S1, S2, No murmur Abdomen/GI:Soft, Non tender, Bowel sounds present Extremities/Musculoskeletal:normal inspection, 1+ edema Neurologic/Psych:AAOX3, grossly no focal neurological deficits Skin: normal color, warm Results & Data Results & Data Vital Signs (Past 12 Hours) Vital Signs Temp Pulse Pulse Resp BP Pulse Ox O2 Del Method 12/27/24 11:27 36.4 C L 55 L 18 128/85 92 Nasal Cannula 12/27/24 08:56 36.7 C 57 L 20 155/83 H 91 Room Air 12/27/24 08:00 Nasal Cannula 12/27/24 07:11 45 L O2 Flow Rate 12/27/24 11:27 2.0 12/27/24 08:56 12/27/24 08:00 2 12/27/24 07:11 Laboratory Results BMP 12/27/24 06:24 Sodium 140 Potassium 3.5 Chloride 104 Carbon Dioxide 30 BUN 27 H Creatinine 1.62 H Glucose 110 H Calcium 8.9
[2024-12-28 07:20] LABS: BUN Creatinine Ratio 18.6 (10-20); Calcium 9.3 mg/dl (8.6-10.3); Creatinine Clr Calc Pharmacy 49.7 ml/min; Magnesium 2.1 mg/dl (1.7-2.4); Potassium 3.5 mmol/L (3.5-5.1)
[2024-12-28 11:38] VITALS: RESP 19; TEMP 98.6; O2SAT 92
--- NOTE | 2024-12-28 12:26 | Hospitalist Progress Note ---
Date of Service December 28, 2024 Assessment & Plan (1) CHF exacerbation: Plan: 79-year-old male with past medical history significant for type 2 diabetes, hyperlipidemia, hypothyroidism, chronic heart failure with preserved ejection fraction, hypertension, stenosis of right vertebral artery, morbid obesity, BPH, urge incontinence, stress incontinence, dizziness, elevated LFTs presents with ongoing cough since last couple of weeks and shortness of breath and lower extremity edema. Patient since about a week is not taking Lasix because of weakness. Denies chest pain. Has some runny nose. No fevers. No headache. No body ache. Appetite is okay. No nausea. No abdominal pain. Normal bowel and bladder movements. Patient oxygen saturations 88 percent on room air. On 2 L saturating okay. Acute heart failure with preserved ejection fraction Noncompliance Was not taking Lasix due to acute illness --CXR:Cardiomegaly and mild pulmonary edema --ECHO: LV systolic function is normal. EF 60 to 65%. Moderate concentric LVH. Grade 1 diastolic dysfunction. Aortic valve sclerosis moderate, without significant aortic valvular stenosis Continue IV Lasix 40 mg twice a day>> transition to oral Lasix 40 mg daily on discharge Monitor and replete electrolytes as needed Appreciate cardiology input Monitor volume status closely Supplemental oxygen as needed Continue labetalol Wean off of supplemental oxygen as able Started on Aldactone 12.5 mg daily Continue diuresis. Needs follow-up with cardiology on discharge Plan to discharge to rehab facility today Acute bronchitis Secondary to coronavirus OC 43 infection Chest x-ray showed no pneumonia Continue prednisone Antitussives as needed Continue droplet precautions Continue Doxycycline Clinically improved Nocturnal hypoxia Suspected sleep apnea Patient currently not interested in using CPAP if required Advised sleep study as outpatient Continue supplemental oxygen at bedtime Hypokalemia Replace and monitor Suspected CKD CR 1. 5 today Monitor renal function Avoid nephrotoxic agents as able Renal function stable DM II HbA1c 7.9 Hold metformin and Ozempic continue insulin while hospitalized per protocol Monitor bgS Hypothyroidism Continue levothyroxine Hyperlipidemia On statin BPH On Proscar Hypertension Continue amlodipine, labetalol and diuretics Amlodipine dose decreased to 5 mg daily monitor blood pressure Morbid obesity Counseling BMI 43.6 DVT Px: Heparin SQ Code Status Full code Disposition Acute Rehab Admission and Anticipated Discharge Date Admission Date: December 23, 2024 Subjective Patient is seen and examined at bedside No new complaints today Eager to get discharged Discussed with cardiology today. Cough, dyspnea much improved Planned to be discharged to rehab facility today Review of Systems Review of Systems: All systems reviewed & are unremarkable except as noted in Subjective Physical Exam Physical Exam: Physical Exam: Vitals signs as noted above General Appearance: Obese, no apparent distress Head: normocephalic, Atraumatic Eyes: normal inspection, EOMI Neck: supple, Trachea midline Respiratory/Chest: Coarse breath sounds, CTA, no accessory muscle use Cardiovascular: S1, S2, No murmur Abdomen/GI:Soft, Non tender, Bowel sounds present Extremities/Musculoskeletal:normal inspection, 1+ edema Neurologic/Psych:AAOX3, grossly no focal neurological deficits Skin: normal color, warm Results & Data Results & Data Vital Signs (Past 12 Hours) Vital Signs Temp Pulse Pulse Resp BP BP Pulse Ox 12/28/24 11:37 37.0 C 51 L 19 132/75 92 12/28/24 08:00 12/28/24 07:27 36.7 C 56 L 20 162/77 H 91 12/28/24 07:00 52 L 12/28/24 03:58 56 L 12/28/24 02:43 36.6 C 59 L 21 160/100 H 91 12/28/24 00:49 56 L O2 Del Method 12/28/24 11:37 Room Air 12/28/24 08:00 Room Air 12/28/24 07:27 Room Air 12/28/24 07:00 12/28/24 03:58 12/28/24 02:43 Room Air 12/28/24 00:49 Laboratory Results BMP 12/28/24 05:31 Sodium 140 Potassium 3.5 Chloride 100 Carbon Dioxide 31 BUN 29 H Creatinine 1.56 H Glucose 113 H Calcium 9.3
--- NOTE | 2024-12-28 12:42 | Discharge Summary ---
Date of Service December 28, 2024 Admission HPI Per Admitting Provider 79-year-old male with past medical history significant for type 2 diabetes, hyperlipidemia, hypothyroidism, chronic heart failure with preserved ejection fraction, hypertension, stenosis of right vertebral artery, morbid obesity, BPH, urge incontinence, stress incontinence, dizziness, elevated LFTs presents with ongoing cough since last couple of weeks and shortness of breath and lower extremity edema. Patient since about a week is not taking Lasix because of weakness. Denies chest pain. Has some runny nose. No fevers. No headache. No body ache. Appetite is okay. No nausea. No abdominal pain. Normal bowel and bladder movements. Patient oxygen saturations 88 percent on room air. On 2 L saturating okay. Past medical history. As mentioned above Past surgical history. Colonoscopy. Cystourethroscopy with signs prostatic implant. Prostate laser vaporization. TURP. Cataracts. [place] tooth removal. Repair of umbilical hernia. Vasectomy. Social history. Quit smoking in 1976. Smoked 1 pack a day for 20 years. Social drinking. No drug use. Family history. Father had bladder cancer. CAD. CHF. Stroke. Eye problems. Mother had breast cancer. Hypertension. Paternal grandmother had bladder cancer. Admission Exam Per Admitting Provider General- Not in distress Head- atraumatic Eyes- PERRL. ENT- oropharynx clear Neck- supple, no JVD. Lungs- clear to auscultation mild bibasilar crackles Heart- regular rhythm; no murmur, no gallop. Abdomen- normal bowel sounds, soft, nontender, no distension Extremities- b/l lower extremity edema present, no erythema seen. Neuro- alert, oriented PERRL, no facial palsy; no dysarthria; moves extremities Principal Diagnosis Acute heart failure with preserved ejection fraction Acute bronchitis--Secondary to coronavirus OC 43 infection Nocturnal hypoxia Suspected sleep apnea Discharge Data Allergies Allergy/AdvReac Type Severity Reaction Status Date / Time No Known Allergies Allergy Verified 12/23/24 20:50 Consultations 12/23/24 20:26 ED Decision to Admit Stat 12/24/24 08:00 Consult Cardiology Routine Procedures Performed Laboratory Results WBC 10.13 K/ul (4.8-10.8) 12/26/24 05:19 RBC 4.65 M/uL (4.70-6.10) L 12/26/24 05:19 Hgb 13.9 g/dl (14.0-18.0) L 12/26/24 05:19 Hct 40.7 % (42.0-52.0) L 12/26/24 05:19 MCV 87.5 fL (80.0-100.0) 12/26/24 05:19 MCH 29.9 pg (25.0-34.0) 12/26/24 05:19 MCHC 34.2 g/dL (32.0-36.0) 12/26/24 05:19 RDW Std Deviation 44.1 fL (36.4-46.3) 12/26/24 05:19 RDW Coeff of Darion 13.8 % (11.5-14.5) 12/26/24 05:19 Plt Count 176 K/uL (130-400) 12/26/24 05:19 MPV 9.6 fL (9.4-12.4) 12/26/24 05:19 Immature Gran % (Auto) 0.6 % 12/24/24 05:27 Neut % (Auto) 70.9 % 12/24/24 05:27 Lymph % (Auto) 13.4 % 12/24/24 05:27 [place] % (Auto) 12.5 % 12/24/24 05:27 Eos % (Auto) 2.0 % 12/24/24 05:27 Baso % (Auto) 0.6 % 12/24/24 05:27 Neut # (Auto) 5.78 K/uL (1.40-6.50) 12/24/24 05:27 Lymph # (Auto) 1.09 K/uL (1.20-3.40) L 12/24/24 05:27 [place] # (Auto) 1.02 K/uL (0.11-0.59) H 12/24/24 05:27 Eos # (Auto) 0.16 K/uL (0.00-0.50) 12/24/24 05:27 Baso # (Auto) 0.05 K/uL (0.00-0.20) 12/24/24 05:27 Immature Gran # (Auto) 0.05 K/uL (0.01-0.20) 12/24/24 05:27 PT 11.5 Seconds (9.0-12.0) 12/23/24 17:50 INR 1.1 (0.9-1.1) 12/23/24 17:50 APTT 30 Seconds (21-31) 12/23/24 17:50 PTT Ratio 1.1 12/23/24 17:50 Sodium 140 mmol/L (136-145) 12/28/24 05:31 Potassium 3.5 mmol/L (3.5-5.1) 12/28/24 05:31 Chloride 100 mmol/L (98-107) 12/28/24 05:31 Carbon Dioxide 31 mmol/L (21-32) 12/28/24 05:31 Anion Gap 9 (3-11) 12/28/24 05:31 BUN 29 mg/dl (6-23) H 12/28/24 05:31 Creatinine 1.56 mg/dl (0.6-1.4) H 12/28/24 05:31 Est Cr Clr Drug Dosing 49.7 ml/min 12/28/24 05:31 eGFR 44.90 12/28/24 05:31 BUN/Creatinine Ratio 18.6 (10-20) 12/28/24 05:31 Glucose 113 mg/dl (70-99(Fasting)) H 12/28/24 05:31 POC Glucose 152 mg/dl (70-99) H 12/28/24 11:33 Estimat Average Glucose 180 mg/dl 12/24/24 05:27 Hemoglobin A1c 7.9 % (4.5-5.6) H 12/24/24 05:27 Calcium 9.3 mg/dl (8.6-10.3) 12/28/24 05:31 Magnesium 2.1 mg/dl (1.7-2.4) 12/28/24 05:31 Total Bilirubin 0.7 mg/dl (0.2-1.0) 12/23/24 17:50 AST 38 U/L (13-39) 12/23/24 17:50 ALT 27 U/L (7-52) 12/23/24 17:50 Alkaline Phosphatase 63 U/L (34-104) 12/23/24 17:50 Troponin I High Sens 15.1 pg/ml (0-20) 12/24/24 11:08 B-Natriuretic Peptide 32 pg/ml (0-100) 12/23/24 17:50 Total Protein 7.7 gm/dl (6.0-8.3) 12/23/24 17:50 Albumin 4.1 gm/dl (3.4-5.0) 12/23/24 17:50 Globulin 3.6 gm/dl (2.5-4.0) 12/23/24 17:50 Albumin/Globulin Ratio 1.1 (0.9-2) 12/23/24 17:50 Procalcitonin 0.05 ng/ml (0-0.5) 12/25/24 05:25 Adenovirus (PCR) Not Detected (NotDetected) 12/23/24 17:50 B. pertussis DNA (PCR) Not Detected (NotDetected) 12/23/24 17:50 B.parapertussis DNA PCR Not Detected (NotDetected) 12/23/24 17:50 C. pneumoniae DNA (PCR) Not Detected (NotDetected) 12/23/24 17:50 Coronavirus OC43 (PCR) DETECTED (NotDetected) A 12/23/24 17:50 Coronavirus HKU1 (PCR) Not Detected (NotDetected) 12/23/24 17:50 Coronavirus 229E (PCR) Not Detected (NotDetected) 12/23/24 17:50 SARS-CoV-2 (PCR) NEGATIVE (Negative) 12/23/24 17:50 SARS-CoV-2 (PCR) Not Detected (NotDetected) 12/23/24 17:50 Coronavirus NL63 (PCR) Not Detected (NotDetected) 12/23/24 17:50 Human Metapneumovir PCR Not Detected (NotDetected) 12/23/24 17:50 Influenza Type A (PCR) Negative (Neg) 12/23/24 17:50 Influenza Type A (PCR) Not Detected (NotDetected) 12/23/24 17:50 Influenza Type B (PCR) Negative (Neg) 12/23/24 17:50 Influenza Type B (PCR) Not Detected (NotDetected) 12/23/24 17:50 M. pneumoniae (PCR) Not Detected (NotDetected) 12/23/24 17:50 Parainfluenza 1 (PCR) Not Detected (NotDetected) 12/23/24 17:50 Parainfluenza 2 (PCR) Not Detected (NotDetected) 12/23/24 17:50 Parainfluenza 3 (PCR) Not Detected (NotDetected) 12/23/24 17:50 Parainfluenza 4 (PCR) Not Detected (NotDetected) 12/23/24 17:50 RSV (RT-PCR) Negative (Neg) 12/23/24 17:50 RSV (PCR) Not Detected (NotDetected) 12/23/24 17:50 Entero/Rhino (PCR) Not Detected (NotDetected) 12/23/24 17:50 Impressions Chest X-Ray 12/23/24 17:46 Clinical History: Chest pain Technique: A frontal view of the chest was obtained Comparison is made to the prior examination dated 04/25/2022 Findings: There are no confluent pulmonary infiltrates. The heart is mildly enlarged. No pleural effusion or pneumothorax is seen. There is suspected mild pulmonary edema. There are suspected old healed right rib fractures Impression: Cardiomegaly and mild pulmonary edema ACT 112: Positive. There are findings on this exam that require communication between the performing entity and the patient following Patient Test Result Information Act ([place] ACT 112) guidelines. Electronically signed by Giovanni Parker 12-23-2024 7:09 PM Hospital Course (1) CHF exacerbation: 79-year-old male with past medical history significant for type 2 diabetes, hyperlipidemia, hypothyroidism, chronic heart failure with preserved ejection fraction, hypertension, stenosis of right vertebral artery, morbid obesity, BPH, urge incontinence, stress incontinence, dizziness, elevated LFTs presents with ongoing cough since last couple of weeks and shortness of breath and lower extremity edema. Patient since about a week is not taking Lasix because of weakness. Denies chest pain. Has some runny nose. No fevers. No headache. No body ache. Appetite is okay. No nausea. No abdominal pain. Normal bowel and bladder movements. Patient oxygen saturations 88 percent on room air. On 2 L saturating okay. Acute heart failure with preserved ejection fraction Noncompliance Was not taking Lasix due to acute illness --CXR:Cardiomegaly and mild pulmonary edema --ECHO: LV systolic function is normal. EF 60 to 65%. Moderate concentric LVH. Grade 1 diastolic dysfunction. Aortic valve sclerosis moderate, without significant aortic valvular stenosis Continue IV Lasix 40 mg twice a day>> transition to oral Lasix 40 mg daily on discharge Monitor and replete electrolytes as needed Appreciate cardiology input Monitor volume status closely Supplemental oxygen as needed Continue labetalol Wean off of supplemental oxygen as able Started on Aldactone 12.5 mg daily Continue diuresis. Needs follow-up with cardiology on discharge Plan to discharge to rehab facility today Acute bronchitis Secondary to coronavirus OC 43 infection Chest x-ray showed no pneumonia Continue prednisone Antitussives as needed Continue droplet precautions Continue Doxycycline Clinically improved Nocturnal hypoxia Suspected sleep apnea Patient currently not interested in using CPAP if required Advised sleep study as outpatient Continue supplemental oxygen at bedtime Hypokalemia Replace and monitor Suspected CKD CR 1. 5 today Monitor renal function Avoid nephrotoxic agents as able Renal function stable DM II HbA1c 7.9 Hold metformin and Ozempic continue insulin while hospitalized per protocol Monitor bgS Hypothyroidism Continue levothyroxine Hyperlipidemia On statin BPH On Proscar Hypertension Continue amlodipine, labetalol and diuretics Amlodipine dose decreased to 5 mg daily monitor blood pressure Morbid obesity Counseling BMI 43.6 DVT Px: Heparin SQ Code Status Full code Disposition Acute Rehab Total Time Total Time Spent Total Time Spent (In Minutes): 43 minutes Discharge Plan Discharge Items Patient Disposition: Transfer Inpatient Rehab Fac Reason For Visit: ACUTE CHF Discharge Diagnosis: Acute heart failure with preserved ejection fraction Acute bronchitis--Secondary to coronavirus OC 43 infection Nocturnal hypoxia Suspected sleep apnea Activity: Per Instructions section Exercise/Sports: Gradually increase as tolerated Non-emergency contact: Primary Care Provider and [place] Call non-emergency contact if: you have any medication questions, your symptoms worsen, your pain is concerning for you and you have a fever Follow-up/Referrals: Cindy Serrano MD [Primary Care Provider] - Diet: Carb Consistent or DM2 and Heart Healthy Addtl Attending Provider Instructions: Follow-up with your primary care physician in 1 week upon discharge from rehab facility Follow-up with your ecosystem ecology professor as recommended --Complete the antibiotic course doxycycline as prescribed --Continue to use 2 L supplemental oxygen at bedtime -- Obtain sleep study as recommended to rule out sleep apnea Seek immediate medical attention if your symptoms reoccur or worsen Please review medication list provided on discharge for any medication changes as instructed. Please call if you have any questions or problems. You can reach a [facility] hospitalist on duty at [facility] 24 hours a day by calling [phone] [facility] Multi Disciplined Language Analyst Provider Instructions: Call your Primary Care doctor if any of the following symptoms or problems start or get worse: * Shortness of breath or difficulty breathing * Wake up at night short of breath * Chest pain * Cough * Swelling of your hands, feet, or legs * More fatigued or tired with your normal activity * Palpitations - sudden fast heart beats WEIGHT * Weigh yourself every morning after using the bathroom. * Use the same scale. * Wear the same amount of clothing. * Write your weight down on a chart. * Call your Primary Care doctor if you gain more than 2-3 pounds in 1-2 days. MEDICATIONS * Use this discharge instruction sheet for medication instructions. * Take your medications at the time your doctor ordered. * Do not skip a dose of your medicines. * If you miss a dose of medicine, take it as soon as possible, but DO NOT DOUBLE A DOSE. * Read your medicine information when you get home. * Know all of the side effects of your medicine. If in doubt, ask your pharmacist * Call your Primary Care doctor's office if you have any side effects. * Be sure all of your doctors know what medicine and herbs you take (including cold, flu, and herbal medicine). Take the following with you to your follow-up doctor appointments: * Weight Chart * Medication List * List of questions Do not drink excessive alcohol, beer or wine. Pending Studies at Discharge: No Stand-Alone Forms: My [facility] Skilled Items Patient informed of condition?: Yes DNR: No Discharge Level of Care: Acute rehab Communicable Disease: No Discharge Prognosis: Stable Lines: None Urinary Catheter: No Medications and DC Order Prescriptions: New doxycycline hyclate 100 mg Capsule 100 mg PO BIDM Qty: 4 0RF amlodipine [Norvasc] 5 mg Tablet 5 mg PO QAM Qty: 30 0RF spironolactone 25 mg Tablet 12.5 mg PO DAILY Qty: 30 0RF Continued labetalol 300 mg tablet 300 mg PO AMHS finasteride 5 mg tablet 5 mg PO QAM rosuvastatin 20 mg tablet 20 mg PO QAM aspirin 81 mg Tablet,Delayed Release (Dr/Ec) 81 mg PO QAM Qty: 30 0RF nystatin 100,000 unit/mL suspension 5 ml PO QID Rx Instructions: SWISH AND SWALLOW IN MORNING,NOON,EVENING AND BEDTIME FOR 21 DAYS prednisone 10 mg tablet 10 mg PO UD Rx Instructions: ORDERED 12/20/24 TAKE 3 TABLETS FOR 3 DAYS,THEN 2 TABS FOR 3 DAYS,1 TABLET FOR 3 DAYS levothyroxine 150 mcg tablet 150 mcg PO DAILYBB benzonatate 100 mg Capsule 100 - 200 mg PO TID PRN (Reason: Cough) folic acid 1 mg tablet 1 mg PO QAM metformin 500 mg tablet extended release 24 hr 500 mg PO QAM cholecalciferol (vitamin D3) [Vitamin D3] 25 mcg (1,000 unit) Tablet 25 mcg PO QAM potassium chloride 10 mEq capsule, extended release 10 meq PO QAM solifenacin 10 mg tablet 10 mg PO QAM Ozempic 0.25 mg or 0.5 mg (2 mg/3 mL) pen injector 0.5 mg SUBCUT WK vitamin B complex Tablet 1 tab PO QAM Changed furosemide 20 mg tablet 40 mg PO QAM Qty: 0 0RF Discontinued amlodipine 10 mg tablet 10 mg PO QAM Discharge Orders: Discharge Order (Routine); Ordered 12/28/24 Ordered By: Cristian Weber/Other Patient Handouts: Managing Type 2 Diabetes, How to Check Your Blood Sugar, Diabetes: Meal Planning Admission Data Admit Date/Time: 12/23/24 22:43 Attending Provider: Cristian Rod Admit Provider: Ovi Mohr Primary Care Provider: Cindy Serrano Other Providers: Ovi Mohr; Jesus Ackerman; [facility]
[2024-12-28 12:45] VITALS: BP 160/100; PULSE 86
== END 2024-12-28 14:03 | DRG 291 ==
LOC: ED 17:30 → 2S 22:43

== ENCOUNTER 2025-04-09 15:23 | Observation (INO) ==
--- NOTE | 2025-04-09 15:37 | Emergency Department Note ---
Impression & Plan Acute confusion, Stroke-like symptoms, MAURISIO (acute kidney injury), HTN (hypertension) ED Provider Note NAME: FRANK PRATT AGE: 80 SEX: M : 1945 ARRIVES VIA: Ambulance INFORMANT: Patient ED PROVIDER(S): Jone Bass DO CHIEF COMPLAINT: Altered mental status HPI: Patient is an 80-year-old male with a past medical history of noncompliance, heart failure with preserved EF, MAURISIO, transaminitis, diabetes and hypertension as well as dizziness who presents to the ER for altered mental status. Per report from EMS family notes that patient has been confused intermittently for the past 4 days. Today he was found in the garage with the door open in the car running. He did not know what was going on. Per report he was also having some trouble walking earlier today around 130. He denies any focal weakness or numbness in the arms or legs. No change or loss of vision. No chest pain or shortness of breath. No nausea, vomiting or diarrhea. No dysuria, urgency or frequency. No other exacerbating or remitting factors. ADDITIONAL HISTORY OBTAINED: present at bedside and provided additional history noted around 130 for about half hour he had slurred speech and trouble getting his words out. This has completely resolved. Chronic Medical/Social Conditions Affecting Care: Per HPI PAST MEDICAL HISTORY:See Below PAST SURGICAL HISTORY:See Below FAMILY HISTORY:See Below SOCIAL HISTORY:See Below HOME MEDICATIONS:See Below ALLERGIES:See Below VITALS:See Below PHYSICAL EXAMINATION: GENERAL: Sitting up in bed, alert, well appearing, well nourished, no distress, non-toxic EYE EXAM: normal conjunctiva. PERRL and EOM's grossly intact. OROPHARYNX: no exudate, no erythema, lips, buccal mucosa, and tongue normal and mucous membranes are moist NECK: supple, no nuchal rigidity, no adenopathy, non-tender LUNGS: Clear to auscultation. Normal chest wall mechanics HEART: no murmurs, S1 normal and S2 normal ABDOMEN: abdomen soft, non-tender, normo-active bowel sounds, no masses, no rebound or guarding. UPPER EXTREMITIES: upper extremities are grossly normal. LOWER EXTREMITIES: No pitting edema. NEURO EXAM: Normal sensorium, cranial nerves II-XII intact, normal speech, no weakness of arms, no weakness of legs. No drift. Finger to nose intact. Gross sensation intact. MEDICAL DECISION MAKING: Patient is an 80-year-old male who presents ER for above-stated complaint. IV was established and blood work was obtained. Labs show no significant leukocytosis or anemia. BMP with a slightly elevated creatinine 1.8 off of baseline 1.4. LFTs bilirubin troponin was reassuring. Lipase is mildly elevated. Based on the history provided by this is concerning for possible TIA. CT angios were unremarkable. Initially blood pressure was around 200 and then trended down to 170s. He is completely neurologically intact. He is oriented to person place or time. Discussed case with the hospitalist for further evaluation management treatment. Consults/Care Managements Discussions: Per [facility] Triage Nursing notes reviewed. Limited review of prior medical records performed Vital Signs: reviewed and remarkable for no significant abnormalities Differential diagnosis: Differential diagnoses includes but is not limited to toxic, metabolic, infectious, traumatic, cardiac, neurologic, hematologic, psychiatric and inflammatory etiologies. ER treatment provided: See below Diagnostics interpreted by me include EKG and cardiac monitoring as listed below: -Cardiac Monitoring: An order was placed for continuous cardiac monitoring. The monitor shows a rate of 70 with sinus rhythm. -ECG: Sinus rhythm with first-degree AV block Rate of 69 No PVCs QTc 480 -Laboratory studies:Interpreted by me as stated above in MDM and shown below. Imaging studies: Xrays: As interpreted by me: Portable AP upright 1 view of the chest shows enlarged heart CTs show: CT angios of the head and neck were negative per radiology Procedures:none Critical Care: None Past Med/Surg History Problem List (Updated 04/09/25 @ 21:14 by Jone Bass DO) HTN (hypertension) (Acute) Acute confusion (Acute) Stroke-like symptoms (Acute) Hypokalemia Acute heart failure with preserved ejection fraction Noncompliance (Acute) Bilateral edema of lower extremity (Acute) Hypoxia (Acute) Hypertension (Acute) Dyspnea (Acute) Elevated LFTs MAURISIO (acute kidney injury) (Acute) Hypertension Type 2 diabetes mellitus CHF exacerbation Dizziness, nonspecific Dizziness (Acute) Encounter for pre-operative examination Medical History (Updated 04/09/25 @ 21:14 by Jone Bass DO) BPH (benign prostatic hyperplasia) Infectious hepatitis A CHILD, NO PROBLEMS CURRENTLY Hypothyroidism Hypertension Surgical History History of colonoscopy History of cataract surgery BILATERAL Family History (Updated 04/25/22 @ 11:02 by Everton Fields MD) Father Stroke Bladder cancer Mother Hypertension Social History Smoking Status: Former smoker Tobacco Type: Cigarettes Second Hand Exposure: No; Do You Dip or Chew Tobacco: No; Tobacco Cessation Education Requested by Patient: No Hx Alcohol Use: Yes Alcohol type: wine Hx Substance Use: No Preferred Language: Uzbek Communication Ability: Effective 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 Beliefs That Will Affect Care: None Current Living Situation: Significant Other How many Children do You have: 2 Feels Safe at Home: Yes Safety Concerns: Feels Safe At This Time Assistive Devices: Cane and Walker Allergies Allergies Allergy/AdvReac Type Severity Reaction Status Date / Time No Known Allergies Allergy Verified 04/09/25 16:41 Home Meds Home Medications Medication Instructions Recorded Confirmed finasteride 5 mg tablet 5 mg PO QAM 04/25/22 04/09/25 labetalol 300 mg tablet 300 mg PO AMHS 04/25/22 04/09/25 rosuvastatin 20 mg tablet 20 mg PO QAM 04/25/22 04/09/25 cholecalciferol (vitamin D3) 25 25 mcg PO QAM 12/23/24 04/09/25 mcg (1,000 unit) tablet (Vitamin D3) folic acid 1 mg tablet 1 mg PO QAM 12/23/24 04/09/25 levothyroxine 150 mcg tablet 150 mcg PO DAILYBB 12/23/24 04/09/25 metformin 500 mg tablet,extended 500 mg PO QAM 12/23/24 04/09/25 release 24 hr semaglutide 0.25 mg or 0.5 mg (2 0.5 mg subcut WK 12/23/24 04/09/25 mg/3 mL) subcutaneous pen injector (Ozempic) solifenacin 10 mg tablet 10 mg PO QAM 12/23/24 04/09/25 vitamin B complex 1 tab PO QAM 12/23/24 04/09/25 doxazosin 2 mg tablet 2 mg PO HS 04/09/25 04/09/25 furosemide 20 mg tablet 20 mg PO QAM 04/09/25 04/09/25 losartan 50 mg tablet 50 mg PO QAM 04/09/25 04/09/25 Previous Rx's Medication Instructions Recorded aspirin 81 mg tablet,delayed 81 mg PO QAM #30 tabs 04/26/22 release amlodipine 5 mg tablet (Norvasc) 5 mg PO QAM #30 tabs 12/28/24 spironolactone 25 mg tablet 12.5 mg (1/2 x 25 mg) PO DAILY #30 12/28/24 tabs Results & Data (ED) Vital Signs Vital Signs - 24 hr 04/09/25 15:24 04/09/25 15:28 04/09/25 15:34 Temperature 36.6 C Temperature Source Oral Pulse Rate 68 68 70 Pulse Rate [Right Finger] Pulse Rhythm Regular Respiratory Rate 14 14 Respiratory Effort / Characteristics Non-Labored Spontaneous Respiratory Depth Normal Respiratory Pattern Regular Blood Pressure 163/98 H Blood Pressure [Right Arm] Blood Pressure Mean 119 Blood Pressure Mean [Right Arm] Pulse Oximetry 95 95 Oxygen Delivery Method Room Air Room Air Sepsis Recent Fever Within 48 Hours No Sepsis New/Unexplained Change in Mental Status N/A Sepsis Action Taken by Nursing No Action Required 04/09/25 16:23 04/09/25 16:30 04/09/25 17:00 Temperature Temperature Source Pulse Rate Pulse Rate [Right Finger] 71 68 62 Pulse Rhythm Respiratory Rate 20 20 20 Respiratory Effort / Characteristics Non-Labored Spontaneous Non-Labored Spontaneous Non-Labored Spontaneous Respiratory Depth Normal Normal Normal Respiratory Pattern Regular Regular Blood Pressure Blood Pressure [Right Arm] 164/88 H 186/109 H 205/107 H Blood Pressure Mean Blood Pressure Mean [Right Arm] 113 134 139 Pulse Oximetry 94 94 95 Oxygen Delivery Method Room Air Room Air Room Air Sepsis Recent Fever Within 48 Hours Sepsis New/Unexplained Change in Mental Status Sepsis Action Taken by Nursing 04/09/25 17:27 04/09/25 18:06 Temperature Temperature Source Pulse Rate Pulse Rate [Right Finger] 62 72 Pulse Rhythm Respiratory Rate 16 24 Respiratory Effort / Characteristics Non-Labored Spontaneous Non-Labored Spontaneous Respiratory Depth Normal Normal Respiratory Pattern Blood Pressure Blood Pressure [Right Arm] 220/114 H 192/118 H Blood Pressure Mean Blood Pressure Mean [Right Arm] 149 142 Pulse Oximetry 95 94 Oxygen Delivery Method Room Air Room Air Sepsis Recent Fever Within 48 Hours Sepsis New/Unexplained Change in Mental Status Sepsis Action Taken by Nursing Laboratory Data 04/09/25 15:35 04/09/25 15:35 Lab Results 04/09/25 04/09/25 04/09/25 Range/Units 15:35 15:42 18:25 WBC 8.38 (4.8-10.8) K/ul RBC 5.01 (4.70-6.10) M/uL Hgb 15.1 (14.0-18.0) g/dl POC Hgb 15.0 (14.0-18.0) g/dl Hct 43.4 (42.0-52.0) % POC Hct 44 (42-52) % MCV 86.6 (80.0-100.0) fL MCH 30.1 (25.0-34.0) pg MCHC 34.8 (32.0-36.0) g/dL RDW Std Deviation 42.2 (36.4-46.3) fL RDW Coeff of Darion 13.3 (11.5-14.5) % Plt Count 194 (130-400) K/uL MPV 9.5 (9.4-12.4) fL Immature Gran % (Auto) 0.4 % Neut % (Auto) 63.2 % Lymph % (Auto) 24.1 % [place] % (Auto) 8.2 % Eos % (Auto) 3.7 % Baso % (Auto) 0.4 % Neut # (Auto) 5.30 (1.40-6.50) K/uL Lymph # (Auto) 2.02 (1.20-3.40) K/uL [place] # (Auto) 0.69 H (0.11-0.59) K/uL Eos # (Auto) 0.31 (0.00-0.50) K/uL Baso # (Auto) 0.03 (0.00-0.20) K/uL Immature Gran # (Auto) 0.03 (0.01-0.20) K/uL POC Sodium 140 (135-144) mmol/L Sodium 138 (136-145) mmol/L POC Potassium 4.1 (3.3-5.0) mmol/L Potassium 4.0 (3.5-5.1) mmol/L POC Chloride 104 (101-112) mmol/L Chloride 105 (98-107) mmol/L Carbon Dioxide 26 (21-32) mmol/L POC Total CO2 23 L (24-31) mmol/L Anion Gap 7 (3-11) POC Anion Gap 18.0 (16-25) mmol/L POC BUN 27 H (7-18) mg/dl BUN 28 H (6-23) mg/dl Creatinine 1.81 H (0.6-1.4) mg/dl POC Creatinine 1.8 H (0.6-1.3) mg/dl Est Cr Clr Drug Dosing 40.6 ml/min eGFR 37.33 BUN/Creatinine Ratio 15.5 (10-20) Glucose 93 (70-99(Fasting)) mg/dl POC Glucose 89 (70-99) mg/dl POC Glucose (other) 89 (70-99) mg/dl Calcium 9.2 (8.6-10.3) mg/dl POC Ioniz Calcium [place] 1.21 (1.12-1.32) mmol/l Total Bilirubin 0.7 (0.2-1.0) mg/dl AST 29 (13-39) U/L ALT 43 (7-52) U/L Alkaline Phosphatase 56 (34-104) U/L Troponin I High Sens 13.6 (0-20) pg/ml Total Protein 7.3 (6.0-8.3) gm/dl Albumin 3.8 (3.4-5.0) gm/dl Globulin 3.5 (2.5-4.0) gm/dl Albumin/Globulin Ratio 1.1 (0.9-2) Lipase 84 H (11-82) U/L Administered Medications Discontinued Medications Sodium Chloride (Nss) 500 mls @ 999 mls/hr IV .Q31M ONE Stop: 04/09/25 16:03 Last Infusion: 04/09/25 16:56 Dose: Infused Documented By: Admin: 04/09/25 15:42 Dose: 999 mls/hr Documented By: KARTIK Ioversol (Optiray 320 125ml) 115 ml IV ONCE ONE Stop: 04/09/25 15:59 Last Admin: 04/09/25 15:58 Dose: 115 ml Documented By: ARMAND Labetalol HCl (Labetalol Hcl Iv 5 Mg/Ml 20ml) 10 mg IV NOW STA Stop: 04/09/25 19:27 Last Admin: 04/09/25 21:02 Dose: 10 mg Documented By: [facility] Imaging Data Radiologist's Impression: Chest X-Ray 04/09/25 15:33 Clinical History: Chest pain Technique: A frontal view of the chest was obtained Comparison is made to the prior examination dated 12/23/2024 Findings: There are no confluent pulmonary infiltrates. The heart is enlarged. No pleural effusion or pneumothorax is seen. There is suspected mild pulmonary edema No fracture is noted. No foreign body is seen Impression: Cardiomegaly and mild pulmonary edema ACT 112: Positive. There are findings on this exam that require communication between the performing entity and the patient following Patient Test Result Information Act ([place] ACT 112) guidelines. Electronically signed by Giovanni Parker 04-09-2025 5:47 PM Head CTA 04/09/25 15:33 Technique: Axial computed tomography images were obtained of the brain before and after the administration of intravenous contrast according to the CT angiogram protocol Findings: There is cerebral atrophy, within expected limits for the patient's age. Areas of decreased attenuation are seen within the periventricular white matter, likely representing chronic small vessel ischemic disease. There is no definite sign of acute or old infarction. No intracranial hemorrhage is evident. No definite mass lesion is seen. There is no midline shift or other form of herniation. No hydrocephalus is seen. No definite stenosis or aneurysm is seen of the anterior, middle, or posterior cerebral artery circulations. The basilar artery appears unremarkable Impression: No definite stenosis or aneurysm of the intracranial arteries Electronically signed by Giovanni Parker 04-09-2025 4:32 PM Neck CTA 04/09/25 15:33 Technique: Axial computed tomography images were obtained of the neck after the administration of intravenous contrast according to the CT angiogram protocol Comparison is made to the prior CTA dated 04/25/2022 Findings: No stenosis is seen of the common carotid arteries bilaterally. There is mild plaque in the left carotid bulb, without stenosis. The remainder of the internal carotid arteries appear patent bilaterally. No stenosis of the external carotid arteries is seen There is a mild stenosis of the distal left vertebral artery. There is a mild stenosis of the origin of the right vertebral artery. No definite vertebral artery stenosis is seen. 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 Impression: 1. No apparent stenosis of the carotid arteries 2. Mild stenosis of the distal left vertebral artery 3. Mild stenosis of the origin of the right vertebral artery Electronically signed by Giovanni Parker 04-09-2025 4:36 PM Discharge Plan Visit Data Chief Complaint: TIA Symptoms Stated Complaint: ILLNESS ED Provider: Jone Bass Discharge Problem: Acute confusion, Stroke-like symptoms, MAURISIO (acute kidney injury), HTN (hypertension) Condition: Fair Discharge Instructions Interventions: ED Discharge Assessment Last Done: 04/09/25 19:46 Discharge Problem: HTN (hypertension) Qualifiers: Hypertension type: unspecified Qualified Code(s): I10 - Essential (primary) hypertension
[2025-04-09] MEDS: SODIUM CHLORIDE 0.9% 500 ML IV ONE (15:42)
[2025-04-09 15:50] LABS: Hematocrit (blood only) 43.4 % (42.0-52.0); Hemoglobin 15.1 g/dl (14.0-18.0); Immature Granulocytes # (auto) 0.03 K/uL (0.01-0.20); Immature Granulocytes % (auto) 0.4 %; Mean Corpuscular Hemoglobin 30.1 pg (25.0-34.0); Mean Corpuscular Volume 86.6 fL (80.0-100.0); Platelet Count 194 K/uL (130-400); RDW Standard Deviation 42.2 fL (36.4-46.3); Red Blood Count 5.01 M/uL (4.70-6.10); White Blood Count 8.38 K/ul (4.8-10.8)
[2025-04-09] MEDS: OPTIRAY 320 125ml IV ONE (15:58)
[2025-04-09 16:08] LABS: Alanine Aminotransferase 43.0 U/L (7-52); Albumin Globulin Ratio 1.1 (0.9-2); Alkaline Phosphatase 56.0 U/L (34-104); Anion Gap 7.0 (3-11); Bilirubin,Total 0.7 mg/dl (0.2-1.0); Blood Urea Nitrogen 28.0 mg/dl (6-23); Calcium 9.2 mg/dl (8.6-10.3); Carbon Dioxide 26.0 mmol/L (21-32); Chloride 105.0 mmol/L (98-107); Creatinine Clr Calc Pharmacy 40.6 ml/min; Globulin 3.5 gm/dl (2.5-4.0); Glucose 93.0 mg/dl (70-99(Fasting)); Lipase 84.0 U/L (11-82); Potassium 4.0 mmol/L (3.5-5.1); Sodium 138.0 mmol/L (136-145); Total Protein 7.3 gm/dl (6.0-8.3)
--- NOTE | 2025-04-09 16:32 | CT Scan Report ---
Technique: Axial computed tomography images were obtained of the brain before and after the administration of intravenous contrast according to the CT angiogram protocol Findings: There is cerebral atrophy, within expected limits for the patient's age. Areas of decreased attenuation are seen within the periventricular white matter, likely representing chronic small vessel ischemic disease. There is no definite sign of acute or old infarction. No intracranial hemorrhage is evident. No definite mass lesion is seen. There is no midline shift or other form of herniation. No hydrocephalus is seen. No definite stenosis or aneurysm is seen of the anterior, middle, or posterior cerebral artery circulations. The basilar artery appears unremarkable Impression: No definite stenosis or aneurysm of the intracranial arteries Electronically signed by Giovanni Parker 04-09-2025 4:32 PM
--- NOTE | 2025-04-09 16:37 | CT Scan Report ---
Technique: Axial computed tomography images were obtained of the neck after the administration of intravenous contrast according to the CT angiogram protocol Comparison is made to the prior CTA dated 04/25/2022 Findings: No stenosis is seen of the common carotid arteries bilaterally. There is mild plaque in the left carotid bulb, without stenosis. The remainder of the internal carotid arteries appear patent bilaterally. No stenosis of the external carotid arteries is seen There is a mild stenosis of the distal left vertebral artery. There is a mild stenosis of the origin of the right vertebral artery. No definite vertebral artery stenosis is seen. 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 Impression: 1. No apparent stenosis of the carotid arteries 2. Mild stenosis of the distal left vertebral artery 3. Mild stenosis of the origin of the right vertebral artery Electronically signed by Giovanni Parker 04-09-2025 4:36 PM
--- NOTE | 2025-04-09 17:48 | XRay Report ---
Clinical History: Chest pain Technique: A frontal view of the chest was obtained Comparison is made to the prior examination dated 12/23/2024 Findings: There are no confluent pulmonary infiltrates. The heart is enlarged. No pleural effusion or pneumothorax is seen. There is suspected mild pulmonary edema No fracture is noted. No foreign body is seen Impression: Cardiomegaly and mild pulmonary edema ACT 112: Positive. There are findings on this exam that require communication between the performing entity and the patient following Patient Test Result Information Act ([place] ACT 112) guidelines. Electronically signed by Giovanni Parker 04-09-2025 5:47 PM
--- NOTE | 2025-04-09 18:45 | History & Physical Report ---
Date of Service April 09, 2025 Assessment & Plan (1) Stroke-like symptoms: (2) Hypertension: (3) Acute heart failure with preserved ejection fraction: (4) Type 2 diabetes mellitus: (5) BPH (benign prostatic hyperplasia): (6) Hypothyroidism: Plan Stroke like symptoms - PCU for observation - Stroke order set completed, no indication for thrombolytic - CTA head and neck reviewed and is negative - MRI brain wo contrast ordered - Check echo with bubble study, last was done on 12/24/24 which had EF of 60-65%, moderate concentric LVH, aortic valve sclerosis moderate, grade I diastolic dysfunction. No bubble study was done at that time. - will continue baby aspirin and start plavix 75 mg daily - allow permissive hypertension with SBP 160-180 and DBP 90-110, give dose of labetalol 10 mg IV now as BP is 220/180. Then continue labetolol 10 mg IV Q6H prn with parameters to allow for permissive hypertension. - Consider neuro consult after MRI results - PT/OT and speech therapy consults placed, nursing instructed to do bedside swallow eval and if passed can have HH/DM diet this evening. Diabetes II -Hold metformin and Ozempic -Sliding scale with accuchecks - check HbA1c Hypothyroidism On Synthyroid Hyperlipidemia - cont rosuvastatin 20 for now, lipid panel pending BPH -On Proscar Hypertension/ Hypertensive urgency - Allow permissive htn for now - On amlodipine, labetalol and diuretics - IV labetalol prn for SBP > 220 and DBP >120 Morbid obesity Counseling, BMI 39.5 DVT ppx: teds, scds Lines: PIV x 1 FEN/GI: HH diet pending passes bedside swallow CODE: Full code Dispo: From home, likely to remain in the hospital x 1-2 days I spent a total of 77 minutes with greater than 50% of that time face to face with the patient, personally reviewing all current laboratories, imaging studies, past medication reconciliation, outpatient chart review, and discussion with specialists to collaborate care for the patient excluding time spent in the performance of separately billed services or time spent by another provider/QHP. Please see attending documentation for corrections and/or additions. History of Present Illness Chief Complaint: Weakness, confusion Primary Care Provider: Cindy Serrano MD This is an 80-year-old male who goes by the nickname "[place]", with PMHx of type 2 diabetes, hyperlipidemia, hypothyroidism, chronic heart failure with preserved ejection fraction, hypertension, stenosis of right vertebral artery, morbid obesity, BPH, urge incontinence, stress incontinence, dizziness, elevated LFTs w sudha presents to the hospital with acute onset of weakness, slurred speech and word finding which was noticed by his significant other, Conchita, around 1:30 pm. He had just returned home from driving a car from visiting friends when he had difficulty getting out of the vehicle, had worsening weakness, and she noticed the changes in his speech. he states that this is completely resolved at this point in time. He did take all his normal scheduled medications this morning including blood pressure meds, diuretics, cholesterol medication. He notes that his blood pressure typically runs at a normal level of 120/90 at home. This elevation is completely new for him. He does admit to having numbness over both of his thighs bilaterally currently nonpainful. He denies changes in vision, headache, dizziness, strength discrepancy. Notes that he does issues with his right knee, more difficulty lifting right leg off the bed during exam which he states is not new. Due to issues with R knee, he uses a cane/walker with ambulation. CTA of the head and neck are negative. He has noted to believe he in hypertensive emergency with BP of about 220/118 throughout ER stay. He has not been given an antihypertensive medications. ER did not call teleneurology. he is already on baby aspirin, rosuvastatin 20 mg daily.. Will add p.o. dose of Plavix 75 mg now and administer IV labetalol 10 mg dose for hypertensive urgency. Allergies Allergy/AdvReac Type Severity Reaction Status Date / Time No Known Allergies Allergy Verified 04/09/25 16:41 Home Medications Medication Instructions Recorded Confirmed Type finasteride 5 mg tablet 5 mg PO QAM 04/25/22 04/09/25 History labetalol 300 mg tablet 300 mg PO AMHS 04/25/22 04/09/25 History rosuvastatin 20 mg tablet 20 mg PO QAM 04/25/22 04/09/25 History aspirin 81 mg tablet,delayed 81 mg PO QAM #30 tabs 04/26/22 04/09/25 Rx release cholecalciferol (vitamin D3) 25 25 mcg PO QAM 12/23/24 04/09/25 History mcg (1,000 unit) tablet (Vitamin D3) folic acid 1 mg tablet 1 mg PO QAM 12/23/24 04/09/25 History levothyroxine 150 mcg tablet 150 mcg PO DAILYBB 12/23/24 04/09/25 History metformin 500 mg tablet,extended 500 mg PO QAM 12/23/24 04/09/25 History release 24 hr semaglutide 0.25 mg or 0.5 mg (2 0.5 mg subcut WK 12/23/24 04/09/25 History mg/3 mL) subcutaneous pen injector (Ozempic) solifenacin 10 mg tablet 10 mg PO QAM 12/23/24 04/09/25 History vitamin B complex 1 tab PO QAM 12/23/24 04/09/25 History amlodipine 5 mg tablet (Norvasc) 5 mg PO QAM #30 tabs 12/28/24 04/09/25 Rx spironolactone 25 mg tablet 12.5 mg (1/2 x 25 mg) PO DAILY #30 12/28/24 04/09/25 Rx tabs doxazosin 2 mg tablet 2 mg PO HS 04/09/25 04/09/25 History furosemide 20 mg tablet 20 mg PO QAM 04/09/25 04/09/25 History losartan 50 mg tablet 50 mg PO QAM 04/09/25 04/09/25 History Past Med/Surg History Problem List (Updated 04/09/25 @ 18:51 by Carly Titus PA-C) Stroke-like symptoms Hypokalemia Acute heart failure with preserved ejection fraction Noncompliance (Acute) Bilateral edema of lower extremity (Acute) Hypoxia (Acute) Hypertension (Acute) Dyspnea (Acute) Elevated LFTs MAURISIO (acute kidney injury) Hypertension Type 2 diabetes mellitus CHF exacerbation Dizziness, nonspecific Dizziness (Acute) Encounter for pre-operative examination Medical History (Updated 04/09/25 @ 18:51 by Carly Titus PA-C) BPH (benign prostatic hyperplasia) Infectious hepatitis A CHILD, NO PROBLEMS CURRENTLY Hypothyroidism Hypertension Surgical History History of colonoscopy History of cataract surgery BILATERAL Family History (Updated 04/25/22 @ 11:02 by Everton Fields MD) Father Stroke Bladder cancer Mother Hypertension Social History Smoking Status: Former smoker Tobacco Type: Cigarettes Second Hand Exposure: No; Do You Dip or Chew Tobacco: No; Hx Alcohol Use: Yes Alcohol type: beer and wine Hx Substance Use: No Preferred Language: Maltese Communication Ability: Effective Juice Standardizer Required: No Beliefs That Will Affect Care: None Current Living Situation: Significant Other How many Children do You have: 2 Feels Safe at Home: Yes Assistive Devices: Cane and Walker Review of Systems Review of Systems: Constitutional: No fever, sweats or chills Eyes: No diplopia, no worsening or blurred vision ENT: normal hearing, no trouble swallowing Respiratory: No cough, sputum, dyspnea at rest or on exertion Cardiovascular: No chest pain, tightness or palpitations Abdomen: No pain, nausea, vomiting, diarrhea or constipation Musculoskeletal: No joint pain, calf pain, swelling Neurologic: as per HPI, + slurred speech, + aphasia/word finding, resolved at this point, + generalized weakness, +numbness/tingling over bilateral thighs Psychiatric: No anxiety or depression Skin: No rash or itch Physical Exam Physical Exam: General: awake, alert, no apparent distress, Elderly white male, oriented x 3, able to participate in conversation without any speech issues Head: Normocephalic, atraumatic ENT: PERRL, EOMI, no pharyngeal exudate, mucous membranes slightly dry Chest: Clear to auscultation, on room air, no adventitious breath sounds Cardiac: Regular rate and rhythm, no murmur, no JVD, normal peripheral pulses, good capillary refill Abdominal: NABS x 4 quadrants, soft, nondistended, nontender to palpation, no rebound or guarding Extremities: Normal inspection, no peripheral edema or erythema, calfs nontender to palpation Psych: Normal mood and affect Neuro: AAO x 3, strength intact bilaterally and rated 5/5 in upper extremities, right leg raise rated as a 4/5 compared to the left which is a 5/5, no other motor deficits, speech is clear, no peripheral sensory deficits. reported sensory deficit with numbness/tingling over bilateral thighs. Results & Data Results & Data Vital Signs (Past 12 Hours) Vital Signs Temp Pulse Pulse Resp BP BP Pulse Ox 04/09/25 18:06 72 24 192/118 H 94 04/09/25 17:27 62 16 220/114 H 95 04/09/25 17:00 62 20 205/107 H 95 04/09/25 16:30 68 20 186/109 H 94 04/09/25 16:23 71 20 164/88 H 94 04/09/25 15:34 70 04/09/25 15:28 68 14 95 04/09/25 15:24 36.6 C 68 14 163/98 H 95 O2 Del Method 04/09/25 18:06 Room Air 04/09/25 17:27 Room Air 04/09/25 17:00 Room Air 04/09/25 16:30 Room Air 04/09/25 16:23 Room Air 04/09/25 15:34 04/09/25 15:28 Room Air 04/09/25 15:24 Room Air Laboratory Results 04/09/25 04/09/25 04/09/25 18:25 15:42 15:35 WBC 8.38 RBC 5.01 Hgb 15.1 POC Hgb 15.0 Hct 43.4 POC Hct 44 MCV 86.6 MCH 30.1 MCHC 34.8 RDW Std Deviation 42.2 RDW Coeff of Darion 13.3 Plt Count 194 MPV 9.5 Immature Gran % (Auto) 0.4 Neut % (Auto) 63.2 Lymph % (Auto) 24.1 [place] % (Auto) 8.2 Eos % (Auto) 3.7 Baso % (Auto) 0.4 Neut # (Auto) 5.30 Lymph # (Auto) 2.02 [place]inn # (Auto) 0.69 H Eos # (Auto) 0.31 Baso # (Auto) 0.03 Immature Gran # (Auto) 0.03 POC Sodium 140 Sodium 138 POC Potassium 4.1 Potassium 4.0 POC Chloride 104 Chloride 105 Carbon Dioxide 26 POC Total CO2 23 L Anion Gap 7 POC Anion Gap 18.0 POC BUN 27 H BUN 28 H Creatinine 1.81 H POC Creatinine 1.8 H Est Cr Clr Drug Dosing 40.6 eGFR 37.33 BUN/Creatinine Ratio 15.5 Glucose 93 POC Glucose 89 POC Glucose (other) 89 Calcium 9.2 POC Ioniz Calcium Akua 1.21 Total Bilirubin 0.7 AST 29 ALT 43 Alkaline Phosphatase 56 Troponin I High Sens 13.6 Total Protein 7.3 Albumin 3.8 Globulin 3.5 Albumin/Globulin Ratio 1.1 Lipase 84 H Diagnostic Findings Chest X-Ray 04/09/25 15:33 Clinical History: Chest pain Technique: A frontal view of the chest was obtained Comparison is made to the prior examination dated 12/23/2024 Findings: There are no confluent pulmonary infiltrates. The heart is enlarged. No pleural effusion or pneumothorax is seen. There is suspected mild pulmonary edema No fracture is noted. No foreign body is seen Impression: Cardiomegaly and mild pulmonary edema ACT 112: Positive. There are findings on this exam that require communication between the performing entity and the patient following Patient Test Result Information Act ([place] ACT 112) guidelines. Electronically signed by Giovanni Parker 04-09-2025 5:47 PM Head CTA 04/09/25 15:33 Technique: Axial computed tomography images were obtained of the brain before and after the administration of intravenous contrast according to the CT angiogram protocol Findings: There is cerebral atrophy, within expected limits for the patient's age. Areas of decreased attenuation are seen within the periventricular white matter, likely representing chronic small vessel ischemic disease. There is no definite sign of acute or old infarction. No intracranial hemorrhage is evident. No definite mass lesion is seen. There is no midline shift or other form of herniation. No hydrocephalus is seen. No definite stenosis or aneurysm is seen of the anterior, middle, or posterior cerebral artery circulations. The basilar artery appears unremarkable Impression: No definite stenosis or aneurysm of the intracranial arteries Electronically signed by Giovanni Parker 04-09-2025 4:32 PM Neck CTA 04/09/25 15:33 Technique: Axial computed tomography images were obtained of the neck after the administration of intravenous contrast according to the CT angiogram protocol Comparison is made to the prior CTA dated 04/25/2022 Findings: No stenosis is seen of the common carotid arteries bilaterally. There is mild plaque in the left carotid bulb, without stenosis. The remainder of the internal carotid arteries appear patent bilaterally. No stenosis of the external carotid arteries is seen There is a mild stenosis of the distal left vertebral artery. There is a mild stenosis of the origin of the right vertebral artery. No definite vertebral artery stenosis is seen. 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 Impression: 1. No apparent stenosis of the carotid arteries 2. Mild stenosis of the distal left vertebral artery 3. Mild stenosis of the origin of the right vertebral artery Electronically signed by Giovanni Parker 04-09-2025 4:36 PM Code Status & VTE Plan Code Status Full code-discussed with the patient at bedside Supervising Physician Co-Signing Physician Notes Patient is an 80-year-old male with multiple comorbidities presents with history of transient slurred speech, memory loss and word finding difficulty which lasted for about 20 minutes as per patient. Currently is oriented and denies any issues during my encounter. States taking his medications regularly. Currently denies any focal weakness, numbness, tingling, dizziness, headache, change in vision, facial deformity, bowel, bladder incontinence. Please review HPI for complete details of presentation. I personally reviewed blood work and imaging studies. Reviewed outpatient blood work last creatinine 1.7. Currently creatinine 1.8 on today's blood work. CTA head showed no acute process. CTA n frantz showed mild vertebral artery stenosis. He was hypertensive while in ED. Physical Exam: Vitals signs as noted above General Appearance: Obese, no apparent distress Head: normocephalic, Atraumatic Eyes: normal inspection, EOMI Neck: supple, Trachea midline Respiratory/Chest: Normal breath sounds, clear to auscultation no accessory muscle use Cardiovascular: S1, S2, No murmur Abdomen/GI:Soft, Non tender, Bowel sounds present Extremities/Musculoskeletal:normal inspection, Trace edema Neurologic/Psych:AAOX3, cranial nerves intact, grossly no focal neurological deficits Skin: normal color, warm TIA R/O CVA Hypertensive emergency Transient memory loss ? Hypertensive encephalopathy CKD Continue aspirin, rosuvastatin Added Plavix Allow permissive hypertension MRI brain, echo pending Update lipid panel, A1c Neurochecks, neurology consulted PT OT, speech eval Check TSH, B12 levels UA pending IV labetalol as needed I personally interviewed and examined the patient at bedside. I have reviewed the advanced practitioner's documentation on the date of service referred in note and agree with plan. Patient's care is coordinated with Carly Titus PA-C. Please refer to the documentation above for details of patient's presentation and for discussion of other issues. I spent a total [id number] coordinating, documenting, and providing care for this patient excluding time spent in the performance of separately billed services or time spent by another provider/QHP.
[2025-04-09] MEDS ORDERED: GLUCAGON FOR INJ 1 MG VIAL SQ PRN (20:34)
[2025-04-09] MEDS ORDERED: DEXTROSE 50% 50 ML SYRINGE IV PRN (20:34)
[2025-04-09] MEDS ORDERED: CARBOHYDRATES FOR HYPOGLYCEMIA PO PRN (20:34)
[2025-04-09] MEDS ORDERED: LABETALOL HCL IV 5 MG/ML 20ML IV PRN (20:34)
[2025-04-09] MEDS ORDERED: ACETAMINOPHEN 325 MG TAB PO PRN (20:34)
[2025-04-09] MEDS ORDERED: GLUCOSE 10 TAB/TUBE PO PRN (20:34)
[2025-04-09] MEDS ORDERED: PHARMACIST DISCHARGE MED REC CONSULT PRN (20:34)
[2025-04-09] MEDS ORDERED: ONDANSETRON INJ 2 MG/ML 2 ML VIAL IV PRN (20:34)
[2025-04-09] MEDS ORDERED: GLUCOSE 40% GEL 15 GM TUBE PO PRN (20:34)
[2025-04-09] MEDS: LABETALOL HCL IV 5 MG/ML 20ML IV STA (21:02)
--- NOTE | 2025-04-09 21:06 | Magnetic Resonance Report ---
Exam(s): MRI HEAD Without Contrast EXAM: MR Head Without Intravenous Contrast CLINICAL HISTORY: stroke like symptoms. TECHNIQUE: Magnetic resonance images of the head/brain without intravenous contrast in multiple planes. COMPARISON: MRI head 04/25/2022 FINDINGS: Brain: There are a few punctate areas of abnormal T2 signal in the deep cerebral white matter most consistent with mild small vessel ischemic/degenerative changes. The cerebral and cerebellar sulci are mildly prominent consistent with mild brain atrophy. Mildly progressive periventricular T2 FLAIR signal noted. Diffusion-weighted imaging is negative for acute or subacute infarct. No hemorrhage. Ventricles: Unremarkable. No ventriculomegaly. Bones/joints: Unremarkable. No acute fracture. Sinuses: Mucosal thickening involving the inferior right maxillary sinus. The remaining paranasal sinuses are well-aerated. No acute sinusitis. Mastoid air cells: Unremarkable as visualized. No mastoid effusion. Orbits: Unremarkable as visualized. IMPRESSION: No evidence of acute or subacute infarct. Mildly progressive chronic age-related findings, as noted above. Electronically signed by: Guille García MD 04/09/25 21:05 PM
[2025-04-09] MEDS: INSULIN ASPART PER UNIT CHARGE SC SCH (21:25)
[2025-04-09] MEDS: DOXAZosin MESYLATE TAB 2 MG TAB PO SCH (21:31)
[2025-04-09] MEDS: CLOPIDOGREL BISULFATE 75 MG TAB PO ONE (21:31)
[2025-04-10] MEDS: LEVOTHYROXINE SODIUM 150 MCG TABLET PO SCH (06:21)
[2025-04-10 07:09] LABS: Hematocrit (blood only) 42.5 % (42.0-52.0); Hemoglobin 14.7 g/dl (14.0-18.0); Immature Granulocytes # (auto) 0.03 K/uL (0.01-0.20); Immature Granulocytes % (auto) 0.3 %; Mean Corpuscular Hemoglobin 30.0 pg (25.0-34.0); Mean Corpuscular Volume 86.7 fL (80.0-100.0); Platelet Count 181 K/uL (130-400); RDW Standard Deviation 40.9 fL (36.4-46.3); Red Blood Count 4.90 M/uL (4.70-6.10); White Blood Count 9.23 K/ul (4.8-10.8)
[2025-04-10 07:19] LABS: Hemoglobin A1C 6.4 % (4.5-5.6)
[2025-04-10 07:40] LABS: Anion Gap 7.0 (3-11); Blood Urea Nitrogen 20.0 mg/dl (6-23); Calcium 8.7 mg/dl (8.6-10.3); Carbon Dioxide 26.0 mmol/L (21-32); Chloride 107.0 mmol/L (98-107); Cholesterol 90.0 mg/dl (0-200); Creatinine Clr Calc Pharmacy 46.5 ml/min; Glucose 92.0 mg/dl (70-99(Fasting)); HDL Cholesterol 39.0 mg/dl; Potassium 3.9 mmol/L (3.5-5.1); Sodium 140.0 mmol/L (136-145); Triglycerides 99.0 mg/dl (0-150)
[2025-04-10 07:51] LABS: Thyroid Stimulating Hormone 0.962 uIu/ml (0.300-4.500)
[2025-04-10] MEDS: OXYBUTYNIN CHLORIDE XL 5 MG TABCR PO SCH (08:43)
[2025-04-10] MEDS: FUROSEMIDE 20 MG TAB PO SCH (08:43)
[2025-04-10] MEDS: FINASTERIDE 5 MG TAB PO SCH (08:43)
[2025-04-10] MEDS: SPIRONOLACTONE 12.5 MG TAB PO SCH (08:43)
[2025-04-10] MEDS: ASPIRIN 81 MG ECTAB PO SCH (08:43)
[2025-04-10] MEDS: ROSUVASTATIN CALCIUM 20 MG TAB PO SCH (08:44)
[2025-04-10] MEDS: VITAMIN B COMPLEX TAB PO SCH (08:44)
[2025-04-10] MEDS: CHOLECALCIFEROL 25 MCG (1000 UNITS) TAB PO SCH (08:44)
[2025-04-10] MEDS: FOLIC ACID 1 MG TAB PO SCH (08:44)
[2025-04-10] MEDS: CLOPIDOGREL BISULFATE 75 MG TAB PO SCH (10:51)
--- NOTE | 2025-04-10 10:52 | Neurology Consultation ---
Date of Consultation April 10, 2025 Assessment & Plan (1) Stroke-like symptoms: Suspect TIA Recommend continued stroke work up to include the following: Echocardiogram as part of complete stroke workup Continue frequent neurological assessments Obtain stat CT brain without contrast for any acute neurological decline Continue to monitor/control blood pressure & blood glucose Continue to monitor telemetry closely Recommend ZioPatch at DC if no evidence of arrhythmia during inpatient monitoring Continue to monitor renal and hepatic function, keep euvolemic Metabolic workup should include hgbA1c, fasting lipids Recommend DAPT for at least 3 weeks Recommend high dose statin therapy indefinitely if tolerated Ok from neurology perspective for VTE prophylaxis PT/OT/SLT to eval and treat Recommend eval for BRODY and consider outpatient polysomnography Telehealth Consultation Telehealth Information Telehealth Information: I performed this visit using a real-time telehealth connection between my location and the patients location ([facility] [place]). After connecting through interactive tele-video, patient was identified by name and date of and/or wristband check.Patient (or authorized healthcare commercial representative) was informed that this was a telemedicine visit and it was being conducted confidentially over secure lines. My office door was closed and no one else was present in the room with me.Patient (or authorized healthcare commercial representative) provided consent to proceed with the visit, expressed an understanding of privacy and security of the telemedicine visit, and gave permis mesha to have a hospital commercial representative in the room in order to assist with the visit and to conduct portions of the visit, as needed. I informed the patient (or authorized healthcare commercial representative) that I reviewed their record and presented the opportunity for them to ask any questions regarding the visit today. The patient agreed to participate. History of Present Illness Reason for Consultation: Stroke like symptoms Requesting Physician: Dr Sargent Attending Physician: Maribel Sargent MD History of Present Illness 80yo male with significant past medical hx including DM. HTN, hyperlipidemia, morbid obesity, HFpEF, hypothyroidism who presented to ER with severely elevated BP reporting acute onset dysarthria features of aphasia. He reports difficulty getting out of his car and feeling weak overall and reported numbness BLE at time of event. He has undergone stroke imaging including CT brain without contrast, personally reviewed today, revealing no overt evidence of hemorrhage. CT angiographic studies of head and neck, also personally reviewed at today, reveal no overt evidence of large vessel occlusion or significant/flow limiting stenosis. MRI brain depicts no evidence of acute ischemic stroke. I have performed televideo consultation. His significant other at bedside all questions answered. He and at bedside reports he is back to baseline/all symptoms have resolved. He is alert & oriented; able to answer all questions appropriately, name objects on televideo monitor, repeat phrases and perform complex/embedded commands without deficit. Neurological exam is non lateralizing/nonfocal in terms of motor strength and coordination. No reported cephalgia or cervicalgia at this time. Denies chest pain/palpitations or shortness of breath. No reported changes in vision hearing dizziness syncope seizure like activity. Denies recent fevers chills nausea vomiting changes in bowels or bladder. Denies recent medication changes, recent illness or sick contacts. Allergies Allergy/AdvReac Type Severity Reaction Status Date / Time No Known Allergies Allergy Verified 04/09/25 16:41 Home Medications Medication Instructions Recorded Confirmed Type finasteride 5 mg tablet 5 mg PO QAM 04/25/22 04/09/25 History labetalol 300 mg tablet 300 mg PO AMHS 04/25/22 04/09/25 History rosuvastatin 20 mg tablet 20 mg PO QAM 04/25/22 04/09/25 History aspirin 81 mg tablet,delayed 81 mg PO QAM #30 tabs 04/26/22 04/09/25 Rx release cholecalciferol (vitamin D3) 25 25 mcg PO QAM 12/23/24 04/09/25 History mcg (1,000 unit) tablet (Vitamin D3) folic acid 1 mg tablet 1 mg PO QAM 12/23/24 04/09/25 History levothyroxine 150 mcg tablet 150 mcg PO DAILYBB 12/23/24 04/09/25 History metformin 500 mg tablet,extended 500 mg PO QAM 12/23/24 04/09/25 History release 24 hr semaglutide 0.25 mg or 0.5 mg (2 0.5 mg subcut WK 12/23/24 04/09/25 History mg/3 mL) subcutaneous pen injector (Ozempic) solifenacin 10 mg tablet 10 mg PO QAM 12/23/24 04/09/25 History vitamin B complex 1 tab PO QAM 12/23/24 04/09/25 History amlodipine 5 mg tablet (Norvasc) 5 mg PO QAM #30 tabs 12/28/24 04/09/25 Rx spironolactone 25 mg tablet 12.5 mg (1/2 x 25 mg) PO DAILY #30 12/28/24 04/09/25 Rx tabs doxazosin 2 mg tablet 2 mg PO HS 04/09/25 04/09/25 History furosemide 20 mg tablet 20 mg PO QAM 04/09/25 04/09/25 History losartan 50 mg tablet 50 mg PO QAM 04/09/25 04/09/25 History clopidogrel 75 mg tablet 75 mg PO QAM 20 days #20 tabs 04/10/25 Rx rosuvastatin 40 mg tablet 40 mg PO DAILY #30 tabs 04/10/25 Rx Patient History Medical History (Updated 04/09/25 @ 21:14 by Jone Bass DO) BPH (benign prostatic hyperplasia) Infectious hepatitis A CHILD, NO PROBLEMS CURRENTLY Hypothyroidism Hypertension Surgical History History of colonoscopy History of cataract surgery BILATERAL Family History (Updated 04/25/22 @ 11:02 by Everton Fields MD) Father Stroke Bladder cancer Mother Hypertension Social History Smoking Status: Former smoker Tobacco Type: Cigarettes Second Hand Exposure: No; Do You Dip or Chew Tobacco: No; Tobacco Cessation Education Requested by Patient: No Hx Alcohol Use: Yes Alcohol type: wine Hx Substance Use: No Preferred Language: Liberian Communication Ability: Effective Waredresser Required: No Beliefs That Will Affect Care: None Current Living Situation: Significant Other How many Children do You have: 2 Feels Safe at Home: Yes Safety Concerns: Feels Safe At This Time Assistive Devices: Cane and Walker Physical Exam Neurological Examination: Mental Status: Awake and alert. Oriented to person, place, and time. Fluency naming repetition and comprehension appear grossly intact. Affect remains appropriate. CN testing: I: Deferred II: Reports no changes in visual acuity III/IV/: No evidence of gaze preference, hippus, nystagmus or roving eye movements V: Facial sensation reportedly grossly intact to light touch bilaterally VII: Facial movements appear without evidence of asymmetry VIII: Hearing appears grossly intact to loud voice bilaterally IX/X: Palate is unable to be accurately visualized XI: Shoulder shrug appears symmetric/ grossly intact bilaterally XII: Tongue protrudes midline without evidence of biting Motor exam: Moves all extremities spontaneously & antigravilty Tone: Unable to accurately assess via telemedicine Sensory: Sensation is reportedly grossly intact throughout Coordination: No apparent evidence of dysmetria or dysdiadochokinesia Reflexes: Unable to accurately assess via telemedicine Gait: Deferred Results & Data Vital Signs (Past 12 Hours) Vital Signs Temp Pulse Pulse Resp BP BP BP 04/10/25 07:33 36.6 C 63 19 174/95 H 04/10/25 03:17 36.7 C 61 18 180/89 H 04/10/25 01:07 62 183/92 H 04/10/25 00:00 04/09/25 23:00 36.5 C 62 18 183/92 H Pulse Ox Pulse Ox O2 Del Method O2 Del Method 04/10/25 07:33 92 Room Air 04/10/25 03:17 93 Room Air 04/10/25 01:07 04/10/25 00:00 94 Room Air 04/09/25 23:00 95 Room Air Laboratory Results Abnormal lab results 04/09/25 04/09/25 04/09/25 Range/Units 15:35 15:42 21:10 Wells # (Auto) 0.69 H (0.11-0.59) K/uL POC Total CO2 23 L (24-31) mmol/L POC BUN 27 H (7-18) mg/dl BUN 28 H (6-23) mg/dl Creatinine 1.81 H (0.6-1.4) mg/dl POC Creatinine 1.8 H (0.6-1.3) mg/dl POC Glucose 103 H (70-99) mg/dl Hemoglobin A1c (4.5-5.6) % Lipase 84 H (11-82) U/L 04/10/25 04/10/25 Range/Units 06:29 07:26 Wells # (Auto) 0.83 H (0.11-0.59) K/uL POC Total CO2 (24-31) mmol/L POC BUN (7-18) mg/dl BUN (6-23) mg/dl Creatinine 1.57 H (0.6-1.4) mg/dl POC Creatinine (0.6-1.3) mg/dl POC Glucose 104 H (70-99) mg/dl Hemoglobin A1c 6.4 H (4.5-5.6) % Lipase (11-82) U/L Diagnostic Findings Chest X-Ray 04/09/25 15:33 Clinical History: Chest pain Technique: A frontal view of the chest was obtained Comparison is made to the prior examination dated 12/23/2024 Findings: There are no confluent pulmonary infiltrates. The heart is enlarged. No pleural effusion or pneumothorax is seen. There is suspected mild pulmonary edema No fracture is noted. No foreign body is seen Impression: Cardiomegaly and mild pulmonary edema ACT 112: Positive. There are findings on this exam that require communication between the performing entity and the patient following Patient Test Result Information Act ([place] ACT 112) guidelines. Electronically signed by Giovanni Parker 04-09-2025 5:47 PM Head CTA 04/09/25:33 Technique: Axial computed tomography images were obtained of the brain before and after the administration of intravenous contrast according to the CT angiogram protocol Findings: There is cerebral atrophy, within expected limits for the patient's age. Areas of decreased attenuation are seen within the periventricular white matter, likely representing chronic small vessel ischemic disease. There is no definite sign of acute or old infarction. No intracranial hemorrhage is evident. No definite mass lesion is seen. There is no midline shift or other form of herniation. No hydrocephalus is seen. No definite stenosis or aneurysm is seen of the anterior, middle, or posterior cerebral artery circulations. The basilar artery appears unremarkable Impression: No definite stenosis or aneurysm of the intracranial arteries Electronically signed by Giovanni Parker 04-09-2025 4:32 PM Neck CTA 04/09/25 15:33 Technique: Axial computed tomography images were obtained of the neck after the administration of intravenous contrast according to the CT angiogram protocol Comparison is made to the prior CTA dated 04/25/2022 Findings: No stenosis is seen of the common carotid arteries bilaterally. There is mild plaque in the left carotid bulb, without stenosis. The remainder of the internal carotid arteries appear patent bilaterally. No stenosis of the external carotid arteries is seen There is a mild stenosis of the distal left vertebral artery. There is a mild stenosis of the origin of the right vertebral artery. No definite vertebral artery stenosis is seen. 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 Impression: 1. No apparent stenosis of the carotid arteries 2. Mild stenosis of the distal left vertebral artery 3. Mild stenosis of the origin of the right vertebral artery Electronically signed by Giovanni Parker 04-09-2025 4:36 PM Brain MRI 04/09/25 18:49 Exam(s): MRI HEAD Without Contrast EXAM: MR Head Without Intravenous Contrast CLINICAL HISTORY: stroke like symptoms. TECHNIQUE: Magnetic resonance images of the head/brain without intravenous contrast in multiple planes. COMPARISON: MRI head 04/25/2022 FINDINGS: Brain: There are a few punctate areas of abnormal T2 signal in the deep cerebral white matter most consistent with mild small vessel ischemic/degenerative changes. The cerebral and cerebellar sulci are mildly prominent consistent with mild brain atrophy. Mildly progressive periventricular T2 FLAIR signal noted. Diffusion-weighted imaging is negative for acute or subacute infarct. No hemorrhage. Ventricles: Unremarkable. No ventriculomegaly. Bones/joints: Unremarkable. No acute fracture. Sinuses: Mucosal thickening involving the inferior right maxillary sinus. The remaining paranasal sinuses are well-aerated. No acute sinusitis. Mastoid air cells: Unremarkable as visualized. No mastoid effusion. Orbits: Unremarkable as visualized. IMPRESSION: No evidence of acute or subacute infarct. Mildly progressive chronic age-related findings, as noted above. Electronically signed by: Guille García MD 04/09/25 21:05 PM Medications Administered Home Medications Medication Instructions Recorded Confirmed Last Taken finasteride 5 mg tablet 5 mg PO QAM 04/25/22 04/09/25 04/09/25 labetalol 300 mg tablet 300 mg PO AMHS 04/25/22 04/09/25 04/09/25 08:00 rosuvastatin 20 mg tablet 20 mg PO QAM 04/25/22 04/09/25 04/09/25 aspirin 81 mg tablet,delayed 81 mg PO QAM #30 tabs 04/26/22 04/09/25 04/09/25 release cholecalciferol (vitamin D3) 25 25 mcg PO QAM 12/23/24 04/09/25 04/09/25 mcg (1,000 unit) tablet (Vitamin D3) folic acid 1 mg tablet 1 mg PO QAM 12/23/24 04/09/25 04/09/25 levothyroxine 150 mcg tablet 150 mcg PO DAILYBB 12/23/24 04/09/25 04/09/25 metformin 500 mg tablet,extended 500 mg PO QAM 12/23/24 04/09/25 04/09/25 release 24 hr semaglutide 0.25 mg or 0.5 mg (2 0.5 mg subcut WK 12/23/24 04/09/25 04/06/25 mg/3 mL) subcutaneous pen injector (OzNuevolution) solifenacin 10 mg tablet 10 mg PO QAM 12/23/24 04/09/25 04/09/25 vitamin B complex 1 tab PO QAM 12/23/24 04/09/25 04/09/25 amlodipine 5 mg tablet (Norvasc) 5 mg PO QAM #30 tabs 12/28/24 04/09/25 Unknown spironolactone 25 mg tablet 12.5 mg (1/2 x 25 mg) PO DAILY #30 12/28/24 04/09/25 04/09/25 tabs doxazosin 2 mg tablet 2 mg PO HS 04/09/25 04/09/25 04/09/25 furosemide 20 mg tablet 20 mg PO QAM 04/09/25 04/09/25 04/09/25 losartan 50 mg tablet 50 mg PO QAM 04/09/25 04/09/25 04/09/25 Active Medications Generic Name Dose Route Start Last Admin Trade Name Freq PRN Reason Stop Dose Admin Aspirin 81 mg 04/10/25 09:00 04/10/25 08:43 Aspirin 81 Mg Ectab PO 05/10/25 08:59 81 mg QAM PRIMO Administration Clopidogrel Bisulfate 75 mg 04/10/25 09:00 04/10/25 10:51 Clopidogrel Bisulfate 75 Mg Tab PO 05/10/25 08:59 75 mg QAM PRIMO Administration Doxazosin Mesylate 2 mg 04/09/25 21:00 04/09/25 21:31 Doxazosin Mesylate Tab 2 Mg Tab PO 05/09/25 20:59 2 mg HS PRIMO Administration Finasteride 5 mg 04/10/25 09:00 04/10/25 08:43 Finasteride 5 Mg Tab PO 05/10/25 08:59 5 mg QAM PRIMO Administration Folic Acid 1 mg 04/10/25 09:00 04/10/25 08:44 Folic Acid 1 Mg Tab PO 05/10/25 08:59 1 mg QAM PRIMO Administration Furosemide 20 mg 04/10/25 09:00 04/10/25 08:43 Furosemide 20 Mg Tab PO 05/10/25 08:59 20 mg QAM PRIMO Administration Insulin Aspart 0 units 04/09/25 21:00 04/10/25 08:42 Insulin Aspart Per Unit Charge SC 05/09/25 20:59 6 units ACHS PRIMO Administration Levothyroxine Sodium 150 mcg 04/10/25 06:30 04/10/25 06:21 Levothyroxine Sodium 150 Mcg Tablet PO 05/10/25 06:29 150 mcg DAILYBB PRIMO Administration Oxybutynin Chloride 10 mg 04/10/25 09:00 04/10/25 08:43 Oxybutynin Chloride Xl 5 Mg Tabcr PO 05/10/25 08:59 10 mg QAM PRIMO Administration Rosuvastatin Calcium 20 mg 04/10/25 09:00 04/10/25 08:44 Rosuvastatin Calcium 20 Mg Tab PO 05/10/25 08:59 20 mg QAM PRIMO Administration Spironolactone 12.5 mg 04/10/25 09:00 04/10/25 08:43 Spironolactone 12.5 Mg Tab PO 05/10/25 08:59 12.5 mg DAILY PRIMO Administration Vitamin B Complex 1 tab 04/10/25 09:00 04/10/25 08:44 Vitamin B Complex Tab PO 05/10/25 08:59 1 tab QAM PRIMO Administration Vitamin D 25 mcg 04/10/25 09:00 04/10/25 08:44 Cholecalciferol 25 Mcg (1000 Units) Tab PO 05/10/25 08:59 25 mcg QAM PRIMO Administration
[2025-04-10 11:02] VITALS: BP 143/93; RESP 20; TEMP 97.5; O2SAT 94
--- NOTE | 2025-04-10 11:48 | Electrocardiogram Report ---
Test Reason : Blood Pressure : */* mmHG Vent. Rate : 69 BPM Atrial Rate : 69 BPM P-R Int : 240 ms QRS Dur : 106 ms QT Int : 448 ms P-R-T Axes : 70 16 68 degrees QTcB Int : 480 ms Sinus rhythm with 1st degree A-V block Inferior infarct , age undetermined Abnormal ECG When compared with ECG of 23-Dec-2024 17:51, Nonspecific T wave abnormality, improved in Anterior leads Confirmed by Angelo Fried ([id number]) on 04/10/2025 11:46:10 AM Referred By: REFERRED SELF Confirmed By: Angelo Fried
--- NOTE | 2025-04-10 12:18 | Discharge Summary ---
Date of Service April 10, 2025 Admission HPI Per Admitting Provider This is an 80-year-old male who goes by the nickname "Rene", with PMHx of type 2 diabetes, hyperlipidemia, hypothyroidism, chronic heart failure with preserved ejection fraction, hypertension, stenosis of right vertebral artery, morbid obesity, BPH, urge incontinence, stress incontinence, dizziness, elevated LFTs who presents to the hospital with acute onset of weakness, slurred speech and word finding which was noticed by his significant other, Conchita, around 1:30 pm. He had just returned home from driving a car from visiting friends when he had difficulty getting out of the vehicle, had worsening weakness, and she noticed the changes in his speech. he states that this is completely resolved at this point in time. He did take all his normal scheduled medications this morning including blood pressure meds, diuretics, cholesterol medication. He notes that his blood pressure typically runs at a normal level of 120/90 at home. This elevation is completely new for him. He does admit to having numbness over both of his thighs bilaterally currently nonpainful. He denies changes in vision, headache, dizziness, strength discrepancy. Notes that he does issues with his right knee, more difficulty lifting right leg off the bed during exam which he states is not new. Due to issues with R knee, he uses a cane/walker with ambulation. CTA of the head and neck are negative. He has noted to believe he in hypertensive emergency with BP of about 220/118 throughout ER stay. He has not been given an antihypertensive medications. ER did not call teleneurology. he is already on baby aspirin, rosuvastatin 20 mg daily.. Will add p.o. dose of Plavix 75 mg now and administer IV labetalol 10 mg dose for hypertensive urgency. Admission Exam Per Admitting Provider General: awake, alert, no apparent distress, Elderly white male, oriented x 3, able to participate in conversation without any speech issues Head: Normocephalic, atraumatic ENT: PERRL, EOMI, no pharyngeal exudate, mucous membranes slightly dry Chest: Clear to auscultation, on room air, no adventitious breath sounds Cardiac: Regular rate and rhythm, no murmur, no JVD, normal peripheral pulses, good capillary refill Abdominal: NABS x 4 quadrants, soft, nondistended, nontender to palpation, no rebound or guarding Extremities: Normal inspection, no peripheral edema or erythema, calfs nontender to palpation Psych: Normal mood and affect Neuro: AAO x 3, strength intact bilaterally and rated 5/5 in upper extremities, right leg raise rated as a 4/5 compared to the left which is a 5/5, no other motor deficits, speech is clear, no peripheral sensory deficits. reported sensory deficit with numbness/tingling over bilateral thighs. Principal Diagnosis Stroke like symptoms Discharge Exam General: awake, alert, no apparent distress, Elderly white male, oriented x 3, able to participate in conversation without any speech issues Head: Normocephalic, atraumatic ENT: PERRL, EOMI, no pharyngeal exudate, mucous membranes slightly moist Chest: Clear to auscultation, on room air, no adventitious breath sounds Cardiac: Regular rate and rhythm, no murmur, no JVD, normal peripheral pulses, good capillary refill Abdominal: NABS x 4 quadrants, soft, nondistended, nontender to palpation, no rebound or guarding Extremities: Normal inspection, no peripheral edema or erythema, calfs nontender to palpation Psych: Normal mood and affect Neuro: AAO x 3, strength intact bilaterally and rated 5/5 in upper extremities, ble power 5/5, no motor deficits, speech is clear, no peripheral sensory deficits. Discharge Data Allergies Allergy/AdvReac Type Severity Reaction Status Date / Time No Known Allergies Allergy Verified 04/09/25 16:41 Consultations 04/09/25 18:30 ED Decision to Admit Stat 04/09/25 18:38 ED Decision to Admit Stat 04/09/25 20:41 Consult Neurology Routine Ordered Studies 04/09/25 15:33 CT angio head wo/w Stat CT angio neck with con Stat 04/09/25 18:49 MRI Brain [MR brain wo con] Stat Hospital Course (1) Stroke-like symptoms: (2) Hypertension: (3) Acute heart failure with preserved ejection fraction: (4) Type 2 diabetes mellitus: (5) BPH (benign prostatic hyperplasia): (6) Hypothyroidism: Plan Per prior attending w/ addendum: Stroke like symptoms - PCU for observation - Stroke order set completed, no indication for thrombolytic - CTA head and neck reviewed and is negative - MRI brain wo contrast ordered - Check echo with bubble study, last was done on 12/24/24 which had EF of 60-65%, moderate concentric LVH, aortic valve sclerosis moderate, grade I diastolic dysfunction. No bubble study was done at that time. - will continue baby aspirin and start plavix 75 mg daily - allow permissive hypertension with SBP 160-180 and DBP 90-110, give dose of labetalol 10 mg IV now as BP is 220/180. Then continue labetolol 10 mg IV Q6H prn with parameters to allow for permissive hypertension. - Consider neuro consult after MRI results - PT/OT and speech therapy consults placed, nursing instructed to do bedside swallow eval and if passed can have HH/DM diet this evening. Diabetes II -Hold metformin and Ozempic -Sliding scale with accuchecks - check HbA1c Hypothyroidism On Synthyroid Hyperlipidemia - cont rosuvastatin 20 for now, lipid panel pending BPH -On Proscar Hypertension/ Hypertensive urgency - Allow permissive htn for now - On amlodipine, labetalol and diuretics - IV labetalol prn for SBP > 220 and DBP >120 Morbid obesity Counseling, BMI 39.5 DVT ppx: teds, scds Lines: PIV x 1 FEN/GI: HH diet pending passes bedside swallow CODE: Full code Dispo: From home, likely to remain in the hospital x 1-2 days Addendum 04/10/2025: Patient was seen and examined at bedside as a follow-up of strokelike symptoms. Patient reports complete resolution of his speech issues and no further neurological signs and symptoms. Patient denies any focal weakness or numbness or tingling. Patient wants to go home "right now". Pt was advised he needs neuro eval and echo read pending which needs to happen before i can decide on dc, pt's SO was also at bedside. Also was made aware its better to stay overnight to make sure his BP gets controlled, but he denied. MRI and CT scan findings were discussed with the patient, made aware that no new acute events for noted in the finding. Case d/w neuro, ok w/ dc from their POV, recommends Crestor increase to 40 mg daily. Pt is being discharged w/ following instructions at the point of discharge: Follow-up with your primary care physician within a week time and likely you will need labs CBC/CMP/magnesium/phosphorus. Continue with Plavix for total of 21 days, avoid omeprazole while on Plavix. Continue with your home baby aspirin as prior. Follow-up with neurology in 1 to 2 weeks time upon discharge. Ideally I would keep you in observation in the hospital for 1 more night, since you insisted on going home, resume your blood pressure medications from tonight. If you have a very high blood pressure or headache or further neurological signs and symptoms of stroke, report to the hospital/emergency immediately. You will benefit from sleep study and Zio patch monitoring as an outpatient, coordinate with the PCP office to set up the test. Take your medications as prescribed. Please make sure that you are able to get your medications today by calling your pharmacy before you leave the hospital so that your treatment continuity is not broken. Home Health Attestation I certify that this patient is under my care and that I, or a physicians activity assistant working with me, had a face to-face encounter that meets the home health [id number] encounter requirements with this patient. The encounter with the patient was in whole, or in part, for the following medical condition, which is the primary reason for home health care (list medical condition): I certify that, based on my findings, the following services are medically necessary home health services: My clinical findings support the need for the above services because: Further, I certify that my clinical findings support that this patient is homebound (i.e. absences from home require considerable and taxing effort and are for medical reasons or [employer] services or infrequently or of short duration when for other reasons) because: Certification for Home Health Services: Based on the above findings, I certify that this patient is confined to the home and needs intermittent fpc care, physical therapy and/or speech therapy or continues to need occupational therapy. The patient is under my care, and I have initiated the establishment of the plan of care. This patient will be followed by a physician who will periodically review the plan of care. Total Time Total Time Spent Total Time Spent (In Minutes): 45 Discharge Plan Discharge Items Patient Disposition: Home - Self-Care Reason For Visit: STROKE LIKE SYMPTOMS Discharge Diagnosis: Stroke like symptoms Condition on Discharge: Fair Activity: Resume your previous activity Non-emergency contact: Primary Care Provider Call non-emergency contact if: you have any medication questions and your s ymptoms worsen Follow-up/Referrals: Cindy Serrano MD [Primary Care Provider] - Diet: Carb Consistent or DM2 and Heart Healthy Addtl Attending Provider Instructions: Follow-up with your primary care physician within a week time and likely you will need labs CBC/CMP/magnesium/phosphorus. Continue with Plavix for total of 21 days, avoid omeprazole while on Plavix. Continue with your home baby aspirin as prior. Follow-up with neurology in 1 to 2 weeks time upon discharge. Ideally I would keep you in observation in the hospital for 1 more night, since you insisted on going home, resume your blood pressure medications from [facility]. If you have a very high blood pressure or headache or further neurological signs and symptoms of stroke, report to the hospital/emergency immediately. You will benefit from sleep study and Zio patch monitoring as an outpatient, coordinate with the PCP office to set up the test. Take your medications as prescribed. Please make sure that you are able to get your medications today by calling your pharmacy before you leave the hospital so that your treatment continuity is not broken. Pending Studies at Discharge: No Stand-Alone Forms: [facility] [employer], Smoking Cessation Medications and DC Order Prescriptions: New clopidogrel 75 mg Tablet 75 mg PO QAM 20 Days Qty: 20 0RF rosuvastatin 40 mg tablet 40 mg PO DAILY Qty: 30 0RF Continued labetalol 300 mg tablet 300 mg PO AMHS finasteride 5 mg tablet 5 mg PO QAM aspirin 81 mg Tablet,Delayed Release (Dr/Ec) 81 mg PO QAM Qty: 30 0RF levothyroxine 150 mcg tablet 150 mcg PO DAILYBB folic acid 1 mg tablet 1 mg PO QAM metformin 500 mg tablet extended release 24 hr 500 mg PO QAM cholecalciferol (vitamin D3) [Vitamin D3] 25 mcg (1,000 unit) Tablet 25 mcg PO QAM solifenacin 10 mg tablet 10 mg PO QAM Ozempic 0.25 mg or 0.5 mg (2 mg/3 mL) pen injector 0.5 mg SUBCUT WK Rx Instructions: MONDAYS vitamin B complex Tablet 1 tab PO QAM amlodipine [Norvasc] 5 mg Tablet 5 mg PO QAM Qty: 30 0RF Rx Instructions: ON HOLD HOLD FOR NOW ONCE GET STARTED ON DOXAZOCIN. spironolactone 25 mg Tablet 12.5 mg PO DAILY Qty: 30 0RF losartan 50 mg tablet 50 mg PO QAM doxazosin 2 mg tablet 2 mg PO HS furosemide 20 mg tablet 20 mg PO QAM Rx Instructions: MAY TAKE EXTRA 20 MG DAILY NEEDED FOR MORE SWELLING. Discontinued rosuvastatin 20 mg tablet 20 mg PO QAM Discharge Orders: Discharge Order (Routine); Ordered 04/10/25 Ordered By: Maribel Weber/Other Patient Handouts: Managing Type 2 Diabetes Admission Data Admit Date/Time: 04/09/25 18:49 Attending Provider: Maribel Sargent Admit Provider: Cristian Rod Primary Care Provider: Cindy Serrano Other Providers: Cristian Rod; Danielle De Santiago; Edenilson Jackson; Danielle Aguirre; Roberth Navarro; Thony Tinoco; Ga Cope; Corby Rodriguez; Ignacia Rueda; Shashi Gibson; Hakan Cope; Isabelle Woodard; Shankar Sanchez; Kayley Reis; Lea Welch; Corby Sutton; Tiffany Berman
[2025-04-10] MEDS: STROKE PATIENT DISCHARGE STA (12:34)
[2025-04-10 13:00] VITALS: PULSE 70
--- NOTE | 2025-04-13 10:36 | Pharmacy Report ---
Pharmacist Stroke Counseling - Date of Service April 13, 2025 - Scope: Pharmacy has been consulted to provide medication discharge counseling for this patient admitted with stroke-like symptoms as per the Pharmacist Discharge Counseling for Stroke Patients Protocol. - Medications on Discharge: Home Medications Medication Instructions Recorded Confirmed finasteride 5 mg tablet 5 mg PO QAM 04/25/22 04/09/25 labetalol 300 mg tablet 300 mg PO AMHS 04/25/22 04/09/25 cholecalciferol (vitamin D3) 25 25 mcg PO QAM 12/23/24 04/09/25 mcg (1,000 unit) tablet (Vitamin D3) folic acid 1 mg tablet 1 mg PO QAM 12/23/24 04/09/25 levothyroxine 150 mcg tablet 150 mcg PO DAILYBB 12/23/24 04/09/25 metformin 500 mg tablet,extended 500 mg PO QAM 12/23/24 04/09/25 release 24 hr semaglutide 0.25 mg or 0.5 mg (2 0.5 mg subcut WK 12/23/24 04/09/25 mg/3 mL) subcutaneous pen injector ([facility]) solifenacin 10 mg tablet 10 mg PO QAM 12/23/24 04/09/25 vitamin B complex 1 tab PO QAM 12/23/24 04/09/25 doxazosin 2 mg tablet 2 mg PO HS 04/09/25 04/09/25 furosemide 20 mg tablet 20 mg PO QAM 04/09/25 04/09/25 losartan 50 mg tablet 50 mg PO QAM 04/09/25 04/09/25 New Rx's Medication Instructions Recorded aspirin 81 mg tablet,delayed 81 mg PO QAM #30 tabs 04/26/22 release amlodipine 5 mg tablet (Norvasc) 5 mg PO QAM #30 tabs 12/28/24 spironolactone 25 mg tablet 12.5 mg (1/2 x 25 mg) PO DAILY #30 12/28/24 tabs clopidogrel 75 mg tablet 75 mg PO QAM 20 days #20 tabs 04/10/25 rosuvastatin 40 mg tablet 40 mg PO DAILY #30 tabs 04/10/25 - Action: The above medications, specifically ones for stroke treatment/prophylaxis, have been reviewed in detail with the patient and/or patient pharmaceutical specialty representative(s) prior to discharge. This includes indication, common adverse reactions, drug interactions, and medication administration. Medication counseling has been employed using the teach-back method to ensure understanding. - Outcome: The patient and/or patient pharmaceutical specialty representative(s) have demonstrated understanding of the medications. Additional comments: * Spoke w/ patient and his girlfriend regarding medication changes/additions * Confirmed that medications were picked up from pharmacy * PCP appointment today Thank you for allowing pharmacy to be involved in the care of this patient. Please call [phone] with any additional questions
== END 2025-04-10 15:38 | disposition home or self-care (01) ==
LOC: ED 15:23 → 2S 15:23 → SUATTDRO 18:49 → 2S 19:46